=== PATIENT | female | born 1995 | race Caucasian/White ===

== ENCOUNTER 2024-04-20 12:20 | Emergency (ER) | payer OTHER, SELFPAY ==
[2024-04-20 12:21] VITALS: BP 153/109; PULSE 72; RESP 18; TEMP 35.6; O2SAT 100; BMI 45.7
[2024-04-20 12:55] LABS: Bacteria 0 SEEN /hpf (None Seen); Mucous, Urine 0 SEEN /hpf (<or=2+); Red Blood Cells-Urine 0 SEEN /hpf (0-5); White Blood Cells 0 SEEN /hpf (0-5)
[2024-04-20 13:00] LABS: Absolute Lymphocyte Count 2.23 X10^3/uL (0.83-4.51); Absolute Neutrophil Count 7.2 X10^3/uL (2.0-7.7); Basophil# 0.06 X10^3/uL; Basophil% 0.6 % (0-1); Eosinophil# 0.08 X10^3/uL; Eosinophils% 0.8 % (0-5); Hematocrit 42.3 % (37-47); Hemoglobin 14.2 g/dL (12.0-15.0); Lymphocyte # 2.23 X10^3/ul (0.83-4.51); Lymphocyte % 21.5 % (19-41); Mean Corp Hgb Conc 33.6 g/dL (32-36); Mean Corpuscular Hgb 29.8 pg (27.0-32.0); Mean Corpuscular Volume 88.7 fL (81-99); Mean Platelet Vol. 9.4 fl (6.2-12.0); Monocyte# 0.74 X10^3/uL; Monocyte% 7.1 % (0-10); NRBC Flagged by Analyzer 0 % (0-5); Neutrophil # 7.17 X10^3/uL (2.7-7.7); Neutrophil % 69.1 % (47-70); Platelet Count 307 K/mm3 (150-450); RBC Distribution Width SD 38.6 fl (35.1-43.9); Red Blood Count 4.77 M/mm3 (4.2-5.4); White Blood Count 10.4 K/mm3 (4.4-11.0)
[2024-04-20 13:02] LABS: Color, Urine Yellow (Yellow); Glucose, Dipstick Normal (Normal); Ketone-Dipstick Negative (Negative); Leukocyte Esterase-Dipstick Negative /ul (Negative); Nitrite-Dipstick Negative (Negative); Occult Blood-Urine 10 /ul (Negative); Protein-Dipstick Negative (Negative); Urine Bilirubin Dipstick Negative (Negative); Urine Clarity Clear (Clear); Urine Urobilinogen Normal (Normal)
[2024-04-20 13:10] LABS: Internal QC Validated? YES +Cl - CLEAR BKGD; Pregnancy, Urine Negative Negative; Record Kit Lot#,Urine Preg 869294; Squamous Epithelial Cells - UA 0-5 SEEN /hpf (5-10)
[2024-04-20 13:17] LABS: ALB/GLOB Ratio 0.7 RATIO (0.9-2.4); AST(SGOT) 12 U/L (15-37); Alanine Aminotransfer ALT/SGPT 23 U/L (13-56); Albumin, Serum 3.6 g/dL (3.2-5.0); Alkaline Phosphatase 105 U/L (45-117); Anion Gap 6 (5-15); BUN 9 mg/dL (7-18); BUN/Creat Ratio 10.1 RATIO (10-20); Calcium,Total 9.6 mg/dL (8.5-10.1); Chloride 103 mmol/L (98-107); Creatinine, Serum 0.89 mg/dL (0.55-1.02); EST Glomerular Filtration Rate 80 mL/min (>60); Est Glom Filt Rate - Afr Amer 96 mL/min (>60); Estimated Creatinine Clearance 116.25 ml/min; Glucose 106 mg/dL (74-106); Lipase 24 U/L (13-75); Potassium 4.1 mmol/L (3.5-5.1); Protein, Total 8.6 g/dL (6.4-8.2); Sodium Level 137 mmol/L (136-145)
--- NOTE | 2024-04-20 13:36 | CT_ITS ---
STUDY: CT ABDOMEN AND PELVIS WITH CONTRAST REASON FOR EXAM: Female, 28 years old. LLQ pain RADIATION DOSAGE (If Supplied By Facility): CTDIvol = ( 19.24 ) mGy, DLP = ( 1127.94 ) mGycm TECHNIQUE: Transaxial images were obtained from the dome of the diaphragm to the symphysis pubis without oral contrast. IV 100mL Isovue-370 was administered. Sagittal and coronal images were reconstructed. Individualized dose optimization techniques were used for this CT. COMPARISON: None. FINDINGS: The visualized lung bases are unremarkable. The visualized portions of the heart are within normal limits. Normal liver. Normal gallbladder and extrahepatic biliary system. Normal spleen. Normal pancreas. Normal bilateral adrenal glands. Normal right kidney. Normal left kidney. Normal visualized stomach. Normal small intestine. There are scattered colonic diverticula consistent with diverticulosis. The appendix is visualized and appears normal. Normal abdominal aorta. Normal inferior vena cava. Normal retroperitoneum. Normal urinary bladder. Normal abdominal wall. Normal osseous structures. CT/Abdomen/Pelvis W IV Cont ONLY IMPRESSION: Scattered sigmoid diverticulosis. Electronically Signed: Tino Crooks MD at 14:59 EDT ,
[2024-04-20] MEDS: Morphine 4 MG/ML Syringe IV (13:40)
[2024-04-20] MEDS: Metoclopramide 10 MG/2 ML Vial 5 MG IV (13:40)
[2024-04-20 14:20] VITALS: BP 112/87
[2024-04-20 15:32] VITALS: BP 112/87; PULSE 72; RESP 16; TEMP 36.6; O2SAT 99
--- NOTE | 2024-04-20 15:32 | EDS_ITS ---
HPI History of Present Illness Chief Complaint: Abd Pain Narrative Narrative: Patient is a 20-year-old female with past medical history anxiety, depression who presented to the emergency department with a chief complaint of abdominal pain nausea vomiting. Patient states that she has been sick for the past couple days with her symptoms. Patient denies any sick contacts. Patient denies any previous abdominal surgeries. She states that her pain is in the left side of her abdomen. [facility] Medical History Depression Anxiety Home Medications ?Medication ?Instructions ?Recorded ?Last Taken ?Type metoclopramide HCl 5 mg tablet 5 mg PO Q6H PRN nausea and 04/20/24 Unknown Rx vomiting 5 days #20 tabs Allergy/AdvReac Type Severity Reaction Status Date / Time No Known Allergies Allergy Verified 04/20/24 12:24 Family History no significant family his Social History Smoking Status: Current some day smoker tobacco type: e-cigarettes ROS ROS ED ROS Narrative Constitutional: Denies any fevers, chills, headaches, lightness, dizziness Abdomen: Complains of abdominal pain nausea vomiting diarrhea as noted above : Denies any pain phonation, hematuria, labia Neurological: Denies numbness, weakness, tingling Musculoskeletal: Denies back pain Skin: Denies rashes or lesions EXAM Physical Exam Narrative Exam Narrative: General: Patient lying in bed rest comfortably did not appear to be in acute distress Head: Atraumatic, normocephalic Eyes: PERRL bilaterally, EOMI bilateral, no conjunctival injection noted Neck: Soft, supple, trachea midline Cardiovascular: Regular rate and rhythm no murmurs gallops rubs noted Respiratory: Clear to auscultation bilaterally Abdomen: Soft, nondistended, tender to palpation diffusely throughout their abdomen no rebound or guarding on exam Extremities: +5/5 strength noted in the bilateral lower extremities Neurological: Patient following commands knew that she was at [facility] years 2023 Skin: Warm, dry, intact Const Vital Signs: 04/20/24 12:21 04/20/24 14:20 Temperature 96.1 F L Temperature Source Temporal Pulse Rate 72 Respiratory Rate 18 Blood Pressure 153/109 H 112/87 H Blood Pressure Mean 123 95 Pulse Ox 100 Oxygen Delivery Method Room Air MDM MDM MDM Narrative Medical decision making narrative: Patient is a 20-year-old female who presented to the emergency department chief complaint of abdominal pain nausea vomiting diarrhea. Patient will have a workup performed here on the differential diagnose includes but not limited to viral gastroenteritis, appendicitis, pancreatitis, diverticulitis. Once workup is obtained reviewed she will be reevaluated. Patient be given morphine and Zofran. Patient CBC reviewed and was largely unremarkable no evidence of leukocytosis wh ite blood count normal at 10.4, hemoglobin stable 14.2, platelet count normal at 307. Patient sodium was normal at 137, potassium normal at 4.1, creatinine normal at 0.89. Patient's AST and ALT were 12 and 23 respectively. Patient's urinalysis did not reveal any evidence of infection and test was negative. Patient CT abdomen pelvis with IV contrast showed scattered sigmoid diverticulosis. On reevaluation the patient she is feeling much better and she would like to go at this point time. She is advised to follow-up with her primary care physician outpatient setting and return with worsening symptoms or concerns. Patient is requesting a new antiemetic be sent to her pharmacy as the Zofran was not helping her at home. She was advised to increase her fiber intake and water in take. She is advised to start with a bland diet and advance as tolerated. All question concerns were answered at bedside. Lab Data Labs: Laboratory Results - last 24 hr 04/20/24 12:35 WBC 10.4 RBC 4.77 Hgb 14.2 Hct 42.3 MCV 88.7 MCH 29.8 MCHC 33.6 RDW Std Deviation 38.6 RDW Coeff of Luis Miguel 12.0 Plt Count 307 MPV 9.4 Immature Gran % (Auto) 0.900 Neut % (Auto) 69.1 Lymph % (Auto) 21.5 [place] % (Auto) 7.1 Eos % (Auto) 0.8 Baso % (Auto) 0.6 Absolute Neuts (auto) 7.2 Absolute Lymphs (auto) 2.23 Nucleated RBC % 0 Sodium 137 Potassium 4.1 Chloride 103 Carbon Dioxide 28.0 Anion Gap 6 BUN 9 Creatinine 0.89 Estim Creat Clear Calc 116.25 Est GFR (MDRD) Af Amer 96 Est GFR (MDRD) Non-Af 80 BUN/Creatinine Ratio 10.1 Glucose 106 Calcium 9.6 Total Bilirubin 0.70 AST 12 L ALT 23 Alkaline Phosphatase 105 Total Protein 8.6 H Albumin 3.6 Globulin 5.0 H Albumin/Globulin Ratio 0.7 L Lipase 24 Urine Color Yellow Urine Clarity Clear Urine pH 7.0 Ur Specific [place] 1.010 Urine Protein Negative Urine Glucose (UA) Normal Urine Ketones Negative Urine Occult Blood 10 H Urine Nitrite Negative Urine Bilirubin Negative Urine Urobilinogen Normal Ur Leukocyte Esterase Negative Urine RBC 0 SEEN Urine WBC 0 SEEN Ur Squamous Epith Cells 0-5 SEEN Urine Bacteria 0 SEEN Urine Mucus 0 SEEN Urine Test Negative Radiography Diagnostic Testing: Clinical Impression(s) from Imaging Studies Abdomen/Pelvis CT 04/20/24 13:36 IMPRESSION: Scattered sigmoid diverticulosis. Electronically Signed: Tino Crooks MD at 14:59 EDT , Discharge Plan Triage Chief Complaint: Abd Pain ED Provider: Javy Tai Dx/Rx/DC Orders Clinical Impression: Viral gastritis, Abdominal pain Prescriptions: New metoclopramide HCl 5 mg tablet 5 mg PO Q6H PRN (Reason: nausea and vomiting) 5 Days Qty: 20 0RF Primary Care Provider: Kate Sarabia NP Referrals: Kate Sarabia NP, [employer] [Primary Care Provider] - Activity Restrictions/Additional Instructions: Follow-up with your primary care physician outpatient setting. Return with worsening symptoms or concerns. Start with a bland diet and advance as tolerated. Use the antinausea medication though sent to your pharmacy as needed. Increase fiber intake as discussed here. Print Language: Tanzanian Disposition Disposition: Home, Self Care
== END 2024-04-20 15:41 | disposition home or self-care (01) ==
PROVIDERS: Emergency Provider Emergency Medicine; PCP Nurse Practitioner Family; Visit Provider Emergency Medicine
DX: A08.4 Viral intestinal infection, unspecified (principal); F41.9 Anxiety disorder, unspecified; K57.30 Diverticulosis of large intestine without perforation or abscess without bleeding; F17.290 Nicotine dependence, other tobacco product, uncomplicated; F32.A Depression, unspecified
CPT/HCPCS: 74177; 80053; 81001; 81025; 83690; 85025; 87631; 87651; 96374; 96375; 99282; Q9967; A4216

== ENCOUNTER 2024-06-29 17:59 | Emergency (ER) | payer OTHER, SELFPAY ==
[2024-06-29 18:00] VITALS: BP 121/83; PULSE 70; RESP 16; TEMP 36.3; O2SAT 100; BMI 44.1
--- NOTE | 2024-06-29 18:22 | EDS_ITS ---
HPI <ANA Leal - Last Filed: 06/29/24 20:13> History of Present Illness Chief Complaint: Hypertension Narrative Narrative: Patient is a 28-year-old female with history of anxiety who presents to the emergency department for palpitations, feeling of dizziness, anxiety. Patient states of the last 2 days, she has been feeling hot and cold, she been having intermittent palpitations. She states she has been worked up for this. Patient states today at work, she fell like she was going to pass out, she felt very anxious and had the nurses at the facility take her blood pressure, the blood pressure was 155/111, they continue to go up. Patient denies any recent cough or congestion. Here for evaluation. PFSH <ANA Leal - Last Filed: 06/29/24 20:13> [facility] Medical History Depression Anxiety Home Medications ?Medication ?Instructions ?Recorded ?Last Taken ?Type norethindrone (contraceptive) 0.35 0.35 mg PO DAILY 06/29/24 Unknown History mg tablet (Incassia) Allergy/AdvReac Type Severity Reaction Status Date / Time amoxicillin Allergy Mild Vomiting Verified 06/29/24 18:06 azithromycin (From Zithromax Allergy Mild Hives Verified 06/29/24 18:06 Z-Jovanny) Penicillins (PCN) Allergy Mild Hives Verified 06/29/24 18:06 Family History no significant family his Social History Smoking Status: Current some day smoker tobacco type: e-cigarettes ROS <ANA Leal - Last Filed: 06/29/24 20:13> ROS ED ROS Narrative Constitutional: Negative for fever, chills, weight loss. Positive weakness Eyes: Negative for vision loss, vision change, double vision ENT: Negative for any sore throat, ear pain, congestion Cardiovascular: Negative for any chest pain.positive for chest tightness, palpitations Respiratory: Negative for any cough, sputum production, hemoptysis, dyspnea, dyspnea on exertion, orthopnea Gastrointestinal: Negative for any abdominal pain, nausea, vomiting, diarrhea, constipation, blood in stool, blood in vomit : Negative for any urinary frequency, dysuria, retention, blood in urine Muscle skeletal: Negative for any neck pain, back pain Neurological: Negative for any headache, syncope. Positive for dizziness Skin: Negative for any rashes, itching, abrasions, lacerations Psychiatric: Negative for any depression, anxiety, stress, suicidal ideation, homicidal ideation Hematologic: Negative for any excessive bruising, easy bleeding EXAM <ANA Leal - Last Filed: 06/29/24 20:13> Physical Exam Narrative Exam Narrative: Vital signs reviewed. Patient's vital signs are stable, patient is slightly tearful. HEET: Head normocephalic atraumatic, TMs clear bilaterally. Posterior pharynx is clear, moist mucous membranes. Nares clear bilaterally. Neck: Supple with no lymphadenopathy or tenderness. No signs of meningismus. Cardiac: Regular rate and rhythm no murmurs gallops or rubs, equal peripheral pulses bilaterally. Respiratory: Lungs clear to auscultation bilaterally. No chest tenderness. Abdomen: Soft, nontender, nondistended. No abdominal bruit or pulsatile masses. No hepatosplenomegaly Extremities: No peripheral edema, no signs of gross trauma or deformity. Active full range of motion of all extremities. Neuro: Cranial nerves II through XII intact, no focal neurological deficits. Skin: Clean dry and intact with no rash, purpura, petechiae, vesicles or pustules. Backs/flank: No CVA tenderness, no midline spinal tenderness, no deformity. Psych: Normal mood and affect. No SI, HI or acute psychosis. Const Vital Signs: 06/29/24 18:00 06/29/24 18:46 06/29/24 20:00 Temperature 97.4 F L Temperature Source Temporal Pulse Rate 70 77 Respiratory Rate 16 18 Respiratory Effort Normal Non-Labored Respiratory Pattern Normal Blood Pressure 121/83 H 124/86 H Blood Pressure Mean 95 98 Pulse Ox 100 99 Oxygen Delivery Method Room Air <Dr. Bernardo Wong MD - Last Filed: 06/29/24 21:35> Physical Exam Const Vital Signs: 06/29/24 18:00 06/29/24 18:46 06/29/24 20:00 Temperature 97.4 F L Temperature Source Temporal Pulse Rate 70 77 Respiratory Rate 16 18 Respiratory Effort Normal Non-Labored Respiratory Pattern Normal Blood Pressure 121/83 H 124/86 H Blood Pressure Mean 95 98 Pulse Ox 100 99 Oxygen Delivery Method Room Air MDM <Saji Grider ANA - Last Filed: 06/29/24 20:13> [facility] Lab Data Labs: Laboratory Results - last 24 hr 06/29/24 06/29/24 19:35 20:53 WBC 11.2 H RBC 4.60 Hgb 13.9 Hct 40.8 MCV 88.7 MCH 30.2 MCHC 34.1 RDW Std Deviation 39.3 RDW Coeff of Luis Miguel 12.1 Plt Count 283 MPV 9.2 Immature Gran % (Auto) 0.500 Neut % (Auto) 76.6 H Lymph % (Auto) 17.9 L [place] % (Auto) 4.4 Eos % (Auto) 0.3 Baso % (Auto) 0.3 Absolute Neuts (auto) 8.6 H Absolute Lymphs (auto) 2.01 Nucleated RBC % 0 Sodium 138 Potassium 3.8 Chloride 107 Carbon Dioxide 27.0 Anion Gap 4 L BUN 7 Creatinine 0.66 Estim Creat Clear Calc 153.49 Est GFR (MDRD) Af Amer 136 Est GFR (MDRD) Non-Af 112 BUN/Creatinine Ratio 10.6 Glucose 98 Calcium 9.4 Urine Color Yellow Urine Clarity Clear Urine pH 6.5 Ur Specific [place] 1.005 Urine Protein Negative Urine Glucose (UA) Normal Urine Ketones Negative Urine Occult Blood 50 H Urine Nitrite Negative Urine Bilirubin Negative Urine Urobilinogen Normal Ur Leukocyte Esterase Negative Urine RBC 0-5 SEEN Urine WBC 0 SEEN Ur Squamous Epith Cells 0-5 SEEN Urine Bacteria 0 SEEN Urine Mucus 0 SEEN Urine Test Negative EKG Sinus rhythm: Attestation: I personally reviewed and interpreted this EKG as follows: Comments: Normal sinus rhythm with sinus arrhythmia, rate of 65 bpm WI 148 ms, QRS duration [address] elevation, no acute infarct noted. Treatment and Re-Evaluation :: Differential diagnosis includes however is not limited to: Anxiety, ACS, POTS, episodic hypertension Patient appears generally well, vital signs are stable, patient is nontoxic- appearing. Presenting to the emergency department for complaints of feeling faint, chest pressure, palpitations. Patient is here for evaluation. Patient will receive 1 mg of oral Ativan. On reevaluation,The patient had minimal improvement. Patient's CBC shows slight leukocytosis white blood count 1.2, chemistries were unremarkable. At this time, patient is stable for discharge. Patient instructed to follow-up outpatient. All questions answered, stable for discharge. <Dr. Bernardo Wong MD - Last Filed: 06/29/24 21:35> [facility] MDM Narrative Medical decision making narrative: I have personally performed a face to face assessment of the patient and have reviewed the LEOBARDO Note. I performed a substantive portion of the visit including all aspects of the following. My olivares findings include: History is 28-year-old female history of anxiety. States has been having palpitations. Says her blood pressures have been labile at times are 128 oh times or higher. She denies any vomiting or diarrhea. No fever. No dysuria. She was seen 2 months ago had a significant workup and her blood work was unremarkable. She has no cardiac history. No history of DVT or PE. No significant risk factors for that. No leg pain or swelling. Exam is [well-appearing 28-year-old female anxious. Significant other at [facility]. H EENT exam unremarkable. Neck nontender. No JVD. No lymphadenopathy. Lungs clear to auscultation bilaterally. Heart regular rate and rhythm rate about 70 no murmur. Chest wall ribs nontender. Abdomen soft nontender. Normal bowel sounds without peritoneal signs. Moving all 4 extremities. 5/5 music engineer strength. Dorsi plantarflexion intact. Calves are nontender without edema or cords. Back nontender. Neurologically she is awake alert no focal motor deficits.] Medical Decision Making [Young female with a multitude of symptoms all could be secondary to anxiety. She is a completely normal exam. She had recent blood work that was unremarkable. Very give her a dose of Ativan and reassess her. We Argun obtain an EKG.] Other additions or changes: [Prior to discharge patient noticed her white count was just barely above normal. She was concerned she might have a UTI and asked if we would check a UA. UA was negative. As was urine test. Repeat exam at 9:30 PM patient is awake alert. Exam is unchanged. Her vital signs are stable. Lungs are clear. Heart regular rhythm rate about 75. Abdomen is nontender. I think this is all secondary to anxiety. She will follow-up with her primary care physician.] History & Record Review Discussion w/independent historian: Patient and Family Additional record(s) reviewed:: Prior inpatient record, Prior outpatient record, Prior ED visit and Prior labs Lab Data Attestation: I reviewed the patient's lab results. Lab results narrative: CBC shows white count 11.2. H&H 13.9 and 40. Platelets 283. Electrolytes unremarkable. Gap 4. Normal BUN of 7 creatinine 0.6. Glucose 98. UA negative. Urine test negative. Labs: Laboratory Results - last 24 hr 06/29/24 06/29/24 19:35 20:53 WBC 11.2 H RBC 4.60 Hgb 13.9 Hct 40.8 MCV 88.7 MCH 30.2 MCHC 34.1 RDW Std Deviation 39.3 RDW Coeff of Luis Miguel 12.1 Plt Count 283 MPV 9.2 Immature Gran % (Auto) 0.500 Neut % (Auto) 76.6 H Lymph % (Auto) 17.9 L [place] % (Auto) 4.4 Eos % (Auto) 0.3 Baso % (Auto) 0.3 Absolute Neuts (auto) 8.6 H Absolute Lymphs (auto) 2.01 Nucleated RBC % 0 Sodium 138 Potassium 3.8 Chloride 107 Carbon Dioxide 27.0 Anion Gap 4 L BUN 7 Creatinine 0.66 Estim Creat Clear Calc 153.49 Est GFR (MDRD) Af Amer 136 Est GFR (MDRD) Non-Af 112 BUN/Creatinine Ratio 10.6 Glucose 98 Calcium 9.4 Urine Color Yellow Urine Clarity Clear Urine pH 6.5 Ur Specific [place] 1.005 Urine Protein Negative Urine Glucose (UA) Normal Urine Ketones Negative Urine Occult Blood 50 H Urine Nitrite Negative Urine Bilirubin Negative Urine Urobilinogen Normal Ur Leukocyte Esterase Negative Urine RBC 0-5 SEEN Urine WBC 0 SEEN Ur Squamous Epith Cells 0-5 SEEN Urine Bacteria 0 SEEN Urine Mucus 0 SEEN Urine Test Negative Discharge Plan Triage Chief Complaint: Hypertension ED Midlevel Provider: Saji Grider ED Provider: Bernardo Wong Dx/Rx/DC Orders Clinical Impression: Anxiety Instructions: ED Anxiety Reaction Prescriptions: No Action norethindrone (contraceptive) [Incassia] 0.35 mg tablet 0.35 mg PO DAILY Primary Care Provider: Kate Sarabia NP Referrals: Kate Sarabia NP, [employer] [Primary Care Provider] - 3-5 Days if not improving Activity Restrictions/Additional Instructions: Follow-up with your primary care provider as needed. Print Language: Guamanian Disposition Disposition: Home, Self Care
[2024-06-29] MEDS: LORazepam 1 MG Tablet PO (18:44)
--- NOTE | 2024-06-29 18:44 | EKG12_ITS ---
Test Reason : DYSRHYTHMIA Blood Pressure : */* mmHG Vent. Rate : 65 BPM Atrial Rate : 65 BPM P-R Int : 148 ms QRS Dur : 82 ms QT Int : 394 ms P-R-T Axes : 38 41 15 degrees QTcB Int : 409 ms Normal sinus rhythm with sinus arrhythmia Normal ECG No previous ECGs available Confirmed by JA ORELLANA, HEENA ([id number]), field map editor CHANTAL NOVA ([id number]) on 07/03/2024 8:38:07 AM Referred By: Confirmed By: HEENA RCOHA MD
[2024-06-29 19:43] LABS: Absolute Lymphocyte Count 2.01 X10^3/uL (0.83-4.51); Absolute Neutrophil Count 8.6 X10^3/uL (2.0-7.7); Basophil# 0.03 X10^3/uL; Basophil% 0.3 % (0-1); Eosinophil# 0.03 X10^3/uL; Eosinophils% 0.3 % (0-5); Hematocrit 40.8 % (37-47); Hemoglobin 13.9 g/dL (12.0-15.0); Lymphocyte # 2.01 X10^3/ul (0.83-4.51); Lymphocyte % 17.9 % (19-41); Mean Corp Hgb Conc 34.1 g/dL (32-36); Mean Corpuscular Hgb 30.2 pg (27.0-32.0); Mean Corpuscular Volume 88.7 fL (81-99); Mean Platelet Vol. 9.2 fl (6.2-12.0); Monocyte# 0.49 X10^3/uL; Monocyte% 4.4 % (0-10); NRBC Flagged by Analyzer 0 % (0-5); Neutrophil # 8.62 X10^3/uL (2.7-7.7); Neutrophil % 76.6 % (47-70); Platelet Count 283 K/mm3 (150-450); RBC Distribution Width CV 12.1 % (11.6-14.6); RBC Distribution Width SD 39.3 fl (35.1-43.9); White Blood Count 11.2 K/mm3 (4.4-11.0)
[2024-06-29] MEDS: Ketorolac 15 MG/ML Vial IV (19:53)
[2024-06-29] MEDS: 0.9% Normal Saline (1000mL) 1,000 ML 999 ML IV (19:53)
[2024-06-29 19:56] LABS: Anion Gap 4 (5-15); BUN 7 mg/dL (7-18); BUN/Creat Ratio 10.6 RATIO (10-20); Calcium,Total 9.4 mg/dL (8.5-10.1); Chloride 107 mmol/L (98-107); Creatinine, Serum 0.66 mg/dL (0.55-1.02); EST Glomerular Filtration Rate 112 mL/min (>60); Est Glom Filt Rate - Afr Amer 136 mL/min (>60); Estimated Creatinine Clearance 153.49 ml/min; Glucose 98 mg/dL (74-106); Potassium 3.8 mmol/L (3.5-5.1); Sodium Level 138 mmol/L (136-145)
[2024-06-29 20:00] VITALS: BP 124/86; PULSE 77; RESP 18; O2SAT 99
[2024-06-29 21:16] LABS: Bacteria 0 SEEN /hpf (None Seen); Mucous, Urine 0 SEEN /hpf (<or=2+); White Blood Cells 0 SEEN /hpf (0-5)
[2024-06-29 21:18] LABS: Color, Urine Yellow (Yellow); Glucose, Dipstick Normal (Normal); Ketone-Dipstick Negative (Negative); Leukocyte Esterase-Dipstick Negative /ul (Negative); Nitrite-Dipstick Negative (Negative); Occult Blood-Urine 50 /ul (Negative); Protein-Dipstick Negative (Negative); Specific Gravity, Urine 1.005 (1.002-1.030); Urine Bilirubin Dipstick Negative (Negative); Urine Clarity Clear (Clear); Urine Urobilinogen Normal (Normal); Urine pH 6.5 (5.0 - 8.0)
[2024-06-29 21:27] LABS: Internal QC Validated? YES +Cl - CLEAR BKGD; Pregnancy, Urine Negative Negative; Red Blood Cells-Urine 0-5 SEEN /hpf (0-5); Squamous Epithelial Cells - UA 0-5 SEEN /hpf (5-10)
[2024-06-29 21:42] VITALS: BP 126/78; PULSE 79; RESP 16; TEMP 37; O2SAT 100
== END 2024-06-29 21:43 | disposition home or self-care (01) ==
PROVIDERS: Nurse Practitioner; Emergency Provider Emergency Medicine; PCP Nurse Practitioner Family; Visit Provider Emergency Medicine
DX: F41.9 Anxiety disorder, unspecified (principal); I10 Essential (primary) hypertension; R00.2 Palpitations; F17.290 Nicotine dependence, other tobacco product, uncomplicated
CPT/HCPCS: 80048; 81001; 81025; 85025; 93005; 96361; 96374; 99283; A4216

== ENCOUNTER 2025-01-24 05:36 | Emergency (ER) | payer OTHER, SELFPAY ==
[2025-01-24 05:37] VITALS: BP 126/76; PULSE 86; RESP 16; TEMP 36.6; O2SAT 100; BMI 47.3
--- NOTE | 2025-01-24 06:14 | US_ITS ---
PROCEDURE: TRANSVAGINAL NON- 01/24/2025 REASON FOR EXAM: PELVIC PAIN Recent ectopic treated with methotrexate. TECHNIQUE: TRANSVAGINAL NON- COMPARISON: None FINDINGS: Measurements: Uterus: 9.4 cm x 5.1 cm x 3.8 cm with a volume of 93.75 mL Endometrial Thickness: 5.4 mm. It is trilaminar in appearance. Right Ovary: 3.2 cm x 2.7 cm x 2.1 cm with a volume of 9.14 mL. Left Ovary: 2.7 cm x 2.1 cm x 1.9 cm with a volume of 5.59 mL. Uterus: There is a 1.7 cm x 1.9 cm x 1.4 cm fibroid in the region of the left cornua. Endometrium: Unremarkable. Right ovary: Normal size and echotexture. Left ovary: Normal size and echotexture. Other: There is a 1.3 cm by 1.2 cm complex density superior to the left ovary. This may represent the area of prior ectopic. HCG correlation recommended. US/Transvaginal Non- IMPRESSION: 1.3 cm x 1.2 cm complex density superior to the left ovary. Correlation with H CG recommended for further evaluation. Reading Location: [facility]-
--- NOTE | 2025-01-24 06:14 | US_ITS ---
PROCEDURE: TRANSVAGINAL NON- 01/24/2025 REASON FOR EXAM: PELVIC PAIN Recent ectopic treated with methotrexate. TECHNIQUE: TRANSVAGINAL NON- COMPARISON: None FINDINGS: Measurements: Uterus: 9.4 cm x 5.1 cm x 3.8 cm with a volume of 93.75 mL Endometrial Thickness: 5.4 mm. It is trilaminar in appearance. Right Ovary: 3.2 cm x 2.7 cm x 2.1 cm with a volume of 9.14 mL. Left Ovary: 2.7 cm x 2.1 cm x 1.9 cm with a volume of 5.59 mL. Uterus: There is a 1.7 cm x 1.9 cm x 1.4 cm fibroid in the region of the left cornua. Endometrium: Unremarkable. Right ovary: Normal size and echotexture. Left ovary: Normal size and echotexture. Other: There is a 1.3 cm by 1.2 cm complex density superior to the left ovary. This may represent the area of prior ectopic. HCG correlation recommended. US/Transvaginal Non- IMPRESSION: 1.3 cm x 1.2 cm complex density superior to the left ovary. Correlation with H CG recommended for further evaluation. Reading Location: [facility]
[2025-01-24 06:19] LABS: Mucous, Urine 0 SEEN /hpf (<or=2+); Red Blood Cells-Urine 0 SEEN /hpf (0-5)
[2025-01-24 06:21] LABS: Hematocrit 38.0 % (37-47); Hemoglobin 13.1 g/dL (12.0-15.0); Immature Granulocytes Count 0.120 X10^3/uL (0.0-0.0); Mean Corp Hgb Conc 34.5 g/dL (32-36); Mean Corpuscular Volume 89.4 fL (81-99); Mean Platelet Vol. 9.3 fl (6.2-12.0); NRBC Flagged by Analyzer 0 % (0-5); Platelet Count 313 K/mm3 (150-450); RBC Distribution Width CV 12.3 % (11.6-14.6); RBC Distribution Width SD 39.8 fl (35.1-43.9); Red Blood Count 4.25 M/mm3 (4.2-5.4); White Blood Count 10.3 K/mm3 (4.4-11.0)
[2025-01-24 06:25] LABS: Color, Urine Yellow (Yellow); Glucose, Dipstick Normal (Normal); Ketone-Dipstick Negative (Negative); Leukocyte Esterase-Dipstick Negative /ul (Negative); Nitrite-Dipstick Negative (Negative); Occult Blood-Urine 50 /ul (Negative); Protein-Dipstick Negative (Negative); Specific Gravity, Urine 1.015 (1.002-1.030); Urine Bilirubin Dipstick Negative (Negative)
--- OUTSIDE RECORDS SUMMARY | 2025-01-24 06:25 | XMS RPT_ITS | CCD ---
Author Organization [facility] Care Team Providers Care Swage Toolsetter Name Role Phone RICARDO BELTRAN Attending Unavailable SREEKUMAR, KIRBY Primary Care Unavailable RICARDO BELTRAN Attending Unavailable SREEKUMAR, KIRBY Primary Care Unavailable Trill TRIMMING OPERATOR.Eddie ARRIAGA Primary Care Provider Trill TRIMMING OPERATOR.Eddie ARRIAGA Primary Care Provider Trill TRIMMING OPERATOR.Eddie ARRIAGA Primary Care Provider Trill TRIMMING OPERATOR.Eddie ARRIAGA Primary Care Provider Bernardo Wong Attending Unavailable Trill BEEF BONER, Eddie Primary Care Unavailable Javy Tai Attending Unavailable Trill BEEF BONER, Eddie Primary Care Unavailable JESS THAYER Referring Unavailable TRILL, EDDIE C Primary Care Unavailable MARKUS OROE Referring Unavailable TRILL, EDDIE C Primary Care Unavailable KATHERINE ORO Admitting Unavailable KATHERINE ORO Attending Unavailable TRILL, EDDIE C Primary Care Unavailable LEATHA RODRIGUEZ Admitting Unavailable LEATHA RODRIGUEZ Attending Unavailable TRILL, EDDIE C Primary Care Unavailable TRILL, EDDIE C Primary Care Unavailable TRILL, EDDIE C Primary Care Unavailable TRILL, EDDIE C Primary Care Unavailable TRILL, EDDIE C Primary Care Unavailable MARKUS OROE Attending Unavailable PREETHI KATHERINE Referring Unavailable TRILL, EDDIE C Primary Care Unavailable TRILL, EDDIE C Primary Care Unavailable TRILL, EDDIE C Primary Care Unavailable LEATHA RODRIGUEZ Attending Unavailable TRILL, EDDIE C Primary Care Unavailable TRILL, EDDIE C Primary Care Unavailable KEKE PABLO Attending Unavailable TRILL, EDDIE C Referring Unavailable RUBY WILSON Attending Unavail able TRILL, EDDIE C Primary Care Unavailable TRILL, EDDIE C Primary Care Unavailable JESS THAYER Attending Unavailable TRILL, EDDIE C Referring Unavailable TRILL, EDDIE C Primary Care Unavailable TRILL, EDDIE C Primary Care Unavailable TRILL, EDDIE C Primary Care Unavailable Unavailable Primary Care Provider Unavailabl e TRILL, EDDIE C Primary Care Unavailable TRILL, EDDIE C Referring Unavailable HORATTAMARCUS Nickerson Attending Unavailable TRILL, EDDIE C Primary Care Unavailable TRILL, EDDIE C Primary Care Unavailable NICHOLEATTAPASCUAL NickersonNI Attending Unavailable TRILL, EDDIE C Attending Unavailable TRILL, EDDIE C Primary Care Unavailable TRILL, EDDIE C Primary Care Unavailable TRILL, EDDIE C Attending Unavailable TRILL, EDDIE C Referring Unavailable TRILL, EDDIE C Primary Care Unavailable TRILL, EDDIE C Primary Care Unavailable KATHERINE ORO Referring Unavailable TRILL, EDDIE C Referring Unavailable TRILL, EDDIE C Primary Care Unavailable TRILL, EDDIE C Primary Care Unavailable TRILL, EDDIE C Referring Unavailable TRILL, EDDIE C Attending Unavailable TRILL, EDDIE C Primary Care Unavailable TRILL, EDDIE C Referring Unavailable TRILL, EDIDE C Primary Care Unavailable TRILL, EDDIE C Referring Unavailable QUEDEN, KATIANA A Attending Unavailable TRILL, EDDIE C Primary Care Unavailable TRILL, EDDIE C Primary Care Unavailable TRILL, EDDIE C Primary Care Unavailable SELF Referring Unavailable QUEDEN, KATIANA A Attending Unavailable TRILL, EDDIE C Primary Care Unavailable QUEDEN, KATIANA A Referring Unavailable RAJI, ROSEMARIE M Admitting Unavailable RAJI, ROSEMARIE M Attending Unavailable TRILL, EDDIE C Primary Care Unavailable TRILL, EDDIE C Referring Unavailable TRILL, EDDIE C Primary Care Unavailable TRILL, EDDIE C Primary Care Unavailable TRILL, EDDIE C Referring Unavailable TRILL, EDDIE C Primary Care Unavailable MARKUS OROE Referring Unavailable TRILL, EDDIE C Primary Care Unavailable TRILL, EDDIE C Attending Unavailable KOSTAS HOPKINS Referring Unavailable KOSTAS HOPKINS Attending Unavailable KOSTAS HOPKINS Referring Unavailable KOSTAS HOPKINS Attending Unavailable WESTON ARMSTRONG Admitting Unavailable WESTON ARMSTRONG Attending Unavailable KOSTAS HOPKINS Attending Unavailable KOSTAS HOPKINS Attending Unavailable Allergies Allergy Classification Reported Allergen(s) Allergy Type Date of Onset Reaction(s) Facility Macrolides (antibiotic) (2 sources) Clarithromycin Drug Allergy 01-24-20 15 [facility] ([facility] source) Onion extract Drug Allergy 07-28-19 19 [facility] Penicillins (antibiotic) (2 sources) Amoxicillin Drug Allergy 01-24-20 15 Hives, GI Ups[facility] (20 sources) Amoxicillin; Translations: [AMOXICILLIN] Drug Allergy 01-24-20 15 [facility] (20 sources) Azithromycin; Translations: [AZITHROMYCIN] Drug Allergy 02-07-20 16 [facility] (20 sources) Clarithromycin; Translations: [CLARITHROMYCIN] Drug Allergy 01-24-20 15 Vomiting (20 sources) Onion extract; Translations: [ONION] Drug Allergy 07-28-19 19 [facility] (9 sources) Penicillins; Translations: [PENICILLINS] Drug Allergy 02-17-20 18 Hives, GI Upset Work Phone: (20 sources) Penicillins Drug Allergy 02-17-20 18 Hives, GI [facility] Work Phone: (20 sources) egg extract; Translations: [EGG] Drug Allergy 04-10-20 24 [facility] (1 source) Amoxicillin Drug Allergy 06-29-20 [facility] Repository (1 source) Azithromycin Drug Allergy 06-29-20 [facility] Repository (1 source) Penicillins Drug allergy (disorder) 06-29-20 24 [facility] Repository (7 sources) Penicillins Drug Allergy 02-17-20 18 [facility] Clarithromycin Propensity to adverse reactions 01-24-20 15 Nausea And Vomiting [facility] (14 sources) Egg Propensity to adverse reactions 04-10-20 24 Nausea And Vomiting [facility] (14 sources) Onion extract Drug Allergy 07-28-19 19 [facility] (14 sources) Penicillins Drug Allergy 01-24-20 15 Nausea And Vomiting, [facility]ausea [facility] Medications Current Medications Medication Drug Class(es) Dates Sig (Normalized) Sig (Original) cefdinir 300 mg oral capsule (2 sources) Cephalosporin Antibacterial Start: 10-10-2024 End: 10-20-2024 take 1 capsule by mouth twice daily cefdinir (OMNICEF) 300 mg capsule Indications: Acute non-recurrent streptococcal tonsillitis Take 1 capsule by mouth two times a day for 10 days. 20 capsule 10/10/2024 10/20/2024 Active Start: 12-03-2023 End: 12-10-2023 take 1 capsule by mouth twice daily cefdinir (OMNICEF) 300 mg capsule Take 1 capsule by mouth two times a day for 7 days. 14 capsule 0 12/03/2023 12/10/2023 Active cholecalciferol 0.125 mg oral tablet (5 sources) Vitamin D Start: 11-06-2024 End: 11-06-2025 take 1 tablet by mouth once daily cholecalciferol (VITAMIN D-3) 5,000 unit tab Indications: Vitamin D deficiency Take 1 tablet by mouth once daily. 90 tablet 3 11/06/2024 11/06/2025 Active cyclobenzaprine hydrochloride 10 mg oral tablet (14 sources) Muscle Relaxant Start: 06-22-2023 End: 06-27-2023 take 1 tablet by mouth every eight hours as needed cyclobenzaprine (FLEXERIL) 10 mg tablet Take 1 tablet by mouth every 8 hours as needed for up to 5 days. 10 tablet 0 06/22/2023 06/27/2023 Active Start: 07-29-2022 End: 11-09-2022 take 1 tablet by mouth every twelve hours as needed for muscle spasms and muscle spasms cyclobenzaprine (FLEXERIL) 5 mg tablet release of medical or other information is NOT sufficient for this purpose. The Federal rules restrict any use of the information to criminally investigate or prosecute any alcohol or drug abuse patient.In the event this information is protected by the Federal Confidentiality of Alcohol and Drug Abuse Patient Records regulations: The Federal rules restrict any use of the information to criminally investigate or prosecute any alcohol or drug abuse patient.In the event this information is protected by the Federal Confidentiality of Alcohol and Drug Abuse Patient Records regulations: The Federal rules restrict any use of the information to criminally investigate or prosecute any alcohol or drug abuse patient.In the event this information is protected by the Federal Confidentiality of Alcohol and Drug Abuse Patient Records regulations: The Federal rules restrict any use of the information to criminally investigate or prosecute any alcohol or drug abuse patient.In the event this information is protected by the Federal Confidentiality of Alcohol and Drug Abuse Patient Records regulations: The Federal rules restrict any use of the information to criminally investigate or prosecute any alcohol or drug abuse patient.In the event this information is protected by the Federal Confidentiality of Alcohol and Drug Abuse Patient Records regulations: The Federal rules restrict any use of the information to criminally investigate or prosecute any alcohol or drug abuse patient.In the event this information is protected by the Federal Confidentiality of Alcohol and Drug Abuse Patient Records regulations: The Federal rules restrict any use of the information to criminally investigate or prosecute any alcohol or drug abuse patient.In the event this information is protected by the Federal Confidentiality of Alcohol and Drug Abuse Patient Records regulations: The Federal rules restrict any use of the information to criminally investigate or prosecute any alcohol or drug abuse patient.In the event this information is protected by the Federal Confidentiality of Alcohol and Drug Abuse Patient Records regulations: The Federal rules restrict any use of the information to criminally investigate or prosecute any alcohol or drug abuse patient.In the event this information is protected by the Federal Confidentiality of Alcohol and Drug Abuse Patient Records regulations: The Federal rules restrict any use of the information to criminally investigate or prosecute any alcohol or drug abuse patient.In the event this information is protected by the Federal Confidentiality of Alcohol and Drug Abuse Patient Records regulations: The Federal rules restrict any use of the information to criminally investigate or prosecute any alcohol or drug abuse patient.In the event this information is protected by the Federal Confidentiality of Alcohol and Drug Abuse Patient Records regulations: The Federal rules restrict any use of the information to criminally investigate or prosecute any alcohol or drug abuse patient.In the event this information is protected by the Federal Confidentiality of Alcohol and Drug Abuse Patient Records regulations: The Federal rules restrict any use of the information to criminally investigate or prosecute any alcohol or drug abuse patient.In the event this information is protected by the Federal Confidentiality of Alcohol and Drug Abuse Patient Records regulations: The Federal rules restrict any use of the information to criminally investigate or prosecute any alcohol or drug abuse patient.In the event this information is protected by the Federal Confidentiality of Alcohol and Drug Abuse Patient Records regulations: The Federal rules restrict any use of the information to criminally investigate or prosecute any alcohol or drug abuse patient.In the event this information is protected by the Federal Confidentiality of Alcohol and Drug Abuse Patient Records regulations: The Federal rules restrict any use of the information to criminally investigate or prosecute any alcohol or drug abuse patient.In the event this information is protected by the Federal Confidentiality of Alcohol and Drug Abuse Patient Records regulations: The Federal rules restrict any use of the information to criminally investigate or prosecute any alcohol or drug abuse patient.In the event this information is protected by the Federal Confidentiality of Alcohol and Drug Abuse Patient Records regulations: The Federal rules restrict any use of the information to criminally investigate or prosecute any alcohol or drug abuse patient.In the event this information is protected by the Federal Confidentiality of Alcohol and Drug Abuse Patient Records regulations: The Federal rules restrict any use of the information to criminally investigate or prosecute any alcohol or drug abuse patient.In the event this information is protected by the Federal Confidentiality of Alcohol and Drug Abuse Patient Records regulations: The Federal rules restrict any use of the information to criminally investigate or prosecute any alcohol or drug abuse patient.In the event this information is protected by the Federal Confidentiality of Alcohol and Drug Abuse Patient Records regulations: The Federal rules restrict any use of the information to criminally investigate or prosecute any alcohol or drug abuse patient.In the event this information is protected by the Federal Confidentiality of Alcohol and Drug Abuse Patient Records regulations: The Federal rules restrict any use of the information to criminally investigate or prosecute any alcohol or drug abuse patient.In the event this information is protected by the Federal Confidentiality of Alcohol and Drug Abuse Patient Records regulations: The Federal rules restrict any use of the information to criminally investigate or prosecute any alcohol or drug abuse patient.In the event this information is protected by the Federal Confidentiality of Alcohol and Drug Abuse Patient Records regulations: The Federal rules restrict any use of the information to criminally investigate or prosecute any alcohol or drug abuse patient.In the event this information is protected by the Federal Confidentiality of Alcohol and Drug Abuse Patient Records regulations: The Federal rules restrict any use of the information to criminally investigate or prosecute any alcohol or drug abuse patient.In the event this information is protected by the Federal Confidentiality of Alcohol and Drug Abuse Patient Records regulations: The Federal rules restrict any use of the information to criminally investigate or prosecute any alcohol or drug abuse patient.In the event this information is protected by the Federal Confidentiality of Alcohol and Drug Abuse Patient Records regulations: The Federal rules restrict any use of the information to criminally investigate or prosecute any alcohol or drug abuse patient.In the event this information is protected by the Federal Confidentiality of Alcohol and Drug Abuse Patient Records regulations: The Federal rules restrict any use of the information to criminally investigate or prosecute any alcohol or drug abuse patient.In the event this information is protected by the Federal Confidentiality of Alcohol and Drug Abuse Patient Records regulations: The Federal rules restrict any use of the information to criminally investigate or prosecute any alcohol or drug abuse patient.In the event this information is protected by the Federal Confidentiality of Alcohol and Drug Abuse Patient Records regulations: The Federal rules restrict any use of the information to criminally investigate or prosecute any alcohol or drug abuse patient.In the event this information is protected by the Federal Confidentiality of Alcohol and Drug Abuse Patient Records regulations: The Federal rules restrict any use of the information to criminally investigate or prosecute any alcohol or drug abuse patient.In the event this information is protected by the Federal Confidentiality of Alcohol and Drug Abuse Patient Records regulations: The Federal rules restrict any use of the information to criminally investigate or prosecute any alcohol or drug abuse patient.In the event this information is protected by the Federal Confidentiality of Alcohol and Drug Abuse Patient Records regulations: The Federal rules restrict any use of the information to criminally investigate or prosecute any alcohol or drug abuse patient.In the event this information is protected by the Federal Confidentiality of Alcohol and Drug Abuse Patient Records regulations: The Federal rules restrict any use of the information to criminally investigate or prosecute any alcohol or drug abuse patient.In the event this information is protected by the Federal Confidentiality of Alcohol and Drug Abuse Patient Records regulations: The Federal rules restrict any use of the information to criminally investigate or prosecute any alcohol or drug abuse patient.In the event this information is protected by the Federal Confidentiality of Alcohol and Drug Abuse Patient Records regulations: The Federal rules restrict any use of the information to criminally investigate or prosecute any alcohol or drug abuse patient.In the event this information is protected by the Federal Confidentiality of Alcohol and Drug Abuse Patient Records regulations: The Federal rules restrict any use of the information to criminally investigate or prosecute any alcohol or drug abuse patient.In the event this information is protected by the Federal Confidentiality of Alcohol and Drug Abuse Patient Records regulations: The Federal rules restrict any use of the information to criminally investigate or prosecute any alcohol or drug abuse patient.In the event this information is protected by the Federal Confidentiality of Alcohol and Drug Abuse Patient Records regulations: The Federal rules restrict any use of the information to criminally investigate or prosecute any alcohol or drug abuse patient.In the event this information is protected by the Federal Confidentiality of Alcohol and Drug Abuse Patient Records regulations: The Federal rules restrict any use of the information to criminally investigate or prosecute any alcohol or drug abuse patient.In the event this information is protected by the Federal Confidentiality of Alcohol and Drug Abuse Patient Records regulations: The Federal rules restrict any use of the information to criminally investigate or prosecute any alcohol or drug abuse patient.In the event this information is protected by the Federal Confidentiality of Alcohol and Drug Abuse Patient Records regulations: The Federal rules restrict any use of the information to criminally investigate or prosecute any alcohol or drug abuse patient.In the event this information is protected by the Federal Confidentiality of Alcohol and Drug Abuse Patient Records regulations: The Federal rules restrict any use of the information to criminally investigate or prosecute any alcohol or drug abuse patient.In the event this information is protected by the Federal Confidentiality of Alcohol and Drug Abuse Patient Records regulations: The Federal rules restrict any use of the information to criminally investigate or prosecute any alcohol or drug abuse patient.In the event this information is protected by the Federal Confidentiality of Alcohol and Drug Abuse Patient Records regulations: The Federal rules restrict any use of the information to criminally investigate or prosecute any alcohol or drug abuse patient.In the event this information is protected by the Federal Confidentiality of Alcohol and Drug Abuse Patient Records regulations: The Federal rules restrict any use of the information to criminally investigate or prosecute any alcohol or drug abuse patient.In the event this information is protected by the Federal Confidentiality of Alcohol and Drug Abuse Patient Records regulations: The Federal rules restrict any use of the information to criminally investigate or prosecute any alcohol or drug abuse patient.In the event this information is protected by the Federal Confidentiality of Alcohol and Drug Abuse Patient Records regulations: The Federal rules restrict any use of the information to criminally investigate or prosecute any alcohol or drug abuse patient.In the event this information is protected by the Federal Confidentiality of Alcohol and Drug Abuse Patient Records regulations: The Federal rules restrict any use of the information to criminally investigate or prosecute any alcohol or drug abuse patient.In the event this information is protected by the Federal Confidentiality of Alcohol and Drug Abuse Patient Records regulations: The Federal rules restrict any use of the information to criminally investigate or prosecute any alcohol or drug abuse patient.In the event this information is protected by the Federal Confidentiality of Alcohol and Drug Abuse Patient Records regulations: The Federal rules restrict any use of the information to criminally investigate or prosecute any alcohol or drug abuse patient.In the event this information is protected by the Federal Confidentiality of Alcohol and Drug Abuse Patient Records regulations: The Federal rules restrict any use of the information to criminally investigate or prosecute any alcohol or drug abuse patient.In the event this information is protected by the Federal Confidentiality of Alcohol and Drug Abuse Patient Records regulations: The Federal rules restrict any use of the information to criminally investigate or prosecute any alcohol or drug abuse patient.In the event this information is protected by the Federal Confidentiality of Alcohol and Drug Abuse Patient Records regulations: The Federal rules restrict any use of the information to criminally investigate or prosecute any alcohol or drug abuse patient.In the event this information is protected by the Federal Confidentiality of Alcohol and Drug Abuse Patient Records regulations: The Federal rules restrict any use of the information to criminally investigate or prosecute any alcohol or drug abuse patient.In the event this information is protected by the Federal Confidentiality of Alcohol and Drug Abuse Patient Records regulations: The Federal rules restrict any use of the information to criminally investigate or prosecute any alcohol or drug abuse patient.In the event this information is protected by the Federal Confidentiality of Alcohol and Drug Abuse Patient Records regulations: The Federal rules restrict any use of the information to criminally investigate or prosecute any alcohol or drug abuse patient.In the event this information is protected by the Federal Confidentiality of Alcohol and Drug Abuse Patient Records regulations: The Federal rules restrict any use of the information to criminally investigate or prosecute any alcohol or drug abuse patient.In the event this information is protected by the Federal Confidentiality of Alcohol and Drug Abuse Patient Records regulations: The Federal rules restrict any use of the information to criminally investigate or prosecute any alcohol or drug abuse patient.In the event this information is protected by the Federal Confidentiality of Alcohol and Drug Abuse Patient Records regulations: The Federal rules restrict any use of the information to criminally investigate or prosecute any alcohol or drug abuse patient.In the event this information is protected by the Federal Confidentiality of Alcohol and Drug Abuse Patient Records regulations: The Federal rules restrict any use of the information to criminally investigate or prosecute any alcohol or drug abuse patient.In the event this information is protected by the Federal Confidentiality of Alcohol and Drug Abuse Patient Records regulations: The Federal rules restrict any use of the information to criminally investigate or prosecute any alcohol or drug abuse patient.In the event this information is protected by the Federal Confidentiality of Alcohol and Drug Abuse Patient Records regulations: The Federal rules restrict any use of the information to criminally investigate or prosecute any alcohol or drug abuse patient.In the event this information is protected by the Federal Confidentiality of Alcohol and Drug Abuse Patient Records regulations: The Federal rules restrict any use of the information to criminally investigate or prosecute any alcohol or drug abuse patient.In the event this information is protected by the Federal Confidentiality of Alcohol and Drug Abuse Patient Records regulations: The Federal rules restrict any use of the information to criminally investigate or prosecute any alcohol or drug abuse patient.In the event this information is protected by the Federal Confidentiality of Alcohol and Drug Abuse Patient Records regulations: The Federal rules restrict any use of the information to criminally investigate or prosecute any alcohol or drug abuse patient.In the event this information is protected by the Federal Confidentiality of Alcohol and Drug Abuse Patient Records regulations: The Federal rules restrict any use of the information to criminally investigate or prosecute any alcohol or drug abuse patient.In the event this information is protected by the Federal Confidentiality of Alcohol and Drug Abuse Patient Records regulations: The Federal rules restrict any use of the information to criminally investigate or prosecute any alcohol or drug abuse patient.In the event this information is protected by the Federal Confidentiality of Alcohol and Drug Abuse Patient Records regulations: The Federal rules restrict any use of the information to criminally investigate or prosecute any alcohol or drug abuse patient.In the event this information is protected by the Federal Confidentiality of Alcohol and Drug Abuse Patient Records regulations: The Federal rules restrict any use of the information to criminally investigate or prosecute any alcohol or drug abuse patient.In the event this information is protected by the Federal Confidentiality of Alcohol and Drug Abuse Patient Records regulations: The Federal rules restrict any use of the information to criminally investigate or prosecute any alcohol or drug abuse patient.In the event this information is protected by the Federal Confidentiality of Alcohol and Drug Abuse Patient Records regulations: The Federal rules restrict any use of the information to criminally investigate or prosecute any alcohol or drug abuse patient.In the event this information is protected by the Federal Confidentiality of Alcohol and Drug Abuse Patient Records regulations: The Federal rules restrict any use of the information to criminally investigate or prosecute any alcohol or drug abuse patient.In the event this information is protected by the Federal Confidentiality of Alcohol and Drug Abuse Patient Records regulations: The Federal rules restrict any use of the information to criminally investigate or prosecute any alcohol or drug abuse patient.In the event this information is protected by the Federal Confidentiality of Alcohol and Drug Abuse Patient Records regulations: The Federal rules restrict any use of the information to criminally investigate or prosecute any alcohol or drug abuse patient.In the event this information is protected by the Federal Confidentiality of Alcohol and Drug Abuse Patient Records regulations: The Federal rules restrict any use of the information to criminally investigate or prosecute any alcohol or drug abuse patient.In the event this information is protected by the Federal Confidentiality of Alcohol and Drug Abuse Patient Records regulations: The Federal rules restrict any use of the information to criminally investigate or prosecute any alcohol or drug abuse patient.In the event this information is protected by the Federal Confidentiality of Alcohol and Drug Abuse Patient Records regulations: The Federal rules restrict any use of the information to criminally investigate or prosecute any alcohol or drug abuse patient.In the event this information is protected by the Federal Confidentiality of Alcohol and Drug Abuse Patient Records regulations: The Federal rules restrict any use of the information to criminally investigate or prosecute any alcohol or drug abuse patient.In the event this information is protected by the Federal Confidentiality of Alcohol and Drug Abuse Patient Records regulations: The Federal rules restrict any use of the information to criminally investigate or prosecute any alcohol or drug abuse patient. Reason for Visit (unrecogniz ed section and content) Reason Comments No Show Specialty Diagnoses / Procedures Referred By Mouna goldberg Referred To Contact Diagnoses PCOS (polycystic ovarian syndrome) Secondary amenorrhea Procedures CONSULT TO INFERTILITY CLINIC OFFICE/OUTPATIENT [facility] 60-74 MINUTES Ruby Wilson MD [address] [place] [address] Referral ID Status Reason Start Date Expiration Date Visits Requested Visits Authorized [id number] Pending Review PCP Requested Referral Auto-Generate d Referral 10/03/2021 10/03/2022 1 1 Reason Comments Results Reason Comments Cough Dry cough ,sore thro at, headache, vomiting. Temp 102.3. started yesterday. Sore Throat Reason Comments Refill Request Reason Comments Yearly Exam Reason Comments Ear Pain Tate ear pain x1 week Reason Comments Mass Left abdomen. Over a year. 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 Resched ule appt for CPP consult Reason Comments Patient Question Reason Comments ER F/U Kidney stones Reason Comments Pelvic Pain Specialty Diagnoses / Procedures Referred By Mouna goldberg Referred To Contact Diagnoses Pelvic pain in female Abnormal uterine bleeding (AUB) Procedures CONSULT TO WINDOW/DISTRIBUTION CLERK PELVIC PAIN OFFICE/OUTPATIENT [facility] 60-74 MINUTES Ruby Wilson MD [address] [place] [address] Referral ID Status Reason Start Date Expiration Date Visits Requested Visits Authorized [id number] Pending Review PCP Requested Referral Auto-Generate d Referral 10/28/2022 10/28/2023 1 1 Reason Comments Orders Reason Comments Physical Needs form filled ou t. Thinks she might have passed stone declined getting pap today Reason Comments Patient Question Patient Update Reason Onset Date Comments Pre-Op Teaching 01/07/2023 Reason Comments Surgery Cancelled Reason Comments Preparations For Surgery Reason Comments chest tightness On right side . By h er collar bone . Started yesterday . Specialty Diagnoses / Procedures Referred By Contac t Referred To Contact Diagnoses na Procedures na Self Dept Referral ID Status Reason Start Date Expiration Date Visits Requested Visits Authorized [id number] Authorized Patient Cleared - Qualified 100% FAS 02/08/2023 05/09/2023 99 99 Reason Comments No Show First no show in 365 days. Reason Comments Sore Throat With drainage, runny nos x 3 days with cough x today Reason Comments Amenorrhea Reason Comments Urinary Frequency Reason Comments Appointment Reason Comments Referral Request Reason Onset Date Comments ED Outreach 05/31/2023 [facility] 05/27/23 Reason Comments ER F/U Kidney Stones Reason Onset Date Comments ED Outreach 06/23/2023 [facility] 06/22/23 Reason Comments Established Patient Kidney stone Reason Comments Urinary Problem Stomach ache and chi lls x2 days Reason Comments Urinary Problem Possible uti, freque ncy, bladder pain and pressure, burning x 2 days Reason Comments tumors 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 She is also fatigue, and no appetiteShe has been taking tylenol and heating pad Reason Comments F/U 1 month Abdominal pain state s she is not digesting eggs, is vomiting when she eats them, first time it happened it was 2 months ago and thought it was just a bad egg. Last time she ate eggs she had palpitations for hours until she took a benadryl. Abdominal pain has been better since stopping eggs. Reason Comments Lab & Test Results Reason Comments Fatigue Reason Comments Derm Problem Skin cyst - saw PCP in Feb 2024 for soft tissue mass, had US ordered but never completed; Dr. Rodriguez removed lipoma in 2020 but cysts keep popping up. Has 3 currently that are tender and bothering her, lower back, Rt posterior arm, and Lt forearm Specialty Diagnoses / Procedures Referred By Mouna goldberg Referred To Contact General Surgery / GENERAL SURGERY Diagnoses Skin cysts, generalized Procedures CONSULT TO GENERAL SURGERY OFFICE/OUTPATIENT NEW [facility]IGH MDM 60 MINUTES Katiana Diaz APRN.TRUCK SWITCHER [address] [place] [address] Arlene Waldron MD [address] [address] Referral ID Status Reason Start Date Expiration Date V isits Requested Visits Authorized [id number] Closed PCP Requested Referral 11/09/2023 02/07/2024 1 1 Reason Comments New Patient allergies Specialty Diagnoses / Procedures Referred By Mouna goldberg Referred To Contact Allergy / [facility] DEPARTMENT Diagnoses Egg allergy Procedures CONSULT TO ALLERGY/IMMUNOLOGY OFFICE/OUTPATIENT NEW HIGH MDM 60 MINUTES Eddie Sarabia TRIMMING OPERATOR.TRUCK SWITCHER [address] [place] [address] [facility] [address] Referral ID Status Reason Start Date Expiration Date V isits Requested Visits Authorized [id number] Closed PCP Requested Referral 04/12/2024 04/12/2025 1 1 Reason Onset Date Comments Yearly Exam Gardasil Injection 05/31/2024 Reason Comments Palpitations BP has been high, di zziness, headaches, sugar was in the 80-90s, and HR is dropping the 50s Reason Comments Contraception Reason Comments Nausea & Vomiting diarrhea, chills, fe bc and abdominal pressure x 3 days Reason Comments Knee Pain Pain scale: When ins linette 5 outside 7 from the coldDuration: or WednesdayDescription: Slipped and fell on ice and twisted her left leg. It is stinging and burning pain that is shooting up her legTreatment: Tylenol, elevated, Ice, CBD cream Reason Comments CARD New Patient Consult Referred by PCP - Palps, SOB, HTN, dizzinessGiven heart monitor 07/18/24 - no results yet Specialty Diagnoses / Procedures Referred By Contac t Referred To Contact Cardiology / [facility] DEPARTMENT Diagnoses Palpitations Shortness of breath Procedures CONSULT TO CARDIOLOGY OFFICE/OUTPATIENT NEW HIGH MDM 60 MINUTES Eddie Sarabia, CAMMY.TRUCK SWITCHER [address] [place] [address] Liu Hauser MD [address] [place] [address] Referral ID Status Reason Start Date Expiration Date V isits Requested Visits Authorized [id number] Closed PCP Requested Referral 04/10/2024 04/10/2025 1 1 Reason Comments Reminder Call Reason Comments Urinary Frequency burning with urinati on x 2 days, left ear pain and sore throat x 2 days Reason Comments Sore Throat ST, congestion and f ever x 1 day Reason Comments Consult Reason Comments Gas Wondering if she is having a diverticulitis flare up. X 3 days stopped bc thinks BP go up and sugar down/. Reason Comments Results Reason Comments Ectopic Reason Onset Date Comments Vaginal Bleeding - 12/15/2024 Care Teams (unrecognized sec tion and content) Swage Toolsetter Relationship Specialty Start Date End Date Eddie Sarabia APRN.TRUCK SWITCHER [address] [place] [address] PCP - General Family Practice 09/14/19 Swage Toolsetter Relationship Specialty Start Date End Date Eddie Sarabia APRN.TRUCK SWITCHER [address] [place], [place] [id number] PCP - General Family Practice 09/14/19 Swage Toolsetter Relationship Specialty Start Date End Date Eddie Sarabia APRN.TRUCK SWITCHER [address], [place] [id number] PCP - General Family Practice 09/14/19 Swage Toolsetter Relationship Specialty Start Date End Date Eddie Sarabia TRIMMING OPERATOR.TRUCK SWITCHER [address] [place] [address] PCP - General Family Practice 09/14/19 Swage Toolsetter Relationship Specialty Start Date End Date Eddie Sarabia, TRIMMING OPERATOR.TRUCK SWITCHER [address] [place] [address] PCP - General Family Practice 09/14/19 Swage Toolsetter Relationship Specialty Start Date End Date Eddie Sarabia TRIMMING OPERATOR.TRUCK SWITCHER [address] [place] [address] PCP - General Family Medicine 09/14/19 Swage Toolsetter Relationship Specialty Start Date End Date Eddie Sarabia TRIMMING OPERATOR.TRUCK SWITCHER [address] [place] [address] PCP - General Family Medicine 09/14/19 Swage Toolsetter Relationship Specialty Start Date End Date Eddie Sarabia TRIMMING OPERATOR.TRUCK SWITCHER [address] [place] [address] PCP - General Family Medicine 09/14/19 Swage Toolsetter Relationship Specialty Start Date End Date Eddie Sarabia, TRIMMING OPERATOR.TRUCK SWITCHER [address] [place] [address] PCP - General Family Medicine 09/14/19 Swage Toolsetter Relationship Specialty Start Date End Date Eddie Sarabia, TRIMMING OPERATOR.TRUCK SWITCHER [address] [place] [address] PCP - General Family Medicine 09/14/19 Swage Toolsetter Relationship Specialty Start Date End Date Eddie Sarabia, TRIMMING OPERATOR.TRUCK SWITCHER [address] [place] [address] PCP - General Family Medicine 09/14/19 Swage Toolsetter Relationship Specialty Start Date End Date Eddie Sarabia, TRIMMING OPERATOR.TRUCK SWITCHER [address] [place] [address] PCP - General Family Medicine 09/14/19 Swage Toolsetter Relationship Specialty Start Date End Date Eddie Sarabia, TRIMMING OPERATOR.TRUCK SWITCHER [address] [place] [address] PCP - General Family Medicine 09/14/19 Swage Toolsetter Relationship Specialty Start Date End Date Eddie Sarabia, TRIMMING OPERATOR.TRUCK SWITCHER [address] [place] [address] PCP - General Family Medicine 09/14/19 Swage Toolsetter Relationship Specialty Start Date End Date Eddie Sarabia, TRIMMING OPERATOR.TRUCK SWITCHER [address] [place] [address] PCP - General Family Medicine 09/14/19 Swage Toolsetter Relationship Specialty Start Date End Date Eddie Sarabia, TRIMMING OPERATOR.TRUCK SWITCHER [address] [place] [address] PCP - General Family Medicine 09/14/19 Swage Toolsetter Relationship Specialty Start Date End Date Eddie Sarabia, TRIMMING OPERATOR.TRUCK SWITCHER [address] [place] [address] PCP - General Family Medicine 09/14/19 Swage Toolsetter Relationship Specialty Start Date End Date Eddie Sarabia, TRIMMING OPERATOR.TRUCK SWITCHER [address] [place] [address] PCP - General Family Medicine 09/14/19 Swage Toolsetter Relationship Specialty Start Date End Date Eddie Sarabia, TRIMMING OPERATOR.TRUCK SWITCHER [address] [place] [address] PCP - General Family Medicine 09/14/19 Swage Toolsetter Relationship Specialty Start Date End Date Eddie Sarabia TRIMMING OPERATOR.TRUCK SWITCHER [address] [place] [address] PCP - General Family Medicine 09/14/19 Swage Toolsetter Relationship Specialty Start Date End Date Eddie Sarabia TRIMMING OPERATOR.TRUCK SWITCHER [address] [place] [address] PCP - General Family Medicine 09/14/19 Swage Toolsetter Relationship Specialty Start Date End Date Eddie Sarabia TRIMMING OPERATOR.TRUCK SWITCHER [address] [place] [address] PCP - General Family Medicine 09/14/19 Swage Toolsetter Relationship Specialty Start Date End Date Eddie Sarabia TRIMMING OPERATOR.TRUCK SWITCHER [address] [place] [address] PCP - General Family Medicine 09/14/19 Swage Toolsetter Relationship Specialty Start Date End Date Eddie Sarabia TRIMMING OPERATOR.TRUCK SWITCHER [address] [place] [address] PCP - General Family Medicine 09/14/19 Swage Toolsetter Relationship Specialty Start Date End Date Eddie Sarabia TRIMMING OPERATOR.TRUCK SWITCHER [address] [place] [address] PCP - General Family Medicine 09/14/19 Swage Toolsetter Relationship Specialty Start Date End Date Eddie Sarabia TRIMMING OPERATOR.TRUCK SWITCHER [address] [place] [address] PCP - General Family Medicine 09/14/19 Swage Toolsetter Relationship Specialty Start Date End Date Eddie Sarabia TRIMMING OPERATOR.TRUCK SWITCHER [address] [place] [address] PCP - General Family Medicine 09/14/19 Swage Toolsetter Relationship Specialty Start Date End Date Eddie Sarabia TRIMMING OPERATOR.TRUCK SWITCHER [address] [place] [address] PCP - General Family Medicine 09/14/19 Swage Toolsetter Relationship Specialty Start Date End Date Eddie Sarabia TRIMMING OPERATOR.TRUCK SWITCHER [address] [place] [address] PCP - General Family Medicine 09/14/19 Swage Toolsetter Relationship Specialty Start Date End Date Eddie Sarabia TRIMMING OPERATOR.TRUCK SWITCHER [address] [place] [address] PCP - General Family Medicine 09/14/19 Swage Toolsetter Relationship Specialty Start Date End Date Eddie Sarabia, TRIMMING OPERATOR.TRUCK SWITCHER [address] [place] [address] PCP - General Family Medicine 09/14/19 Swage Toolsetter Relationship Specialty Start Date End Date Eddie Sarabia, TRIMMING OPERATOR.TRUCK SWITCHER [address] [place] [address] PCP - General Family Medicine 09/14/19 Swage Toolsetter Relationship Specialty Start Date End Date Eddie Sarabia, TRIMMING OPERATOR.TRUCK SWITCHER [address] [place] [address] PCP - General Family Medicine 09/14/19 Swage Toolsetter Relationship Specialty Start Date End Date Eddie Sarabia, TRIMMING OPERATOR.TRUCK SWITCHER [address] [place] [address] PCP - General Family Medicine 09/14/19 Swage Toolsetter Relationship Specialty Start Date End Date Eddie Sarabia APRN.TRUCK SWITCHER [address] [place] [address] PCP - General Family Medicine 09/14/19 Swage Toolsetter Relationship Specialty Start Date End Date Eddie Sarabia TRIMMING OPERATOR.TRUCK SWITCHER [address] [place] [address] PCP - General Family Medicine 09/14/19 Swage Toolsetter Relationship Specialty Start Date End Date Eddie Sarabia TRIMMING OPERATOR.TRUCK SWITCHER [address] [place] [address] PCP - General Family Medicine 09/14/19 Swage Toolsetter Relationship Specialty Start Date End Date Eddie Sarabia TRIMMING OPERATOR.TRUCK SWITCHER [address] [place] [address] PCP - General Family Medicine 09/14/19 Swage Toolsetter Relationship Specialty Start Date End Date Eddie Sarabia TRIMMING OPERATOR.TRUCK SWITCHER [address] [place] [address] PCP - General Family Medicine 09/14/19 Swage Toolsetter Relationship Specialty Start Date End Date Eddie Sarabia TRIMMING OPERATOR.TRUCK SWITCHER [address] [place] [address] PCP - General Family Medicine 09/14/19 Swage Toolsetter Relationship Specialty Start Date End Date Eddie Sarabia TRIMMING OPERATOR.TRUCK SWITCHER [address] [place] [address] PCP - General Family Medicine 09/14/19 Swage Toolsetter Relationship Specialty Start Date End Date Eddie Sarabia APRN.TRUCK SWITCHER [address] [place] [address] PCP - General Family Medicine 09/14/19 Swage Toolsetter Relationship Specialty Start Date End Date Eddie Sarabia TRIMMING OPERATOR.TRUCK SWITCHER [address] [place] [address] PCP - General Family Medicine 09/14/19 Swage Toolsetter Relationship Specialty Start Date End Date Eddie Sarabia TRIMMING OPERATOR.TRUCK SWITCHER [address] [place] [address] PCP - General Family Medicine 09/14/19 Swage Toolsetter Relationship Specialty Start Date End Date Eddie Sarabia TRIMMING OPERATOR.TRUCK SWITCHER [address] [place] [address] PCP - General Family Medicine 09/14/19 Swage Toolsetter Relationship Specialty Start Date End Date Eddie Sarabia APRN.TRUCK SWITCHER [address] [place] [address] PCP - General Family Medicine 09/14/19 Swage Toolsetter Relationship Specialty Start Date End Date Eddie Sarabia TRIMMING OPERATOR.TRUCK SWITCHER [address] [place] [address] PCP - General Family Medicine 09/14/19 Swage Toolsetter Relationship Specialty Start Date End Date Eddie Sarabia TRIMMING OPERATOR.TRUCK SWITCHER [address] [place] [address] PCP - General Family Medicine 09/14/19 Swage Toolsetter Relationship Specialty Start Date End Date TriEddie hood APRN.TRUCK SWITCHER [address] [place] [address] PCP - General Family Medicine 09/14/19 Swage Toolsetter Relationship Specialty Start Date End Date Eddie Sarabia APRN.TRUCK SWITCHER [address] [place] [address] PCP - General Family Medicine 09/14/19 Swage Toolsetter Relationship Specialty Start Date End Date Eddie Sarabia TRIMMING OPERATOR.TRUCK SWITCHER [address] [place] [address] PCP - General Family Medicine 09/14/19 Swage Toolsetter Relationship Specialty Start Date End Date Eddie Sarabia APRN.TRUCK SWITCHER [address] [place] [address] PCP - General Family Medicine 09/14/19 Swage Toolsetter Relationship Specialty Start Date End Date Eddie Sarabia APRN.TRUCK SWITCHER [address] [place] [address] PCP - General Family Medicine 09/14/19 Swage Toolsetter Relationship Specialty Start Date End Date Eddie Sarabia APRN.TRUCK SWITCHER [address] [place] [address] PCP - General Family Medicine 09/14/19 Swage Toolsetter Relationship Specialty Start Date End Date Eddie Sarabia TRIMMING OPERATOR.TRUCK SWITCHER [address] [place] [address] PCP - General Family Medicine 09/14/19 Swage Toolsetter Relationship Specialty Start Date End Date Eddie Sarabia TRIMMING OPERATOR.TRUCK SWITCHER [address] [place] [address] PCP - General Family Medicine 09/14/19 Swage Toolsetter Relationship Specialty Start Date End Date Eddie Sarabia TRIMMING OPERATOR.TRUCK SWITCHER [address] [place] [address] PCP - General Family Medicine 09/14/19 Swage Toolsetter Relationship Specialty Start Date End Date Eddie Sarabia TRIMMING OPERATOR.TRUCK SWITCHER [address] [place] [address] PCP - General Family Medicine 09/14/19 Swage Toolsetter Relationship Specialty Start Date End Date Eddie Sarabia TRIMMING OPERATOR.TRUCK SWITCHER [address] [place] [address] PCP - General Family Medicine 09/14/19 Swage Toolsetter Relationship Specialty Start Date End Date Eddie Sarabia, TRIMMING OPERATOR.TRUCK SWITCHER [address] [place] [address] PCP - General Family Medicine 09/14/19 Swage Toolsetter Relationship Specialty Start Date End Date Eddie Sarabia, TRIMMING OPERATOR.TRUCK SWITCHER [address] [place] [address] PCP - General Family Medicine 09/14/19 Swage Toolsetter Relationship Specialty Start Date End Date Eddie Sarabia, TRIMMING OPERATOR.TRUCK SWITCHER [address] [place] [address] PCP - General Family Medicine 09/14/19 Swage Toolsetter Relationship Specialty Start Date End Date Eddie Sarabia, TRIMMING OPERATOR.TRUCK SWITCHER [address] [place] [address] PCP - General Family Medicine 09/14/19 Swage Toolsetter Relationship Specialty Start Date End Date Eddie Sarabia APRN.TRUCK SWITCHER [address] [place] [address] PCP - General Family Medicine 09/14/19 Swage Toolsetter Relationship Specialty Start Date End Date Eddie Sarabia APRN.TRUCK SWITCHER [address] [place] [address] PCP - General Family Medicine 09/14/19 Inactive Administered Medications - up to 3 most recent administrations Administered Medications (un recognized section and content) Medication Order MAR Action Action Date Dose Rate Site ondansetron orally disintegrating 8 mg tab(s) (ZOFRAN ODT) 8 mg, ORAL, ONCE, 1 dose, On 10/30/23 at 1400, Place tablet on tongue and allow to dissolve; do not chew. Open packaging using dry hands; do not push tablet through packaging. Given 10/30/2023 1:34 PM EDT 8 mg Scheduled Active and Recently Administ ered Medications (unrecognized section and content) Medication Order 12/30/2024 12/31/2024 01/01/2025 hydrOXYzine pamoate (Vistaril) capsule 25 mg (COMPLETED) 25 mg, Oral, Once, On 01/01/25 at 1530, For 1 dose 1551 (Given - Provid er: Tigist Arango RN) methotrexate PF (Rheumatrex) chemo injection 57.5 mg (COMPLETED)(Linked Group 1) 57.5 mg (rounded from 57 mg = 25 mg/m2 2.28 m2), IntraMUSCular, Once, On Wed01/01/25 at 1645, For 1 dose, Syringe 1 of 2, total dose 50mg/m2 = 115 mg Hazardous Medication -- Refer to facility policy for handling and disposal. 1856 (Given - Provid er: Danielle Katz RN) methotrexate PF (Rheumatrex) chemo injection 57.5 mg (COMPLETED)(Linked Group 1) 57.5 mg (rounded from 57 mg = 25 mg/m2 2.28 m2), IntraMUSCular, Once, On Wed01/01/25 at 1645, For 1 dose, Syringe 2 of 2, total dose 50 mg/m2 = 115 mg Hazardous Medication -- Refer to facility policy for handling and disposal. 1856 (Given - Provid er: Danielle Katz RN) Linked Groups Order Group 1: methotrexate PF (Rheumatrex) chemo injection 57.5 mg (COMPLETED)Jump to med 57.5 mg (rounded from 57 mg = 25 mg/m2 2.28 m2), IntraMUSCular, Once, On Wed01/01/25 at 1645, For 1 dose, Syringe 1 of 2, total dose 50mg/m2 = 115 mg Hazardous Medication -- Refer to facility policy for handling and disposal. And methotrexate PF (Rheumatrex) chemo injection 57.5 mg (COMPLETED)Jump to med 57.5 mg (rounded from 57 mg = 25 mg/m2 2.28 m2), IntraMUSCular, Once, On Wed01/01/25 at 1645, For 1 dose, Syringe 2 of 2, total dose 50 mg/m2 = 115 mg Hazardous Medication -- Refer to facility policy for handling and disposal. FOR RECORDS PERTAINING TO PATIENTS WHO ARE OR HAVE BEEN ENROLLED IN A CHEMICAL DEPENDENCY/SUBSTANCEABUSE PROGRAM, SOME INFORMATION MAY BE OMITTED. This clinical summary was aggregated from multiple sources. Caution should be exercised in using it in the provision of clinical care. This summary normalizes information from multiple sources, and as a consequence, information in this document may materially change the coding, format and clinical context of patient data. In addition, data may be omitted in some cases. CLINICAL DECISIONS SHOULD BE BASED ON THE PRIMARY CLINICAL RECORDS. [employer] [facility]. provides no warranty or guarantee of the accuracy or completeness of information in this document.
--- OUTSIDE RECORDS SUMMARY | 2025-01-24 06:25 | XMS RPT_ITS | CCD ---
Author Organization [facility] Care Team Providers Care [place] Driver Name Role Phone RICARDO BELTRAN Attending Unavailable SREEKUMAR, KIRBY Primary Care Unavailable RICARDO BELTRAN Attending Unavailable SREEKUMAR, KIRBY Primary Care Unavailable [facility] COMM[facility] HEALTH NURSING DIRECTOR.Eddie ARRIAGA Primary Care Provider [facility] COMMUNITY HEALTH NURSING DIRECTOR.Eddie ARRIAGA Primary Care Provider [facility] COMMUNITY HEALTH NURSING DIRECTOR.Eddie ARRIAGA Primary Care Provider [facility] COMMUNITY HEALTH NURSING DIRECTOR.Eddie ARRIAGA Primary Care Provider Bernardo Wong Attending Unavailable [facility] MEDICAL IMAGING TECHNICIAN, Eddie Primary Care Unavailable Javy Tai Attending Unavailable [facility] MEDICAL IMAGING TECHNICIAN, Eddie Primary Care Unavailable JESS THAYER Referring [...] TRILL, EDDIE C Primary Care Unavailable TRILL, DEDIE C Primary Care Unavailable TRILL, EDDIE C [...] Unavailable TRILL, EDDIE C Referring Unavailable QUEDEN, KATAINA A Attending Unavailable TRILL, EDDIE C Primary [...] sources) Clarithromycin Drug Allergy 01-24-20 15 [facility] Onion extract (1 source) Onion extract Drug Allergy 07-28-19 19 [facility] Penicillins (antibiotic) (2 sources) Amoxicillin Drug Allergy 01-24-20 15 Hives, GI Upset [facility] (20 sources) Amoxicillin; Translations: [AMOXICILLIN] Drug Allergy 01-24-20 15 [facility] (20 sources) Azithromycin; Translations: [AZITHROMYCIN] Drug Allergy 02-07-20 16 [facility] (20 sources) Clarithromycin; Translations: [CLARITHROMYCIN] Drug Allergy 01-24-20 15 Vomiting [facility] (20 sources) Onion extract; Translations: [ONION] Drug Allergy 07-28-19 19 [facility] (9 sources) Penicillins; Translations: [PENICILLINS] Drug Allergy 02-17-20 18 Hives, GI Upset [facility] Work Phone: (20 sources) Penicillins Drug Allergy 02-17-20 18 Hives, GI [facility] Work Phone: (20 sources) egg extract; Translations: [EGG] Drug Allergy 04-10-20 24 [facility] (1 source) Amoxicillin Drug Allergy 06-29-20 [facility] (1 source) Azithromycin Drug Allergy 06-29-20 [facility] (1 source) Penicillins Drug allergy (disorder) 06-29-20 24 [facility] (7 sources) Penicillins Drug Allergy 02-17-20 18 [facility] ([facility] sources) Clarithromycin Propensity to adverse reactions 01-24-20 15 Nausea And Vomiting [facility] (14 sources) Egg Propensity to adverse reactions 04-10-20 24 Nausea And Vomiting [facility] (14 sources) Onion extract Drug Allergy 07-28-19 19 [facility] (14 sources) Penicillins Drug Allergy 01-24-20 15 Nausea And Vomiting, Nausea Only, [facility] Medications Current Medications Medication Drug Class(es) [...] or prosecute any alcohol or drug abuse patient.[facility]In the event this information is protected by the Federal Confidentiality of Alcohol and Drug Abuse Patient Records regulations: The Federal rules restrict any use of the information to criminally investigate or prosecute any alcohol or drug abuse patient.[facility] HospitalIn the event this information is protected by the Federal Confidentiality of Alcohol and Drug Abuse Patient Records regulations: The Federal rules restrict any use of the information to criminally investigate or prosecute any alcohol or drug abuse patient.[facility] HospitalIn the event this information is protected by the Federal Confidentiality of Alcohol and Drug Abuse Patient Records regulations: The Federal rules restrict any use of the information to criminally investigate or prosecute any alcohol or drug abuse patient.[facility] HospitalIn the event this information is protected by the Federal Confidentiality of Alcohol and Drug Abuse Patient Records regulations: The Federal rules restrict any use of the information to criminally investigate or prosecute any alcohol or drug abuse patient.[facility] HospitalIn the event this information is protected by the Federal Confidentiality of Alcohol and Drug Abuse Patient Records regulations: The Federal rules restrict any use of the information to criminally investigate or prosecute any alcohol or drug abuse patient.[facility] HospitalIn the event this information is protected by the Federal Confidentiality of Alcohol and Drug Abuse Patient Records regulations: The Federal rules restrict any use of the information to criminally investigate or prosecute any alcohol or drug abuse patient.[facility] HospitalIn the event this information is protected by the Federal Confidentiality of Alcohol and Drug Abuse Patient Records regulations: The Federal rules restrict any use of the information to criminally investigate or prosecute any alcohol or drug abuse patient.[facility] HospitalIn the event this information is protected by the Federal Confidentiality of Alcohol and Drug Abuse Patient Records regulations: The Federal rules restrict any use of the information to criminally investigate or prosecute any alcohol or drug abuse patient.[facility] HospitalIn the event this information is protected by the Federal Confidentiality of Alcohol and Drug Abuse Patient Records regulations: The Federal rules restrict any use of the information to criminally investigate or prosecute any alcohol or drug abuse patient.[facility] HospitalIn the event this information is protected by the Federal Confidentiality of Alcohol and Drug Abuse Patient Records regulations: The Federal rules restrict any use of the information to criminally investigate or prosecute any alcohol or drug abuse patient.[facility] HospitalIn the event this information is protected by the Federal Confidentiality of Alcohol and Drug Abuse Patient Records regulations: The Federal rules restrict any use of the information to criminally investigate or prosecute any alcohol or drug abuse patient.[facility] HospitalIn the event this information is protected by the Federal Confidentiality of Alcohol and Drug Abuse Patient Records regulations: The Federal rules restrict any use of the information to criminally investigate or prosecute any alcohol or drug abuse patient.[facility] HospitalIn the event this information is protected by the Federal Confidentiality of Alcohol and Drug Abuse Patient Records regulations: The Federal rules restrict any use of the information to criminally investigate or prosecute any alcohol or drug abuse patient.[facility] HospitalIn the event this information is protected by the Federal Confidentiality of Alcohol and Drug Abuse Patient Records regulations: The Federal rules restrict any use of the information to criminally investigate or prosecute any alcohol or drug abuse patient.[facility] HospitalIn the event this information is protected by the Federal Confidentiality of Alcohol and Drug Abuse Patient Records regulations: The Federal rules restrict any use of the information to criminally investigate or prosecute any alcohol or drug abuse patient.[facility] HospitalIn the event this information is protected by the Federal Confidentiality of Alcohol and Drug Abuse Patient Records regulations: The Federal rules restrict any use of the information to criminally investigate or prosecute any alcohol or drug abuse patient.[facility] HospitalIn the event this information is protected by the Federal Confidentiality of Alcohol and Drug Abuse Patient Records regulations: The Federal rules restrict any use of the information to criminally investigate or prosecute any alcohol or drug abuse patient.[facility] HospitalIn the event this information is protected by the Federal Confidentiality of Alcohol and Drug Abuse Patient Records regulations: The Federal rules restrict any use of the information to criminally investigate or prosecute any alcohol or drug abuse patient.[facility] HospitalIn the event this information is protected by the Federal Confidentiality of Alcohol and Drug Abuse Patient Records regulations: The Federal rules restrict any use of the information to criminally investigate or prosecute any alcohol or drug abuse patient.[facility] HospitalIn the event this information is protected by the Federal Confidentiality of Alcohol and Drug Abuse Patient Records regulations: The Federal rules restrict any use of the information to criminally investigate or prosecute any alcohol or drug abuse patient.[facility] HospitalIn the event this information is protected by the Federal Confidentiality of Alcohol and Drug Abuse Patient Records regulations: The Federal rules restrict any use of the information to criminally investigate or prosecute any alcohol or drug abuse patient.[facility] HospitalIn the event this information is protected by the Federal Confidentiality of Alcohol and Drug Abuse Patient Records regulations: The Federal rules restrict any use of the information to criminally investigate or prosecute any alcohol or drug abuse patient.[facility] HospitalIn the event this information is protected by the Federal Confidentiality of Alcohol and Drug Abuse Patient Records regulations: The Federal rules restrict any use of the information to criminally investigate or prosecute any alcohol or drug abuse patient.[facility] HospitalIn the event this information is protected by the Federal Confidentiality of Alcohol and Drug Abuse Patient Records regulations: The Federal rules restrict any use of the information to criminally investigate or prosecute any alcohol or drug abuse patient.[facility] HospitalIn the event this information is protected by the Federal Confidentiality of Alcohol and Drug Abuse Patient Records regulations: The Federal rules restrict any use of the information to criminally investigate or prosecute any alcohol or drug abuse patient.[facility] HospitalIn the event this information is protected by the Federal Confidentiality of Alcohol and Drug Abuse Patient Records regulations: The Federal rules restrict any use of the information to criminally investigate or prosecute any alcohol or drug abuse patient.[facility] HospitalIn the event this information is protected by the Federal Confidentiality of Alcohol and Drug Abuse Patient Records regulations: The Federal rules restrict any use of the information to criminally investigate or prosecute any alcohol or drug abuse patient.[facility] HospitalIn the event this information is protected by the Federal Confidentiality of Alcohol and Drug Abuse Patient Records regulations: The Federal rules restrict any use of the information to criminally investigate or prosecute any alcohol or drug abuse patient.[facility] HospitalIn the event this information is protected by the Federal Confidentiality of Alcohol and Drug Abuse Patient Records regulations: The Federal rules restrict any use of the information to criminally investigate or prosecute any alcohol or drug abuse patient.[facility] HospitalIn the event this information is protected by the Federal Confidentiality of Alcohol and Drug Abuse Patient Records regulations: The Federal rules restrict any use of the information to criminally investigate or prosecute any alcohol or drug abuse patient.[facility] HospitalIn the event this information is protected by the Federal Confidentiality of Alcohol and Drug Abuse Patient Records regulations: The Federal rules restrict any use of the information to criminally investigate or prosecute any alcohol or drug abuse patient.[facility] HospitalIn the event this information is protected by the Federal Confidentiality of Alcohol and Drug Abuse Patient Records regulations: The Federal rules restrict any use of the information to criminally investigate or prosecute any alcohol or drug abuse patient.[facility] HospitalIn the event this information is protected by the Federal Confidentiality of Alcohol and Drug Abuse Patient Records regulations: The Federal rules restrict any use of the information to criminally investigate or prosecute any alcohol or drug abuse patient.[facility] HospitalIn the event this information is protected by the Federal Confidentiality of Alcohol and Drug Abuse Patient Records regulations: The Federal rules restrict any use of the information to criminally investigate or prosecute any alcohol or drug abuse patient.[facility] HospitalIn the event this information is protected by the Federal Confidentiality of Alcohol and Drug Abuse Patient Records regulations: The Federal rules restrict any use of the information to criminally investigate or prosecute any alcohol or drug abuse patient.[facility] HospitalIn the event this information is protected by the Federal Confidentiality of Alcohol and Drug Abuse Patient Records regulations: The Federal rules restrict any use of the information to criminally investigate or prosecute any alcohol or drug abuse patient.[facility] HospitalIn the event this information is protected by the Federal Confidentiality of Alcohol and Drug Abuse Patient Records regulations: The Federal rules restrict any use of the information to criminally investigate or prosecute any alcohol or drug abuse patient.[facility] HospitalIn the event this information is protected by the Federal Confidentiality of Alcohol and Drug Abuse Patient Records regulations: The Federal rules restrict any use of the information to criminally investigate or prosecute any alcohol or drug abuse patient.[facility] HospitalIn the event this information is protected by the Federal Confidentiality of Alcohol and Drug Abuse Patient Records regulations: The Federal rules restrict any use of the information to criminally investigate or prosecute any alcohol or drug abuse patient.[facility] HospitalIn the event this information is protected by the Federal Confidentiality of Alcohol and Drug Abuse Patient Records regulations: The Federal rules restrict any use of the information to criminally investigate or prosecute any alcohol or drug abuse patient.[facility] HospitalIn the event this information is protected by the Federal Confidentiality of Alcohol and Drug Abuse Patient Records regulations: The Federal rules restrict any use of the information to criminally investigate or prosecute any alcohol or drug abuse patient.[facility] HospitalIn the event this information is protected by the Federal Confidentiality of Alcohol and Drug Abuse Patient Records regulations: The Federal rules restrict any use of the information to criminally investigate or prosecute any alcohol or drug abuse patient.[facility] HospitalIn the event this information is protected by the Federal Confidentiality of Alcohol and Drug Abuse Patient Records regulations: The Federal rules restrict any use of the information to criminally investigate or prosecute any alcohol or drug abuse patient.[facility] HospitalIn the event this information is protected by the Federal Confidentiality of Alcohol and Drug Abuse Patient Records regulations: The Federal rules restrict any use of the information to criminally investigate or prosecute any alcohol or drug abuse patient.[facility] HospitalIn the event this information is protected by the Federal Confidentiality of Alcohol and Drug Abuse Patient Records regulations: The Federal rules restrict any use of the information to criminally investigate or prosecute any alcohol or drug abuse patient.[facility] HospitalIn the event this information is protected by the Federal Confidentiality of Alcohol and Drug Abuse Patient Records regulations: The Federal rules restrict any use of the information to criminally investigate or prosecute any alcohol or drug abuse patient.[facility] HospitalIn the event this information is protected by the Federal Confidentiality of Alcohol and Drug Abuse Patient Records regulations: The Federal rules restrict any use of the information to criminally investigate or prosecute any alcohol or drug abuse patient.[facility] HospitalIn the event this information is protected by the Federal Confidentiality of Alcohol and Drug Abuse Patient Records regulations: The Federal rules restrict any use of the information to criminally investigate or prosecute any alcohol or drug abuse patient.[facility] HospitalIn the event this information is protected by the Federal Confidentiality of Alcohol and Drug Abuse Patient Records regulations: The Federal rules restrict any use of the information to criminally investigate or prosecute any alcohol or drug abuse patient.[facility] HospitalIn the event this information is protected by the Federal Confidentiality of Alcohol and Drug Abuse Patient Records regulations: The Federal rules restrict any use of the information to criminally investigate or prosecute any alcohol or drug abuse patient.[facility] HospitalIn the event this information is protected by the Federal Confidentiality of Alcohol and Drug Abuse Patient Records regulations: The Federal rules restrict any use of the information to criminally investigate or prosecute any alcohol or drug abuse patient.[facility] HospitalIn the event this information is protected by the Federal Confidentiality of Alcohol and Drug Abuse Patient Records regulations: The Federal rules restrict any use of the information to criminally investigate or prosecute any alcohol or drug abuse patient.[facility] HospitalIn the event this information is protected by the Federal Confidentiality of Alcohol and Drug Abuse Patient Records regulations: The Federal rules restrict any use of the information to criminally investigate or prosecute any alcohol or drug abuse patient.[facility] HospitalIn the event this information is protected by the Federal Confidentiality of Alcohol and Drug Abuse Patient Records regulations: The Federal rules restrict any use of the information to criminally investigate or prosecute any alcohol or drug abuse patient.[facility] HospitalIn the event this information is protected by the Federal Confidentiality of Alcohol and Drug Abuse Patient Records regulations: The Federal rules restrict any use of the information to criminally investigate or prosecute any alcohol or drug abuse patient.[facility] HospitalIn the event this information is protected by the Federal Confidentiality of Alcohol and Drug Abuse Patient Records regulations: The Federal rules restrict any use of the information to criminally investigate or prosecute any alcohol or drug abuse patient.[facility] HospitalIn the event this information is protected by the Federal Confidentiality of Alcohol and Drug Abuse Patient Records regulations: The Federal rules restrict any use of the information to criminally investigate or prosecute any alcohol or drug abuse patient.[facility] HospitalIn the event this information is protected by the Federal Confidentiality of Alcohol and Drug Abuse Patient Records regulations: The Federal rules restrict any use of the information to criminally investigate or prosecute any alcohol or drug abuse patient.[facility] HospitalIn the event this information is protected by the Federal Confidentiality of Alcohol and Drug Abuse Patient Records regulations: The Federal rules restrict any use of the information to criminally investigate or prosecute any alcohol or drug abuse patient.[facility] HospitalIn the event this information is protected by the Federal Confidentiality of Alcohol and Drug Abuse Patient Records regulations: The Federal rules restrict any use of the information to criminally investigate or prosecute any alcohol or drug abuse patient.[facility] HospitalIn the event this information is protected by the Federal Confidentiality of Alcohol and Drug Abuse Patient Records regulations: The Federal rules restrict any use of the information to criminally investigate or prosecute any alcohol or drug abuse patient.[facility] HospitalIn the event this information is protected by the Federal Confidentiality of Alcohol and Drug Abuse Patient Records regulations: The Federal rules restrict any use of the information to criminally investigate or prosecute any alcohol or drug abuse patient.[facility] HospitalIn the event this information is protected by the Federal Confidentiality of Alcohol and Drug Abuse Patient Records regulations: The Federal rules restrict any use of the information to criminally investigate or prosecute any alcohol or drug abuse patient.[facility] HospitalIn the event this information is protected by the Federal Confidentiality of Alcohol and Drug Abuse Patient Records regulations: The Federal rules restrict any use of the information to criminally investigate or prosecute any alcohol or drug abuse patient.[facility] HospitalIn the event this information is protected by the Federal Confidentiality of Alcohol and Drug Abuse Patient Records regulations: The Federal rules restrict any use of the information to criminally investigate or prosecute any alcohol or drug abuse patient.[facility] HospitalIn the event this information is protected by the Federal Confidentiality of Alcohol and Drug Abuse Patient Records regulations: The Federal rules restrict any use of the information to criminally investigate or prosecute any alcohol or drug abuse patient.[facility] HospitalIn the event this information is protected by the Federal Confidentiality of Alcohol and Drug Abuse Patient Records regulations: The Federal rules restrict any use of the information to criminally investigate or prosecute any alcohol or drug abuse patient.[facility] HospitalIn the event this information is protected by the Federal Confidentiality of Alcohol and Drug Abuse Patient Records regulations: The Federal rules restrict any use of the information to criminally investigate or prosecute any alcohol or drug abuse patient.[facility] HospitalIn the event this information is protected by the Federal Confidentiality of Alcohol and Drug Abuse Patient Records regulations: The Federal rules restrict any use of the information to criminally investigate or prosecute any alcohol or drug abuse patient.[facility] HospitalIn the event this information is protected by the Federal Confidentiality of Alcohol and Drug Abuse Patient Records regulations: The Federal rules restrict any use of the information to criminally investigate or prosecute any alcohol or drug abuse patient.[facility] HospitalIn the event this information is protected by the Federal Confidentiality of Alcohol and Drug Abuse Patient Records regulations: The Federal rules restrict any use of the information to criminally investigate or prosecute any alcohol or drug abuse patient.[facility] HospitalIn the event this information is protected by the Federal Confidentiality of Alcohol and Drug Abuse Patient Records regulations: The Federal rules restrict any use of the information to criminally investigate or prosecute any alcohol or drug abuse patient.[facility] HospitalIn the event this information is protected by the Federal Confidentiality of Alcohol and Drug Abuse Patient Records regulations: The Federal rules restrict any use of the information to criminally investigate or prosecute any alcohol or drug abuse patient.[facility] HospitalIn the event this information is protected by the Federal Confidentiality of Alcohol and Drug Abuse Patient Records regulations: The Federal rules restrict any use of the information to criminally investigate or prosecute any alcohol or drug abuse patient.[facility] HospitalIn the event this information is protected by the Federal Confidentiality of Alcohol and Drug Abuse Patient Records regulations: The Federal rules restrict any use of the information to criminally investigate or prosecute any alcohol or drug abuse patient.[facility] HospitalIn the event this information is protected by the Federal Confidentiality of Alcohol and Drug Abuse Patient Records regulations: The Federal rules restrict any use of the information to criminally investigate or prosecute any alcohol or drug abuse patient.[facility] HospitalIn the event this information is protected by the Federal Confidentiality of Alcohol and Drug Abuse Patient Records regulations: The Federal rules restrict any use of the information to criminally investigate or prosecute any alcohol or drug abuse patient.[facility] HospitalIn the event this information is protected by the Federal Confidentiality of Alcohol and Drug Abuse Patient Records regulations: The Federal rules restrict any use of the information to criminally investigate or prosecute any alcohol or drug abuse patient.[facility] HospitalIn the event this information is protected by the Federal Confidentiality of Alcohol and Drug Abuse Patient Records regulations: The Federal rules restrict any use of the information to criminally investigate or prosecute any alcohol or drug abuse patient.[facility] Reason for Visit (unrecogniz ed section and content) Reason Comments No Show Specialty Diagnoses / Procedures Referred By Mouna goldberg Referred To Contact Diagnoses PCOS (polycystic ovarian syndrome) Secondary amenorrhea Procedures CONSULT TO INFERTILITY CLINIC OFFICE/OUTPATIENT [facility] 60-74 MINUTES Ruby Wilson MD [address] [place] [address] Referral ID Status Reason Start Date Expiration Date Visits Requested Visits Authorized [id number] Pending Review PCP Requested Referral Auto-Generate d [...] si nce April Reason Onset Date Comments 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 Resched ule appt for CPP consult Reason Comments Patient Question Reason Comments ER F/U Kidney stones Reason Comments Pelvic Pain Specialty Diagnoses / Procedures Referred By Mouna goldberg Referred To Contact Diagnoses Pelvic pain in female Abnormal uterine bleeding (AUB) Procedures CONSULT TO PERCOLATOR OPERATOR PELVIC PAIN OFFICE/OUTPATIENT [facility] 60-74 MINUTES Ruby Wilson MD [address] [place] [address] Referral ID Status Reason Start Date Expiration Date Visits Requested Visits Authorized [id number] Pending Review PCP Requested Referral Auto-Generate d [...] To Contact Diagnoses na Procedures na Self [facility] Dept Referral ID Status Reason Start Date Expiration Date Visits Requested Visits Authorized [id number] Authorized Patient Cleared - Qualified 100% FAS 02/08/2023 05/09/2023 99 99 Reason Comments No Show First no show in 365 days. Reason Comments Sore Throat With drainage, runny nos x 3 days with cough x today Reason Comments Amenorrhea Reason Comments Urinary Frequency Reason Comments Appointment Reason Comments Referral Request Reason Onset Date Comments ED Outreach 05/31/2023 [facility] 05/27/23 Reason Comments ER F/U Kidney [...] NEW HIGH MDM 60 MINUTES Katiana Diaz APRN.HEAT TREAT SUPERVISOR [address] [place] [address] Arlene Waldron MD [address] [address] Referral ID Status Reason Start Date Expiration Date V isits Requested Visits Authorized [id number] Closed PCP Requested Referral 11/09/2023 02/07/2024 1 1 Reason Comments New Patient allergies Specialty Diagnoses / Procedures Referred By Mouna goldberg Referred To Contact Allergy / [facility] DEPARTMENT Diagnoses Egg allergy Procedures CONSULT TO ALLERGY/IMMUNOLOGY OFFICE/OUTPATIENT NEW HIGH MDM 60 MINUTES Eddie Sarabia COMMUNITY HEALTH NURSING DIRECTOR.HEAT TREAT SUPERVISOR [address] [place] [address] [facility] [address] Referral ID Status Reason Start Date Expiration Date V isits Requested Visits Authorized [id number] Closed PCP Requested Referral 04/12/2024 04/12/2025 1 [...] NEW HIGH MDM 60 MINUTES Eddie Sarabia, CAMMY.HEAT TREAT SUPERVISOR [address] [place] [address] Liu Hauser MD [address] [place] [address] Referral ID Status Reason Start Date Expiration Date V isits Requested Visits Authorized [id number] Closed PCP Requested Referral 04/10/2024 04/10/2025 1 [...] Care Teams (unrecognized sec tion and content) Haulpak Driver Relationship Specialty Start Date End Date Eddie Sarabia APRN.HEAT TREAT SUPERVISOR [address] [place] [address] PCP - General Family Practice 09/14/19 Haulpak Driver Relationship Specialty Start Date End Date Eddie Sarabia APRN.HEAT TREAT SUPERVISOR [address] [place], [place] [id number] PCP - General Family Practice 09/14/19 Haulpak Driver Relationship Specialty Start Date End Date Eddie Sarabia APRN.HEAT TREAT SUPERVISOR [address] [place], [place] [id number] PCP - General Family Practice 09/14/19 Haulpak Driver Relationship Specialty Start Date End Date Eddie Sarabia COMMUNITY HEALTH NURSING DIRECTOR.HEAT TREAT SUPERVISOR [address] [place] [address] PCP - General Family Practice 09/14/19 Haulpak Driver Relationship Specialty Start Date End Date Eddie Sarabia, COMMUNITY HEALTH NURSING DIRECTOR.HEAT TREAT SUPERVISOR [address] [place] [address] PCP - General Family Practice 09/14/19 Haulpak Driver Relationship Specialty Start Date End Date Eddie Sarabia COMMUNITY HEALTH NURSING DIRECTOR.HEAT TREAT SUPERVISOR [address] [place] [address] PCP - General Family Medicine 09/14/19 Haulpak Driver Relationship Specialty Start Date End Date Eddie Sarabia COMMUNITY HEALTH NURSING DIRECTOR.HEAT TREAT SUPERVISOR [address] [place] [address] PCP - General Family Medicine 09/14/19 Haulpak Driver Relationship Specialty Start Date End Date Eddie Sarabia COMMUNITY HEALTH NURSING DIRECTOR.HEAT TREAT SUPERVISOR [address] [place] [address] PCP - General Family Medicine 09/14/19 Haulpak Driver Relationship Specialty Start Date End Date Eddie Sarabia, COMMUNITY HEALTH NURSING DIRECTOR.HEAT TREAT SUPERVISOR [address] [place] [address] PCP - General Family Medicine 09/14/19 Haulpak Driver Relationship Specialty Start Date End Date Eddie Sarabia, COMMUNITY HEALTH NURSING DIRECTOR.HEAT TREAT SUPERVISOR [address] [place] [address] PCP - General Family Medicine 09/14/19 Haulpak Driver Relationship Specialty Start Date End Date Eddie Sarabia, COMMUNITY HEALTH NURSING DIRECTOR.HEAT TREAT SUPERVISOR [address] [place] [address] PCP - General Family Medicine 09/14/19 Haulpak Driver Relationship Specialty Start Date End Date Eddie Sarabia, COMMUNITY HEALTH NURSING DIRECTOR.HEAT TREAT SUPERVISOR [address] [place] [address] PCP - General Family Medicine 09/14/19 Haulpak Driver Relationship Specialty Start Date End Date Eddie Sarabia, COMMUNITY HEALTH NURSING DIRECTOR.HEAT TREAT SUPERVISOR [address] [place] [address] PCP - General Family Medicine 09/14/19 Haulpak Driver Relationship Specialty Start Date End Date Eddie Sarabia, COMMUNITY HEALTH NURSING DIRECTOR.HEAT TREAT SUPERVISOR [address] [place] [address] PCP - General Family Medicine 09/14/19 Haulpak Driver Relationship Specialty Start Date End Date Eddie Sarabia, COMMUNITY HEALTH NURSING DIRECTOR.HEAT TREAT SUPERVISOR [address] [place] [address] PCP - General Family Medicine 09/14/19 Haulpak Driver Relationship Specialty Start Date End Date Eddie Sarabia, COMMUNITY HEALTH NURSING DIRECTOR.HEAT TREAT SUPERVISOR [address] [place] [address] PCP - General Family Medicine 09/14/19 Haulpak Driver Relationship Specialty Start Date End Date Eddie Sarabia, COMMUNITY HEALTH NURSING DIRECTOR.HEAT TREAT SUPERVISOR [address] [place] [address] PCP - General Family Medicine 09/14/19 Haulpak Driver Relationship Specialty Start Date End Date Eddie Sarabia, COMMUNITY HEALTH NURSING DIRECTOR.HEAT TREAT SUPERVISOR [address] [place] [address] PCP - General Family Medicine 09/14/19 Haulpak Driver Relationship Specialty Start Date End Date Eddie Sarabia, COMMUNITY HEALTH NURSING DIRECTOR.HEAT TREAT SUPERVISOR [address] [place] [address] PCP - General Family Medicine 09/14/19 Haulpak Driver Relationship Specialty Start Date End Date Eddie Sarabia COMMUNITY HEALTH NURSING DIRECTOR.HEAT TREAT SUPERVISOR [address] [place] [address] PCP - General Family Medicine 09/14/19 Haulpak Driver Relationship Specialty Start Date End Date Eddie Sarabia COMMUNITY HEALTH NURSING DIRECTOR.HEAT TREAT SUPERVISOR [address] [place] [address] PCP - General Family Medicine 09/14/19 Haulpak Driver Relationship Specialty Start Date End Date Eddie Sarabia COMMUNITY HEALTH NURSING DIRECTOR.HEAT TREAT SUPERVISOR [address] [place] [address] PCP - General Family Medicine 09/14/19 Haulpak Driver Relationship Specialty Start Date End Date Eddie Sarabia COMMUNITY HEALTH NURSING DIRECTOR.HEAT TREAT SUPERVISOR [address] [place] [address] PCP - General Family Medicine 09/14/19 Haulpak Driver Relationship Specialty Start Date End Date Eddie Sarabia COMMUNITY HEALTH NURSING DIRECTOR.HEAT TREAT SUPERVISOR [address] [place] [address] PCP - General Family Medicine 09/14/19 Haulpak Driver Relationship Specialty Start Date End Date Eddie Sarabia COMMUNITY HEALTH NURSING DIRECTOR.HEAT TREAT SUPERVISOR [address] [place] [address] PCP - General Family Medicine 09/14/19 Haulpak Driver Relationship Specialty Start Date End Date Eddie Sarabia COMMUNITY HEALTH NURSING DIRECTOR.HEAT TREAT SUPERVISOR [address] [place] [address] PCP - General Family Medicine 09/14/19 Haulpak Driver Relationship Specialty Start Date End Date Eddie Sarabia COMMUNITY HEALTH NURSING DIRECTOR.HEAT TREAT SUPERVISOR [address] [place] [address] PCP - General Family Medicine 09/14/19 Haulpak Driver Relationship Specialty Start Date End Date Eddie Sarabia COMMUNITY HEALTH NURSING DIRECTOR.HEAT TREAT SUPERVISOR [address] [place] [address] PCP - General Family Medicine 09/14/19 Haulpak Driver Relationship Specialty Start Date End Date Eddie Sarabia COMMUNITY HEALTH NURSING DIRECTOR.HEAT TREAT SUPERVISOR [address] [place] [address] PCP - General Family Medicine 09/14/19 Haulpak Driver Relationship Specialty Start Date End Date Eddie Sarabia COMMUNITY HEALTH NURSING DIRECTOR.HEAT TREAT SUPERVISOR [address] [place] [address] PCP - General Family Medicine 09/14/19 Haulpak Driver Relationship Specialty Start Date End Date Eddie Sarabia, COMMUNITY HEALTH NURSING DIRECTOR.HEAT TREAT SUPERVISOR [address] [place] [address] PCP - General Family Medicine 09/14/19 Haulpak Driver Relationship Specialty Start Date End Date Eddie Sarabia, COMMUNITY HEALTH NURSING DIRECTOR.HEAT TREAT SUPERVISOR [address] [place] [address] PCP - General Family Medicine 09/14/19 Haulpak Driver Relationship Specialty Start Date End Date Eddie Sarabia, COMMUNITY HEALTH NURSING DIRECTOR.HEAT TREAT SUPERVISOR [address] [place] [address] PCP - General Family Medicine 09/14/19 Haulpak Driver Relationship Specialty Start Date End Date Eddie Sarabia, COMMUNITY HEALTH NURSING DIRECTOR.HEAT TREAT SUPERVISOR [address] [place] [address] PCP - General Family Medicine 09/14/19 Haulpak Driver Relationship Specialty Start Date End Date Eddie Sarabia APRN.HEAT TREAT SUPERVISOR [address] [place] [address] PCP - General Family Medicine 09/14/19 Haulpak Driver Relationship Specialty Start Date End Date Eddie Sarabia COMMUNITY HEALTH NURSING DIRECTOR.HEAT TREAT SUPERVISOR [address] [place] [address] PCP - General Family Medicine 09/14/19 Haulpak Driver Relationship Specialty Start Date End Date Eddie Sarabia COMMUNITY HEALTH NURSING DIRECTOR.HEAT TREAT SUPERVISOR [address] [place] [address] PCP - General Family Medicine 09/14/19 Haulpak Driver Relationship Specialty Start Date End Date Eddie Sarabia COMMUNITY HEALTH NURSING DIRECTOR.HEAT TREAT SUPERVISOR [address] [place] [address] PCP - General Family Medicine 09/14/19 Haulpak Driver Relationship Specialty Start Date End Date Eddie Sarabia COMMUNITY HEALTH NURSING DIRECTOR.HEAT TREAT SUPERVISOR [address] [place] [address] PCP - General Family Medicine 09/14/19 Haulpak Driver Relationship Specialty Start Date End Date Eddie Sarabia COMMUNITY HEALTH NURSING DIRECTOR.HEAT TREAT SUPERVISOR [address] [place] [address] PCP - General Family Medicine 09/14/19 Haulpak Driver Relationship Specialty Start Date End Date Eddie Sarabia COMMUNITY HEALTH NURSING DIRECTOR.HEAT TREAT SUPERVISOR [address] [place] [address] PCP - General Family Medicine 09/14/19 Haulpak Driver Relationship Specialty Start Date End Date Eddie Sarabia APRN.HEAT TREAT SUPERVISOR [address] [place] [address] PCP - General Family Medicine 09/14/19 Haulpak Driver Relationship Specialty Start Date End Date Eddie Sarabia COMMUNITY HEALTH NURSING DIRECTOR.HEAT TREAT SUPERVISOR [address] [place] [address] PCP - General Family Medicine 09/14/19 Haulpak Driver Relationship Specialty Start Date End Date Eddie Sarabia COMMUNITY HEALTH NURSING DIRECTOR.HEAT TREAT SUPERVISOR [address] [place] [address] PCP - General Family Medicine 09/14/19 Haulpak Driver Relationship Specialty Start Date End Date Eddie Sarabia COMMUNITY HEALTH NURSING DIRECTOR.HEAT TREAT SUPERVISOR [address] [place] [address] PCP - General Family Medicine 09/14/19 Haulpak Driver Relationship Specialty Start Date End Date Eddie Sarabia APRN.HEAT TREAT SUPERVISOR [address] [place] [address] PCP - General Family Medicine 09/14/19 Haulpak Driver Relationship Specialty Start Date End Date Eddie Sarabia COMMUNITY HEALTH NURSING DIRECTOR.HEAT TREAT SUPERVISOR [address] [place] [address] PCP - General Family Medicine 09/14/19 Haulpak Driver Relationship Specialty Start Date End Date Eddie Sarabia COMMUNITY HEALTH NURSING DIRECTOR.HEAT TREAT SUPERVISOR [address] [place] [address] PCP - General Family Medicine 09/14/19 Haulpak Driver Relationship Specialty Start Date End Date TriEddie hood APRN.HEAT TREAT SUPERVISOR [address] [place] [address] PCP - General Family Medicine 09/14/19 Haulpak Driver Relationship Specialty Start Date End Date Eddie Sarabia APRN.HEAT TREAT SUPERVISOR [address] [place] [address] PCP - General Family Medicine 09/14/19 Haulpak Driver Relationship Specialty Start Date End Date Eddie Saarbia COMMUNITY HEALTH NURSING DIRECTOR.HEAT TREAT SUPERVISOR [address] [place] [address] PCP - General Family Medicine 09/14/19 Haulpak Driver Relationship Specialty Start Date End Date Eddie Sarabia APRN.HEAT TREAT SUPERVISOR [address] [place] [address] PCP - General Family Medicine 09/14/19 Haulpak Driver Relationship Specialty Start Date End Date Eddie Sarabia APRN.HEAT TREAT SUPERVISOR [address] [place] [address] PCP - General Family Medicine 09/14/19 Haulpak Driver Relationship Specialty Start Date End Date Eddie Sarabia APRN.HEAT TREAT SUPERVISOR [address] [place] [address] PCP - General Family Medicine 09/14/19 Haulpak Driver Relationship Specialty Start Date End Date Eddie Sarabia COMMUNITY HEALTH NURSING DIRECTOR.HEAT TREAT SUPERVISOR [address] [place] [address] PCP - General Family Medicine 09/14/19 Haulpak Driver Relationship Specialty Start Date End Date Eddie Sarabia COMMUNITY HEALTH NURSING DIRECTOR.HEAT TREAT SUPERVISOR [address] [place] [address] PCP - General Family Medicine 09/14/19 Haulpak Driver Relationship Specialty Start Date End Date Eddie Sarabia COMMUNITY HEALTH NURSING DIRECTOR.HEAT TREAT SUPERVISOR [address] [place] [address] PCP - General Family Medicine 09/14/19 Haulpak Driver Relationship Specialty Start Date End Date Eddie Sarabia COMMUNITY HEALTH NURSING DIRECTOR.HEAT TREAT SUPERVISOR [address] [place] [address] PCP - General Family Medicine 09/14/19 Haulpak Driver Relationship Specialty Start Date End Date Eddie Sarabia COMMUNITY HEALTH NURSING DIRECTOR.HEAT TREAT SUPERVISOR [address] [place] [address] PCP - General Family Medicine 09/14/19 Haulpak Driver Relationship Specialty Start Date End Date Eddie Sarabia, COMMUNITY HEALTH NURSING DIRECTOR.HEAT TREAT SUPERVISOR [address] [place] [address] PCP - General Family Medicine 09/14/19 Haulpak Driver Relationship Specialty Start Date End Date Eddie Sarabia, COMMUNITY HEALTH NURSING DIRECTOR.HEAT TREAT SUPERVISOR [address] [place] [address] PCP - General Family Medicine 09/14/19 Haulpak Driver Relationship Specialty Start Date End Date Eddie Sarabia, COMMUNITY HEALTH NURSING DIRECTOR.HEAT TREAT SUPERVISOR [address] [place] [address] PCP - General Family Medicine 09/14/19 Haulpak Driver Relationship Specialty Start Date End Date Eddie Sarabia, COMMUNITY HEALTH NURSING DIRECTOR.HEAT TREAT SUPERVISOR [address] [place] [address] PCP - General Family Medicine 09/14/19 Haulpak Driver Relationship Specialty Start Date End Date Eddie Sarabia APRN.HEAT TREAT SUPERVISOR [address] [place] [address] PCP - General Family Medicine 09/14/19 Haulpak Driver Relationship Specialty Start Date End Date Eddie Sarabia APRN.HEAT TREAT SUPERVISOR [address] [place] [address] PCP - General Family Medicine 09/14/19 Inactive [...] BE BASED ON THE PRIMARY CLINICAL RECORDS. [employer] [facility]. provides no warranty or guarantee of the accuracy or completeness of information in this document.
--- NOTE | 2025-01-24 06:30 | RAD_ITS ---
PROCEDURE: L/S SPINE MIN 4 VIEWS 01/24/2025 REASON FOR EXAM: PAIN TECHNIQUE: L/S SPINE MIN 5 VIEWS COMPARISON: None FINDINGS: Vertebral body height and alignment are well-maintained. There is no fracture or spondylolisthesis. Disc height is maintained. The facets are aligned. Mineralization is normal. There is no visible atherosclerosis. RAD/L/S Spine Min 4 Views IMPRESSION: Negative lumbar spine. Reading Location: [facility]
--- NOTE | 2025-01-24 06:30 | RAD_ITS ---
PROCEDURE: L/S SPINE MIN 4 VIEWS 01/24/2025 REASON FOR EXAM: PAIN TECHNIQUE: L/S SPINE MIN 5 VIEWS COMPARISON: None FINDINGS: Vertebral body height and alignment are well-maintained. There is no fracture or spondylolisthesis. Disc height is maintained. The facets are aligned. Mineralization is normal. There is no visible atherosclerosis. RAD/L/S Spine Min 4 Views IMPRESSION: Negative lumbar spine. Reading Location: [facility]
[2025-01-24 06:31] LABS: Internal QC Validated? YES +Cl - CLEAR BKGD; Pregnancy, Urine Negative Negative; Record Kit Lot#,Urine Preg 962302; Squamous Epithelial Cells - UA 0-5 SEEN /hpf (5-10)
[2025-01-24 06:52] LABS: Anion Gap 12 (5-15); BUN 12 mg/dL (4-19); BUN/Creat Ratio 16.8 RATIO (10-20); Calcium,Total 9.3 mg/dL (7.6-11.0); Carbon Dioxide 22.6 mmol/L (21.0-32.0); Chloride 102 mmol/L (98-108); Estimated Creatinine Clearance 145.46 ml/min (50-250); Glucose 135 mg/dL (70-99); Magnesium 1.8 mg/dL (1.5-2.2); Potassium 4.1 mmol/L (3.3-5.1)
[2025-01-24 07:48] VITALS: BP 115/73; PULSE 72; RESP 18; O2SAT 100
--- NOTE | 2025-01-24 08:33 | EX.ED.DYSGE1 ---
HPI History of Present Illness Chief Complaint: Back Informant: patient and spouse/S.O. Narrative Narrative: Patient is a 29-year-old female who is a G1, P0. She states that roughly 5 to 6 weeks ago she became and then developed abdominal pain and thought she had an ovarian cyst. She went to [facility] and was informed she was and having an ectopic . At that time they gave her methotrexate and she reports her medication was given roughly 4 weeks ago. She states they have been trending her hCG values in the last 1 which was obtained roughly 7 to 10 days ago was 19. She reports that over the last few days she has noticed pain in the left low back. She describes the pain as a pressure sensation almost like a balloon was blown up. She denies any recent trauma. 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 She reports she has been having mild vaginal bleeding for the last week or so and this is not abnormal for her. She denies any radiation of the pain towards the abdomen. However secondary to the recent ectopic and now abnormal back discomfort for her she presents for evaluation [facility] Medical History Depression Anxiety Home Medications ?Medication ?Instructions ?Recorded ?Last Taken ?Type norethindrone (contraceptive) 0.35 0.35 mg PO DAILY 06/29/24 Unknown History mg tablet (Incassia) Held on 01/24/25. Instructions: recent ectopic Allergy/AdvReac Type Severity Reaction Status Date / Time amoxicillin Allergy Mild Vomiting Verified 01/24/25 05:42 azithromycin (From Zithromax Allergy Mild Hives Verified 01/24/25 05:42 Z-Jovanny) Penicillins (PCN) Allergy Mild Hives Verified 01/24/25 05:42 Family History no significant family his Social History Smoking Status: Current some day smoker tobacco type: e-cigarettes ROS ROS ED Constitutional Constitutional ED: Reports fever(s) and other Details: Patient reports a fever of 100 degrees last night ; Denies chills ENT ENT ED: Denies sore throat Cardiovascular Cardiovascular: Denies chest pain Respiratory/Chest Respiratory/Chest: Denies cough or dyspnea Gastrointestinal Gastrointestinal: Denies abdominal pain, diarrhea, nausea or vomiting Genitourinary Genitourinary ED: Reports other Details: Positive vaginal bleeding ; Denies dysuria or urinary frequency Musculoskeletal Musculoskeletal: Reports back pain Integumentary Denies rash Neurologic Neurologic: Denies headache(s) Psychiatric Psychiatric: Reports anxiety and depression Hematologic/Lymphatic Hematologic/Lymphatic: Denies easy bleeding or easy bruising EXAM Physical Exam Const Vital Signs: 01/24/25 05:37 01/24/25 07:48 Temperature 98 F Temperature Source Oral Pulse Rate 86 72 Respiratory Rate 16 18 Blood Pressure 126/76 H 115/73 Blood Pressure Mean 92 87 Pulse Ox 100 100 Oxygen Delivery Method Room Air Room Air Positive well nourished and well developed General Appearance ED: well developed; Negative for pallor HEENT HEENT Narrative: Normocephalic atraumatic Eyes PERRL and EOMs intact bilaterally General Eye ED: Negative for scleral icterus Neck supple Resp normal respiratory effort and clear to auscultation bilaterally Cardio regular rate and regular rhythm Rate: other Other Details: Heart is regular rate and rhythm without murmurs rubs or gallop Radial and carotid pulses are equal and symmetric GI normal to inspection, nondistended, normoactive bowel sounds, non-tender, non-distended and no masses GI Narrative: No voluntary guarding or rigidity or pulsatile mass Auscultation: normoactive bowel sounds Palpation: soft Back/Spine no CVA tenderness Back/Spine Narrative: No bony deformity or step-off of the thoracic or lumbar spine but there is midline pain with palpation of the lower lumbar/upper sacrum. Pain does not worsen with extension or rotation. No significant paralumbar tenderness or spasm noted. No saddle anesthesia. Negative straight leg raise. No clonus or Babinski. Patellar reflexes are plus 2 out of 4 bilaterally No overlying soft tissue changes to suggest trauma or infection Extremity normal to inspection Neuro oriented x3, CN's II-XII intact bilaterally and no sensory deficits noted Sensorium / Orientation: alert Motor Exam: strength 5/5 throughout Psych Mood & Affect: anxious Skin no rashes or lesions noted and no wounds General Skin Exam: Negative for jaundice or pallor MDM MDM MDM Narrative Medical decision making narrative: Patient presented to the ER with stable vitals. She reported a pain along the left low back but denied any recent trauma or excessive activity. Differential diagnosis is for lumbosacral strain versus compression fracture or spondylolisthesis. There is also concern the patient could have UTI or pyelonephritis or kidney stone. With the recent ectopic there is concern for potential rupture. Therefore elected to perform basic laboratory studies with urine sample and pelvic ultrasound as well as lumbar spine x-ray. X-ray revealed no sign of bony pathology. Labs show no leukocytosis or left shift and her urine test is negative. Urine sample does not show any blood going against kidney stone and there is no signs of infection going against pyelonephritis/UTI. The pelvic ultrasound did show a mass superior to the left ovary and with the recent ectopic I did consult SOAP TENDER. They reviewed the ultrasound and believe this is most likely just absorption of the recent ectopic and not infection as she is afebrile with normal white count or perforation/rupture based on the small size and the fact that a urine test is negative. She recommends a quantitative value be obtained so they have a measurable value to follow. She reports she will see the patient in her office most likely by Wednesday. As patient's vitals are stable and overall workup is not showing any signs indicate potential infection or rupture there is no need for further intervention and she is otherwise safe for follow-up with SOAP TENDER on an outpatient basis. History & Record Review Discussion w/independent historian: Patient and Significant other Lab Data Attestation: I reviewed the patient's lab results. Labs: Laboratory Results - last 24 hr 01/24/25 05:55 WBC 10.3 RBC 4.25 Hgb 13.1 Hct 38.0 MCV 89.4 MCH 30.8 MCHC 34.5 RDW Std Deviation 39.8 RDW Coeff of Luis [place] 12.3 Plt Count 313 MPV 9.3 Immature Gran % (Auto) 1.200 H Neut % (Auto) 63.1 Lymph % (Auto) 26.4 [place] % (Auto) 6.7 Eos % (Auto) 2.0 Baso % (Auto) 0.6 Absolute Neuts (auto) 6.5 Absolute Lymphs (auto) 2.71 Nucleated RBC % 0 Sodium 136 Potassium 4.1 Chloride 102 Carbon Dioxide 22.6 Anion Gap 12 BUN 12 Creatinine 0.72 Estim Creat Clear Calc 145.46 Est GFR (MDRD) Non-Af 116 BUN/Creatinine Ratio 16.8 Glucose 135 H Calcium 9.3 Magnesium 1.8 Urine Color Yellow Urine Clarity Sl. Cloudy Urine pH 6.0 Ur Specific [place] 1.015 Urine Protein Negative Urine Glucose (UA) Normal Urine Ketones Negative Urine Occult Blood 50 H Urine Nitrite Negative Urine Bilirubin Negative Urine Urobilinogen Normal Ur Leukocyte Esterase Negative Urine RBC 0 SEEN Urine WBC 0-5 SEEN Ur Squamous Epith Cells 0-5 SEEN Urine Bacteria 0 SEEN Urine Mucus 0 SEEN Urine Test Negative Radiography Diagnostic Testing: Clinical Impression(s) from Imaging Studies Transvaginal US 01/24/25 06:14 IMPRESSION: 1.3 cm x 1.2 cm complex density superior to the left ovary. Correlation with HCG recommended for further evaluation. Reading Location: [facility] Lumbar Spine X-Ray 01/24/25 06:30 IMPRESSION: Negative lumbar spine. Reading [facility] X-[facility] of the lumbar spine as interpreted by the emergency medicine physician reveals no acute compression fracture or spondylolisthesis Management Discussion w/another healthcare provider: Telecom Field Technician Discharge Plan Triage Chief Complaint: Back ED Provider: Shawn Elizalde Dx/Rx/DC Orders Clinical Impression: Ovarian mass, left, Low back pain, Anxiety and depression Instructions: ED Back Pain (Acute or Chronic) Prescriptions: No Action norethindrone (contraceptive) [Incassia] 0.35 mg tablet 0.35 mg PO DAILY Primary Care Provider: Kate Sarabia NP Referrals: Chiara Gold MD [Med Staff - Active Staff] - (Left ovarian mass with recent ectopic ) Kate Sarabia NP, REEL OPERATOR-C [Primary Care Provider] - Activity Restrictions/Additional Instructions: Your pelvic ultrasound showed a small mass near the left ovary which is most likely your recent ectopic being absorbed. Follow-up with SOAP TENDER for reevaluation and call their office later today as they should be able to get you in by Wednesday. If you have severe increase in vaginal bleeding develop increasing pain or have bouts of passing out please return to the ER for repeat evaluation. Print Language: Telugu Disposition Disposition: Home, Self Care
--- NOTE | 2025-01-24 08:33 | EX.ED.DYSGE1 ---
HPI History of Present Illness Chief Complaint: Back Informant: patient and spouse/S.O. Narrative Narrative: Patient is a 29-year-old female who is a G1, P0. She states that roughly 5 to 6 weeks ago she became and then developed abdominal pain and thought she had an ovarian cyst. She went to [facility] and was informed she was and having an ectopic . At that time they gave her methotrexate and she reports her medication was given roughly 4 weeks ago. She states they have been trending her hCG values in the last 1 which was obtained roughly 7 to 10 days ago was 19. She reports that over the last few days she has noticed pain in the left low back. She describes the pain as a pressure sensation almost like a balloon was blown up. She denies any recent trauma. 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 She reports she has been having mild vaginal bleeding for the last week or so and this is not abnormal for her. She denies any radiation of the pain towards the abdomen. However secondary to the recent ectopic and now abnormal back discomfort for her she presents for evaluation [facility] Medical History Depression Anxiety Home Medications ?Medication ?Instructions ?Recorded ?Last Taken ?Type norethindrone (contraceptive) 0.35 0.35 mg PO DAILY 06/29/24 Unknown History mg tablet (Incassia) Held on 01/24/25. Instructions: recent ectopic Allergy/AdvReac Type Severity Reaction Status Date / Time amoxicillin Allergy Mild Vomiting Verified 01/24/25 05:42 azithromycin (From Zithromax Allergy Mild Hives Verified 01/24/25 05:42 Z-Jovanny) Penicillins (PCN) Allergy Mild Hives Verified 01/24/25 05:42 Family History no significant family his Social History Smoking Status: Current some day smoker tobacco type: e-cigarettes ROS ROS ED Constitutional Constitutional ED: Reports fever(s) and other Details: Patient reports a fever of 100 degrees last night ; Denies chills ENT ENT ED: Denies sore throat Cardiovascular Cardiovascular: Denies chest pain Respiratory/Chest Respiratory/Chest: Denies cough or dyspnea Gastrointestinal Gastrointestinal: Denies abdominal pain, diarrhea, nausea or vomiting Genitourinary Genitourinary ED: Reports other Details: Positive vaginal bleeding ; Denies dysuria or urinary frequency Musculoskeletal Musculoskeletal: Reports back pain Integumentary Denies rash Neurologic Neurologic: Denies headache(s) Psychiatric Psychiatric: Reports anxiety and depression Hematologic/Lymphatic Hematologic/Lymphatic: Denies easy bleeding or easy bruising EXAM Physical Exam Const Vital Signs: 01/24/25 05:37 01/24/25 07:48 Temperature 98 F Temperature Source Oral Pulse Rate 86 72 Respiratory Rate 16 18 Blood Pressure 126/76 H 115/73 Blood Pressure Mean 92 87 Pulse Ox 100 100 Oxygen Delivery Method Room Air Room Air Positive well nourished and well developed General Appearance ED: well developed; Negative for pallor HEENT HEENT Narrative: Normocephalic atraumatic Eyes PERRL and EOMs intact bilaterally General Eye ED: Negative for scleral icterus Neck supple Resp normal respiratory effort and clear to auscultation bilaterally Cardio regular rate and regular rhythm Rate: other Other Details: Heart is regular rate and rhythm without murmurs rubs or gallop Radial and carotid pulses are equal and symmetric GI normal to inspection, nondistended, normoactive bowel sounds, non-tender, non-distended and no masses GI Narrative: No voluntary guarding or rigidity or pulsatile mass Auscultation: normoactive bowel sounds Palpation: soft Back/Spine no CVA tenderness Back/Spine Narrative: No bony deformity or step-off of the thoracic or lumbar spine but there is midline pain with palpation of the lower lumbar/upper sacrum. Pain does not worsen with extension or rotation. No significant paralumbar tenderness or spasm noted. No saddle anesthesia. Negative straight leg raise. No clonus or Babinski. Patellar reflexes are plus 2 out of 4 bilaterally No overlying soft tissue changes to suggest trauma or infection Extremity normal to inspection Neuro oriented x3, CN's II-XII intact bilaterally and no sensory deficits noted Sensorium / Orientation: alert Motor Exam: strength 5/5 throughout Psych Mood & Affect: anxious Skin no rashes or lesions noted and no wounds General Skin Exam: Negative for jaundice or pallor MDM MDM MDM Narrative Medical decision making narrative: Patient presented to the ER with stable vitals. She reported a pain along the left low back but denied any recent trauma or excessive activity. Differential diagnosis is for lumbosacral strain versus compression fracture or spondylolisthesis. There is also concern the patient could have UTI or pyelonephritis or kidney stone. With the recent ectopic there is concern for potential rupture. Therefore elected to perform basic laboratory studies with urine sample and pelvic ultrasound as well as lumbar spine x-ray. X-ray revealed no sign of bony pathology. Labs show no leukocytosis or left shift and her urine test is negative. Urine sample does not show any blood going against kidney stone and there is no signs of infection going against pyelonephritis/UTI. The pelvic ultrasound did show a mass superior to the left ovary and with the recent ectopic I did consult SENIOR NETWORK SECURITY ARCHITECT. They reviewed the ultrasound and believe this is most likely just absorption of the recent ectopic and not infection as she is afebrile with normal white count or perforation/rupture based on the small size and the fact that a urine test is negative. She recommends a quantitative value be obtained so they have a measurable value to follow. She reports she will see the patient in her office most likely by Wednesday. As patient's vitals are stable and overall workup is not showing any signs indicate potential infection or rupture there is no need for further intervention and she is otherwise safe for follow-up with SENIOR NETWORK SECURITY ARCHITECT on an outpatient basis. History & Record Review Discussion w/independent historian: Patient and Significant other Lab Data Attestation: I reviewed the patient's lab results. Labs: Laboratory Results - last 24 hr 01/24/25 05:55 WBC 10.3 RBC 4.25 Hgb 13.1 Hct 38.0 MCV 89.4 MCH 30.8 MCHC 34.5 RDW Std Deviation 39.8 RDW Coeff of [place] 12.3 Plt Count 313 MPV 9.3 Immature Gran % (Auto) 1.200 H Neut % (Auto) 63.1 Lymph % (Auto) 26.4 [place] % (Auto) 6.7 Eos % (Auto) 2.0 Baso % (Auto) 0.6 Absolute Neuts (auto) 6.5 Absolute Lymphs (auto) 2.71 Nucleated RBC % 0 Sodium 136 Potassium 4.1 Chloride 102 Carbon Dioxide 22.6 Anion Gap 12 BUN 12 Creatinine 0.72 Estim Creat Clear Calc 145.46 Est GFR (MDRD) Non-Af 116 BUN/Creatinine Ratio 16.8 Glucose 135 H Calcium 9.3 Magnesium 1.8 Urine Color Yellow Urine Clarity Sl. Cloudy Urine pH 6.0 Ur Specific [place] 1.015 Urine Protein Negative Urine Glucose (UA) Normal Urine Ketones Negative Urine Occult Blood 50 H Urine Nitrite Negative Urine Bilirubin Negative Urine Urobilinogen Normal Ur Leukocyte Esterase Negative Urine RBC 0 SEEN Urine WBC 0-5 SEEN Ur Squamous Epith Cells 0-5 SEEN Urine Bacteria 0 SEEN Urine Mucus 0 SEEN Urine Test Negative Radiography Diagnostic Testing: Clinical Impression(s) from Imaging Studies Transvaginal US 01/24/25 06:14 IMPRESSION: 1.3 cm x 1.2 cm complex density superior to the left ovary. Correlation with HCG recommended for further evaluation. Reading Location: [facility] Lumbar Spine X-Ray 01/24/25 06:30 IMPRESSION: Negative lumbar spine. Reading [facility]-ray of the lumbar spine as interpreted by the emergency medicine physician reveals no acute compression fracture or spondylolisthesis Management Discussion w/another healthcare provider: Computer Applications Engineer Discharge Plan Triage Chief Complaint: Back ED Provider: Shawn Elizalde Dx/Rx/DC Orders Clinical Impression: Ovarian mass, left, Low back pain, Anxiety and depression Instructions: ED Back Pain (Acute or Chronic) Prescriptions: No Action norethindrone (contraceptive) [Incassia] 0.35 mg tablet 0.35 mg PO DAILY Primary Care Provider: Kate Sarabia NP Referrals: Chiara Gold MD [Med Staff - Active Staff] - (Left ovarian mass with recent ectopic ) Kate Sarabia NP, FAMILY INDEPENDENCE CASE MANAGER-C [Primary Care Provider] - Activity Restrictions/Additional Instructions: Your pelvic ultrasound showed a small mass near the left ovary which is most likely your recent ectopic being absorbed. Follow-up with SENIOR NETWORK SECURITY ARCHITECT for reevaluation and call their office later today as they should be able to get you in by Wednesday. If you have severe increase in vaginal bleeding develop increasing pain or have bouts of passing out please return to the ER for repeat evaluation. Print Language: Georgian Disposition Disposition: Home, Self Care
[2025-01-24 09:17] VITALS: BP 115/68; PULSE 61; RESP 18; TEMP 36.6; O2SAT 100
[2025-01-24 10:04] LABS: hCG Titer Quant., Serum 4 mIU/mL (<9 non-preg)
== END 2025-01-24 09:36 | disposition home or self-care (01) ==
PROVIDERS: Emergency Provider Emergency Medicine; PCP Nurse Practitioner Family; Visit Provider Emergency Medicine
DX: N83.8 Other noninflammatory disorders of ovary, fallopian tube and broad ligament (principal); F41.9 Anxiety disorder, unspecified; M54.50 Low back pain, unspecified; F32.A Depression, unspecified; F17.290 Nicotine dependence, other tobacco product, uncomplicated
CPT/HCPCS: 72110; 76830; 80048; 81001; 81025; 83735; 84702; 85025; 99284; A4216

== ENCOUNTER 2025-04-06 05:04 | Emergency (ER) | payer OTHER, SELFPAY ==
[2025-04-06 05:04] VITALS: BP 144/82; PULSE 87; RESP 18; TEMP 36.5; O2SAT 100; BMI 46.6
--- NOTE | 2025-04-06 05:21 | CT_ITS ---
PROCEDURE: ABDOMEN/PELVIS WITHOUT CONT 04/06/2025 REASON FOR EXAM: LEFT FLANK PAIN TECHNIQUE: Procedure Code: CTABDPEL Modality: CT Procedure: ABDOMEN/PELVIS WITHOUT CONT Noncontrast technique limits evaluation of the abdominal and pelvic viscera. Coronal and Sagittal reconstruction series were provided. One or more dose reduction techniques were used (e.g., Automated exposure control, adjustment of the mA and/or kV according to patient size, use of iterative reconstruction technique). RADIATION DOSE SUMMARY: CTDI Vol 13.71 mGy DLP :713.64 mGycm COMPARISON: 20-Apr-2024 FINDINGS: Both kidneys are of average size and showing smooth outline with preserved parenchymal thickness. No renal calculi. No hydronephrosis. Under distension of the urinary bladder showing minimal uniform mural thickening with no obvious masses. Enlarged liver showing homogenous parenchymal attenuation. No dilated intra or extra-hepatic biliary tracts. Gall bladder showing no radiodense calculi. No abnormal mural thickening. Clear surrounding fat planes with no sizeable collections. Normal unenhanced appearance of the pancreas with clear surrounding fat planes. The unenhanced spleen, adrenal glands, aorta and IVC are unremarkable. No obvious masses related to the pelvic viscera. Multiple pelvic phleboli are noted. The appendix is not identified. Colonic fecal loading. The small bowel loops are unremarkable. The stomach is unremarkable. No ascites or free air. No obvious pathologically enlarged lymph nodes. Scanned osseous structures show no osseous destruction. Scanned lung bases show basal atelectatic changes. CT/Abdomen/Pelvis without Cont IMPRESSION: No renal calculi. No hydronephrosis. No acute pelvi-abdominal abnormalities, collections or free air. Reading Location: [facility]
--- OUTSIDE RECORDS SUMMARY | 2025-04-06 05:30 | XMS RPT_ITS | CCD ---
Author Organization [facility] Care Team Providers Care Manager Program Management Name Role Phone RICARDO BELTRAN Attending Unavailable SREEKUMAR, KIRBY Primary Care Unavailable RICARDO BELTRAN Attending Unavailable SREEKUMAR, KIRBY Primary Care Unavailable Trill GREENHOUSE TRANSPLANTER.Eddie ARRIAGA Primary Care Provider Trill GREENHOUSE TRANSPLANTER.Eddie ARRIAGA Primary Care Provider Trill GREENHOUSE TRANSPLANTER.Eddie ARRIAGA Primary Care Provider Trill GREENHOUSE TRANSPLANTER.Eddie ARRIAGA Primary Care Provider JESS THAYER Referring Unavailable TRILL, EDDIE C Primary Care Unavailable KATHERINE ROME Referring Unavailable TRILL, EDDIE C Primary Care Unavailable KATHERINE ROME Admitting Unavailable KATHERINE ROME Attending Unavailable TRILL, EDDIE C Primary Care Unavailable LEATHA OCAMPO Admitting Unavailable LAETHA OCAMPO Attending Unavailable TRILL, EDDIE C Primary Care Unavailable Unavailable Primary Care Provider UnavailEddie Dutta Primary Care Provider Dr. Shawn Elizalde DO Emergency Provider Javy Tai Attending Unavailable Trill, Eddie Primary Care Unavailable Bernardo Wong Attending Unavailable Trill, Eddie Primary Care Unavailable Trill, Eddie Primary Care Unavailable Shawn Elizalde Attending Unavailable TRILL, EDDIE C Primary Care Unavailable MELANIE MERCER Attending Unavailable TRILL, EDDIE C Primary Care Unavailable TRILL, EDDIE C Primary Care Unavailable LEATHA OCAMPO Attending Unavailable TRILL, EDDIE C Primary Care Unavailable TRILL, EDDIE C Primary Care Unavailable KEKE PABLO Attending Unavailable TRILL, EDDIE C Referring Unavailable TRILL, EDDIE C Primary Care Unavailable RUBY VILLALBA Attending Unavail able TRILL, EDDIE C Primary Care Unavailable TRILL, EDDIE C Primary Care Unavailable JESS THAYER Attending Unavailable TRILL, EDDIE C Referring Unavailable TRILL, EDDIE C Primary Care Unavailable TRILL, EDDIE C Primary Care Unavailable TRILL, EDDIE C Primary Care Unavailable KOSTAS HOPKINS Attending Unavailable KOSTAS HOPKINS Referring Unavailable KOSTAS HOPKINS Referring Unavailable KOSTAS HOPKINS Attending Unavailable KOSTAS HOPKINS Attending Unavailable KOSTAS HOPKINS Attending Unavailable WESTON ARMSTRONG Admitting Unavailable WESTON ARMSTRONG Attending Unavailable KOSTAS HOPKINS Attending Unavailable TRILL, EDDIE C Primary Care Unavailable SELF Referring Unavailable KATIANA DIAZ Attending Unavailable ALAINA RAO MD Attending Unava ilable TRILL, EDDIE C Primary Care Unavailable TRILL, EDDIE C Primary Care Unavailable TRILL, EDDIE C Primary Care Unavailable SELF Referring Unavailable KATIANA DIAZ Attending Unavailable TRILL, EDDIE C Primary Care Unavailable TRILL, EDDIE C Attending Unavailable TRILL, EDDIE C Primary Care Unavailable TRILL, EDDIE C Referring Unavailable TRILL, EDDIE C Attending Unavailable TRILL, EDDIE C Primary Care Unavailable KATIANA DIAZ Attending Unavailable ALAINA RAO MD Attending Unava ilable TRILL, EDDIE C Primary Care Unavailable TRILL, EDDIE C Primary Care Unavailable TRILL, EDDIE C Referring Unavailable TRILL, EDDIE C Primary Care Unavailable KATIANA DIAZ Referring Unavailable TRILL, EDDIE C Primary Care [...] Unavailable TRILL, EDDIE C Primary Care Unavailable ROSEMARIE ALEGRIA Attending Unavailable ROSEMARIE ALEGRIA Admitting Unavailable TRILL, EDDIE C Primary Care Unavailable TRILL, EDDIE C Referring Unavailable TRILL, EDDIE C Primary Care Unavailable KATIANA DIAZ Referring Unavailable TRILL, EDDIE C Primary Care Unavailable JESS THAYER Referring Unavailable EDDIE BISHOP Primary Care Unavailable EDDIE BISHOP Referring Unavailable Allergies Allergy Classification Reported Allergen(s) Allergy Type Date of Onset Reaction(s) Facility Macrolides (antibiotic) (2 sources) Clarithromycin Drug Allergy 01-24-20 15 Vomiting, [facility] Onion extract (1 source) Onion extract Drug Allergy 07-28-19 19 [facility] Penicillins (antibiotic) (2 sources) Amoxicillin Drug Allergy 01-24-20 15 [facility] (20 sources) Amoxicillin; Translations: [AMOXICILLIN] Drug Allergy 01-24-20 15 [facility] (20 sources) Azithromycin; Translations: [AZITHROMYCIN] Drug Allergy 02-07-20 16 [facility] (20 sources) Clarithromycin; Translations: [CLARITHROMYCIN] Drug Allergy 01-24-20 15 [facility] (20 sources) Onion extract; Translations: [ONION] Drug Allergy 07-28-19 19 [facility] (9 sources) Penicillins; Translations: [PENICILLINS] Drug Allergy 02-17-20 18 [facility], [facility] Work Phone: (20 sources) Penicillins Drug Allergy 02-17-20 18 [facility], [facility] Work Phone: (20 sources) egg extract; Translations: [EGG] Drug Allergy 04-10-20 24 Vomiting [facility] (20 sources) Penicillins Drug Allergy 02-17-20 18 [facility], [facility] (20 sources) Clarithromycin Propensity to adverse reactions 01-24-20 15 Nausea And Vomiting [facility] (20 sources) Egg Propensity to adverse reactions 04-10-20 24 Nausea And Vomiting [facility] (20 sources) Onion extract Drug Allergy 07-28-19 19 [facility] (20 sources) Penicillins Drug Allergy 01-24-20 15 Nausea And Vomiting, Nausea Only, [facility] (1 source) Penicillins Allergy to substance 01-25-20 [facility] (1 source) Amoxicillin Drug Allergy 01-25-20 25 [facility] (1 source) Azithromycin Drug Allergy 01-25-20 [facility] (1 source) Penicillins Drug allergy (disorder) 01-25-20 [facility] Medications Current Medications Medication Drug Class(es) Dates [...] 12/10/2023 Active cholecalciferol 0.125 mg oral tablet (18 sources) Vitamin D Start: 11-06-2024 End: 11-06-2025 [...] muscle spasms cyclobenzaprine (FLEXERIL) 5 mg tablet Indications: Muscle spasm Take 1 tablet by mouth twice daily as needed. 30 tablet 0 07/29/2022 11/09/2022 Discontinued Comment on above: Take 1 tablet by mahesh th twice daily as needed. Take 1 tablet by mahesh th every 8 hours as needed for up to 5 days. doxycycline hyclate 100 mg oral capsule (2 sources) Tetracycline-clas s Drug Start: 11-03-2024 End: 11-13-2024 take 1 capsule by mouth twice daily doxycycline hyclate (VIBRAMYCIN) 100 mg capsule Indications: sinusitis Take 1 capsule by mouth two times a day for 10 days. 20 capsule 11/03/2024 11/13/2024 Active Start: 12-10-2022 End: 12-20-2022 take 1 capsule by mouth twice daily doxycycline hyclate (VIBRAMYCIN) 100 mg capsule Indications: sinusitis Take 1 capsule by mouth twice daily for 10 days. 20 capsule 0 12/10/2022 12/20/2022 Active Comment on above: Take [address] [facility] twice daily for 10 days. enteric contrast (will be provided with radiology test) (2 sources) Start: 12-12-2024 End: 12-13-2024 enteric contrast (will be provided with radiology test) For CT ABD/PEL W IVCON Routine order Administer, As Directed One Time Only, via Oral, Rectal, both Oral and Rectal, Enteric Tube, Stoma or Indwelling Catheter, Enteric Contrast as designated per enteric contrast guidelines 1 each 12/12/2024 12/13/2024 Active Start: 07-20-2022 End: 07-21-2022 enteric contrast (will be pr ovided with radiology test) For CT ABD/PEL W IVCON Routine order Administer, As Directed One Time Only, via Oral, Rectal, both Oral and Rectal, Enteric Tube, Stoma or Indwelling Catheter, Enteric Contrast as designated per enteric contrast guidelines 1 Each 0 07/20/2022 07/21/2022 Comment on above: For CT ABD/PEL W IVC ON Routine order Administer, As Directed One Time Only, via Oral, Rectal, both Oral and Rectal, Enteric Tube, Stoma or Indwelling Catheter, Enteric Contrast as designated per enteric contrast guidelines ferrous sulfate 325 mg oral tablet (19 sources) Start: 03-12-2025 take 1 tablet by mouth once daily ferrous sulfate 325 mg (65 mg iron) tablet Indications: Iron deficiency Take 1 tablet by mouth once daily. 03/12/2025 Active Start: 11-06-2024 End: 11-06-2025 take 1 tablet by mouth every other day ferrous sulfate 325 mg (65 mg iron) tablet Indications: Iron deficiency Take 1 tablet by mouth every other day. 45 tablet 3 11/06/2024 03/12/2025 Discontinued (Adjust Sig - Block E-Cancel) fluconazole 150 mg oral tablet (7 sources) Azole Antifungal Start: 08-20-2024 End: 08-21-2024 take 1 tablet by mouth once daily fluconazole (DIFLUCAN) 150 mg tablet Take 1 tablet by mouth once daily for 1 day. 1 tablet 08/20/2024 08/21/2024 Active Start: 11-11-2023 End: 12-02-2023 fluconazole (DIFLUCAN) 150 m g tablet Take 1 tablet by mouth every 3 days in the morning. Take one tab by mouth now and one tab by mouth in 72 hours if symptoms persist 2 tablet 0 11/11/2023 12/02/2023 Discontinued fluticasone propionate 0.05 mg/actuat metered dose nasal spray (18 sources) Corticosteroid Start: 11-03-2024 take 1 spray(s) nasal route once daily fluticasone (FLONASE ALLERGY RELIEF) 50 mcg/actuation nasal spray Indications: Acute non-recurrent maxillary sinusitis Use 1 spray in each nostril once daily. 1 each 5 11/03/2024 Active iv contrast (will be provided with radiology test) (2 sources) Start: 12-12-2024 End: 12-13-2024 iv contrast (will be provided with radiology test) CT ABD/PEL -Inject, intravenously, once for 1 dose.No IV access, insert saline lock prior to the beginning of sedation, infusion, injection of imaging exam. Discontinue saline lock post exam. If Pt. has a central line or IVAD, may access for administration according to line specific nursing protocol. Once exam is complete flush line and de-access according to line specific nursing protocol in theCT contrast administration guidelines link. 1 each 12/12/2024 12/13/2024 Active Start: 07-20-2022 End: 07-21-2022 iv contrast (will be provide d with radiology test) CT ABD/PEL -Inject, intravenously, once for 1 dose.No IV access, insert saline lock prior to the beginning of sedation, infusion, injection of imaging exam. Discontinue saline lock post exam. If Pt. has a central line or IVAD, may access for administration according to line specific nursing protocol. Once exam is complete flush line and de-access according to line specific nursing protocol in the CT contrast administration guidelines link. 1 Each 0 07/20/2022 07/21/2022 Comment on above: CT ABD/PEL -Inject, intravenously, once for 1 dose.No IV access, insert saline lock prior to the beginning of sedation, infusion, injection of imaging exam. Discontinue saline lock post exam. If Pt. has a central line or IVAD, may access for administration according to line specific nursing protocol. Once exam is complete flush line and de-access according to line specific nursing protocol in the CT contrast administration guidelines link. metroNIDAZOLE 500 mg oral tablet (1 source) Nitroimidazole Antimicrobial Start: End: take 1 tablet by mouth twice daily metroNIDAZOLE (FLAGYL) 500 mg tablet Take 1 tablet by mouth two times a day for 7 days. 14 tablet 0 04/30/2023 05/07/2023 Active Comment on above: Take 1 tablet by mahesh two times a day for 7 days. nitrofurantoin, macrocrystals 25 mg / nitrofurantoin, monohydrate 75 mg oral capsule (9 sources) Nitrofuran Antibacterial Start: 025 End: take 1 capsule by mouth twice daily at mealtime nitrofurantoin monohydrate and macrocrystal (MACROBID) 100 mg capsule Take 1 capsule by mouth two times a day with meals for 7 days. 14 capsule 08/20/2024 08/27/2024 Active Start: 10-30-2023 End: 11-04-2023 take 1 capsule by mouth twice daily at mealtime nitrofurantoin monohydrate and macrocrystal (MACROBID) 100 mg capsule Take 1 capsule by mouth two times a day with meals for 5 days. 10 capsule 0 10/30/2023 11/04/2023 Active Start: 05-27-2023 End: 06-01-2023 take 1 capsule by mouth twice daily nitrofurantoin monohydrate and macrocrystal (MACROBID) 100 mg capsule Take 1 capsule by mouth two times a day for 5 days. 10 capsule 0 05/27/2023 06/01/2023 Active Comment on above: Take 1 capsule by mo ut two times a day for 5 days. Take 1 capsule by mo [facility] two times a day with meals for 5 days. ondansetron 4 mg disintegrating oral tablet (20 sources) Serotonin-3 Receptor Antagonist Start: 07-11-20 End: 07-14-19 take 1 tablet by mouth every six hours as needed for nausea ondansetron orally disintegrating (ZOFRAN ODT) 4 mg disintegrating tablet Indications: Gastroenteritis Take 1 tablet by mouth every 6 hours as needed for nausea/vomiting for up to 3 days. 9 tablet 07/11/2024 07/14/2024 Active Start: 12-02-2023 End: 07-03-2024 take 1 tablet by mouth every eight hours as needed for nausea and nausea ondansetron (ZOFRAN) 4 mg tablet Indications: Nausea Take 1 tablet by mouth every 8 hours as needed for nausea/vomiting. 12 tablet 12/02/2023 07/03/2024 Discontinued (Course of therapy completed) Start: 10-30-2023 End: 12-02-2023 take 2 tablets by mouth every eight hours as needed ondansetron orally disintegrating (ZOFRAN ODT) 4 mg disintegrating tablet Take 2 tablets by mouth every 8 hours as needed for nausea/vomiting. 12 tablet 0 10/30/2023 12/02/2023 Discontinued Start: 10-30-2023 End: 10-30-2023 ondansetron orally disintegr ating 8 mg tab(s) (ZOFRAN ODT) Start: 05-27-2023 End: 06-03-2023 take 1 tablet by mouth every six hours as needed ondansetron (ZOFRAN) 4 mg tablet Take 1 tablet by mouth every 6 hours as needed for nausea/vomiting for up to 7 days. 20 tablet 0 05/27/2023 06/03/2023 Active Start: 11-30-2022 take 1 tablet by mahesh th every eight hours as needed ondansetron (ZOFRAN) 4 mg tablet Take 1 tablet by mouth every 8 hours as needed for nausea/vomiting. 30 tablet 0 11/30/2022 Active Start: 10-30-2022 End: 11-09-2022 take 1 tablet by mouth every eight hours as needed for nausea ondansetron (ZOFRAN) 4 mg tablet Indications: Kidney stone Take 1 tablet by mouth every 8 hours as needed for nausea/vomiting. 20 tablet 0 10/30/2022 11/09/2022 Discontinued Comment on above: Take 1 tablet by mahesh th every 8 hours as needed for nausea/vomiting. Take 1 tablet by mahesh th every 6 hours as needed for nausea/vomiting for up to 7 days. Take 2 tablets by mo uth every 8 hours as needed for nausea/vomiting. perflutren lipid microspheres 1.3 mL in NaCl (PF) 0.9% 10 mL injection (DEFINITY) (20 sources) Start: 02-09-20 End: 05-09-20 perflutren lipid microspheres 1.3 mL in NaCl (PF) 0.9% 10 mL injection (DEFINITY) predniSONE 20 mg oral tablet (1 source) Start: 04-01-20 End: 04-06-20 take 2 tablets by mouth once daily predniSONE (DELTASONE) 20 mg tablet Take 2 tablets by mouth once daily for 5 days. 10 tablet 0 04/01/2022 04/06/2022 Active Comment on above: Take 2 tablets by mo uth once daily for 5 days. vit 62/FA/om3/dha/epa ( GUMMY ORAL) (5 sources) vit 62/FA/om3/dha/epa ( GUMMY ORAL) Take by mouth. Active Vit-Fe Fumarate-FA ( Vitamins) 28-0.8 MG tablet (17 sources) Start: 12-19-19 End: 12-19-19 take 1 tablet by mouth once daily Vit-Fe Fumarate-FA ( Vitamins) 28-0.8 MG tablet Indications: with inconclusive viability, single or unspecified fetus Take 1 tablet by mouth daily. 90 tablet 1 12/18/2024 12/18/2025 Active progesterone 200 mg oral capsule (15 sources) Progesterone Start: 12-27-19 progesterone (Prometrium) 200 MG capsule Indications: HRT Place vaginally nightly 30 capsule 11 12/26/2024 Active 125 ml sodium chloride 9 mg/ml prefilled syringe (20 sources) Start: 02-09-20 End: 05-09-20 24 sodium chloride 0.9 % (flush) 10 mL (BD POSIFLUSH) Completed/Discontinued Medications Medication Drug Class(es) Dates Sig (Normalized) Sig (Original) acetaminophen 500 mg oral tablet (20 sources) Start: 04-01-2022 End: 11-09-2022 take 2 tablets by mouth every six hours as needed acetaminophen (TYLENOL EXTRA STRENGTH) 500 mg tablet Take 2 tablets by mouth every 6 hours as needed for fever (specify). 90 tablet 0 04/01/2022 11/09/2022 Discontinued Comment on above: Take 2 tablets by mo [facility] every 6 hours as needed for fever (specify). acetaminophen 325 mg / HYDROcodone bitartrate 5 mg oral tablet (3 sources) Opioid Agonist Start: 10-28-2022 End: 10-31-2022 take 1 tablet by mouth every eight hours as needed for pain HYDROcodone-acetami nophen (NORCO) 5-325 mg per tablet Indications: Pelvic pain in female Take 1 tablet by mouth every 8 hours as needed for pain for up to 3 days. 9 tablet 0 10/28/2022 10/31/2022 Comment on above: Take 1 tablet by [facility] every 8 hours as needed for pain for up to 3 days. [id number] 200 actuat albuterol 0.09 mg/actuat metered dose inhaler (20 sources) beta2-Adrenergic Agonist Start: 11-29-2022 End: 07-03-2024 take 2 puff(s) by inhalation every four hours as needed for wheezing albuterol HFA (VENTOLIN HFA) 90 mcg/actuation inhaler Indications: Productive cough Inhale 2 Puffs as instructed every 4 hours as needed for wheezing/shortness of breath. 1 Each 12/02/2023 07/03/2024 Discontinued (Course of therapy completed) Comment on above: Inhale 2 Puffs as in structed every 4 hours as needed for wheezing/shortness of breath. benzonatate 100 mg oral capsule (20 sources) Non-narcotic Antitussive Start: 12-02-2023 End: 04-10-2024 take 1 capsule by mouth three times daily as needed benzonatate (TESSALON PERLES) 100 mg capsule Indications: Productive cough Take 1 capsule by mouth three times a day as needed. 30 capsule 12/02/2023 04/10/2024 Discontinued (Other) Start: 11-29-2022 take 1 capsule by mo [facility] every eight hours as needed Benzonatate 200 mg capsule Take 1 capsule by mouth three times daily as needed. 21 capsule 0 11/29/2022 Active Start: 04-01-2022 End: 01-09-2023 take 1 capsule by mouth every eight hours as needed benzonatate (TESSALON PERLES) 100 mg capsule Take 1 capsule by mouth three times daily as needed. 21 capsule 0 04/01/2022 07/20/2022 Discontinued Comment on above: Take [address] [facility] three times daily as needed. cephalexin 500 mg oral capsule (3 sources) Cephalosporin Antibacterial Start: End: take 1 capsule by mouth three times daily cephALEXin (KEFLEX) 500 mg capsule Take 1 capsule by mouth three times a day for 7 days. 21 capsule 02/16/2025 02/23/2025 Start: 10-19-2022 End: 10-29-2022 take 1 tablet by mouth twice daily Cephalexin 500 mg tab Indications: Strep pharyngitis Take 1 tablet by mouth twice daily for 10 days. 20 tablet 0 10/19/2022 10/29/2022 Comment on above: Take 1 tablet by [facility] twice daily for 10 days. chlorhexidine gluconate 1.2 mg/ml mouthwash (20 sources) Start: 10-07-2022 Chlorhexidine Gluconate (PERIDEX) 0.12 % solution SWISH AND SPIT TWICE A DAY FOR 7 DAYS 0 10/07/2022 Active Comment on above: SWISH AND SPIT TWICE A DAY FOR 7 DAYS ciprofloxacin 500 mg oral tablet (2 sources) Quinolone Antimicrobial Start: 12-03-2023 End: 12-03-2023 ciprofloxacin HCl 500 mg tab(s) (CIPRO) Start: 12-03-2023 End: 12-03-2023 ciprofloxacin HCl 500 mg tab (s) (CIPRO) ergocalciferol 1.25 mg oral capsule (17 sources) Provitamin D2 Compound Start: 06-23-2022 End: 10-30-2022 take 1 capsule by mouth every week ergocalciferol 50,000 unit capsule (VITAMIN D2, DRISDOL) TAKE 1 CAPSULE BY MOUTH ONE TIME A WEEK. 4 capsule 1 08/23/2022 10/30/2022 Discontinued Comment on above: Take [address] [facility] one time a week. escitalopram 10 mg oral tablet (13 sources) Serotonin Reuptake Inhibitor Start: 02-25-2021 End: 07-20-2022 take 1 tablet by mouth once daily escitalopram oxalate (LEXAPRO) 10 mg tablet Indications: Anxiety and depression , Palpitations TAKE 1 TABLET BY MOUTH EVERY DAY 90 tablet 1 02/25/2021 07/20/2022 Discontinued Comment on above: TAKE 1 TABLET BY MAHESH TH EVERY DAY hydrOXYzine pamoate 25 mg oral capsule (2 sources) Antihistamine Start: 01-01-2025 End: 01-01-2025 take 25 mg by mouth once 25 mg, Oral, Once, On 01/01/25 at 1530, For 1 dose ibuprofen 600 mg oral tablet (8 sources) Nonsteroidal Anti-inflammatory Drug Start: 04-01-2022 End: 07-20-2022 take 1 tablet by mouth every six hours as needed ibuprofen (MOTRIN) 600 mg tablet TAKE 1 TABLET BY MOUTH EVERY 6 HOURS NEEDED FOR PAIN OR FEVER (SPECIFY). 90 tablet 0 04/21/2022 07/20/2022 Discontinued Comment on above: Take 1 tablet by mahesh th every 6 hours as needed for pain or fever (specify). ketorolac tromethamine 10 mg oral tablet (6 sources) Nonsteroidal Anti-inflammatory Drug, Cyclooxygenase Inhibitor Start: 11-26-2023 End: 12-03-2023 take 1 tablet by mouth every eight hours as needed keTORolac (TORADOL) 10 mg tablet Take 1 tablet by mouth every 8 hours as needed for pain. 10 tablet 0 11/26/2023 12/03/2023 Discontinued lidocaine hydrochloride 0.02 mg/mg topical gel (2 sources) Antiarrhythmic, Amide Local Anesthetic Start: 12-03-2023 End: 12-03-2023 lidocaine urojet 2 % 6 mL topical gel (GLYDO) Start: 12-03-2023 End: 12-03-2023 lidocaine urojet 2 % 6 mL to pical gel (GLYDO) 12 hr loratadine 5 mg / pseudoephedrine sulfate 120 mg extended release oral tablet (2 sources) alpha-Adrenergic Agonist Start: 11-03-2024 End: 12-12-2024 take 1 tablet by mouth twice daily loratadine-pseudoephedrine ER (CLARITIN-D 12) 5-120 mg per tablet Indications: Acute non-recurrent maxillary sinusitis Take 1 tablet by mouth two times a day. 60 tablet 11/03/2024 12/12/2024 Discontinued medroxyPROGESTERone acetate 5 mg oral tablet (20 sources) Progestin Start: 04-20-2023 End: 07-03-2024 take 1 tablet by mouth once daily medroxyPROGESTERone (PROVERA) 5 mg tablet Indications: PCOS (polycystic ovarian syndrome) , Secondary amenorrhea Take 1 tablet by mouth once daily. 10 tablet 5 04/20/2023 07/03/2024 Discontinued Start: 10-03-2021 End: 11-09-2022 take 1 tablet by mouth once daily medroxyPROGESTERone (PROVERA) 5 mg tablet Indications: PCOS (polycystic ovarian syndrome) , Secondary amenorrhea Take 1 tablet by mouth once daily for 10 days. 10 tablet 5 10/03/2021 11/09/2022 Discontinued Comment on above: Take 1 tablet by mahesh th once daily for 10 days. Take 1 tablet by mahesh th once daily. 24 hr metFORMIN hydrochloride 750 mg extended release oral tablet (20 sources) Biguanide Start: 07-15-19 End: 02-09-20 take 2 tablets by mouth once daily at breakfast metFORMIN ER (GLUCOPHAGE XR) 750 mg 24 hr tablet Take 2 tablets by mouth daily with breakfast. 60 tablet 5 07/15/2022 02/08/2023 Discontinued Start: 06-23-2022 End: 07-15-2022 take 1 tablet by mouth once daily at dinner, then take 1 tablet by mouth once daily at dinner, then take 2 tablets by mouth once daily at dinner metFORMIN ER (GLUCOPHAGE XR) 500 mg 24 hr tablet Take 1 tablet by mouth daily with dinner. For the first week take one tablet daily with dinner. Then after 7 days take 2 tablets daily with dinner. 49 tablet 0 06/23/2022 07/15/2022 Discontinued Comment on above: Take 1 tablet by mahesh th daily with dinner. For the first week take one tablet daily with dinner. Then after 7 days take 2 tablets daily with dinner. Take 2 tablets by mo [facility] daily with breakfast. Take 750 mg by mouth daily with breakfast. metoclopramide 5 mg oral tablet (9 sources) Dopamine-2 Receptor Antagonist Start: 04-20-20 End: 06-29-20 take 1 tablet by mouth every six hours as needed for nausea and vomiting Metoclopramide Hcl 5 mg tablet Discontinued 5 mg PO EVERY 6 HOURS as needed for nausea and vomiting 20 5 0 April 20, 2024 3:37pm June 29, 2024 7:47pm Start: 04-20-2024 End: 07-03-2024 take 1 tablet by mouth every six hours as needed metoclopramide HCl (REGLAN) 5 mg tablet Take 5 mg by mouth four times a day as needed. 04/20/2024 07/03/2024 Discontinued (Course of therapy completed) mv-mn/iron/folic acid/herb 190 (VITAMIN D3 COMPLETE ORAL) (20 sources) mv-mn/iron/folic acid/herb 190 (VITAMIN D3 COMPLETE ORAL) Take by mouth. 0 Active Comment on above: Take by mouth. naproxen 500 mg oral tablet (20 sources) Nonsteroidal Anti-inflammatory Drug Start: End: take 1 tablet by mouth every twelve hours as needed naproxen (NAPROSYN) 500 mg tablet Take 1 tablet by mouth two times a day as needed for pain (FOR PAIN - TAKE WITH FOOD.). 14 tablet 12/03/2023 07/03/2024 Discontinued (Course of therapy completed) Start: 06-22-2023 End: 07-06-2023 take 1 tablet by mouth every twelve hours as needed naproxen (NAPROSYN) 500 mg tablet Take 1 tablet by mouth two times a day as needed for pain for up to 14 days. 28 tablet 0 06/22/2023 07/06/2023 Active Start: 10-28-2022 End: 11-07-2022 take 1 tablet by mouth twice daily at mealtime as needed naproxen (NAPROSYN) 500 mg tablet Take 1 tablet by mouth twice daily with meals for 20 doses. TAKE WITH FOOD Take as needed for cramping/vaginal bleeding 20 tablet 0 10/28/2022 11/07/2022 Active Comment on above: Take 1 tablet by mahesh th twice daily with meals for 20 doses. TAKE WITH FOOD Take as needed for cramping/vaginal bleeding Take 1 tablet by mahesh th two times a day as needed for pain for up to 14 days. norethindrone acetate 5 mg oral tablet (20 sources) Start: End: take 1 tablet by mouth once daily norethindrone (AYGESTIN) 5 mg tablet Take 1 tablet by mouth once daily. 30 tablet 5 07/10/2024 12/12/2024 Discontinued Start: 05-31-2024 End: 05-02-2025 take 1 tablet by mouth once daily Norethindrone (Contraceptive) (Norethindrone (Contraceptive) 0.35 Mg Tablet) 0.35 mg tablet Active 0.35 mg PO DAILY June 29, 2024 1:00am On Hold: recent ectopic Start: 08-28-2022 End: 11-09-2022 norethindrone (AYGESTIN) 5 m g tablet Take twice daily until bleeding stops x 3 days then BID x 3 days then daily x 5 days. 30 tablet 0 08/28/2022 11/09/2022 Discontinued Comment on above: Take twice daily unt il bleeding stops x 3 days then BID x 3 days then daily x 5 days. 24 hr oxybutynin chloride 10 mg extended release oral tablet (16 sources) Cholinergic Muscarinic Antagonist Start: 11-18-19 End: 04-10-20 take 1 tablet by mouth once daily oxybutynin ER (DITROPAN XL) 10 mg 24 hr tablet Indications: Urinary frequency Take 1 tablet by mouth once daily for 21 days. 21 tablet 11/18/2023 04/10/2024 Discontinued (Other) phenazopyridine hydrochloride 200 mg oral tablet (20 sources) Start: 11-26-19 End: 04-10-20 24 take 1 tablet by mouth every eight hours as needed phenazopyridine (PYRIDIUM) 200 mg tablet Take 1 tablet by mouth three times a day as needed. 20 tablet 11/26/2023 04/10/2024 Discontinued (Other) Start: 11-08-2023 End: 11-13-2023 take 1 tablet by mouth every eight hours as needed phenazopyridine (PYRIDIUM) 100 mg tablet Take 1 tablet by mouth three times a day as needed for up to 5 days. 15 tablet 0 11/08/2023 11/13/2023 Start: 08-10-2023 take 1 tablet by mahesh th every eight hours as needed phenazopyridine (PYRIDIUM) 200 mg tablet Take 1 tablet by mouth three times a day as needed. 20 tablet 0 08/10/2023 Active Start: 04-26-2023 take 1 tablet by mahesh th every eight hours as needed phenazopyridine (PYRIDIUM) 200 mg tablet Take 1 tablet by mouth three times a day as needed. 9 tablet 0 04/26/2023 Active Comment on above: Take 1 tablet by mahesh th three times a day as needed. multivitamin (CLASSIC ) 28 mg iron- 800 mcg tab(s) (20 sources) End: 11-09-2022 take 1 tablet by mouth once daily multivitamin (CLASSIC ) 28 mg iron- 800 mcg tab(s) Take 1 tablet by mouth once daily. 0 11/09/2022 Discontinued take 1 tablet by mouth once michelle y multivitamin (CLASSIC ) 28 mg iron- 800 mcg tab(s) Take 1 tablet by mouth once daily. 0 Active Comment on above: Take 1 tablet by mahesh th once daily. promethazine hydrochloride 25 mg oral tablet (20 sources) Phenothiazine Start: 08-27-19 End: 12-02-19 take 1 tablet by mouth every six hours as needed promethazine (PHENERGAN) 25 mg tablet Take 1 tablet by mouth every 6 hours as needed for nausea/vomiting. 30 tablet 0 08/27/2023 12/02/2023 Discontinued Start: 04-01-2022 End: 07-20-2022 take 12.5-25 mg by mouth every six hours as needed promethazine (PHENERGAN) 25 mg tablet Take 0.5-1 tablets by mouth every 6 hours as needed for nausea/vomiting. 30 tablet 0 04/01/2022 07/20/2022 Discontinued Comment on above: Take 0.5-1 tablets b y mouth every 6 hours as needed for nausea/vomiting. Take 1 tablet by mahesh th every 6 hours as needed for nausea/vomiting. tamsulosin hydrochloride 0.4 mg oral capsule (20 sources) alpha-Adrenergic Terese Start: End: take 1 capsule by mouth once daily at bedtime tamsulosin (FLOMAX) 0.4 mg Indications: Renal calculus, left Take 1 capsule by mouth daily at bedtime for 10 days. 10 capsule 11/26/2023 04/10/2024 Discontinued (Other) Start: 08-10-2023 End: 10-09-2023 take 1 capsule by mouth once daily at bedtime tamsulosin (FLOMAX) 0.4 mg Indications: Renal calculus, left Take 1 capsule by mouth daily at bedtime. 30 capsule 1 08/10/2023 Active Start: 05-27-2023 End: 07-30-2023 take 1 capsule by mouth once daily at bedtime tamsulosin (FLOMAX) 0.4 mg Indications: Renal calculus, left Take 1 capsule by mouth daily at bedtime. 30 capsule 1 05/31/2023 07/30/2023 Active Start: 10-30-2022 End: 11-29-2022 take 1 capsule by mouth once daily at bedtime tamsulosin (FLOMAX) 0.4 mg Indications: Kidney stone Take 1 capsule by mouth daily at bedtime. 30 capsule 0 10/30/2022 11/15/2022 Discontinued Comment on above: Take 1 capsule by mo uth daily at bedtime. Take 1 capsule by mo uth daily at bedtime for 7 days. Problems Active Problems Problem Classification Problem Date Documented Da te Episodic/Chronic Abdominal pain (20 sources) Left upper quadrant pain; Translations: [Left upper quadrant pain] Onset: 04-10-2024 Episodic Administrative/social admission (1 source) Education and/or schooling finding; Translations: [Problems related to education and literacy, unspecified] Episodic Anxiety disorders (20 sources) Mixed anxiety and depressive disorder; Translations: [Anxiety disorder, unspecified] Onset: 09-22-2019 09-22-2019 Chronic Calculus of urinary tract (9 sources) Kidney stone; Translations: [Calculus of kidney] Onset: 11-26-2023 Episodic Complications of surgical procedures or medical care (1 source) Non dose-related adverse reaction to medication; Translations: [Unspecified adverse effect of drug or medicament, initial encounter] 05-23-2024 Episodic Conditions associated with dizziness or vertigo (7 sources) Dizziness; Translations: [Dizziness and giddiness] Onset: 02-22-2025 02-22-2025 Episodic Disorders of lipid metabolism (1 source) Mixed hyperlipidemia; Translations: [Hyperlipidemia, mixed] Onset: 11-14-2024 Chronic Ectopic (6 sources) Tubal ; Translations: [Unspecified tubal without intrauterine ] Onset: 01-01-2025 01-03-2025 Episodic Essential hypertension (1 source) Essential (primary) hypertension; Translations: [Essential (primary) hypertension] Onset: 07-26-2024 Chronic Female infertility (6 sources) Female infertility; Translations: [Female infertility, unspecified] Onset: 12-14-2024 Chronic Fever of unknown origin (1 source) Fever; Translations: [Fever, unspecified] 12-02-2023 Episodic Gastritis and duodenitis (1 source) Viral gastritis; Translations: [Gastritis, unspecified, without bleeding] 04-28-2024 Episodic Genitourinary symptoms and ill-defined conditions (10 sources) Increased frequency of urination; Translations: [Frequency of micturition] Episodic Immunizations and screening for infectious disease (12 sources) Contact with or exposure to other viral diseases; Translations: [Exposure to COVID-19 virus] Onset: 10-02-2024 10-30-2023 Episodic Menstrual disorders (20 sources) Dysmenorrhea; Translations: [Dysmenorrhea, unspecified] Onset: 11-28-2008 02-16-2018 Chronic Mood disorders (20 sources) Premenstrual dysphoric disorder; Translations: [Premenstrual dysphoric disorder] Onset: 09-03-2020 09-03-2020 Chronic Mood disorders (1 source) Mood disorders; Translations: [Anxiety and depression] Onset: 09-22-2019 Noninfectious gastroenteritis (1 source) Gastroenteritis; Translations: [Noninfective gastroenteritis and colitis, unspecified] 07-11-2024 Episodic Nutritional deficiencies (20 sources) Vitamin D deficiency; Translations: [Vitamin D deficiency, unspecified] Onset: 11-06-2024 11-06-2024 Chronic Other and unspecified benign neoplasm (1 source) Lipoma (clinical); Translations: [Benign lipomatous neoplasm, unspecified] 05-05-2024 Episodic Other complications of (20 sources) Maternal obesity complicating , childbirth and the puerperium, antepartum; Translations: [Obesity complicating , unspecified trimester] Onset: 09-16-2021 09-16-2021 Chronic Other complications of (20 sources) Nausea and vomiting; Translations: [Vomiting of , unspecified] Onset: 09-16-2021 09-16-2021 Episodic Other complications of (6 sources) Uncertain viability of ; Translations: [ with inconclusive viability, fetus 1] 12-17-2024 Episodic Other ear and sense organ disorders (1 source) Impacted cerumen in right ear; Translations: [Impacted cerumen, right ear] Episodic Other endocrine disorders (20 sources) Polycystic ovary syndrome; Translations: [Polycystic ovarian syndrome] Onset: 09-03-2020 09-03-2020 Chronic Other endocrine disorders (2 sources) Polycystic ovarian syndrome; Translations: [Polycystic ovarian syndrome] Onset: 12-14-2024 Chronic Other female genital disorders (3 sources) Abnormal uterine bleeding; Translations: [Abnormal uterine and vaginal bleeding, unspecified] Chronic Other female genital disorders (2 sources) Vaginal discharge; Translations: [Other specified noninflammatory disorders of vagina] 04-26-2023 Episodic Other female genital disorders (1 source) Mass of left ovary; Translations: [Other noninflammatory disorders of ovary, fallopian tube and broad ligament] 01-24-2025 Episodic Other gastrointestinal disorders (1 source) Abdominal mass; Translations: [Left upper quadrant abdominal swelling, mass and lump] Episodic Other gastrointestinal disorders (1 source) Anismus; Translations: [Other specified symptoms and signs involving the digestive system and abdomen] Episodic Other gastrointestinal disorders (2 sources) Abdominal bloating; Translations: [Abdominal distension (gaseous)] 12-12-2024 Episodic Other gastrointestinal disorders (1 source) Diarrhea; Translations: [Diarrhea, unspecified] 12-12-2024 Episodic Other injuries and conditions due to external causes (2 sources) Injury of left knee; Translations: [Unspecified injury of left lower leg, initial encounter] 08-01-2024 Episodic Other lower respiratory disease (1 source) Cough; Translations: [Cough, unspecified type] Episodic Other lower respiratory disease (1 source) Rib pain; Translations: [Pleurodynia] Episodic Other lower respiratory disease (1 source) Productive cough ; Translations: [Productive cough] 12-02-2023 Episodic Other lower respiratory disease (5 sources) Dyspnea; Translations: [Shortness of breath] 04-10-2024 Episodic Other nervous system disorders (7 sources) Impaired cognition; Translations: [Other symptoms and signs involving cognitive functions and awareness] Onset: 02-22-2025 02-25-2025 Episodic Other nervous system disorders (7 sources) Numbness; Translations: [Anesthesia of skin] Onset: 02-22-2025 02-25-2025 Episodic Other nervous system disorders (1 source) Other symptoms and signs involving cognitive functions and awareness; Translations: [Brain fog] Onset: 02-22-2025 Episodic Other nervous system disorders (1 source) Anesthesia of skin; Translations: [Numbness] Onset: 02-22-2025 Episodic Other nutritional; endocrine; and metabolic disorders (20 sources) Body mass index 40+ - severely obese; Translations: [Morbid (severe) obesity due to excess calories] Onset: 05-10-2018 05-10-2018 Chronic Other nutritional; endocrine; and metabolic disorders (2 sources) Severe obesity; Translations: [Morbid (severe) obesity due to excess calories] Chronic Other nutritional; endocrine; and metabolic disorders (1 source) Morbid (severe) obesity due to excess calories; Translations: [Obesity, Class III, BMI 40-49.9 (morbid obesity) (HCC)] Onset: 05-10-2018 Chronic Other nutritional; endocrine; and metabolic disorders (8 sources) Loss of appetite; Translations: [Anorexia] Onset: 02-22-2025 12-12-2024 Episodic Other nutritional; endocrine; and metabolic disorders (2 sources) Anorexia; Translations: [Loss of appetite] Onset: 12-12-2024 Episodic Other screening for suspected conditions (not mental disorders or infectious disease) (20 sources) Patient encounter status; Translations: [Encounter for screening for nutritional disorder] Onset: 11-07-2024 Episodic Other skin disorders (2 sources) Cyst of skin; Translations: [Follicular cyst of the skin and subcutaneous tissue, unspecified] 11-09-2023 Episodic Other skin disorders (1 source) Mass of subcutaneous tissue of abdominal wall; Translations: [Localized swelling, mass and lump, trunk] 03-07-2024 Episodic Other upper respiratory disease (1 source) Chronic rhinitis; Translations: [Chronic rhinitis] 05-23-2024 Chronic Residual codes; unclassified (1 source) Did not attend; Translations: [Procedure and treatment not carried out because of patient's decision for other reasons] Episodic Residual codes; unclassified (1 source) Viral syndrome; Translations: [Other general symptoms and signs] 12-02-2023 Episodic Residual codes; unclassified (2 sources) Early satiety; Translations: [Early satiety] 12-12-2024 Episodic Spondylosis; intervertebral disc disorders; other back problems (4 sources) Acute thoracic back pain; Translations: [Pain in thoracic spine] Onset: 01-29-2025 Episodic Spontaneous (1 source) Miscarriage; Translations: [Complete or unspecified spontaneous without complication] 01-30-2025 Episodic Unclassified (1 source) Left ovarian mass with recent ectopic Unclassified (1 source) Midline low back pain, unspecified chronicity, unspecified whether sciatica present; Translations: [Midline low back pain, unspecified chronicity, unspecified whether sciatica present] Onset: 02-14-2025 Viral infection (2 sources) Viral disease; Translations: [Viral infection, unspecified] Episodic Past or Other Problems Problem Classification Problem Date Documented Da te Episodic/Chronic Allergic reactions (4 sources) Allergy to egg protein; Translations: [Allergy to eggs] Onset: 05-23-2024 04-12-2024 Episodic Cardiac dysrhythmias (20 sources) Palpitations; Translations: [Palpitations] Onset: 03-17-2023 02-08-2023 Episodic Diabetes mellitus without complication (20 sources) Hyperglycemia; Translations: [Impaired fasting glucose] Onset: 11-09-2023 08-26-2023 Episodic Hemorrhage during ; abruptio placenta; placenta previa (17 sources) Vaginal bleeding complicating early ; Translations: [Hemorrhage in early , unspecified] Onset: 12-15-2024 12-15-2024 Episodic Malaise and fatigue (2 sources) Fatigue; Translations: [Other fatigue] Onset: 11-03-2024 06-26-2024 Episodic Nausea and vomiting (6 sources) Nausea; Translations: [Nausea] Onset: 04-10-2024 Episodic Nonspecific chest pain (20 sources) Tight chest; Translations: [Other chest pain] Onset: 03-17-2023 02-08-2023 Episodic Nutritional deficiencies (20 sources) Iron deficiency; Translations: [Iron deficiency] Onset: 11-06-2024 11-06-2024 Episodic Other and unspecified benign neoplasm (1 source) Benign lipomatous neoplasm, unspecified; Translations: [Lipoma, unspecified site] Onset: 05-16-2024 Episodic Other circulatory disease (20 sources) Elevated blood-pressure reading without diagnosis of hypertension; Translations: [Elevated blood-pressure reading, without diagnosis of hypertension] Onset: 07-18-2024 07-03-2024 Episodic Other circulatory disease (1 source) Elevated blood-pressure reading, without diagnosis of hypertension; Translations: [Elevated blood pressure reading without diagnosis of hypertension] Onset: 07-18-2024 Episodic Other complications of (20 sources) ; Translations: [Supervision of with history of infertility, unspecified trimester] Onset: 09-16-2021 09-16-2021 Episodic Other complications of (20 sources) Vomiting of , unspecified; Translations: [Unspecified vomiting of , unspecified as to episode of care or not applicable] Onset: 09-16-2021 09-16-2021 Episodic Other complications of (20 sources) with inconclusive viability, not applicable or unspecified; Translations: [ with inconclusive viability] Onset: 12-15-2024 12-15-2024 Episodic Other complications of (1 source) Other specified related conditions, first trimester; Translations: [Abdominal pain in , first trimester (HCC)] Onset: 12-15-2024 Episodic Other gastrointestinal disorders (1 source) Abdominal distension (gaseous); Translations: [Bloating] Onset: 12-12-2024 Episodic Other infections; including parasitic (20 sources) History of chlamydial infection; Translations: [Personal history of other infectious and parasitic diseases] Onset: 07-30-2016 07-30-2016 Episodic Other injuries and conditions due to external causes (1 source) Unspecified injury of left lower leg, initial encounter; Translations: [Injury of left knee, initial encounter] Onset: 08-01-2024 Episodic Other lower respiratory disease (20 sources) Dyspnea on exertion; Translations: [Other forms of dyspnea] Onset: 03-17-2023 02-08-2023 Episodic Other lower respiratory disease (4 sources) Shortness of breath; Translations: [SOB (shortness of breath)] Onset: 04-10-2024 Episodic Other non-traumatic joint disorders (3 sources) Pain in right knee; Translations: [Pain in joint, lower leg] Onset: 08-01-2024 08-01-2024 Episodic Other upper respiratory infections (8 sources) Sore throat symptom; Translations: [Acute pharyngitis, unspecified] Onset: 04-25-2025 Episodic Residual codes; unclassified (20 sources) Nicotine-filled electronic cigarette user; Translations: [Tobacco use] Onset: 09-16-2021 09-16-2021 Episodic Residual codes; unclassified (1 source) Tobacco use; Translations: [Current every day nicotine vaping] Onset: 09-16-2021 Episodic Residual codes; unclassified (1 source) Early satiety; Translations: [Early satiety] Onset: 12-12-2024 Episodic Screening and history of mental health and substance abuse codes (20 sources) H/O: depression; Translations: [Personal history of other mental and behavioral disorders] Onset: 09-16-2021 09-16-2021 Episodic NEGATED: Highlighted row has been ruled out!Unclassified (11 sources) No known active problems 12-29-2024 Results Test Name Value Interpretation Reference Range Facility ECHOon 03-20-2025 CONCLUSIONS: - Exam indication: Palpitations - The left ventricle is normal in size. There is no left ventricular hypertrophy. Left ventricular systolic function is normal. EF = 67 5% (2D biplane) - The right ventricle is normal in size. Right ventricular systolic function is normal. Tricuspid annular displacement is 2.6 cm. - There are no significant valvular abnormalities. - There is no pericardial effusion. - Exam was compared with the prior echocardiographic exam performed on 03/2023. Similar findings * * * Final * * * [facility] Ech[facility] Report: Transthoracic Echo [facility] Date of service: 03/20/2025 12:59:42 PM Ordering physician: JESS THAYER Exam indication: Palpitations Technologist: Melody Amador [facility] Interpreting physician: Liu Hauser MD PATIENT: Name: MS. NETO BERKOWITZ : 1995 Age: 29 years Gender: F Primary rhythm: sinus. Height: 162.60 cm BSA: 2.31 m Weight: 118.03 kg BMI: 44.6 kg/m Heart rate 72 bpm Blood pressure 109/81 mmHg Color Doppler was utilized to interrogate the cardiac valves assessed and spectral Doppler was utilized to determine the flow velocities and pressure gradients reported in this exam. MEASUREMENTS: Value Indexed Normal Max aortic dimension 2.6 cm Ao < 3.8 Left atrium diameter 3.2 cm (2D) Left atrial volume 31 ml (Kidd's) 14 ml/m Julio César <= 34 LV ID (diastole) 4.5 cm (2D) 1.94 cm/m LV ID (systole) 2.4 cm (2D) 1.05 cm/m IVS, leaflet tips 0.7 cm (2D) Posterior wall thickness 0.8 cm (2D) Left ventricular mass 98 g (2D) 42 g/m LV stroke volume 52 ml (2D biplane) LV cardiac output 3.0 l/min (2D biplane) 1.3 l/min/m LVOT stroke volume 61 ml 28 ml/m LVOT cardiac output 3.3 l/min 1.5 l/min/m LV end diastolic volume 78 ml (2D biplane) 33.6 ml/m 29<=EDVi<62 LV end systolic volume 25 ml (2D biplane) 11.0 ml/m Ejection Fraction 67 % (2D biplane) EF > 54 FINDINGS: LEFT VENTRICLE The left ventricle is normal in size. There is no left ventricular hypertrophy. Left ventricular systolic function is normal. Normal left ventricular diastolic function. Mitral annular lateral E/e': 7.4. Mitral annular septal E/e': 9.3. Wall Motion: All scored segments are normal. RIGHT VENTRICLE The right ventricle is normal in size. Right ventricular systolic function is normal. RV systolic tissue Doppler velocity is 13.4 cm/s. Tricuspid annular displacement is 2.6 cm. Estimated right ventricular systolic pressure is not reported due to an insufficient tricuspid regurgitation signal. Estimated right atrial pressure is 3 mmHg based on IVC assessment. LEFT ATRIUM The left atrial cavity is normal in size. RIGHT ATRIUM The right atrial cavity is small. Inferior Vena Cava: The inferior vena cava appears normal measuring 1.0 cm. The vessel decreases greater than 50 percent with inspiration. MITRAL VALVE The mitral valve leaflets are structurally normal. There is no mitral valve regurgitation. The pressure half time is 51 msec. The peak mitral E/A ratio is 1.82. The average mitral E/e' ratio is 8.3. The mitral flow deceleration time is 175 msec. TRICUSPID VALVE The tricuspid valve leaflets are structurally normal. There is trace tricuspid valve regurgitation. AORTIC VALVE The aortic valve cusps are structurally normal. There is no aortic valve regurgitation. Tricuspid aortic valve. The peak gradient is 8 mmHg (peak velocity = 144.2 cm/s). The mean gradient is 4 mmHg. The LVOT mean velocity is 80.2 cm/s. The LVOT diameter is 1.7 cm. The aortic VTI is 29.5 cm. The mean velocity in the aortic valve is 94.1 cm/s. The dimensionless valve index is 0.92. AV area is 2.06 cm (0.89 cm /m ) by continuity, VTI. The LVOT stroke volume index is 28 ml/m . PULMONIC VALVE The pulmonic valve cusps are structurally normal. There is no pulmonic valve regurgitation. AORTA The visualized aorta is normal in size. Measurements - Aortic valve annulus 1.8 cm. Sinus: 2.6 cm. Sinotubular junction 2.2 cm. Mid ascending aorta 2.4 cm. PULMONARY ARTERIES The pulmonary arteries are normal. INTERATRIAL SEPTUM The interatrial septum is unseen or not interrogated. PERICARDIUM There is no pericardial effusion. [facility] Echocardiography Echocardiography Report: Transthoracic Echo [facility] Date of service: 03/20/2025 12:59:42 PM Ordering physician: JESS THAYER Exam indication: Palpitations Technologist: Melody Amador RDCS Interpreting physician: Liu Hauser MD PATIENT: Name: MS. NETO BERKOWITZ : 1995 Age: 29 years Gender: F Primary rhythm: sinus. Height: 162.60 cm BSA: 2.31 m Weight: 118.03 kg BMI: 44.6 kg/m Heart rate 72 bpm Blood pressure 109/81 mmHg Color Doppler was utilized to interrogate the cardiac valves assessed and spectral Doppler was utilized to determine the flow velocities and pressure gradients reported in this exam. MEASUREMENTS: Value Indexed Normal Max aortic dimension 2.6 cm Ao < 3.8 Left atrium diameter 3.2 cm (2D) Left atrial volume 31 ml (Kidd's) 14 ml/m Julio César <= 34 LV ID (diastole) 4.5 cm (2D) 1.94 cm/m LV ID (systole) 2.4 cm (2D) 1.05 cm/m IVS, leaflet tips 0.7 cm (2D) Posterior wall thickness 0.8 cm (2D) Left ventricular mass 98 g (2D) 42 g/m LV stroke volume 52 ml (2D biplane) LV cardiac output 3.0 l/min (2D biplane) 1.3 l/min/m LVOT stroke volume 61 ml 28 ml/m LVOT cardiac output 3.3 l/min 1.5 l/min/m LV end diastolic volume 78 ml (2D biplane) 33.6 ml/m 29<=EDVi<62 LV end systolic volume 25 ml (2D biplane) 11.0 ml/m Ejection Fraction 67 % (2D biplane) EF > 54 FINDINGS: LEFT VENTRICLE The left ventricle is normal in size. There is no left ventricular hypertrophy. Left ventricular systolic function is normal. Normal left ventricular diastolic function. Mitral annular lateral E/e': 7.4. Mitral annular septal E/e': 9.3. Wall Motion: All scored segments are normal. RIGHT VENTRICLE The right ventricle is normal in size. Right ventricular systolic function is normal. RV systolic tissue Doppler velocity is 13.4 cm/s. Tricuspid annular displacement is 2.6 cm. Estimated right ventricular systolic pressure is not reported due to an insufficient tricuspid regurgitation signal. Estimated right atrial pressure is 3 mmHg based on IVC assessment. LEFT ATRIUM The left atrial cavity is normal in size. RIGHT ATRIUM The right atrial cavity is small. Inferior Vena Cava: The inferior vena cava appears normal measuring 1.0 cm. The vessel decreases greater than 50 percent with inspiration. MITRAL VALVE The mitral valve leaflets are structurally normal. There is no mitral valve regurgitation. The pressure half time is 51 msec. The peak mitral E/A ratio is 1.82. The average mitral E/e' ratio is 8.3. The mitral flow deceleration time is 175 msec. TRICUSPID VALVE The tricuspid valve leaflets are structurally normal. There is trace tricuspid valve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 the diaphragm to the symphysis pubis. MQ: CTAP_3 Contrast: IV: 100 ml of Omnipaque 300 CT Radiation dose: Integrated Dose-length product (DLP) for this visit = 1138.03 mGy*cm. CT Dose Reduction Employed: Automated exposure control(AEC) and iterative recon COMPARISON: 11/11/2023. RESULT: Liver: There is no focal discrete hepatic mass. Biliary: No biliary dilation. The gallbladder is grossly unremarkable. Spleen: No mass. No splenomegaly. Pancreas: There is no obvious focal discrete pancreatic mass or pancreatic ductal dilation. Adrenals: No mass. Kidneys: Bilateral extrarenal pelvises. There is no hydronephrosis or perinephric fluid collection. GI tract: There are no dilated loops of bowel to suggest obstruction. The appendix is seen in the right lower quadrant and is within normal limits. Lymph nodes: No abdominal lymphadenopathy. Mesentery/Peritoneum: No abdominal ascites. Retroperitoneum: No mass. Vasculature: No abdominal aortic aneurysm. Pelvis: Multiple phleboliths are seen within the pelvis. There are prominent, less than 1 cm pelvic lymph nodes, likely reactive. There is no pelvic mass or pelvic ascites. Bones/Soft Tissues: Fat stranding within the subcutaneous tissues of the mid lower back. Vacuum phenomenon and sclerosis is seen involving the sacroiliac joint spaces, bilaterally. No destructive bony lesion. Lower thorax: A calcified granuloma is seen within the left lower lobe. [facility] Provider, [facility] - 01/26/2025 * * *Final Report* * * DATE OF EXAM: Jan 26 2025 7:11AM [facility] 0530 - CT ABD/PEL W IVCON / PROCEDURE REASON: Left lower quadrant abdominal pain * * * * Physician Interpretation * * * * EXAMINATION: CT ABDOMEN AND PELVIS WITH IV CONTRAST CLINICAL HISTORY: Left lower quadrant pain. TECHNIQUE: CT of the abdomen and pelvis was performed using standard technique, scanning from just above the dome of the diaphragm to the symphysis pubis. MQ: CTAP_3 Contrast: IV: 100 ml of Omnipaque 300 CT Radiation dose: Integrated Dose-length product (DLP) for this visit = 1138.03 mGy*cm. CT Dose Reduction Employed: Automated exposure control(AEC) and iterative recon COMPARISON: 11/11/2023. RESULT: Liver: There is no focal discrete hepatic mass. Biliary: No biliary dilation. The gallbladder is grossly unremarkable. Spleen: No mass. No splenomegaly. Pancreas: There is no obvious focal discrete pancreatic mass or pancreatic ductal dilation. Adrenals: No mass. Kidneys: Bilateral extrarenal pelvises. There is no hydronephrosis or perinephric fluid collection. GI tract: There are no dilated loops of bowel to suggest obstruction. The appendix is seen in the right lower quadrant and is within normal limits. Lymph nodes: No abdominal lymphadenopathy. Mesentery/Peritoneum: No abdominal ascites. Retroperitoneum: No mass. Vasculature: No abdominal aortic aneurysm. Pelvis: Multiple phleboliths are seen within the pelvis. There are prominent, less than 1 cm pelvic lymph nodes, likely reactive. There is no pelvic mass or pelvic ascites. Bones/Soft Tissues: Fat stranding within the subcutaneous tissues of the mid lower back. Vacuum phenomenon and sclerosis is seen involving the sacroiliac joint spaces, bilaterally. No destructive bony lesion. Lower thorax: A calcified granuloma is seen within the left lower lobe. IMPRESSION IMPRESSION: No acute abdominal or pelvic process is identified. Broacher: LI Transcribe Date/Time: Jan 26 2025 10:04A Dictated by : GAMALEIL SILVERIO MD This examination was interpreted and the report reviewed and electronically signed by: GAMALIEL SILVERIO MD on Jan 26 2025 10:10AM EST [facility] Radiology Study observation (narrative) Maddie horton [facility] CT Abdomen and Pelvis W cont rast IVOrdered By: [facility] Provider on 01-26-2025 [facility] Sukhdeep [facility] NETO BERKOWIT[facility] ([id number]) 1995 F Date Time Provider Department 01/25/25 EDDIE BISHOP During your visit today, we recorded the following information about you: RandalchrissyKarolyn ward LESTER 01/25/2025 10:40 AM Signed Pt. Jensen on stating she was in ER yesterday . She has a mass on her ovary and is in a lot of pain. Patient states they did not do CT scan . Patient is requesting this to be ordered. Please advise if appointment is needed first. 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 LESTER Caldera Kimberly C, DO 01/25/2025 3:42 PM Signed Please notify pt that Eddie ordered a CT of the abdomen and pelvis on 12/12. That order is still good. She needs to call radiology and make an appt to get the CT scan. DO Valentin Kerr Mary, MA 01/25/2025 3:46 PM Signed LM on pt. Vm with all information , number given to schedule and my chart message sent. Karolyn Jimenez MA Allergies As of Date: 01/25/2025 Noted Allergy Reaction AMOXICILLIN 01/23/2015 4 - Hives BIAXIN (CLARITHROMYCIN) 01/23/2015 11 - Vomiting EGGS (EGG) 04/10/2024 11 - Vomiting PENICILLINS 02/16/2018 4 - Hives 8 - GI Upset ZITHROMAX (AZITHROMYCIN) 02/07/2016 4 - Hives Date Reviewed: 12/15/2024 Reviewed by: Ann Marie Carpio, RN - Fully Assessed Reason for Visit: Patient Question [7269] Prescriptions as of 01/25/2025 - cholecalciferol (VITAMIN D-3) 5,000 unit tab Take 1 tablet by mouth once daily. - ferrous sulfate 325 mg (65 mg iron) tablet Take 1 tablet by mouth every other day. - fluticasone (FLONASE ALLERGY RELIEF) 50 mcg/actuation nasal spray Use 1 spray in each nostril once daily. Problem List As Of Date 01/25/2025 Noted Resolved H/O chlamydia infection [Z86.19] 07/30/2016 Dysmenorrhea [N94.6] 11/28/2008 Metrorrhagia [N92.1] 11/28/2008 Obesity, Class III, BMI >= 40 [E66.813] 05/10/2018 Anxiety and depression [F41.9, F32.A] 09/22/2019 PCOS (polycystic ovarian syndrome) [E28.2] 09/03/2020 PMDD (premenstrual dysphoric disorder) [F32.81] 09/03/2020 with history of infertility, antepart*09/16/2021 History of depression [Z86.59] 09/16/2021 Nausea and vomiting in [O21.9] 09/16/2021 Obesity affecting , antepartum [O99.21*09/16/2021 Current every day nicotine vaping [Z72.0] 09/16/2021 Patient request for diagnostic testing [Z01.89] 09/16/2021 Chest tightness [R07.89] 03/17/2023 VICTOR (dyspnea on exertion) [R06.09] 03/17/2023 Palpitations [R00.2] 03/17/2023 Prediabetes [R73.03] 11/09/2023 Bradycardia [R00.1] 07/18/2024 Elevated blood pressure reading without diagnos*07/18/2024 Iron deficiency [E61.1] 11/06/2024 Vitamin D deficiency [E55.9] 11/06/2024 Vaginal bleeding affecting early (HCC*12/15/2024 of unknown anatomic location (HCC) [O*12/15/2024 Encounter Status:Closed by KAROLYN JIMENEZ on 01/25/25 [facility] Absolute lymphocyte countOrd ered By: Shawn Elizalde on 01-24-2025 Lymphocytes Auto (Unsp spec) [#/Vol] 2.71 10*3/uL 0.83-4.51 [facility] Absolute neutrophil countOrd ered By: Shawn Elizalde on 01-24-2025 Neutrophils (Bld) [#/Vol] 6.5 10*3/uL 2.0-7.7 [facility] Anion gap in Serum or Plasma Ordered By: Shawn Elizalde on 01-24-2025 Anion gap [Moles/Vol] 12 mmol/L 5-15 [facility] Automated lymphocyte count a s percentage of total leukocytesOrdered By: Shawn Elizalde on 01-24-2025 Lymphocytes/100 WBC Auto (Unsp spec) 26.4 % 19-41 [facility] BUN/creatinine ratioOrdered By: Shawn Elizalde on 01-24-2025 Urea nitrogen/Creatinine [Mass ratio] 16.8 mg/mg 10-20 [facility] Basic Metabolic Profile (BMP )on 01-24-2025 BUN/CRE 16.8 RATIO Normal 10-20 [facility] Comment on above: Performed By: #### L 501.5200, L500.2500, L100.0100 ####[facility] [address] [place], [address] Calcium [Mass/Vol] 9.3 mg/dL Normal 7.6-11.0 [facility] Comment on above: Performed By: #### L 501.5200, L500.2500, L100.0100 ####[facility] [address] [place], [address] Chloride [Moles/Vol] 102 mmol/L Normal 98-108 [facility] Comment on above: Performed By: #### L 501.5200, L500.2500, L100.0100 ####[facility] [address] [place], [address] CO2 [Moles/Vol] 22.6 mmol/L Normal 21.0-32.0 [facility] Comment on above: Performed By: #### L 501.5200, L500.2500, L100.0100 ####[facility] [address] [place], [address] Creatinine [Mass/Vol] 0.72 mg/dL Normal 0.70-1.20 [facility] Comment on above: Performed By: #### L 501.5200, L500.2500, L100.0100 ####[facility] [address] [place], [address] ECRCL 145.46 ml/min Normal 50-250 [facility] Comment on above: Performed By: #### L 501.5200, L500.2500, L100.0100 ####[facility] [address] [place], [address] GAP 12 Normal 5-15 [facility] Comment on above: Performed By: #### L 501.5200, L500.2500, L100.0100 ####[facility] [address] [place], [address] GFR/1.73 sq M.predicted among non-blacks MDRD (S/P/Bld) [Vol rate/Area] 116 mL/min/{1.73_m2} Normal >60 [facility] Comment on above: Result Comment: mL/m in/1.73m2 CKD-EPI Creatinine Equation (2020) Performed By: #### L 501.5200, L500.2500, L100.0100 ####[facility] [address] [place], [address] Glucose [Mass/Vol] 135 mg/dL High 70-99 [facility] Comment on above: Performed By: #### L 501.5200, L500.2500, L100.0100 ####[facility] [address] [place], [address] Potassium [Moles/Vol] 4.1 mmol/L Normal 3.3-5.1 [facility] Comment on above: Performed By: #### L 501.5200, L500.2500, L100.0100 ####[facility] [address] [place], [address] Sodium [Moles/Vol] 136 mmol/L Normal 133-145 [facility] Comment on above: Performed By: #### L 501.5200, L500.2500, L100.0100 ####[facility] [address] [place], [address] Urea nitrogen [Mass/Vol] 12 mg/dL Normal 4-19 [facility] Comment on above: Performed By: #### L 501.5200, L500.2500, L100.0100 ####[facility] [address] [place], [address] Basophil percentageOrdered B y: Shawn Elizalde on 01-24-2025 Basophils/100 WBC (Bld) 0.6 % 0-1 [facility] Bilirubin Test strip Ql (U)O rdered By: Shawn Elizalde on 01-24-2025 Bilirubin Ql (U) Negative Negative [facility] CBC W/Diff, Automatedon 01-09 Absolute Lymph 2.71 X10 3/uL Normal 0.83-4.51 [facility] Comment on above: Performed By: #### L 501.5200, L500.2500, L100.0100 #### [facility] [address] [place], [address] Absolute Neut 6.5 X10 3/uL Normal 2.0-7.7 [facility] Comment on above: Performed By: #### L 501.5200, L500.2500, L100.0100 #### [facility] [address] [place], [address] Basophils/100 WBC (Bld) 0.6 % Normal 0-1 [facility] Comment on above: Performed By: #### L 501.5200, L500.2500, L100.0100 #### [facility] [address] [place], [address] Eosinophils/100 WBC (Bld) 2.0 % Normal 0-5 [facility] Comment on above: Performed By: #### L 501.5200, L500.2500, L100.0100 #### [facility] [address] [place], [address] Erythrocyte distribution width (RBC) [Ratio] 12.3 % Normal 11.6-14.6 [facility] Comment on above: Performed By: #### L 501.5200, L500.2500, L100.0100 #### [facility] [address] [place], [address] Hematocrit (Bld) [Volume fraction] 38.0 % Normal 37-47 [facility] Comment on above: Performed By: #### L 501.5200, L500.2500, L100.0100 #### [facility] [address] [place] [place], [address] Hemoglobin (Bld) [Mass/Vol] 13.1 g/dL Normal 12.0-15.0 [facility] Comment on above: Performed By: #### L 501.5200, L500.2500, L100.0100 #### [facility] [address] [place], [address] IG% 1.200 High 0.0-0.9 [facility] Comment on above: Result Comment: IG% - Immature Granulocytes (promyelocytes, myelocytes and metamyelocytes) > 1% indicates that a LEFT SHIFT is Present. Performed By: #### L 501.5200, L500.2500, L100.0100 #### [facility] [address] [place], [address] Lymphocytes/100 WBC (Bld) 26.4 % Normal 19-41 [facility] Comment on above: Performed By: #### L 501.5200, L500.2500, L100.0100 #### [facility] [address] [place], [address] MCH (RBC) [Entitic mass] 30.8 pg Normal 27.0-32.0 [facility] Comment on above: Performed By: #### L 501.5200, L500.2500, L100.0100 #### [facility] [address] [place], [address] MCHC (RBC) [Mass/Vol] 34.5 g/dL Normal 32-36 [facility] Comment on above: Performed By: #### L 501.5200, L500.2500, L100.0100 #### [facility] [address] [place], [address] MCV (RBC) [Entitic vol] 89.4 fL Normal 81-99 [facility] Comment on above: Performed By: #### L 501.5200, L500.2500, L100.0100 #### [facility] [address] [place], [address] Monocytes/100 WBC (Bld) 6.7 % Normal 0-10 [facility] Comment on above: Performed By: #### L 501.5200, L500.2500, L100.0100 #### [facility] [address] [place], [address] Neutrophils/100 WBC (Bld) 63.1 % Normal 47-70 [facility] Comment on above: Performed By: #### L 501.5200, L500.2500, L100.0100 #### [facility] [address] [place] [place], [address] Nucleated RBC (Bld) [#/Vol] 0 10*3/uL Normal 0-5 [facility] Comment on above: Performed By: #### L 501.5200, L500.2500, L100.0100 #### [facility] [address] [place], [address] Platelet mean volume (Bld) [Entitic vol] 9.3 fL Normal 6.2-12.0 [facility] Comment on above: Performed By: #### L 501.5200, L500.2500, L100.0100 #### [facility] [address] [place], [address] Platelets (Bld) [#/Vol] 313 10*3/uL Normal 150-450 [facility] Comment on above: Performed By: #### L 501.5200, L500.2500, L100.0100 #### [facility] [address] [place], [address] RBC (Bld) [#/Vol] 4.25 10*6/uL Normal 4.2-5.4 [facility] Comment on above: Performed By: #### L 501.5200, L500.2500, L100.0100 #### [facility] [address] [place], [address] RDW SD 39.8 fl Normal 35.1-43.9 [facility] Comment on above: Performed By: #### L 501.5200, L500.2500, L100.0100 #### [facility] [address] [place], [address] WBC (Bld) [#/Vol] 10.3 10*3/uL Normal 4.4-11.0 [facility] Comment on above: Performed By: #### L 501.5200, L500.2500, L100.0100 #### [facility] [address] [place], [address] [facility] Telephone (OBGYWM) NETO BERKOWITZ ([id number]) 1995 F Date Time Provider Department 01/24/25 RUBY VILLALBA OBGYWSally During your visit today, we recorded the following information about you: Ruby Villalba MD 01/24/2025 9:04 AM Addendum Pt in [facility] ER - [facility]- was treated with MTX for ? Ectopic. Told ER to get another quant today and we will follow her in our office Wednesday for follow up. Please add her to providers schedule before weekend. It looks like you can add to [facility] on Wednesday 11:30. Ashish Hyman, PATRICIA 01/24/2025 9:19 AM Signed Patient called and appointment given. Ashish Hyman RN Allergies As of Date: 01/24/2025 Noted Allergy Reaction AMOXICILLIN 01/23/2015 4 - Hives BIAXIN (CLARITHROMYCIN) 01/23/2015 11 - Vomiting EGGS (EGG) 04/10/2024 11 - Vomiting PENICILLINS 02/16/2018 4 - Hives 8 - GI Upset ZITHROMAX (AZITHROMYCIN) 02/07/2016 4 - Hives Date Reviewed: 12/15/2024 Reviewed by: Ann Marie Carpio RN - Fully Assessed Reason for Visit: Follow Up [171] Prescriptions as of 01/24/2025 - cholecalciferol (VITAMIN D-3) 5,000 unit tab Take 1 tablet by mouth once daily. - ferrous sulfate 325 mg (65 mg iron) tablet Take 1 tablet by mouth every other day. - fluticasone (FLONASE ALLERGY RELIEF) 50 mcg/actuation nasal spray Use 1 spray in each nostril once daily. Problem List As Of Date 01/24/2025 Noted Resolved H/O chlamydia infection [Z86.19] 07/30/2016 Dysmenorrhea [N94.6] 11/28/2008 Metrorrhagia [N92.1] 11/28/2008 Obesity, Class III, BMI >= 40 [E66.813] 05/10/2018 Anxiety and depression [F41.9, F32.A] 09/22/2019 PCOS (polycystic ovarian syndrome) [E28.2] 09/03/2020 PMDD (premenstrual dysphoric disorder) [F32.81] 09/03/2020 with history of infertility, antepart*09/16/2021 History of depression [Z86.59] 09/16/2021 Nausea and vomiting in [O21.9] 09/16/2021 Obesity affecting , antepartum [O99.21*09/16/2021 Current every day nicotine vaping [Z72.0] 09/16/2021 Patient request for diagnostic testing [Z01.89] 09/16/2021 Chest tightness [R07.89] 03/17/2023 VICTOR (dyspnea on exertion) [R06.09] 03/17/2023 Palpitations [R00.2] 03/17/2023 Prediabetes [R73.03] 11/09/2023 Bradycardia [R00.1] 07/18/2024 Elevated blood pressure reading without diagnos*07/18/2024 Iron deficiency [E61.1] 11/06/2024 Vitamin D deficiency [E55.9] 11/06/2024 Vaginal bleeding affecting early (HCC*12/15/2024 of unknown anatomic location (HCC) [O*12/15/2024 Encounter Status:Closed by ASHISH HYMAN on 01/24/25 Normal [facility] Carbon dioxide, total [Moles /volume] in Central venous bloodOrdered By: Shawn Elizalde on 01-24-2025 CO2 [Moles/Vol] 22.6 mmol/L 21.0-32.0 [facility] Chloride assayOrdered By: Gail Elizalde on 01-24-2025 Chloride [Moles/Vol] 102 mmol/L 98-108 [facility] Emergency Department Summary on 01-24-2025 Emergency Department Summary [facility] Medical Records Department [address] [place] [address] Emergency Department Summary 01/24/25 MR#: [id number] Acct: [id number] Name: NETO BERKOWITZ Rep #: [id number] : 1995 29 From: Shawn Elizalde DO PCP: ANA Brand Status:REG ER Location: ED HPI History of Present Illness Chief Complaint: Back Informant: patient and spouse/S.O. Narrative Narrative: Patient is a 29-year-old female who is a G1, P0. She states that roughly 5 to 6 weeks ago she became and then developed abdominal pain and thought she had "an ovarian cyst". She went to [facility] and was informed she was and having an ectopic . At that time they gave her methotrexate and she reports her medication was given roughly 4 weeks ago. She states they have been trending her hCG values in the last 1 which was obtained roughly 7 to 10 days ago was 19. She reports that over the last few days she has noticed pain in the left low back. She describes the pain as a pressure sensation almost like a balloon was blown up. She denies any recent trauma. 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 She reports she has been having mild vaginal bleeding for the last week or so and this is not abnormal for her. She denies any radiation of the pain towards the abdomen. However secondary to the recent ectopic and now abnormal back discomfort for her she presents for evaluation [facility] Medical History Depression Anxiety Home Medications ???Medication ???Instructions ???Recorded ???Last Taken ???Type norethindrone (contraceptive) 0.35 0.35 mg PO DAILY 06/29/24 Unknow n History mg tablet (Incassia) Held on 01/24/25. Instructions: recent ectopic Allergy/AdvReac Type Severity Reaction Status Date / Time amoxicillin Allergy Mild Vomiting Verified 01/24/25 05:42 azithromycin (From Zithromax Allergy Mild Hives Verified 01/24/25 05:42 Z-Jovanny) Penicillins (PCN) Allergy Mild Hives Verified 01/24/25 05:42 Family History no significant family his Social History Smoking Status: Current some day smoker tobacco type: e-cigarettes ROS ROS ED Constitutional Constitutional ED: Reports fever(s) and other Details: Patient reports a fever of 100 degrees last night ; Denies chills ENT ENT ED: Denies sore throat Cardiovascular Cardiovascular: Denies chest pain Respiratory/Chest Respiratory/Chest: Denies cough or dyspnea Gastrointestinal Gastrointestinal: Denies abdominal pain, diarrhea, nausea or vomiting Genitourinary Genitourinary ED: Reports other Details: Positive vaginal bleeding ; Denies dysuria or urinary frequency Musculoskeletal Musculoskeletal: Reports back pain Integumentary Denies rash Neurologic Neurologic: Denies headache(s) Psychiatric Psychiatric: Reports anxiety and depression Hematologic/Lymphatic Hematologic/Lymphatic: Denies easy bleeding or easy bruising EXAM Physical Exam Const Vital Signs: 01/24/25 05:37 01/24/25 07:48 Temperature 98 F Temperature Source Oral Pulse Rate 86 72 Respiratory Rate 16 18 Blood Pressure 126/76 H 115/73 Blood Pressure Mean 92 87 Pulse Ox 100 100 Oxygen Delivery Method Room Air Room Air Positive well nourished and well developed General Appearance ED: well developed; Negative for pallor HEENT HEENT Narrative: Normocephalic atraumatic Eyes PERRL and EOMs intact bilaterally General Eye ED: Negative for scleral icterus Neck supple Resp normal respiratory effort and clear to auscultation bilaterally Cardio regular rate and regular rhythm Rate: other Other Details: Heart is regular rate and rhythm without murmurs rubs or gallop Radial and carotid pulses are equal and symmetric GI normal to inspection, nondistended, normoactive bowel sounds, non-tender, non-distended and no masses GI Narrative: No voluntary guarding or rigidity or pulsatile mass Auscultation: normoactive bowel sounds Palpation: soft Back/Spine no CVA tenderness Back/Spine Narrative: No bony deformity or step-off of the thoracic or lumbar spine but there is midline pain with palpation of the lower lumbar/upper sacrum. Pain does not worsen with extension or rotation. No significant paralumbar tenderness or spasm noted. No saddle anesthesia. Negative straight leg raise. No clonus or Babinski. Patellar reflexes are plus 2 out of 4 bilaterally No overlying soft tissue changes to suggest trauma or infection Extremity normal to inspection Neuro oriented x3, CN's II-XII intact bilaterally and no sensory deficits noted Sensorium / Orie (more content not included)... Normal [facility] Eosinophil percentageOrdered By: Shawn Elizalde on 01-24-2025 Eosinophils/100 WBC (Bld) 2.0 % 0-5 [facility] Erythrocyte distribution wid th ratioOrdered By: Shawn Elizalde on 01-24-2025 Erythrocyte distribution width (RBC) [Ratio] 12.3 % 11.6-14.6 [facility] Erythrocyte distribution wid th standard deviationOrdered By: Shawn Elizalde on 01-24-2025 Erythrocyte distribution width (RBC) [Ratio] 39.8 fl 35.1-43.9 [facility] Glomerular filtration rate ( GFR) estimation/1.73 sq m using serum, plasma, or whole bOrdered By: Shawn Elizalde on 01-24-2025 GFR/1.73 sq M.predicted among non-blacks MDRD (S/P/Bld) [Vol rate/Area] 116 mL/min/{1.73_m2} >60 [facility] Comment on above: mL/min/1.73m2 CKD-EP I Creatinine Equation (2020) Hematocrit Auto (Bld) [Volum e fraction]Ordered By: Shawn Elizalde on 01-24-2025 Hematocrit (Bld) [Volume fraction] 38.0 % 37-47 [facility] Hemoglobin measurementOrdere d By: Shawn Elizalde on 01-24-2025 Hemoglobin (Bld) [Mass/Vol] 13.1 g/dL 12.0-15.0 [facility] Immature granulocytes/100 WB C Auto (Bld)Ordered By: Shawn Elizalde on 01-24-2025 Immature granulocytes/100 WBC (Bld) 1.200 % High 0.0-0.9 [facility] Comment on above: IG% - Immature Granu locytes (promyelocytes, myelocytes and metamyelocytes) > 1% indicates that a LEFT SHIFT is Present. Ketones Test strip Ql (U)Ord ered By: Shawn Elizalde on 01-24-2025 Ketones Ql (U) Negative Negative [facility] L/S Spine Min 4 Viewson 01-09 L/S Spine Min 4 Views [facility] Imaging Services [address] [place] [address] L/S Spine Min 4 Views MR#: [id number] Acct: [id number] Name: NETO BERKOWITZ Rep #: [id number] : 1995 F 29 From: Ahsan Beckford MD PCP: YOVANI BrandC Status: REG ER Study: L/S Spine Min 4 Views Date of Exam: 01/24/25 Exam# [id number] Ordering Dr: Shawn Elizalde DO PROCEDURE: L/S SPINE MIN 4 VIEWS 01/24/2025 REASON FOR EXAM: PAIN TECHNIQUE: L/S SPINE MIN 5 VIEWS COMPARISON: None FINDINGS: Vertebral body height and alignment are well-maintained. There is no fracture or spondylolisthesis. Disc height is maintained. The facets are aligned. Mineralization is normal. There is no visible atherosclerosis. RAD/L/S Spine Min 4 Views IMPRESSION: Negative lumbar spine. Reading Location: [facility] CC: ANA Bishop; Shawn Elizalde DO Broacher: Signed Normal [facility] MCV (mean corpuscular volume ) determinationOrdered By: Shawn Elizalde on 01-24-2025 MCV (RBC) [Entitic vol] 89.4 fL 81-99 [facility] Magnesiumon 01-24-2025 Magnesium [Mass/Vol] 1.8 mg/dL Normal 1.5-2.2 [facility] Comment on above: Performed By: #### L 501.5200, L500.2500, L100.0100 ####[facility] [address] [place], [address] Magnesium measurement (mass/ volume)Ordered By: Shawn Elizalde on 01-24-2025 Magnesium (Unsp spec) [Mass/Vol] 1.8 mg/dL 1.5-2.2 [facility] Mean corpuscular hemoglobin (MCH) determinationOrdered By: Shawn Elizalde on 01-24-2025 MCH (RBC) [Entitic mass] 30.8 pg 27.0-32.0 [facility] Mean corpuscular hemoglobin concentration (MCHC) determinationOrdered By: Shawn Elizalde on 01-24-2025 MCHC (RBC) [Mass/Vol] 34.5 g/dL 32-36 [facility] Mean platelet volume determi nationOrdered By: Shawn Elizalde on 01-24-2025 Platelet mean volume (Bld) [Entitic vol] 9.3 fL 6.2-12.0 [facility] Microscopic analysis of urin e for red blood cells (RBC)Ordered By: Shawn Elizalde on 01-24-2025 Microscopic analysis of urine for red blood cells (RBC) 0 SEEN /hpf 0-5 [facility] Monocyte percentageOrdered B y: Shawn Elizalde on 01-24-2025 Monocytes/100 WBC (Bld) 6.7 % 0-10 [facility] Mucus LM Ql (Urine sed)Order ed By: Shawn Elizalde on 01-24-2025 Mucus Ql (Urine sed) 0 SEEN /hpf [facility] Neutrophil percentageOrdered By: Shawn Elizalde on 01-24-2025 Neutrophils/100 WBC (Bld) 63.1 % 47-70 [facility] Nitrite Test strip Ql (U)Ord ered By: Shawn Elizalde on 01-24-2025 Nitrite Ql (U) Negative Negative [facility] Nucleated red blood cell per centageOrdered By: Shawn Elizalde on 01-24-2025 Nucleated RBC/100 WBC (Bld) [Ratio] 0 % 0-5 [facility] Platelet countOrdered By: Gail Elizalde on 01-24-2025 Platelets (Bld) [#/Vol] 313 10*3/uL 150-450 [facility] Potassium measurement (mass/ volume)Ordered By: Shawn Elizalde on 01-24-2025 Potassium (Unsp spec) [Mass/Vol] 4.1 mmol/L 3.3-5.1 [facility] ,Urineon 01-24-2025 Beta HCG ( test) Ql (U) Negative Normal [facility] Comment on above: Result Comment: Very dilute urine specimens, as indicated by a low specific gravity, may not contain compliance representative dealer levels of hCG. If is still suspected, a first morning urine specimen should be collected 48 hours later and tested. Performed By: #### L 400.0001, L400.7600 ####[facility] [address] [place], [place], [address] Protein Test strip Ql (U)Ord ered By: Shawn Elizalde on 01-24-2025 Protein Ql (U) Negative Negative [facility] RBC Auto (Bld) [#/Vol]Ordere d By: Shawn Elizalde on 01-24-2025 RBC (Bld) [#/Vol] 4.25 10*6/uL 4.2-5.4 [facility] Serum creatinine measurement (mass/volume)Ordered By: Shawn Elizalde on 01-24-2025 Creatinine [Mass/Vol] 0.72 mg/dL 0.70-1.20 [facility] Serum glucose measurement (m ass/volume)Ordered By: Shawn Elizalde on 01-24-2025 Glucose [Mass/Vol] 135 mg/dL High 70-99 [facility] Serum or plasma calcium lyudmila urement (mass/volume)Ordered By: Shawn Elizalde on 01-24-2025 Calcium [Mass/Vol] 9.3 mg/dL 7.6-11.0 [facility] Serum or plasma urea nitroge n measurement (mass/volume)Ordered By: Shawn Elizalde on 01-24-2025 Urea nitrogen [Mass/Vol] 12 mg/dL 4-19 [facility] Sodium levelOrdered By: Kwabena Elizalde on 01-24-2025 Sodium [Moles/Vol] 136 mmol/L 133-145 [facility] Squamous epithelial cells de tection in urine sediment by light microscopyOrdered By: Shawn Elizalde on 01-24-2025 Epithelial cells.squamous LM Ql (Urine sed) 0-5 SEEN /hpf 5-10 [facility] Transvaginal Non-on 01-24-2025 Transvaginal Non- [facility] Imaging Services [address] [place] [address] [id number] Transvaginal Non- MR#: [id number] Acct: [id number] Name: NETO BERKOWITZ Rep #: [id number] : 1995 F 29 From: Tino renteria MD PCP: ANA Brand Status: REG ER Study: Transvaginal Non- Date of Exam: Exam# [id number] Ordering Dr: Shawn Elizalde DO PROCEDURE: TRANSVAGINAL NON- 01/24/2025 REASON FOR EXAM: PELVIC PAIN Recent ectopic treated with methotrexate. TECHNIQUE: TRANSVAGINAL NON- COMPARISON: None FINDINGS: Measurements: Uterus: 9.4 cm x 5.1 cm x 3.8 cm with a volume of 93.75 mL Endometrial Thickness: 5.4 mm. It is trilaminar in appearance. Right Ovary: 3.2 cm x 2.7 cm x 2.1 cm with a volume of 9.14 mL. Left Ovary: 2.7 cm x 2.1 cm x 1.9 cm with a volume of 5.59 mL. Uterus: There is a 1.7 cm x 1.9 cm x 1.4 cm fibroid in the region of the left cornua. Endometrium: Unremarkable. Right ovary: Normal size and echotexture. Left ovary: Normal size and echotexture. Other: There is a 1.3 cm by 1.2 cm complex density superior to the left ovary. This may represent the area of prior ectopic. HCG correlation recommended. US/Transvaginal Non- IMPRESSION: 1.3 cm x 1.2 cm complex density superior to the left ovary. Correlation with HCG recommended for further evaluation. Reading Location: [facility] CC: ANA Bishop; Shawn Elizalde DO Broacher: Signed Normal [facility] Urinalysis, Completeon 01-24 EPI,SQUAMOUS 0-5 SEEN Normal 5-10 [facility] Comment on above: Order Comment: CLEAN CATCH Performed By: #### L 400.0001, L400.7600 ####[facility] [address] [place], [address] WBC 0-5 SEEN Normal 0-5 [facility] Comment on above: Order Comment: CLEAN CATCH Performed By: #### L 400.0001, L400.7600 ####[facility] [address] [place], [address] BACTERIA 0 SEEN Normal None Seen [facility] Comment on above: Order Comment: CLEAN CATCH Performed By: #### L 400.0001, L400.7600 ####[facility] [address] [place], [address] Mucus Ql (Urine sed) 0 SEEN Normal [facility] Comment on above: Order Comment: CLEAN CATCH Performed By: #### L 400.0001, L400.7600 ####[facility] [address] [place], [address] RBC 0 SEEN Normal 0-5 [facility] Comment on above: Order Comment: CLEAN CATCH Performed By: #### L 400.0001, L400.7600 ####[facility] [address] [place], [address] Urine clarityOrdered By: Aftab Elizalde on 01-24-2025 Clarity (U) Sl. Cloudy Clear [facility] Urine color determinationOrd ered By: Shawn Elizalde on 01-24-2025 Color (U) Yellow Yellow [facility] Urine glucose detectionOrder ed By: Shawn Elizalde on 01-24-2025 Glucose Ql (U) Normal mg/dl Normal [facility] Urine leukocyte esterase det ection by dipstickOrdered By: Shawn Elizalde on 01-24-2025 Leukocyte esterase Test strip Ql (U) Negative Negative [facility] Urine pHOrdered By: Shawn klein on 01-24-2025 pH (U) 6.0 [pH] 5.0 - 8.0 [facility] Urine testOrdered By: Shawn Elizalde on 01-24-2025 HCG ( test) Ql (U) Negative [facility] Comment on above: Very dilute urine sp ecimens, as indicated by a low specificgravity, may not contain compliance representative dealer levels of hCG. If is still suspected, a first morning urinespecimen should be collected 48 hours later and tested. Urine sediment bacteria coun t by microscopy (number/high power field)Ordered By: Shawn Elizalde on 01-24-2025 Bacteria LM.HPF (Urine sed) [#/Area] 0 /[HPF] None Seen [facility] Urine specific gravity measu rementOrdered By: Shawn Elizalde on 01-24-2025 Specific gravity (U) [Rel density] 1.015 1.002-1.030 [facility] Urine urobilinogen measureme ntOrdered By: Shawn Elizalde on 01-24-2025 Urobilinogen Ql (U) Normal mg/dl Normal [facility] White blood cell (WBC) count Ordered By: Shawn Elizalde on 01-24-2025 WBC (Bld) [#/Vol] 10.3 10*3/uL 4.4-11.0 [facility] White blood cell countOrdere d By: Shawn Elizalde on 01-24-2025 White blood cell count 0-5 SEEN /hpf 0-5 [facility] hCG Titer Quant., Serumon 07 -16-2025 HCG QUANT. 4 mIU/mL Normal <9 non-preg [facility] Comment on above: Result Comment: Gest ational Age 0.2-1 Week: 5-50 mIU/mL 1-2 Weeks: 50-500 mIU/mL 2-3 Weeks: 100-5000 mIU/mL 3-4 Weeks: 500-10,000 mIU/mL 4-5 Weeks:1000-50,000 mIU/mL 5-6 Weeks: 10,000-100,000 mIU/mL 6-8 Weeks: 15,000-200,000 mIU/mL 2-3 Months:10,000-100,000 mIU/mL Performed By: #### L 700.8000 ####[facility] [address] [place], [address] 36on 01-18-2025 36 Pt calling and state s her HCG is at 19 and wants to start back on the progesterone and asking if ok she was scheduled to day but woke up late rescheduled 02/22/25. Please advise Normal [facility] hCG, quantitativeon 01-18-20 25 HCG.beta subunit Qn 19 m[IU]/mL High mIU/mL [facility] Comment on above: Reference Range Non or premenopausal <5 Postmenopausal <10 Values from different assay methods may vary. The use of this assay to monitor or to diagnose patients with cancer or any condition unrelated to has not been cleared or approved by the FDA or the fence making machine operator of the assay. Women with hCG values between 5 and 25 mIU/mL should have the result confirmed by repeat analysis in 2 to 4 days if clinically indicated. Interpretation and review of laboratory results [facility]normal [facility]on 01-10-20 25 HCG.beta subunit Qn 339 m[IU]/mL High mIU/mL [facility] Comment on above: Reference Range Non or premenopausal <5 Postmenopausal <10 Values from different assay methods may vary. The use of this assay to monitor or to diagnose patients with cancer or any condition unrelated to has not been cleared or approved by the FDA or the fence making machine operator of the assay. Interpretation and review of laboratory results Abnormal [facility] 36on 01-08-2025 36 Name of caller: Jason cantu Contact phone number: [phone] Relationship to Patient: patient Provider: DO Matt Practice: [facility] Chief Complaint/Reason for Call: Patient calling from [facility] and states lab cannot see her Hcg order. Right faxed order to [facility] at [phone]. Patient had no further questions. Thank you Best time of day caller can be reached: PM Patient advised that office/PCP has 24-48 business hours to return their call: N/A Normal [facility] CNCOon 01-08-2025 CNCO Letter Text Normal [facility] ABO and Rh group Confirm Nom (Bld)on 01-01-2025 ABO group Nom (Bld) O [facility] [employer] D Ag Ql (RBC) Positive [facility] BLOOD TYPE AND SCREEN GELon 01-01-2025 ABO GROUPING O Normal [facility] Comment on above: Performed By: #### L [id number] ####Postmaster Relief: MELODY MOREL ([id number])[facility] ([facility])[address] [place] [address] RH TYPE IN BLOOD Positive Normal [facility] Comment on above: Performed By: #### L [id number] ####Postmaster Relief: MELODY MOREL ([id number])[facility] ([facility])[address] [place] [address] Blood type and Crossmatch pa talia (Bld)on 01-01-2025 ABO group Nom (Bld) O [facility] Blood group antibody screen GEL Ql Negative [facility] [employer] D Ag Ql (RBC) Positive [facility] CBC (HEMOGRAM)on 01-01-2025 Erythrocyte distribution width (RBC) [Ratio] 11.9 % Normal 11.5-15.0 [facility] Comment on above: Performed By: #### L AB294 ####Postmaster Relief: MELODY MOREL ([id number])[facility] ([facility])[address] [place] [address] Hematocrit (Bld) [Volume fraction] 43.5 % Normal 35.0-47.0 [facility] Comment on above: Performed By: #### L AB294 ####Postmaster Relief: MELODY MOREL ([id number])[facility] ([facility])[address] [place] [address] Hemoglobin (Bld) [Mass/Vol] 14.9 g/dL Normal 11.7-16.0 [facility] Comment on above: Performed By: #### L [id number] ####Postmaster Relief: MELODY MOREL ([id number])[facility] ([facility])[address] [place] [address] MCH (RBC) [Entitic mass] 30.7 pg Normal 26.0-34.0 [facility] Comment on above: Performed By: #### L AB294 ####Postmaster Relief: MELODY MOREL ([id number])[facility])[address] [place] [address] MCHC 34.3 % Normal 30.5-36.0 [facility] Comment on above: Performed By: #### L AB294 ####Postmaster Relief: MELODY MOREL ([id number])[facility] ([facility])[address] [place] [address] MCV (RBC) [Entitic vol] 89.5 fL Normal 77.0-99.0 [facility] Comment on above: Performed By: #### L AB294 ####Postmaster Relief: MELODY MOREL ([id number])[facility])[address] [place] [address] Platelet mean volume (Bld) [Entitic vol] 9.4 fL Normal 9.0-12.7 [facility] Comment on above: Performed By: #### L AB294 ####Postmaster Relief: MELODY MOREL ([id number])[facility])[address] [place] [address] Platelets (Bld) [#/Vol] 306 10*3/uL Normal 140-440 [facility] Comment on above: Performed By: #### L [id number] ####Postmaster Relief: MELODY MOREL ([id number])[facility])[address] [place] [address] RBC (Bld) [#/Vol] 4.86 10*6/uL Normal 3.80-5.20 [facility] Comment on above: Performed By: #### L [id number] ####Postmaster Relief: MELODY MOREL ([id number])[facility] ([facility])[address] [place] [address] WBC (Bld) [#/Vol] 11.8 10*3/uL High 3.6-10.7 [facility] Comment on above: Performed By: #### L AB294 ####Postmaster Relief: MELODY MOREL ([id number])[facility] ([facility])[address] [place] [address] CBC panel Auto (Bld)on 01-01 Erythrocyte distribution width (RBC) [Ratio] 11.9 % 11.5 - 15.0 % [facility] Hematocrit (Bld) [Volume fraction] 43.5 % 35.0 - 47.0 % [facility] Hemoglobin (Bld) [Mass/Vol] 14.9 g/dL 11.7 - 16.0 g/dL [facility] Interpretation and review of laboratory results Abnormal [facility] MCH (RBC) [Entitic mass] 30.7 pg 26.0 - 34.[address] [facility] MCHC (RBC) [Mass/Vol] 34.3 % 30.5 - 36.0 % [facility] MCV (RBC) [Entitic vol] 89.5 fL 77.0 - 99.[address] [facility] Platelet mean volume (Bld) [Entitic vol] 9.4 fL 9.0 - 12.[address] [facility] Platelets (Bld) [#/Vol] 306 10*3/uL 140 - 440 10*3/uL [facility] RBC (Bld) [#/Vol] 4.86 10*6/uL 3.80 - 5.2 0 10*6/uL [facility] WBC (Bld) [#/Vol] 11.8 10*3/uL High 3.6 - 10.7 10*3/uL [facility] COMPREHENSIVE METABOLIC PANE Isacc 01-01-2025 Albumin [Mass/Vol] 3.7 g/dL Normal 3.5-5.0 [facility] [facility] Comment on above: Performed By: #### L [id number], [id number] #### Postmaster Relief: MELODY MOREL ([id number]) [facility] ([facility]) [address] [place] [address] ALP [Catalytic activity/Vol] 108 U/L Normal 40-150 [facility] Comment on above: Performed By: #### L [id number], LAB17 #### Postmaster Relief: MELODY MOREL ([id number]) [facility] ([facility]) [address] [place] [address] ALT [Catalytic activity/Vol] 23 U/L Normal <30 [facility] Comment on above: Performed By: #### L AB143, LAB17 #### Postmaster Relief: MELODY MOREL ([id number]) [facility] ([facility]) [address] [place] [address] Anion gap [Moles/Vol] 11 mmol/L Normal 3-13 [facility] Comment on above: Performed By: #### L AB143, LAB17 #### Postmaster Relief: MELODY MOREL ([id number]) [facility] ([facility]) [address] [place] [address] AST [Catalytic activity/Vol] 20 U/L Normal <34 [facility] Comment on above: Performed By: #### L AB143, LAB17 #### Postmaster Relief: MELODY MOREL ([id number]) [facility] ([facility]) [address] [place] [address] [place] Bilirubin [Mass/Vol] 0.3 mg/dL Normal <1.2 [facility] Comment on above: Performed By: #### L AB143, LAB17 #### Postmaster Relief: MELODY MOREL ([phone]) [facility]) [address] [place] [address] Calcium [Mass/Vol] 9.5 mg/dL Normal 8.4-10.2 [facility] Comment on above: Performed By: #### L AB143, LAB17 #### Postmaster Relief: MELODY MOREL ([phone]) [facility] [address] [place] [address] Chloride [Moles/Vol] 104 mmol/L Normal 98-107 [facility] Comment on above: Performed By: #### L AB143, LAB17 #### Postmaster Relief: MELODY MOREL ([id number]) [facility] [address] [place] [address] CO2 [Moles/Vol] 22 mmol/L Normal 22-29 [facility] Comment on above: Performed By: #### L AB143, LAB17 #### Postmaster Relief: MELODY MOREL ([phone]) [facility]) [address] [place] [address] Creatinine [Mass/Vol] 0.73 mg/dL Normal 0.57-1.11 [facility] Comment on above: Performed By: #### L AB143, LAB17 #### Postmaster Relief: MELODY MOREL ([id number]) [facility] ([facility]) [address] [place] [address] GLOMERULAR FILTRATION RATE ML/MIN/1.73 SQ M.PREDICTED >90.0 Normal >60.0 [facility] Comment on above: Result Comment: Calc ulation based on the Chronic Kidney Disease Epidemiology Collaboration (CKD-EPI) equation refit without adjustment for race Performed By: #### L AB143, LAB17 #### Postmaster Relief: MELODY MOREL ([phone]) [facility] ([facility]) [address] [place] [address] Glucose [Mass/Vol] 85 mg/dL Normal 74-100 [facility] Comment on above: Performed By: #### L AB143, LAB17 #### Postmaster Relief: MELODY MOREL ([id number]) [facility]) [address] [place] [address] Potassium [Moles/Vol] 3.8 mmol/L Normal 3.5-5.1 [facility] Comment on above: Result Comment: [facility] potassium values may be up to 0.5 mmol/L lower than serum values. Performed By: #### L AB143, LAB17 #### Postmaster Relief: MELODY MOREL ([phone]) [facility] [address] [place] [address] Protein [Mass/Vol] 9.0 g/dL High 6.4-8.3 [facility] Comment on above: Performed By: #### L AB143, LAB17 #### Postmaster Relief: MELODY MOREL ([phone]) [facility] [address] [place] [address] Sodium [Moles/Vol] 137 mmol/L Normal 136-145 [facility] Comment on above: Performed By: #### L AB143, LAB17 #### Postmaster Relief: MELODY MOREL ([phone]) [facility] [address] [place] [address] Urea nitrogen [Mass/Vol] 11 mg/dL Normal 8-21 [facility] Comment on above: Performed By: #### Judith LOPEZ143, LAB17 #### Postmaster Relief: MELODY MOREL ([id number]) [facility] [address] [place] [address] Comprehensive metabolic 1998 panelon 01-01-2025 Albumin [Mass/Vol] 3.7 g/dL 3.5 - 5.0 g/dL [facility] ALP [Catalytic activity/Vol] 108 U/L 40 - 150 U/L [facility] ALT [Catalytic activity/Vol] 23 U/L NINF - 30 U/L [facility] Anion gap [Moles/Vol] 11 mmol/L 3 - 13 mmol/L [facility] AST [Catalytic activity/Vol] 20 U/L NINF - 34 U/L [facility] Bilirubin [Mass/Vol] 0.3 mg/dL NINF - 1.2 mg/dL [facility] Calcium [Mass/Vol] 9.5 mg/dL 8.4 - 10. 2 mg/dL [facility] Chloride [Moles/Vol] 104 mmol/L 98 - 10 7 mmol/L [facility] CO2 [Moles/Vol] 22 mmol/L 22 - 29 mmol/L [facility] Creatinine [Mass/Vol] 0.73 mg/dL 0.57 - 1.11 mg/dL [facility] GFR/1.73 sq M.predicted (S/P/Bld) [Vol rate/Area] - PINF [facility] Comment on above: Calculation based on the Chronic Kidney Disease Epidemiology Collaboration (CKD-EPI) equation refit without adjustment for race Glucose [Mass/Vol] 85 mg/dL 74 - 100 mg/dL [facility] Interpretation and review of laboratory results Abnormal [facility] Potassium [Moles/Vol] 3.8 mmol/L 3.5 - 5.1 mmol/L [facility] Comment on above: Plasma potassium orly ues may be up to 0.5 mmol/L lower than serum values. Protein [Mass/Vol] 9 g/dL High 6.4 - 8.3 g/dL [facility] Sodium [Moles/Vol] 137 mmol/L 136 - 145 mmol/L [facility] Urea nitrogen [Mass/Vol] 11 mg/dL 8 - 21 mg/dL [facility] HCG QUANTITATIVE BLOODon HCG QUANTITATIVE 661.1 mIU/mL Normal Females <5 [facility] Comment on above: Result Comment: CECY Torres COMMENTS: Values in should double every 2 to 3 days for the first 6 weeks. Elevated concentrations of human chorionic gonadotropin (hCG) measured in the first trimester of are observed in normal , but may serve as an indication of chorionic carcinoma, hydatiform mole, or multiple . Decreasing hCG concentrations indicate threatened or missed , recent termination of , ectopic , gestosis or intrauterine . Haleigh- and postmenopausal females may have detectable hCG concentrations (< or = to 14 mIU/mL) due to pituitary production of hCG. Serum follicle-stimulating hormone measurement may aid in ruling-out in this population. Cutoffs of greater than 20 to 45 mIU/mL have been suggested and are method dependent. False-elevations (called phantom human chorionic gonadotropin: hCG) may occur with patients who have human antianimal or heterophilic antibodies. Some specimens may not dilute linearly due to abnormal forms of hCG. Elevated hCG concentrations not associated with are found in patients with other diseases such as tumors of the germ cells, ovaries, bladder, pancreas, stomach, lungs, and liver. This test is not intended to detect or monitor tumors or gestational trophoblastic disease. Performed By: #### L AB143, LAB17 ####Postmaster Relief: MELODY MOREL ([id number])[address] Laboratory - Chemistry and C hemistry - challengeon 01-01-2025 HCG.beta subunit Qn 661.1 m[IU]/mL Female s <5 mIU/mL [facility] No Panel Informationon 01-01 Values in should double every 2 to 3 days for the first 6 weeks. Elevated concentrations of human chorionic gonadotropin (hCG) measured in the first trimester of are observed in normal , but may serve as an indication of chorionic carcinoma, hydatiform mole, or multiple . Decreasing hCG concentrations indicate threatened or missed , recent termination of , ectopic , gestosis or intrauterine . Haleigh- and postmenopausal females may have detectable hCG concentrations (< or = to 14 mIU/mL) due to pituitary production of hCG. Serum follicle-stimulating hormone measurement may aid in ruling-out in this population. Cutoffs of greater than 20 to 45 mIU/mL have been suggested and are method dependent. False-elevations (called phantom human chorionic gonadotropin: hCG) may occur with patients who have human antianimal or heterophilic antibodies. Some specimens may not dilute linearly due to abnormal forms of hCG. Elevated hCG concentrations not associated with are found in patients with other diseases such as tumors of the germ cells, ovaries, bladder, pancreas, stomach, lungs, and liver. This test is not intended to detect or monitor tumors or gestational trophoblastic disease. [facility] Progress Noteon 01-01-2025 Progress Note -- Attestation signed by Gloria Hatfield MD at 01/01/2025 9:11 PM Procedures or Surgery: I was present for all olivares elements of the procedure or surgery as described in the resident note.Gloria Hatfield MD Department of Obstetrics and Gynecology OB Emergency Department Note CHIEF CONCERN: Ectopic, methotrexate admin HISTORY OF PRESENT ILLNESS: The patient is a 29 y.o. who presents with the above chief concern. Patient here for administration of methotrexate. Patient is s/p counseling in the outpatient setting regarding her options and opted for methotrexate. She denies any symptoms. She denies any abdominal pain or vaginal bleeding. Estimated Due Date: Estimated Date of Delivery: None noted. DETAILED OB HISTORY: OB History Para Term AB Living 1 0 0 0 0 0 SAB IAB Ectopic Multiple Live Births 0 0 0 0 0 # Outcome Date GA Lbr Vance/2nd Weight Sex Type Anes PTL Lv 1 Current PAST MEDICAL HISTORY: Medical History[1] PAST SURGICAL HISTORY: Surgical History[2] MEDICATIONS: Prior to Admission medications Medication Sig Start Date End Date Taking? Authorizing Provider Vit-Fe Fumarate-FA ( Vitamins) 28-0.8 MG tablet Take 1 tablet by mouth daily. 12/18/24 12/18/25 Kostas Hopkins DO progesterone (Prometrium) [address] vaginally nightly 12/26/24 Kostas Hopkins DO REVIEW OF SYSTEMS: Pertinent items are noted in HPI. APPEARANCE: Pain: No PHYSICAL EXAM: Vital Signs: VS wnl-reviewed/Respirati ons normal effort There were no vitals filed for this visit. General: NAD alert and oriented Heart: RR Lungs: No resp distress Abdomen: soft, NT, ND, no rebound/guarding LE Edema: trace GENERAL LABS: No results found for this or any previous visit (from the past 24 hours). TRIAGE COURSE: Patient sent in by Dr. Hopkins for methotrexate treatment of suspected ectopic. Patients vitals stable. Hb, WBC, Plt, Cr, AST/ALT wnl. bHCG . 50mg/m2 will be given following lab results. Did discuss rupture precautions including vaginal bleeding and severe abdominal pain. Discussed most common side effects including stomatitis, GI upset, diarrhea, nausea vomiting. Advised not to take vitamin and leafy green vegetables. Advised patient not to drink alcohol. Patient very tearful and requesting vistaril. and CMP overall wnl. Will order methotrexate at this time. Patient concerned regarding her increase in HCG. Dr Hopkins called into patient room to discuss outpatient plan. Will get TVUS to see if possible GS in uterus or adenxa prior to getting methotrexate. At this time patient anxious regarding HCG rise. Did personally discuss how it is still abnormally rising and Dr Hopkins further counseled patient. Will await ultrasound read. demonstrating no IUP and left adnexal structure suspicious for ectopic. Methotrexate administered IM in the bilateral buttocks. Discussed strict return precautions and plan for follow up with patient. She voiced understanding and is agreeable. Sloane Villegas MD 01/01/2025 7:13 PM IMPRESSION: Ectopic, Methotrexate Patient seen and evaluated and plan discussed with in house Triage Attending Dr. Hatfield SEPTIC TANK CLEANER PROVIDER: Leida DISPOSITION: Discharge to Home [1] Past Medical History: Diagnosis Date Anxiety and depression PCOS (polycystic ovarian syndrome) PMDD (premenstrual dysphoric disorder) [2] Past Surgical History: Procedure Laterality Date KIDNEY STONE REMOVAL (HISTORICAL) TONSILLECTOMY AND ADENOIDECTOMY (HISTORICAL) WISDOM TOOTH EXTRACTION [facility] US OB TRANSVAGINALon 025 US OB TRANSVAGINAL Patient Name: NETO BERKOWITZ : 1995 [facility] Man[facility]#: [id number] Exam Date/Time: 01/01/2025 17:49 Procedure: US OB TRANSVAGINAL Ordering Provider: ARMSTRONG GREGORY Reason For Exam: ; of unknown location, abnormally rising hCG ULTRASOUND OB, TRANSVAGINAL CLINICAL INDICATION: ; of unknown location, abnormally rising hCG TECHNIQUE: Real-time, transvaginal sonography of the pelvis. Doppler and spectral waveform analysis of the ovaries, if they were visualized. COMPARISON: December,. FINDINGS: The uterus measures 9.2 x 3.9 x 5.1 cm and appears grossly unremarkable. The endometrial stripe measures 8 mm in AP dimension. No intrauterine fluid collection or IUP identified. The right ovary measures 2.8 x 2.4 x 2.2 cm and is grossly unremarkable. The left ovary measures 2.5 x 1.6 x 1.6 cm and is grossly unremarkable. Duplex Doppler shows appropriate blood flow in the bilateral ovaries. Small and rounded or ring-like structure noted in left adnexa, adjacent to or coincident with the fallopian tube, measuring approximately 6 x 6 x 8 mm. No other adnexal masses or significant free pelvic fluid. IMPRESSION: 1. No IUP identified, and ring-like structure in the left adnexa suspicious for ectopic . Possibilities also include early gestation, and early failure, with left parovarian cyst. Correlation with serial beta-hCG levels and follow-up ultrasound may help in further evaluation. Results were relayed via [employer] to Dr. Sloane Villegas on December, at 1830 hours. Report Dictated on Electronically Signed By: Haseeb Mora MD Electronically Signed Date/Time: 01/01/2025 6:31 PM EDT [facility] US Pelvis transvaginalon 1. No IUP identified, and ring-like structure in the left adnexa suspicious for ectopic . Possibilities also include early gestation, and early failure, with left parovarian cyst. Correlation with serial beta-hCG levels and follow-up ultrasound may help in further evaluation. Results were relayed via [employer] to Dr. Sloane Villegas on December, at 1830 hours. Report Dictated on Electronically Signed By: Haseeb Mora MD Electronically Signed Date/Time: 01/01/2025 6:31 PM EDT [facility] Patient Name: NETO BERKOWITZ : 1995 Exam Date/Time: 01/01/2025 17:49 Procedure: US OB TRANSVAGINAL Ordering Provider: ARMSTRONG GREGORY Reason For Exam: ; of unknown location, abnormally rising hCG ULTRASOUND OB, TRANSVAGINAL CLINICAL INDICATION: ; of unknown location, abnormally rising hCG TECHNIQUE: Real-time, transvaginal sonography of the pelvis. Doppler and spectral waveform analysis of the ovaries, if they were visualized. COMPARISON: December,. FINDINGS: The uterus measures 9.2 x 3.9 x 5.1 cm and appears grossly unremarkable. The endometrial stripe measures 8 mm in AP dimension. No intrauterine fluid collection or IUP identified. The right ovary measures 2.8 x 2.4 x 2.2 cm and is grossly unremarkable. The left ovary measures 2.5 x 1.6 x 1.6 cm and is grossly unremarkable. Duplex Doppler shows appropriate blood flow in the bilateral ovaries. Small and rounded or ring-like structure noted in left adnexa, adjacent to or coincident with the fallopian tube, measuring approximately 6 x 6 x 8 mm. No other adnexal masses or significant free pelvic fluid. [facility] Haseeb Mora MD - 01/01/2025 Patient Name: NETO BERKOWITZ : 1995 [facility] Manort#: [id number] Exam Date/Time: 01/01/2025 17:49 Procedure: US OB TRANSVAGINAL Ordering Provider: ARMSTRONG GREGORY Reason For Exam: ; of unknown location, abnormally rising hCG ULTRASOUND OB, TRANSVAGINAL CLINICAL INDICATION: ; of unknown location, abnormally rising hCG TECHNIQUE: Real-time, transvaginal sonography of the pelvis. Doppler and spectral waveform analysis of the ovaries, if they were visualized. COMPARISON: December,. FINDINGS: The uterus measures 9.2 x 3.9 x 5.1 cm and appears grossly unremarkable. The endometrial stripe measures 8 mm in AP dimension. No intrauterine fluid collection or IUP identified. The right ovary measures 2.8 x 2.4 x 2.2 cm and is grossly unremarkable. The left ovary measures 2.5 x 1.6 x 1.6 cm and is grossly unremarkable. Duplex Doppler shows appropriate blood flow in the bilateral ovaries. Small and rounded or ring-like structure noted in left adnexa, adjacent to or coincident with the fallopian tube, measuring approximately 6 x 6 x 8 mm. No other adnexal masses or significant free pelvic fluid. IMPRESSION: 1. No IUP identified, and ring-like structure in the left adnexa suspicious for ectopic . Possibilities also include early gestation, and early failure, with left parovarian cyst. Correlation with serial beta-hCG levels and follow-up ultrasound may help in further evaluation. Results were relayed via [employer] to Dr. Sloane Villegas on December, at 1830 hours. Report Dictated on Electronically Signed By: Haseeb Mora MD Electronically Signed Date/Time: 01/01/2025 6:31 PM EDT [facility] Study observation (narrative) [facility] US Pelvis transvaginalOrdere d By: Haseeb Mora on 01-01-2025 [employer] Work Phone: US PELVIS TRANSVAGINALon US PELVIS TRANSVAGINAL ----- ---- Gynecological Report (Signed Final 12/30/2024 09:25 pm) ---- PATIENT INFO: ID #: [id number] : [birth year] (29 yrs)(F) Name: NETO SHO Visit Date: 12/29/2024 08:38 am ---- PERFORMED BY: Attending: Weston Armstrong MD Performed By: Karolyn Reilly RDMS Referred By: KOSTAS HOPKINS Location: [facility] ---- SERVICE(S) PROVIDED: Bridge/Structure Inspection Team Leader Transvaginal [id number] ---- INDICATIONS: with inconclusive viability, O36.80X0 not applicable or unspecified ---- TECHNIQUE/SCAN QUALITY: Technique: Transvaginal Approach ---- HISTORY: Age: 29 Menses: Irregular ---- HX COMMENTS: Uncertain . Hx PCOS. Non latex cover used. ---- UTERUS: Uterus: Visualized Position: Anteverted Size (cm) L: 8.45 W: 4.97 H: 4.26 ---- ENDOMETRIUM: Thickness(mm): 9.04 ---- CERVIX: Multiple cervical cysts are noted. ---- CUL-DE-SAC: No free fluid was visualized ---- RIGHT OVARY: Status: Visualized Size (cm) L: 3.3 W: 2.85 H: 2.44 Vol (ml): 12.02 Comment: Multiple follicles <2mm distributed peripherally. ---- LEFT OVARY: Status: Visualized Size (cm) L: 2.75 W: 2.1 H: 3.06 Vol (ml): 9.25 Comment: Multiple follicles <2mm distributed peripherally. ---- ---- Weston Armstrong MD Electronically Signed Final Report 12/30/2024 09:25 pm ---- IMPRESSION: An IUP is not identified. Ectopic cannot be excluded. Clinical correlation is required. The endometrium is uniform, and measures 9.0 mm. Both ovaries are enlarged and have several, small cysts along the periphery of the ovary. This appearance and ovarian volumes over 10 cc can be associated with PCOS. Clinical correlation is required. Multiple cervical cysts are noted. Patient is scheduled to see Dr. Kostas Hopkins on 01/18/2025 for follow up. *Ultrasound cannot detect all pelvic or BUSINESS RELATIONS MANAGER abnormalities and normal findings cannot guarantee the absence of a problem.* Normal [facility] Office Visiton 12-29-2024 Follow-up visit [id number] [place] 1995 F Date Provider Department Center 12/29/2024 [id number] HOPKINS [facility] Family History Problem Relation Age of Onset Diabetes type II Mother Diabetes type II Mother's Brother Family Status - Relation Status Age at Mother Mother's Brother Level of Service:01426 ME OFFICE/OUTPATIENT ESTABLISHED LOW MDM 20 MIN Reason for Visit and Comments: Results [95] Normal [facility] Progress Noteon 12-29-2024 Progress Note HPI: Neto is a [age]-year-old female who is being seen today for of unknown location and viability. She was previously seen for a consult regarding PCOS and infertility for the past 9 years, did not think she had ability to get with her . She then went to the emergency room for severe lower abdominal pain and was told that she was with an hCG in the 30s. She has since had several repeat hCG levels. On 12/18 hCG was 96-->12/25 was 314-->12/26 was 363. At this point there is concerned that her hCG level is not rising appropriately however her blood draw intervals have not been 48 hours apart. She denies any heavy vaginal bleeding or further severe cramping. Denies any severe nausea or vomiting. This is a highly desired . She did have a transvaginal ultrasound today and nothing was seen inside the uterus or adnexa. She is taking a vitamin. REVIEW OF SYSTEMS: Gen: denies weight loss, fatigue, fevers/chills : see HPI PHYSICAL EXAM: Vitals: 12/29/24 1228 BP: 118/70 Physical Exam Vitals and nursing note reviewed. Constitutional: General: She is not in acute distress. Appearance: Normal appearance. She is obese. She is not toxic-appearing. HENT: Head: Normocephalic and atraumatic. Eyes: Extraocular Movements: Extraocular movements intact. Pulmonary: Effort: Pulmonary effort is normal. No respiratory distress. Abdominal: Palpations: Abdomen is soft. Tenderness: There is no abdominal tenderness. There is no guarding or rebound. Neurological: General: No focal deficit present. Mental Status: She is alert and oriented to person, place, and time. Psychiatric: Mood and Affect: Mood normal. Behavior: Behavior normal. Thought Content: Thought content normal. Neto was seen today for results. Diagnoses and all orders for this visit: of unknown anatomic location (Primary) - hCG, quantitative; Future - hCG, quantitative PLAN: -Discussed at this point there is concern that her hCG level is inappropriately rising however discussed that the optimal interval for repeat labs is 40 hours apart and hers have not been that -Hcg so far 96 (12/18) --> 214 (12/25) --> 363 (12/26) - Discussed that this could potentially become normal with a slow start, ectopic versus miscarriage -Plan to repeat hCG level again today and discussed that if it is not more than doubled it is likely ectopic versus impending miscarriage -Discussed that ectopic pregnancies are not compatible with carrying to full-term. Some resolved spontaneously but she may require methotrexate or surgery -Patient was given strict ED precautions for any worsening abdominal pain, dizziness, lightheadedness or heavy vaginal bleeding Normal [facility] 36on 12-26-2024 36 Mychart [facility] sent Normal [facility] 36on 12-25-2024 36 S: The patient is calling the [facility] about the progesterone levels. B: She has been trying for 10 years to get . A: Her HCG is rising but the progesterone seems low. She is concerned with this number. R: Please advise - she is asking about whether she needs supplemented for the progesterone. She is taking her vitamins. Advised she try to relax and keep her mind busy as she is very anxious. She needs to stay off the Internet as she cannot be certain that what she reads is fact and whether it pertains to her situation. She also has a My Chart message regarding this. Reason for Disposition Requesting lab results and adult stable (no new symptoms, not getting worse) Protocols used: Information Only Call - No [id number] Normal [facility] ESTRADIOLon 12-25-2024 ESTRADIOL 73 pg/mL Normal <649 [facility] Comment on above: Result Comment: CECY Torres COMMENTS: Values vary with stage of sexual development and/or menstrual cycle. This test is not recommended when low estradiol concentrations are expected. Females: Normal Follicular Phase ..... 26.6 - 161.0 Normal Pre-ovulatory Peak ...... 187.0 - 382.0 Normal Luteal Phase ......... 32.7 - 201.0 Post-menopausal ...... 5.3 - 38.4 Normal Males: 5.3 - 65.9 Performed By: #### L AB529, NPN724, LAB87, TBL069, LAB86 ####Postmaster Relief: CHANI DUGAN ([phone])[facility] ([facility] [place] [address] FOLLICLE STIMULATING HORMONE on 12-25-2024 FOLLICLE STIM HORMONE 3.3 mIU/mL Normal 1.4-16.7 [facility] Comment on above: Result Comment: CECY Torres COMMENTS: Values vary with stage of sexual development and/or menstrual cycle. Females: Follicular Phase ...... 2.0-11.6 Mid-cycle Peak ........ 5.1-23.4 Luteal Phase .......... 1.4-9.6 Post-menopausal ....... 21.5-131.0 Males: 1.6-9.7 Performed By: #### L AB529, SIL508, LAB87, ICV535, LAB86 ####Postmaster Relief: CHANI DUGAN ([phone])[facility]ITAL[facility] SOL[facility] (SBAB)[address] [place] [address] HCG QUANTITATIVE BLOODon HCG QUANTITATIVE 314.9 mIU/mL Normal Females <5 [facility] Comment on above: Result Comment: CECY Torres COMMENTS: Values in should double every 2 to 3 days for the first 6 weeks. Elevated concentrations of human chorionic gonadotropin (hCG) measured in the first trimester of are observed in normal , but may serve as an indication of chorionic carcinoma, hydatiform mole, or multiple . Decreasing hCG concentrations indicate threatened or missed , recent termination of , ectopic , gestosis or intrauterine . Haleigh- and postmenopausal females may have detectable hCG concentrations (< or = to 14 mIU/mL) due to pituitary production of hCG. Serum follicle-stimulating hormone measurement may aid in ruling-out in this population. Cutoffs of greater than 20 to 45 mIU/mL have been suggested and are method dependent. False-elevations (called phantom human chorionic gonadotropin: hCG) may occur with patients who have human antianimal or heterophilic antibodies. Some specimens may not dilute linearly due to abnormal forms of hCG. Elevated hCG concentrations not associated with are found in patients with other diseases such as tumors of the germ cells, ovaries, bladder, pancreas, stomach, lungs, and liver. This test is not intended to detect or monitor tumors or gestational trophoblastic disease. Performed By: #### L AB143 ####Postmaster Relief: MELOYD MOREL ([phone])[facility]ITAL[facility] HORAN (SWRLAB)[address] [place] [address] LUTEINIZING HORMONEon 2024 LUTEINIZING HORMONE 2.6 mIU/mL Normal 0.6-89.1 [facility] Comment on above: Result Comment: Fema les: Follicular Phase ...... 1.9-26.2 Mid-Cycle Peak ........ 22.8-76.1 Luteal Phase .......... 0.6-16.6 Post-menopausal ....... 8.6-61.8 (Not on MHT) Males: 1.2-10.6 ORDER COMMENTS: Values vary with sexual development and/or menstrual cycle. Performed By: #### L AB529, ZBA370, LAB87, FVD491, LAB86 ####Postmaster Relief: CHANI DUGAN ([phone])[facility] ([facility])[address] [place] [address] MISCELLANEOUS SENDOUT TESTon 12-25-2024 RESULT See Comment Normal [facility] Comment on above: Result Comment: CECY Torres COMMENTS: See attached report. Resulted on behalf of [facility]. Performed By: #### L AB000 ####[facility] (AMDBEAKER)[address] [place], [place] [facility] PROGESTERONEon 12-25-2024 PROGESTERONE 2.2 ng/mL Normal <15.9 [facility] Comment on above: Result Comment: CECY Torres COMMENTS: Values vary with stage of , sexual development and/or menstrual cycle. *Females-Ovulatory* Follicular: 0.1 - 2.0 Periovulatory: 0.4 - 4.5 Mid Luteal: 5.2 - 22.7 Luteal: 1.4 - 16.6 * Females* 1st Trimester (4-12 weeks gestation): 6.6 - 40.3 2nd Trimester (13-24 weeks gestation): 9.7 - 62.3 3rd Trimester (25-36 weeks gestation): 24.5 - 334.0 Post Menopausal Females: 0.2 - 1.0 Normal Males: 0.2 - 1.5 Performed By: #### L AB529, TQY186, LAB87, GEA639, LAB86 ####Postmaster Relief: CHANI DUGAN ([phone])[facility]AY[facility] SOLIZ (SBHLAB)[address] [place], [place] [address] [place] [address] TESTOSTERONEon 12-25-2024 Testosterone [Mass/Vol] 27 ng/dL Normal 14-53 [facility] Comment on above: Result Comment: Valu es vary with stage of sexual development. This test is not recommended when low testosterone concentrations are expected. Performed By: #### L AB529, KMQ416, LAB87, EUE827, LAB86 ####Postmaster Relief: CHANI DUGAN ([phone])[facility] (SBHLAB)[address] hCG, quantitativeon 12-26-19 25 HCG.beta subunit Qn 314.9 m[IU]/mL Female s <5 mIU/mL [employer] Values in should double every 2 to 3 days for the first 6 weeks. Elevated concentrations of human chorionic gonadotropin (hCG) measured in the first trimester of are observed in normal , but may serve as an indication of chorionic carcinoma, hydatiform mole, or multiple . Decreasing hCG concentrations indicate threatened or missed , recent termination of , ectopic , gestosis or intrauterine . Haleigh- and postmenopausal females may have detectable hCG concentrations (< or = to 14 mIU/mL) due to pituitary production of hCG. Serum follicle-stimulating hormone measurement may aid in ruling-out in this population. Cutoffs of greater than 20 to 45 mIU/mL have been suggested and are method dependent. False-elevations (called phantom human chorionic gonadotropin: hCG) may occur with patients who have human antianimal or heterophilic antibodies. Some specimens may not dilute linearly due to abnormal forms of hCG. Elevated hCG concentrations not associated with are found in patients with other diseases such as tumors of the germ cells, ovaries, bladder, pancreas, stomach, lungs, and liver. This test is not intended to detect or monitor tumors or gestational trophoblastic disease. [facility] HCG QUANTITATIVE BLOODon HCG QUANTITATIVE 96.7 mIU/mL Normal Females <5 [facility] Comment on above: Result Comment: CECY Torres COMMENTS: Values in should double every 2 to 3 days for the first 6 weeks. Elevated concentrations of human chorionic gonadotropin (hCG) measured in the first trimester of are observed in normal , but may serve as an indication of chorionic carcinoma, hydatiform mole, or multiple . Decreasing hCG concentrations indicate threatened or missed , recent termination of , ectopic , gestosis or intrauterine . Haleigh- and postmenopausal females may have detectable hCG concentrations (< or = to 14 mIU/mL) due to pituitary production of hCG. Serum follicle-stimulating hormone measurement may aid in ruling-out in this population. Cutoffs of greater than 20 to 45 mIU/mL have been suggested and are method dependent. False-elevations (called phantom human chorionic gonadotropin: hCG) may occur with patients who have human antianimal or heterophilic antibodies. Some specimens may not dilute linearly due to abnormal forms of hCG. Elevated hCG concentrations not associated with are found in patients with other diseases such as tumors of the germ cells, ovaries, bladder, pancreas, stomach, lungs, and liver. This test is not intended to detect or monitor tumors or gestational trophoblastic disease. Performed By: #### L AB143 ####Postmaster Relief: MELODY MOREL ([phone])[facility] (SWRL[facility])[address] [place] [address] hCG, quantitativeon 12-19-19 25 HCG.beta subunit Qn 96.7 m[IU]/mL Females <5 mIU/mL [facility] Values in should double every 2 to 3 days for the first 6 weeks. Elevated concentrations of human chorionic gonadotropin (hCG) measured in the first trimester of are observed in normal , but may serve as an indication of chorionic carcinoma, hydatiform mole, or multiple . Decreasing hCG concentrations indicate threatened or missed , recent termination of , ectopic , gestosis or intrauterine . Haleigh- and postmenopausal females may have detectable hCG concentrations (< or = to 14 mIU/mL) due to pituitary production of hCG. Serum follicle-stimulating hormone measurement may aid in ruling-out in this population. Cutoffs of greater than 20 to 45 mIU/mL have been suggested and are method dependent. False-elevations (called phantom human chorionic gonadotropin: hCG) may occur with patients who have human antianimal or heterophilic antibodies. Some specimens may not dilute linearly due to abnormal forms of hCG. Elevated hCG concentrations not associated with are found in patients with other diseases such as tumors of the germ cells, ovaries, bladder, pancreas, stomach, lungs, and liver. This test is not intended to detect or monitor tumors or gestational trophoblastic disease. [facility] 29on 12-17-2024 29 Addended by: BILLY MORELAND on: 12/18/2024 09:06 AM Modules accepted: Orders Normal [facility] 36on 12-15-2024 [address] Hopkins to place order Normal [facility] 36 S: Pt calling [facility] to request lab orders in early . B: Pt seen at [facility] ED this morning. A: Pt found out she is today. Seen at [place] ED then transferred to [facility] ED. Her quantitative hCG was 37.3 at 0830 this morning. They want her to have it redrawn in 48 hours. Pt requests an order be placed. She had office visit with Dr. Hopkins yesterday, and did not realize she was at that time. She denies new or worsening symptoms. Pain has resolved. R: Message sent to Ob-sales team recruiter's office with her request. Advised pt to call back with new or worsening symptoms. Pt verbalized understanding. Reason for Disposition MILD vaginal bleeding (i.e., less than 1 pad / hour; less than patient's usual menstrual bleeding; not just spotting) Protocols used: - Vaginal Bleeding Less Than 20 Weeks OMJ-[id number]-QD Normal [facility] B-HCG SerPl-aCncon 5 HCG.beta subunit Qn 37.3 m[IU]/mL High <5.0 [facility] Comment on above: Order Comment: Speci men Type: BLOOD SPECIMENOrdering Facility: [facility] Address: [address] [place] [address] Result Comment: MAXIMUS TITATIVE HCG NORMAL RANGES Weeks of Gestation (Weeks Since LMP) 3 Weeks (5.8-71.2 mIU/mL) 4 Weeks (9.5-750 mIU/mL) 5 Weeks (217-7138 mIU/mL) 6 Weeks (158-04560 mIU/mL) 7 Weeks (3697-256210 mIU/mL) 8 Weeks (59556-563363 mIU/mL) 9 Weeks (91438-721047 mIU/mL) 10 Weeks (67022-613449 mIU/mL) 12 Weeks (37686-505243 mIU/mL) Referenced to 4th IS of [facility] Performed By: #### 2 1198-7 ####[facility] [place] LABCLIA [id number] [place] [address] [place] CBC W Auto Differential pane l (Bld)on 12-15-2024 Basophils (Bld) [#/Vol] 10*3/uL Normal <0.11 [facility] Comment on above: Order Comment: Speci men Type: BLOOD SPECIMENOrdering Facility: [facility] Address: [address] [place] [address] Performed By: #### 5 7021-8 ####[facility] [place] LABCLIA [id number] [place] [address] [place] Basophils/100 WBC (Bld) 0.2 % Normal [facility] Comment on above: Order Comment: Speci men Type: BLOOD SPECIMENOrdering Facility: [facility] Address: [address] [place] [address] Performed By: #### 5 7021-8 ####[facility] [place] LABCLIA [id number] [place] [address] [place] Differential cell count method Nom (Bld) Auto Normal [facility] Comment on above: Order Comment: Speci men Type: BLOOD SPECIMENOrdering Facility: [facility] Address: [address] [place] [address] Performed By: #### 5 7021-8 ####[facility] [place] LABCLIA [id number] [place] [address] [place] Eosinophils (Bld) [#/Vol] 0.12 10*3/uL Normal <0.46 [facility] Comment on above: Order Comment: Speci men Type: BLOOD SPECIMENOrdering Facility: [facility] Address: [address] [place] [address] Performed By: #### 5 7021-8 ####[facility] [place] LABCLIA [id number] [place] [address] [place] Eosinophils/100 WBC (Bld) 1.3 % Normal [facility] Comment on above: Order Comment: Speci men Type: BLOOD SPECIMENOrdering Facility: [facility] Address: [address] [place] [address] Performed By: #### 5 7021-8 ####[facility] [place] LABCLIA [id number] [place] [address] [place] Erythrocyte distribution width (RBC) [Ratio] 12.4 % Normal 11.5-15.0 [facility] Comment on above: Order Comment: Speci men Type: BLOOD SPECIMENOrdering Facility: [facility] Address: [address] [place] [address] Performed By: #### 5 7021-8 ####[facility] [place] LABCLIA [id number] [facility] [place] [address] [place] Hematocrit (Bld) [Volume fraction] 39.1 % Normal 36.0-46.0 [facility] Comment on above: Order Comment: Speci men Type: BLOOD SPECIMENOrdering Facility: [facility] Address: [address] [place] [address] Performed By: #### 5 7021-8 ####[facility] LABCLIA [id number] [place] [address] [place] Hemoglobin (Bld) [Mass/Vol] 13.3 g/dL Normal 11.5-15.5 [facility] Comment on above: Order Comment: Speci men Type: BLOOD SPECIMENOrdering Facility: [facility] Address: [address] [place] [address] Performed By: #### 5 7021-8 ####[facility] [place] LABCLIA [id number] [facility] [place] [address] [place] Immature granulocytes (Bld) [#/Vol] 0.06 10*3/uL Normal <0.10 [facility] Comment on above: Order Comment: Speci men Type: BLOOD SPECIMENOrdering Facility: [facility] Address: [address] [place] [address] Performed By: #### 5 7021-8 ####[facility] [place] LABCLIA [id number] [place] [address] [facility] Immature granulocytes/100 WBC (Bld) 0.6 % Normal [facility] Comment on above: Order Comment: Speci men Type: BLOOD SPECIMENOrdering Facility: [facility] Address: [address] [place] [address] Performed By: #### 5 7021-8 ####[facility] [place] LABCLIA [id number] [place] [address] [facility] Lymphocytes (Bld) [#/Vol] 2.96 10*3/uL Normal 1.00-4.00 [facility] Comment on above: Order Comment: Speci men Type: BLOOD SPECIMENOrdering Facility: [facility] Address: [address] [place] [address] Performed By: #### 5 7021-8 ####[facility] [place] LABCLIA [id number] [place] [id number] [facility] Lymphocytes/100 WBC (Bld) 31.2 % Normal [facility] Comment on above: Order Comment: Speci men Type: BLOOD SPECIMENOrdering Facility: [facility] Address: [address] [place] [address] Performed By: #### 5 7021-8 ####[facility] [place] LABCLIA [id number] [place] [address] [place] MCH (RBC) [Entitic mass] 30.8 pg Normal 26.0-34.0 [facility] Comment on above: Order Comment: Speci men Type: BLOOD SPECIMENOrdering Facility: [facility] Address: [address] [place] [address] Performed By: #### 5 7021-8 ####[facility] [place] LABCLIA [id number] [place] [address] [place] MCHC (RBC) [Mass/Vol] 34.0 g/dL Normal 30.5-36.0 [facility] Comment on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 and Zithromax [Azithromycin] MEDICATIONS naproxen (NAPROSYN) 500 mg tabletTake 1 tablet by mouth two times a day as needed for pain (FOR PAIN - TAKE WITH FOOD.).Disp: 14 tabletRfl: 0 ondansetron (ZOFRAN) 4 mg tabletTake 1 tablet by mouth every 8 hours as needed for nausea/vomiting.Disp: 12 tabletRfl: 0 albuterol HFA (VENTOLIN HFA) 90 mcg/actuation inhalerInhale 2 Puffs as instructed every 4 hours as needed for wheezing/shortness of breath.Disp: 1 EachRfl: 0 medroxyPROGESTERone (PROVERA) 5 mg tabletTake 1 tablet by mouth once daily.Disp: 10 tabletRfl: 5 benzonatate (TESSALON PERLES) 100 mg capsuleTake 1 capsule by mouth three times a day as needed.Disp: 30 capsuleRfl: 0 (Patient not taking: Reported on 04/10/2024) tamsulosin (FLOMAX) 0.4 mgTake 1 capsule by mouth daily at bedtime for 10 days.Disp: 10 capsuleRfl: 0 (Patient not taking: Reported on 04/10/2024) phenazopyridine (PYRIDIUM) 200 mg tabletTake 1 tablet by mouth three times a day as needed.Disp: 20 tabletRfl: 0 (Patient not taking: Reported on 04/10/2024) oxybutynin ER (DITROPAN XL) 10 mg 24 hr tabletTake 1 tablet by mouth once daily for 21 days.Disp: 21 tabletRfl: 0 (Patient not taking: Reported on 04/10/2024) FAMILY HISTORY Problem Relation Age of Onset Diabetes Mother while other (PMDD) Mother Hypertension Mother Bipolar disorder Father other (Other) Sister sugar deficiency other (Other) Brother sugar deficiency Heart Maternal Grandmother Heart Maternal Grandfather Diabetes Maternal Grandfather Anesthesia Problems No Family History Social History Tobacco Use Smoking status: Former Current packs/day: 0.00 Average packs/day: 0.3 packs/day for 12.0 years (3.0 ttl pk-yrs) Types: Cigarettes Start date: 09/16/2008 Quit date: 09/16/2020 Years since quittin.5 Smokeless tobacco: Former Types: Chew Quit date: 09/17/2019 Tobacco comments: Vapes Vaping Use Vaping status: current everyday user Substances: THC, Flavoring Devices: Disposable Substance Use Topics Alcohol use: Not Currently Comment: rare Drug use: Yes Types: Marijuana Review of Systems Constitutional: Negative for appetite change, chills, fatigue, fever and unexpected weight change. HENT: Negative for congestion, ear pain, rhinorrhea and sore throat. Eyes: Negative for pain, discharge, itching and visual disturbance. Respiratory: Negative for cough, shortness of breath and wheezing. Cardiovascular: Positive for palpitations. Negative for chest pain and leg swelling. The palpitations lasted 6 hours, and were really bad She didn't feel like it was from anxiety Gastrointestinal: Positive for vomiting. Negative for abdominal pain, constipation, diarrhea and nausea. Genitourinary: Negative for difficulty urinating. Musculoskeletal: Negative for arthralgias. Skin: Negative for rash. (more content not included)... Normal [facility] Comprehensive metabolic 2000 panelon 04-10-2024 Albumin [Mass/Vol] 4.1 g/dL Normal 3.9-4.9 [facility] Comment on above: Order Comment: Speci men Type: BLOOD SPECIMENOrdering Facility: [facility] Address: [address] [place] [address] Performed By: #### 3 016-3, 46407-3 ####[facility] [place] LABCLIA [id number] [facility] [place] [address] [place] [facility] ALP [Catalytic activity/Vol] 108 U/L Normal 34-123 [facility] Comment on above: Order Comment: Speci men Type: BLOOD SPECIMENOrdering Facility: [facility] Address: [address] [place] [address] Performed By: #### 3 016-3, 89345-6 ####[facility] [place] LABCLIA [id number] [facility] [place] [address] [place] [facility] ALT With P-5'-P [Catalytic activity/Vol] 16 U/L Normal 7-38 [facility] Comment on above: Order Comment: Speci men Type: BLOOD SPECIMENOrdering Facility: [facility] Address: [address] [place] [address] Performed By: #### 3 016-3, 78038-1 ####[facility] [place] LABCLIA [id number] [facility] [place] [address] [place] [facility] Anion gap [Moles/Vol] 13 mmol/L Normal 8-15 [facility] Comment on above: Order Comment: Speci men Type: BLOOD SPECIMENOrdering Facility: [facility] Address: [address] [place] [address] Performed By: #### 3 016-3, 26093-0 ####[facility] [place] LABCLIA [id number] [facility] [place] [address] [place] AST With P-5'-P [Catalytic activity/Vol] 14 U/L Normal 13-35 [facility] Comment on above: Order Comment: Speci men Type: BLOOD SPECIMENOrdering Facility: [facility] Address: [address] [place] [address] Performed By: #### 3 016-3, 67044-0 ####[facility] [place] LABCLIA [id number] [place] [address] [place] Bilirubin [Mass/Vol] 0.3 mg/dL Normal 0.2-1.3 [facility] Comment on above: Order Comment: Speci men Type: BLOOD SPECIMENOrdering Facility: [facility] Address: [address] [place] [address] Performed By: #### 3 016-3, 08722-1 ####[facility] [place] LABCLIA [id number] [place] [address] [place] Calcium [Mass/Vol] 9.5 mg/dL Normal 8.5-10.2 [facility] Comment on above: Order Comment: Speci men Type: BLOOD SPECIMENOrdering Facility: [facility] Address: [address] [place] [address] Performed By: #### 3 016-3, 72798-8 ####[facility] [place] LABCLIA [id number] [place] [address] [place] Chloride [Moles/Vol] 101 mmol/L Normal 98-107 [facility] Comment on above: Order Comment: Speci men Type: BLOOD SPECIMENOrdering Facility: [facility] Address: [address] [place] [address] Performed By: #### 3 016-3, 21110-2 ####[facility] [place] LABCLIA [id number] [place] [address] [place] CO2 [Moles/Vol] 24 mmol/L Normal 22-30 [facility] Comment on above: Order Comment: Speci men Type: BLOOD SPECIMENOrdering Facility: [facility] Address: [address] [place] [address] Performed By: #### 3 016-3, 84649-9 ####[facility] [place] LABCLIA [id number] [place] [address] [place] Creatinine [Mass/Vol] 0.62 mg/dL Normal 0.58-0.96 [facility] Comment on above: Order Comment: Pamela lang Type: BLOOD SPECIMENOrdering Facility: [facility] Address: [address] [place] [address] Performed By: #### 3 016-3, 91560-1 ####[facility] LABCLIA [id number] [place] [id number] [facility] Creatinine and Glomerular filtration rate.predicted panel (S/P/Bld) 125 mL/min/1.73m??? Normal >=60 [facility] Comment on above: Order Comment: Pamela lang Type: BLOOD SPECIMENOrdering Facility: [facility] Address: [address] [place] [address] Result Comment: Malorie mated Glomerular Filtration Rate (eGFR) is calculated using the 2020 CKD-EPI creatinine equation. This equation utilizes serum creatinine, sex, and age as parameters. The creatinine assay has traceable calibration to isotope dilution-mass spectrometry. Refer to KDIGO guidelines for clinical interpretation. In patients with unstable renal function, e.g. those with acute kidney injury, the eGFR may not accurately reflect actual GFR. Performed By: #### 3 016-3, 59285-2 ####[facility] LABIA [id number] [place] [address] [place] [facility] Glucose [Mass/Vol] 109 mg/dL High 74-99 [facility] Comment on above: Order Comment: Pamela lang Type: BLOOD SPECIMENOrdering Facility: [facility] Address: [address] [place] [address] Result Comment: The [place] Diabetes Association (ADA) provides guidance for cutoff values for fasting glucose and random glucose. The ADA defines fasting as no caloric intake for at least 8 hours. Fasting plasma glucose results between 100 to 125 mg/dL indicate increased risk for diabetes (prediabetes). Fasting plasma glucose results greater than or equal to 126 mg/dL meet the criteria for diagnosis of diabetes. In the absence of unequivocal hyperglycemia, results should be confirmed by repeat testing. In a patient with classic symptoms of hyperglycemia or hyperglycemic crisis, random plasma glucose results greater than or equal to 200 mg/dL meet the criteria for diagnosis of diabetes. Reference: Standards of Medical Care in Diabetes 2016, [place] Diabetes Association. Diabetes Care. 2016.39(Suppl 1). Performed By: #### 3 016-3, 58969-5 ####[facility] LABCLIA [id number] [place] [address] [place] Potassium [Moles/Vol] 4.5 mmol/L Normal 3.7-5.1 [facility] Comment on above: Order Comment: Speci men Type: BLOOD SPECIMENOrdering Facility: [facility] Address: [address] [place] [address] Performed By: #### 3 016-3, 82701-6 ####[facility] [employer] LABCLIA [id number] [place] [address] [place] Protein [Mass/Vol] 8.0 g/dL Normal 6.3-8.0 [facility] Comment on above: Order Comment: Speci men Type: BLOOD SPECIMENOrdering Facility: [facility] Address: [address] [place] [address] Performed By: #### 3 016-3, 32319-8 ####[facility] [employer] LABCLIA [id number] [place] [address] [place] Sodium [Moles/Vol] 138 mmol/L Normal 136-144 [facility] Comment on above: Order Comment: Speci men Type: BLOOD SPECIMENOrdering Facility: [facility] Address: [address] [place] [address] Performed By: #### 3 016-3, 27465-9 ####[facility] [employer] LABCLIA [id number] [place] [address] [place] Urea nitrogen [Mass/Vol] 13 mg/dL Normal 7-21 [facility] Comment on above: Order Comment: Speci men Type: BLOOD SPECIMENOrdering Facility: [facility] Address: [address] [place] [address] Performed By: #### 3 016-3, 92879-1 ####[facility] LABCLIA [id number] [place] [address] [place] Egg White IgE Qnon Egg white IgE Qn (S) 0.36 kU/l High <0.35 [facility] Comment on above: Order Comment: Speci men Type: BLOOD SPECIMENOrdering Facility: [facility] Address: [address] [place] [address] Performed By: #### 6 107-7, 6106-9 ####[facility] LABCLIA [id number] [place] [address] [place] Egg Yolk IgE Qnon 04-10-2024 Egg yolk IgE Qn (S) <0.35 Normal <0.35 [facility] Comment on above: Order Comment: Speci men Type: BLOOD SPECIMENOrdering Facility: [facility] Address: [address] [place] [address] Performed By: #### 6 107-7, 6106-9 ####[facility] LABCLIA [id number] [place] [address] [place] Egg white IgE Qn (S)on 04-10 Egg white IgE RAST class (S) Class 1 Abnormal Class 0 [facility] Comment on above: Order Comment: Speci men Type: BLOOD SPECIMENOrdering Facility: [facility] Address: [address] [place] [address] Performed By: #### 6 107-7, 6106-9 ####[facility] LABCLIA [id number] [place] [id number] [place] Egg yolk IgE Qn (S)on 2023 Egg yolk IgE RAST class (S) Class 0 Normal Class 0 [facility] Comment on above: Order Comment: Speci men Type: BLOOD SPECIMENOrdering Facility: [facility] Address: [address] [place] [address] Performed By: #### 6 107-7, 6106-9 ####[facility] LABCLIA [id number] [place] [address] [place] HbA1c (Bld)on 04-10-2024 Average glucose Estimated from glycated hemoglobin (Bld) [Mass/Vol] 114 mg/dL Normal [facility] Comment on above: Order Comment: Pamela lang Type: BLOOD SPECIMENOrdering Facility: [facility] Address: [address] [place] [address] Result Comment: eAG: (Estimated average glucose) is a calculated value from HgbA1c and is compliance representative dealer of the average blood glucose level in the last 2-3 month period. Performed By: #### 5 5454-3 ####[facility] LABIA [id number] [address] [place] HbA1c (Bld) [Mass fraction] 5.6 % Normal 4.3-5.6 [facility] Comment on above: Order Comment: Pamela lang Type: BLOOD SPECIMENOrdering Facility: [facility] Address: [address] [place] [address] Result Comment: [place] Diabetes Association guidelines indicate that patients with HgbA1c in the range 5.7-6.4% are at increased risk for development of diabetes, and intervention by lifestyle modification may be beneficial. HgbA1c greater or equal to 6.5% is considered diagnostic of diabetes. Performed By: #### 5 5454-3 ####[facility] [id number] [place] [address] [place] TSH SerPl-aCncon 04-10-2024 TSH Qn 1.700 m[IU]/L Normal 0.270-4.200 [facility] Comment on above: Order Comment: Pamela lang Type: BLOOD SPECIMENOrdering Facility: [facility] Address: [address] [place] [address] Result Comment: If t he patient is , TSH reference range varies by gestational period: First Trimester (weeks 9-12): 0.180-2.990 mIU/L Second Trimester: 0.110-3.980 mIU/L Third Trimester: 0.480-4.710 mIU/L Taras Reyes et al. A Practical Approach for the Verifications and Determination of Site- and Trimester-Specific Reference Intervals for Thyroid Function tests in . Thyroid, 2019:29:3:412-420. Ashish Menezes, et al. 2017 Guidelines of the [place] Thyroid Association for the Diagnosis and Management of Thyroid Disease during and the . Thyroid, 2017:27:3:315-389. Performed By: #### 3 016-3, 26621-9 ####[facility] [id number] [place] [address] [place] UA DIP, URINE (POC)on 2023 BILIRUBIN UA (POCT) Negative Negative [facility] CLARITY UA (POCT) [facility] COLOR UA (POCT) Yellow [facility] GLUCOSE UA (POCT) Negative Negative mg/dL [facility] Hemoglobin Ql (U) Trace-intact Abnormal Negative [facility] Interpretation and review of laboratory results Abnormal [facility] KETONE UA (POCT) Negative Negative mg/dL [facility] LEUKOCYTES UA (POCT) Negative [facility] NITRITE UA (POCT) Negative Negative [facility] PH UA (POCT) 7.0 4.5 - 8.0 [facility] Protein Ql (U) Negative Negative mg/dL [facility] SPECIFIC GRAVITY UA (POCT) 1.015 1.005 - 1.030 [facility] UROBILINOGEN UA (POCT) 0.2 Ijeoma l E.U./dL [facility] Location:[address], [address] [facility] POINT OF CARE [facility] UA DIP,URINE HCG (POC)on Beta HCG ( test) Ql (U) Negative Negative [facility] Comment on above: Location:[facility], [address] [place] [address], [id number] Cement Sprayer Helper (POCT) Internal QC OK [facility] Location:[address], [address] [facility] POINT OF CARE [facility] UA DIP, URINE (POC)on 2023 BILIRUBIN UA (POCT) Negative Negative [facility] CLARITY UA (POCT) Clear [facility] COLOR UA (POCT) Yellow [facility] GLUCOSE UA (POCT) 250 mg/dL Abnormal Negative [facility] Hemoglobin Ql (U) Large Abnormal Negative [facility] Interpretation and review of laboratory results Abnormal [facility] KETONE UA (POCT) Negative Negative mg/dL [facility] LEUKOCYTES UA (POCT) Small Abnormal [facility] (POCT) Negative Negative [facility] PH UA (POCT) 6.0 4.5 - 8.0 [facility] Protein Ql (U) 100 mg/dL Abnormal Negative [facility] SPECIFIC GRAVITY UA (POCT) >=1.030 1.005 - 1.030 [facility] UROBILINOGEN UA (POCT) 0.2 Ijeoma l E.U./dL [facility] Location:[address], [address] [facility] POINT OF CARE [facility] STREP A MOLECULAR (POC)on Procedural Control Valid [facility] Strep A (POCT) Negative Negative [facility] ANES POSTPROC EVALon 024 ANES POSTPROC EVAL HNO ID: [id number] Author: MELANIE PRADO MD Service: Anesthesiology Author Type: Anesthesiologist Type: Anesthesia Postprocedure Evaluation Filed: 11/26/2023 17:39 Note Text: POST ANESTHESIA EVALUATION NOTE : 1995 Procedure Summary Date: 11/26/23 Room / Location: [place] OR / [place] OR Anesthesia Start: 1532 Anesthesia Stop: 1628 Procedures: LASER CYSTOURETHROSCOPY W/ URETEROSCOPY AND/OR PYELOSCOPY W/ LITHOTRIPSY HOLMIUM (Left: Ureter) INSERTION STENT URETERAL (Left: Ureter) Diagnosis: Renal calculus, left (Renal calculus, left [N20.0]) Surgeons: Katherine Rome MD Responsible Provider: Melanie Prado MD Anesthesia Type: general ASA Status: 3 Anesthesia Type: general Airway Type: LMA Last Vitals Vitals Value Taken Time BP 128/68 11/26/23 1646 Temp 36 ?C (96.8 ?F) 11/26/23 1625 Pulse 65 11/26/23 1659 Resp 17 11/26/23 1659 SpO2 99 % 11/26/23 1659 Vitals shown include unfiled device data. Post Anesthesia Patient Status Patient Evaluation: PACU. PACU/ICU Patient Condition: stable. Anticipated Disposition: phase 2 then home. Neurological Status: aware and responsive. Pulmonary Status: breathing comfortably on room air Airway Control: returned to baseline unsupported. Cardiovascular Status: stable. Pain Management: clinically adequate - multimodal analgesia pain management approach Postoperative Hydration: acceptable. Intraoperative Events: no significant anesthesia events Post Operative Nausea/Vomiting Status: no significant post operative nausea or vomiting Recommendation: continue current plan of care. Anesthesia Observations No Documentation SIGNATURE: Melanie Prado MD PATIENT NAME: Neto Berkowitz DATE: November 26, 2023 TIME: 5:39 PM CSN: [id number] [facility] ANES PRE-OPon 11-26-2023 ANES PRE-OP HNO ID: [id number] Author: MELANIE PRADO MD Service: Anesthesiology Author Type: Anesthesiologist Type: Anesthesia Preprocedure Evaluation Filed: 11/26/2023 13:18 Note Text: ANESTHESIOLOGY DAY OF SURGERY NOTE : 1995 Procedure Information Date/Time: 11/26/23 1453 Procedures: LASER CYSTOURETHROSCOPY W/ URETEROSCOPY AND/OR PYELOSCOPY W/ LITHOTRIPSY HOLMIUM (Left: Ureter) INSERTION STENT URETERAL (Left: Ureter) Location: [place] OR05 / [place] OR Surgeons: Katherine Rome MD Estimated body mass index is 45.53 kg/m? as calculated from the following: Height as of this encounter: 160 cm (5' 3"). Weight as of this encounter: 116.6 kg (257 lb). Most recent hematocrit and potassium results: Hematocrit 39.7 11/15/2023 Potassium 4.2 11/15/2023 Relevant Problems CARDIO (+) VICTOR (dyspnea on exertion) NEURO-PSYCH (+) H/O chlamydia infection (+) History of depression PULMONARY (+) VICTOR (dyspnea on exertion) (+) H/O chlamydia infection I - PHYSICAL EVALUATION AIRWAY Patient intubated: No. Tracheostomy tube not present Mallampati: II. TM distance: >3 FB. Neck ROM: full ROM without neurological symptoms. Mouth opening: adequate. Short neck: no. Thick neck: no DENTAL Dental findings: teeth intact. Additional exam findings: yes. CARDIOVASCULAR Rhythm: regular Rate: normal PULMONARY Breath sounds clear to auscultation. ABDOMINAL Obese: obesity present. II - ANESTHESIA PLAN ASA Score: 3 Anesthetic Plan: general Airway type: LMA The patient is a current smoker. NPO Status: adequate Beta Terese Monitoring Plan Monitoring plan: Standard ASA. Post Procedure Analgesic Plan Postoperative analgesic plan: parenteral or oral opioids and multimodal analgesia. Informed Consent Anesthetic risks, benefits, alternatives, personnel and consent discussed: yes. Patient / Responsible Libertarian agrees to proceed: yes Patient / Surrogate agrees to blood products: yes DNR status not reviewed with patient and/or family prior to surgery. Significant changes in the patient condition since the History and Physical, not otherwise documented in primary service progress note: no. Potential Anesthesia issues that may suggest increased risk of complications or contraindication to planned procedure: none. Vitals Value Taken Time BP 106/58 11/26/23 1243 Pulse Resp 16 11/26/23 1243 Temp 36.9 ?C (98.4 ?F) 11/26/23 1243 SpO2 100 % 11/26/23 1243 Facility-Administered Medications as of 11/26/2023 Medication Dose Route Frequency lidocaine (PF) 10 mg/mL (1 %) 1-2 mg injection (XYLOCAINE) 0.1-0.2 mL INTRADERMAL PRN lactated ringers iv infusion 5-30 mL/hr INTRAVENOUS CONTINUOUS NaCl 0.9% iv flush bag 20 mL INTRAVENOUS PRN ceFAZolin iv piggyback 2 g in D5W (iso-osmotic) 100 mL (ANCEF) 2 g INTRAVENOUS Pre-Op Once [COMPLETED] acetaminophen 1,000 mg tab(s) (TYLENOL) 1,000 mg ORAL Pre-Op Once [COMPLETED] promethazine 12.5 mg tab(s) (PHENERGAN) 12.5 mg ORAL Pre-Op Once [COMPLETED] famotidine 20 mg injection (PEPCID) 20 mg INTRAVENOUS ONCE scopolamine 1 mg over 3 days 1 Patch (TRANSDERM-SCOP) 1 Patch TRANSDERMAL q 72 HR And [START ON 11/29/2023] scopolamine - REMOVE PATCH OTHER q 72 HR And scopolamine - VERIFY patch OTHER q 8 H [COMPLETED] metoclopramide HCl 5 mg injection (REGLAN) 5 mg INTRAVENOUS ONCE Outpatient Medications as of 11/26/2023 Medication Sig promethazine (PHENERGAN) 25 mg tablet Take 1 tablet by mouth every 6 hours as needed for nausea/vomiting. (Patient not taking: Reported on 11/09/2023) phenazopyridine (PYRIDIUM) 200 mg tablet Take 1 tablet by mouth three times a day as needed. tamsulosin (FLOMAX) 0.4 mg Take 1 capsule by mouth daily at bedtime. (Patient not taking: Reported on 11/09/2023) medroxyPROGESTERone (PROVERA) 5 mg tablet Take 1 tablet by mouth once daily. albuterol HFA (VENTOLIN HFA) 90 mcg/actuation inhaler Inhale 2 Puffs as instructed every 4 hours as needed for wheezing/shortness of breath. I have interviewed and examined the patient. I have reviewed the medical record and/or the pre-anesthesia evaluation, pertinent labs, and test results. This contains updated information obtained within 48 hours of Surgery/Procedure. SIGNATURE: Melanie Prado MD PATIENT NAME: Neto Berkowitz DATE: November 26, 2023 TIME: 1:07 PM CSN: [id number] [facility] CALCULI ANALYSISon Calculus analysis [Interp] [facility] Comment on above: Order Comment: Speci men Type: CALCULUS SPECIMEN Ordering Facility: [facility] Address: [address] [place] [address] Result Comment: This test was developed and its performance characteristics determined by [facility]'s [facility] [place] (-[facility]). It has not been cleared or approved by the FDA. -[facility] is regulated under CLIA as qualified to perform high-complexity testing. This test is used for clinical purposes. It should not be regarded as investigational or for research. Performed By: #### C SA #### [facility] CLIA [id number] [address] [place], [place] [address] [place] [address] [place] CALCULUS COLOR WHITE [facility] Comment on above: Order Comment: Speci men Type: CALCULUS SPECIMEN Ordering Facility: [facility] Address: [address] [place] [address] Performed By: #### C SA #### [facility] CLIA [id number] [address] [place] [address] [place] CALCULUS COMPOSITION 1 50% Calcium Oxala te Monohydrate Normal [facility] Comment on above: Order Comment: Speci men Type: CALCULUS SPECIMEN Ordering Facility: [facility] Address: [address] [place] [address] Performed By: #### C SA #### [facility] CLIA [id number] [address] [place] [address] [place] CALCULUS COMPOSITION 2 30% Calcium Oxala te Dihydrate Normal [facility] Comment on above: Order Comment: Speci men Type: CALCULUS SPECIMEN Ordering Facility: [facility] Address: [address] [place] [address] Performed By: #### C SA #### [facility] CLIA [id number] [address] [place] [address] [place] CALCULUS COMPOSITION 3 20% Calcium Phosphate Normal [facility] Comment on above: Order Comment: Speci men Type: CALCULUS SPECIMEN Ordering Facility: [facility] Address: [address] [place] [address] Performed By: #### C SA #### [facility] CLIA [id number] [address] [place] [address] [place] CALCULUS SIZE AND WT Multiple pieces. To o small to weigh. Normal [facility] Comment on above: Order Comment: Speci men Type: CALCULUS SPECIMEN Ordering Facility: [facility] Address: [address] [place] [address] Performed By: #### C SA #### [facility] CLIA [id number] [address] [place] [address] [place] CALCULUS TYPE Calculus, Calculi or Calculus Normal [facility] Comment on above: Order Comment: Speci men Type: CALCULUS SPECIMEN Ordering Facility: [facility] Address: [address] [place] [address] Performed By: #### C SA #### [facility] CLIA [id number] [address] [place] [address] [place] OPERATIVE NOon 11-26-2023 OPERATIVE NO HNO ID: [id number] Author: KATHERINE ROME MD Service: Urology Author Type: Physician Type: Operative Report Filed: 11/26/2023 16:25 Note Text: OPERATIVE/PROCEDURE REPORT LOG ID: [id number] Surgery/Procedure Date: 11/26/2023 Incision/Procedure Start Time: 3:49 PM Incision Close/Procedure End Time: 4:17 PM Surgeon(s)/Procedurali st(s) and Curator [employer](s): Surgeon(s) and Role: * Katherine Rome MD - Primary Physician Curator [employer]: Arlene Martinez PA-C Procedure(s): - Cystoscopy - Left ureteroscopy - Laser lithotripsy - Stone basket extraction - Indwelling left JJ stent insertion Anesthesia: GENERAL CLINICAL PREAMBLE Neto Berkowitz is a 28 year old female who was found to have left flank pain and a left renal stone, and presents today for ureteroscopic management thereof. Signed informed consent was obtained prior to the procedure after the risks, complications and alternatives to the procedure were discussed. Pre-operative urine culture was obtained to rule out UTI. The risks and complications of ureteroscopy were discussed, including but not limited to bleeding, infection and potential ureteral injury. FCI risk of potential ureteral stricture was also discussed. Further, the risks of ureteral stents and symptoms thereof were also discussed. The patient was given the opportunity to ask questions, and was satisfied with our discussion. Signed informed consent was obtained. PROCEDURE NOTE The patient was taken to the operating room and a preoperative huddle was performed identifying the patient. The patient was then induced under general anesthesia, positioned in low lithotomy and prepped and draped in the standard sterile fashion. Preoperative antibiotics (Ancef 2g) were administered intravenously prior to the start of the procedure. SCDs were used for DVT prophylaxis and all pressure points were padded carefully. A time-out was then performed to confirm the patient, procedure and laterality. A 22-Yakut cystoscope was advanced through the urethra and into the bladder. Mitchell cystoscopy was performed and there was no evidence of stones, tumors or mucosal abnormalities. Ureteral orifices were noted in orthotopic position. A 0.035 Solo wire was advanced through the left ureteral orifice into the renal pelvis under fluoroscopic guidance and secured to the drape. Scope was replaced, then a 0.035 NiCore wire was advanced alongside the first wire and into the renal pelvis under fluoroscopic guidance and secured to the drape. The Olympus P7 ureteroscope was attempted to advance over the Solo wire, but would not pass the distal ureter. Ureteral dilators were used to sequentially dilate from 6F to 10F. The flexible ureteroscope was then able to be advanced over the wire under fluoroscopic control into the renal pelvis and the wire was removed. Systematic pyeloscopy was then performed. The stone was noted in the lower pole. The lower pole stone was relocated into an upper pole calyx using a Halo basket. Laser lithotripsy was performed. The stone was dusted until only smaller fragments remained. These were then pop dusted with the laser until only dust and sub-millimeter particles remained that were too small to basket and small enough to pass easily. A compliance representative dealer fragment was grasped with the basket to be removed for analysis. . The flexible ureteroscope was then removed, inspecting the ureter on removal. No residual fragments were noted. No ureteral injury was noted. A double J ureteral stent was then placed under fluoroscopic control, and both upper and lower coils were formed in excellent position. The bladder was emptied. The patient was then awoken from anesthesia and transferred to the recovery room in stable condition. No complications were encountered during the course of the procedure. OPERATIVE FINDINGS: Stone [place]: Primary stone 5 mm lower pole; Additional stone(s) none Lithotripsy Technique: dusting and basket extraction Laser: 200- micron FiberDust thulium fiber laser laser Dustin.3 J and 30 Hz Pop dustin.6 J and 30 Hz Irrigation: [place] bag; max pressure gravity Fluoroscopy: Time: 11.9 s; Cumulative dose: 2.89 mGy Anatomic Findings: narrow distal ureter requiring dilation Pre-Op/Pre-Procedure Diagnosis: Left renal stone Post-Op/Post-Procedure Diagnosis: SAME Estimated Blood Loss: <5 mls Specimens: ID Type Source Tests Collected by Time Destination 1 : Left Renal Stone Calculus Calculi or Calculus CALCULI ANALYSIS Katherine Rome MD 11/26/2023 4:16 PM Implantable Devices: Indwelling 6F x 24cm JJ left ureteral stent Drains: None Complications: None Participation: I/primary surgeon/proceduralist performed the procedure with assistance. FOLLOWUP PLAN: Office follow up for stent removal will be arranged in 1 week(s). SIGNATURE: Katherine Rome MD PATIENT NAME: Neto Berkowitz DATE: 11/26/2023 TIME: 4:20 PM (more content not included)... Normal [facility] HISTORY PHYSICALon HISTORY PHYSICAL HNO ID: [id number] Author: AMITA VARGAS PA-C Service: ? Author Type: Physician Curator [employer] Type: H&P Filed: 11/17/2023 08:59 Note Text: HISTORY AND PHYSICAL EXAMINATION SERVICE DATE: 11/09/2023 SERVICE TIME: 3:37 PM PRIMARY CARE PHYSICIAN: Eddie Bishop APRN.HAND COLLATOR Assessment Patient has the following medical conditions which may affect h[place]-operative course: Palpitations Assessment: Related to anxiety. Pt had Holter monitor in 03/2023 which showed no arrhthymias and 4 total PVCs. RRR on exam today. Anxiety and depression Assessment: Previously on RX but states medication made her more anxious. Pt reports she now manages anxiety by trying to manage stress. Obesity, Class III, BMI >= 40 Assessment: Body mass index is 45.7 kg/m?. Prediabetes Assessment: A1C 5.7% 08/2023. Current every day nicotine vaping Assessment: Quit smoking cigarettes in 2020. Pt now vapes flavoring daily. Advised no vaping DOS. Fierro Activity Status Index: METS: Climb a flight of stairs or walk up a hill (5.50 METs) DASI Score: 5.5 Patient denies any chest pain or undue shortness of breath with the above physical activity. Clinical Frailty Scale: 3. Well, with treated comorbid disease STOP-Bang Score: Snores loudly Often feels tired, fatigued, or sleepy during the daytime BMI greater than 35 kg/m2 Has not been observed to stop breathing or choking/gasping during sleep Denies having high blood pressure Patient 50 years old or younger Does not have a large neck Non-male patient STOP-Bang Score: 3 [id number] Score: Age: <65 Sex: female CHF history: No Hypertension history: No Stroke/TIA/thromboembo lism history: No Vascular disease history: No Diabetes history: No [id number] Score: 1 ANESTHESIA FINDINGS: Intubation History: No abnormal airway history. No prior intubation Significant Anesthesia Considerations: none Airway History: No abnormal airway history No prior intubation I - PHYSICAL EVALUATION AIRWAY Patient intubated: No. Tracheostomy tube not present Mallampati: II. TM distance: >3 FB. Neck ROM: full ROM without neurological symptoms. Mouth opening: adequate. Short neck: no. Thick neck: yes Lip Bite Test: II Microretrognathia/Micr onagthia/Recessed Chin: No DENTAL Dental findings: teeth intact. Additional comments: ?cap x 1. II - ANESTHESIA PLAN Anesthetic Plan: other Anesthetic plan additional comments: *PACC/TCI - anesthesia choice. Beta Terese Monitoring Plan Post Procedure Analgesic Plan Prepared for Surgery: optimally prepared for surgery. CONSULTS: Patient does not require consults for optimization at this time Planned Anesthetic: other anesthesia choice The Following Tests/Procedures Have Been Initiated: Orders placed by surgeon/surgical service in [facility]. No orders of the defined types were placed in this encounter. REASON FOR VISIT: Neto Berkowitz is a 28 year old female who is scheduled for Procedure(s): LASER CYSTOURETHROSCOPY W/ URETEROSCOPY AND/OR PYELOSCOPY W/ LITHOTRIPSY HOLMIUM (Left) INSERTION STENT URETERAL (Left) at the request of Dr. Katherine Rome for consultation. My final recommendation will be communicated back to the requesting physician by way of shared medical record or letter. Subjective The patient has the following: ACTIVE PROBLEM LIST H/O Chlamydia Infection Dysmenorrhea Metrorrhagia Obesity, Class III, BMI >= 40 Anxiety and Depression Pcos (Polycystic Ovarian Syndrome) Pmdd (Premenstrual Dysphoric Disorder) With History of Infertility, Antepartum History of Depression Nausea and Vomiting in Obesity Affecting , Antepartum Current Every Day Nicotine Vaping Patient Request for Diagnostic Testing Chest Tightness Victor (Dyspnea On Exertion) Palpitations Prediabetes COVID-19 Immunization Status Postponed - Covid-19 Vaccine (2022- season) Postponed until 08/10/2024 08/10/2023 Postponed until 08/10/2024 by Karolyn Jimenez MA (Declined at this time) 07/29/2022 Postponed until 07/29/2023 by Karolyn Jimenez MA (Declined at this time) 05/28/2021 Postponed until 05/28/2022 by Karolyn Jimenez MA (Declined at this time) Only the first 3 history entries have been loaded, but more history exists. CHIEF COMPLAINT: kidney stone HPI: Neto Berkowitz is a 28 year old female presenting for pre-anesthesia consultation with her fiance Tay. Pt has history of left renal calculus. Has occasional dysuria, reports constant urinary urgency. She is taking pyridium daily. Above procedure recommended to manage symptoms. Procedure scheduled on 11/26/2023 at [place]. REVIEW OF SYSTEMS: General: Negative for: fever. 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 No neurological symptoms or problems. Respiratory: Positive for: tobacco use (quit smoking cigarettes 2020, quit chewing toba (more content not included)... Normal [facility] UA DIP, URINE (POC)on 2023 BILIRUBIN UA (POCT) Negative Negative [facility] CLARITY UA (POCT) [facility]y [facility] COLOR UA (POCT) Yellow [facility] GLUCOSE UA (POCT) Negative Negative mg/dL [facility] Hemoglobin Ql (U) Negative Negative [facility] KETONE UA (POCT) Negative Negative mg/dL [facility] LEUKOCYTES UA (POCT) Negative Negative [facility] NITRITE UA (POCT) Negative Negative [facility] PH UA (POCT) 7.0 4.5 - 8.0 [facility] Protein Ql (U) Negative Negative mg/dL [facility] SPECIFIC GRAVITY UA (POCT) 1.020 1.005 - 1.030 [facility] UROBILINOGEN UA (POCT) 0.2 Ijeoma l E.U./dL [facility] Location:[address], [place], [address] [facility] POINT OF CARE [facility] UA DIP, URINE (POC)on 2023 BILIRUBIN UA (POCT) Negative Negative [facility] CLARITY UA (POCT) Clear [facility] COLOR UA (POCT) Yellow [facility] GLUCOSE UA (POCT) Negative Negative mg/dL [facility] Hemoglobin Ql (U) Trace-intact Abnormal Negative [facility] KETONE UA (POCT) Negative Negative mg/dL [facility] LEUKOCYTES UA (POCT) Negative Negative [facility] NITRITE UA (POCT) Positive Abnormal Negative [facility] PH UA (POCT) 7.0 4.5 - 8.0 [facility] Protein Ql (U) Trace Abnormal Negative mg/dL [facility] SPECIFIC GRAVITY UA (POCT) 1.020 1.005 - 1.030 [facility] UROBILINOGEN UA (POCT) 0.2 E.U./dL Ijeoma l E.U./dL [facility] UA DIP,URINE HCG (POC)on Beta HCG ( test) Ql (U) Negative Negative [facility] Cement Sprayer Helper (POCT) Internal QC OK [facility] UA DIP, URINE (POC)on 2023 BILIRUBIN UA (POCT) Negative Negative [facility] CLARITY UA (POCT) Clear [facility] COLOR UA (POCT) Yellow [facility] GLUCOSE UA (POCT) Negative Negative mg/dL [facility] Hemoglobin Ql (U) Negative Negative [facility] KETONE UA (POCT) Negative Negative mg/dL [facility] LEUKOCYTES UA (POCT) Negative Negative [facility] NITRITE UA (POCT) Negative Negative [facility] PH UA (POCT) 7.0 4.5 - 8.0 [facility] Protein Ql (U) Negative Negative mg/dL [facility] SPECIFIC GRAVITY UA (POCT) 1.020 1.005 - 1.030 [facility] UROBILINOGEN UA (POCT) 0.2 E.U./dL Ijeoma l E.U./dL [facility] AMYLASE BLDon 08-26-2023 Amylase [Catalytic activity/Vol] 67 U/L 30 - 104 U/L [facility] CBC panel Auto (Bld)on 08-26 Erythrocyte distribution width (RBC) [Ratio] 12.8 % 11.5 - 15.0 % [facility] Hematocrit (Bld) [Volume fraction] 41.1 % 36.0 - 46.0 % [facility] Hemoglobin (Bld) [Mass/Vol] 13.3 g/dL 11.5 - 15.5 g/dL [facility] MCH (RBC) [Entitic mass] 28.7 pg 26.0 - 34.0 pg [facility] MCHC (RBC) [Mass/Vol] 32.4 g/dL 30.5 - 36.0 g/dL [facility] MCV (RBC) [Entitic vol] 88.8 fL 80.0 - 100.0 fL [facility] Platelet mean volume (Bld) [Entitic vol] 9.1 fL 9.0 - 12.7 fL [facility] Platelets (Bld) [#/Vol] 303 10*3/uL 150 - 400 k/uL [facility] RBC (Bld) [#/Vol] 4.63 10*6/uL 3.90 - 5.2 0 m/uL [facility] WBC (Bld) [#/Vol] 9.88 10*3/uL 3.70 - 11. 00 k/uL [facility] Comprehensive metabolic 2000 panelon 08-26-2023 Albumin [Mass/Vol] 4.0 g/dL 3.9 - 4.9 g/dL [facility] ALP [Catalytic activity/Vol] 93 U/L 34 - 123 U/L [facility] ALT With P-5'-P [Catalytic activity/Vol] 14 U/L 7 - 38 U/L [facility] Anion gap [Moles/Vol] 13 mmol/L 9 - 18 mmol/L [facility] AST With P-5'-P [Catalytic activity/Vol] 11 U/L Low 13 - 35 U/L [facility] Bilirubin [Mass/Vol] Low 0.2 - 1 .3 mg/dL [facility] Calcium [Mass/Vol] 9.2 mg/dL 8.5 - 10. 2 mg/dL [facility] Chloride [Moles/Vol] 101 mmol/L 97 - 10 5 mmol/L [facility] CO2 [Moles/Vol] 24 mmol/L 22 - 30 mmol/L [facility] Creatinine [Mass/Vol] 0.71 mg/dL 0.58 - 0.96 mg/dL [facility] Estimated Glomerular Filtration Rate 119 mL/min/1.73m >=60 mL/min/1.73m [facility] Glucose [Mass/Vol] 117 mg/dL High 74 - 99 mg/dL [facility] Potassium [Moles/Vol] 4.5 mmol/L 3.7 - 5.1 mmol/L [facility] Protein [Mass/Vol] 7.7 g/dL 6.3 - 8.0 g/dL [facility] Sodium [Moles/Vol] 138 mmol/L 136 - 144 mmol/L [facility] Urea nitrogen [Mass/Vol] 15 mg/dL 7 - 21 mg/dL [facility] LIPASE [facility] 08-26-2023 Lipase [Catalytic activity/Vol] 18 U/L 16 - 61 U/L [facility] Lipid 1996 panelon Cholesterol [Mass/Vol] 189 mg/dL <200 mg/dL [facility] Cholesterol in HDL [Mass/Vol] 39 mg/dL Low >39 mg/dL [facility] Cholesterol in LDL [Mass/Vol] 103 mg/dL High <100 mg/dL [facility] Cholesterol in LDL/Cholesterol in HDL [Mass ratio] 2.64 {ratio} High <2.54 [facility] Cholesterol in VLDL [Mass/Vol] 47 mg/dL High <30 mg/dL [facility] Cholesterol non HDL [Mass/Vol] 150 mg/dL High <130 mg/dL [facility] Cholesterol.total/Ramona sterol in HDL [Mass ratio] 4.85 {ratio} <5.10 [facility] Fasting Time 12 hrs [facility] Triglyceride [Mass/Vol] 235 mg/dL High <150 mg/dL [facility] TSH [facility] 08-26-2023 TSH Qn 2.500 m[IU]/L 0.270 - 4.200 mIU/L [facility] Urinalysis complete panel (U )on 08-26-2023 Bilirubin Ql (U) Negative Negative [facility] Clarity (Unsp spec) Clear Clear [facility] Color (U) Yellow Yellow [facility] Glucose Test strip (U) [Mass/Vol] Negative Negative [facility] Hemoglobin Ql (U) Trace Abnormal Negative [facility] Ketones Ql (U) Negative Negative [facility] Leukocyte esterase Test strip Ql (U) Negative Negative [facility] Nitrite Ql (U) Negative Negative [facility] pH (U) 6.0 [pH] 5.0 - 8.0 [facility] Protein (U) [Mass/Vol] Negative Negative [facility] RBC LM.HPF (Urine sed) [#/Area] 0-3 /HPF 0-3 /HPF [facility] Specific gravity (U) [Rel density] High 1.005 - 1.030 [facility] Urobilinogen Ql (U) 0.2 EU/dL 0.2-1.0 EU/dL [facility] WBC LM.HPF (Urine sed) [#/Area] 0-5 /HPF 0-5 /HPF [facility] US KIDNEY/BLADDERon 08-12-19 [facility] UA DIP, URINE (POC)on 2022 BILIRUBIN UA (POCT) Negative Negative [facility] CLARITY UA (POCT) [facility] COLOR UA (POCT) Light yellow [facility] GLUCOSE UA (POCT) Negative Negative mg/dL [facility] Hemoglobin Ql (U) Negative Negative [facility] KETONE UA (POCT) Negative Negative mg/dL [facility] LEUKOCYTES UA (POCT) Negative Negative [facility] NITRITE UA (POCT) Negative Negative [facility] PH UA (POCT) 7.0 4.5 - 8.0 [facility] Protein Ql (U) Negative Negative mg/dL [facility] SPECIFIC GRAVITY UA (POCT) 1.020 1.005 - 1.030 [facility] UROBILINOGEN UA (POCT) 0.2 E.U./dL Ijeoma l E.U./dL [facility] UA DIP, URINE (POC)on 2022 BILIRUBIN UA (POCT) Negative Negative [facility] CLARITY UA (POCT) Clear [facility] COLOR UA (POCT) Yellow [facility] GLUCOSE UA (POCT) Negative Negative mg/dL [facility] Hemoglobin Ql (U) Negative Negative [facility] KETONE UA (POCT) Negative Negative mg/dL [facility] LEUKOCYTES UA (POCT) Negative Negative [facility] NITRITE UA (POCT) Negative Negative [facility] PH UA (POCT) 6.0 4.5 - 8.0 [facility] Protein Ql (U) Negative Negative mg/dL [facility] SPECIFIC GRAVITY UA (POCT) 1.025 1.005 - 1.030 [facility] UROBILINOGEN UA (POCT) 0.2 E.U./dL Ijeoma l E.U./dL [facility] STREP A MOLECULAR (POC)on Procedural Control Valid [facility] Strep A (POCT) Negative Negative [facility] ECHOon 03-17-2023 [facility] UA DIP, URINE (POC)on 2022 BILIRUBIN UA (POCT) Negative Negative [facility] CLARITY UA (POCT) Clear [facility] COLOR UA (POCT) Yellow [facility] GLUCOSE UA (POCT) Negative Negative mg/dL [facility] HEMOGLOBIN/BLOOD UA (POCT) Negative Negative [facility] KETONE UA (POCT) Negative Negative mg/dL [facility] LEUKOCYTES UA (POCT) Negative Negative [facility] NITRITE UA (POCT) Negative Negative [facility] PH UA (POCT) 6.0 4.5 - 8.0 [facility] Protein Ql (U) 30 mg/dL Abnormal Negative mg/dL [facility] SPECIFIC GRAVITY UA (POCT) >=1.030 1.005 - 1.030 [facility] UROBILINOGEN UA (POCT) 0.2 E.U./dL Ijeoma l E.U./dL [facility] HCG QUAL UR B/Oon 10-15-2022 status Negative neg - pos [facility] Quality Check Yes [facility] UA DIP, URINE (POC)on 2021 BILIRUBIN UA (POCT) Negative Negative [facility] CLARITY UA (POCT) Clear [facility] COLOR UA (POCT) Yellow [facility] GLUCOSE UA (POCT) Negative Negative mg/dL [facility] HEMOGLOBIN/BLOOD UA (POCT) Moderate Abnormal Negative [facility] KETONE UA (POCT) Negative Negative mg/dL [facility] LEUKOCYTES UA (POCT) Negative Negative [facility] NITRITE UA (POCT) Negative Negative [facility] PH UA (POCT) 5.5 4.5 - 8.0 [facility] Protein Ql (U) Negative Negative mg/dL [facility] SPECIFIC GRAVITY UA (POCT) >=1.030 1.005 - 1.030 [facility] UROBILINOGEN UA (POCT) 0.2 E.U./dL Ijeoma l E.U./dL [facility] Rapid Influenza A/Bon 2019 Rapid Influenza A/B See below Normal Negative [facility] Comment on above: Result Comment: Nega tive for influenza A and B. Performed By: #### L RFLU #### [facility] [address] [place] [id number] ABD/PEL W IVCONon 019 CT ABD/PEL W IVCON * * *Final Report* * * DATE OF EXAM: May 03 2019 10:07PM [facility] 0530 - CT ABD/PEL W IVCON / PROCEDURE REASON: Abd pain, diverticulitis suspected * * * * Physician Interpretation * * * * EXAMINATION: CT ABDOMEN AND PELVIS WITH IV CONTRAST CLINICAL HISTORY: Abd pain, diverticulitis suspected LUQ swelling x 1 year, painful to the touch. CP, SOB sudden onset today. Hx. PCOS TECHNIQUE: CT of the abdomen and pelvis was performed using standard technique, scanning from just above the dome of the diaphragm to the symphysis pubis. MQ: CTAP_3 Contrast: IV: 150 ml of Visipaque 270 CT Radiation dose: Integrated Dose-length product (DLP) for this visit = 1299.12 mGy*cm. CT Dose Reduction Employed: Automated exposure control (AEC) COMPARISON: CT abdomen and pelvis 05/11/2018 RESULT: Liver: A portion of the superior dome of the liver is excluded from the visualized [id number]. There is no evidence of mass in the visualized portions of the liver. Biliary: No bile duct dilation. The gallbladder is unremarkable. Spleen: No mass. No splenomegaly. Pancreas: No mass or duct dilation. Adrenals: No mass. Kidneys: No mass. No hydronephrosis. GI tract: No dilation or wall thickening. Lymph nodes: No abdominal or pelvic lymphadenopathy. Mesentery/Peritoneum: No ascites or mass. Retroperitoneum: No mass. Vasculature: The celiac axis and SMA are patent. The portal vein and branches, splenic vein, SMV, and hepatic veins are patent. No abdominal aortic aneurysm. Pelvis: No mass, ascites or fluid collection. Bones/Soft Tissues: No acute osseous abnormality. Lower thorax: Lung bases are clear. IMPRESSION: No acute intra-abdominal abnormality. Broacher: PSCB Transcribe Date/Time: May 03 2019 10:08P Dictated by : ANAHI HARVEY MD This examination was interpreted and the report reviewed and electronically signed by: ANAHI HARVEY MD on May 03 2019 10:11PM EST Normal [facility] Comprehensive Panelon 2018 Albumin [Mass/Vol] 3.7 g/dL Normal 3.4-5.0 [facility] Comment on above: Performed By: #### L P14 #### [facility] [address] [place], [place] [address] ALP [Catalytic activity/Vol] 98 U/L Normal 46-116 [facility] Comment on above: Performed By: #### L P14 #### [facility] [address] [place], [place] [address] ALT-SGPT Blood 21 U/L Normal 14-63 [facility] Comment on above: Performed By: #### L P14 #### [facility] [address] [place] [address] Anion gap [Moles/Vol] 15 mmol/L Normal 8-20 [facility] Comment on above: Performed By: #### L P14 #### [facility] [address] [place] [address] AST-SGOT Blood 13 U/L Low 15-37 [facility] Comment on above: Performed By: #### L P14 #### [facility] [address] [place] [address] Bilirubin Ql (U) 0.3 mg/dL Normal 0.2-1.0 [facility] Comment on above: Performed By: #### L P14 #### [facility] [address] [place] [address] Calcium [Mass/Vol] 9.3 mg/dL Normal 8.5-10.1 [facility] Comment on above: Performed By: #### L P14 #### [facility] [address] [place] [address] CO2 Blood 24 mEq/L Normal 21-32 [facility] Comment on above: Performed By: #### L P14 #### [facility] [address] [place] [address] Creatinine [Mass/Vol] 0.73 mg/dL Normal 0.51-0.95 [facility] Comment on above: Performed By: #### L P14 #### [facility] [address] [place] [address] Glucose [Mass/Vol] 81 mg/dL Normal 70-99 [facility] Comment on above: Performed By: #### L P14 #### [facility] [address] [place], [place] [address] Protein [Mass/Vol] 7.7 g/dL Normal 6.4-8.2 [facility] Comment on above: Performed By: #### L P14 #### [facility] [address] [place], [place] [address] Urea nitrogen [Mass/Vol] 13 mg/dL Normal 7-18 [facility] Comment on above: Performed By: #### L P14 #### [facility] [address] [place], [place] [address] Urea nitrogen/Creatinine [Mass ratio] 18 mg/mg Normal 10-20 [facility] Comment on above: Performed By: #### L P14 #### [facility] [address] [place], [place] [address] Chloride [Moles/Vol] 103 mmol/L Normal 98-109 [facility] Comment on above: Result Comment: Test ing performed on an Don i-STAT. Performed By: #### L P14 #### [facility] [address] [place], [place] [address] Potassium [Moles/Vol] 3.6 mmol/L Normal 3.5-4.9 [facility] Comment on above: Result Comment: Test ing performed on an Don i-STAT. Performed By: #### L P14 #### [address] [address] Sodium [Moles/Vol] 138 mmol/L Normal 138-146 [facility] Comment on above: Result Comment: Test ing performed on an Don i-STAT. Performed By: #### L P14 #### [facility] [address] [place], [place] [address] D-Dimer Quantitativeon 05-03 D-Dimer Quantitative 231 ng/mL(FEU) Normal <450 [facility] Comment on above: Result Comment: 500 ng/mL FEU is the D-dimer cutoff to exclude DVT (deep vein thrombosis)and PE (pulmonary embolism)in patients with a low pre-test probability. Supplemental Comment: In patients over 50 years with a low Pre-test probability for DVT and/or PE, an age-adjusted D-dimer cutoff can be calculated as [age X 10] ng/mL FEU. For example, a patient of 88 years would have an age-adjusted D-dimer of 880 ng/mL FEU. For patients with a suspected DVT, a D-dimer level below 500 ng/mL FEU has a negative predictive value of >=99.0%, a sensitivity of >=97.0% and a specificity of >=35.8%. Performed By: #### L DMR #### [place] [address] Hemogram/Manual Diffon 05-03 Abs. Baso 0.00 thou/cmm Normal 0.00-0.08 [facility] Comment on above: Performed By: #### L MCBD #### [place] [address] Abs. Eosin 0.12 thou/cmm Normal 0.00-0.41 [facility] Comment on above: Performed By: #### L MCBD #### [place] [address] Abs. Lymph 4.32 thou/cmm High 1.50-3.65 [facility] Comment on above: Performed By: #### L MCBD #### [place] [address] Abs. [place] 0.36 thou/cmm Normal 0.20-1.00 [facility] Comment on above: Performed By: #### L MCBD #### [place] [address] Abs. Neut (ANC) 7.20 thou/cmm High 3.00-5.67 [facility] Comment on above: Performed By: #### L MCBD #### [place] [address] Basophil 0.0 % Normal [facility] Comment on above: Performed By: #### L MCBD #### [place] [address] Eosinophil 1.0 % Normal [facility] Comment on above: Performed By: #### L MCBD #### [facility] [address] [place] [address] Lymphocyte 36.0 % Normal [facility] Comment on above: Performed By: #### L MCBD #### [facility] [address] [place] [address] Monocyte 3.0 % Normal [facility] Comment on above: Performed By: #### L MCBD #### [facility] [address] [place] [address] Platelets (Bld) [#/Vol] Normal Normal [facility] Comment on above: Performed By: #### L MCBD #### [facility] [address] [place] [address] RBC morphology finding Nom (Bld) Normal Normal [facility] Comment on above: Performed By: #### L MCBD #### [facility] [address] [place] [address] Seg Neutrophil 60.0 % Normal [facility] Comment on above: Performed By: #### L MCBD #### [facility] [address] [place] [address] Diff Type Manual Diff Normal [facility] Comment on above: Performed By: #### L MCBD #### [facility] [address] [place] [address] Erythrocyte distribution width (RBC) [Ratio] 13.2 % Normal 11.5-15.9 [facility] Comment on above: Performed By: #### L MCBD #### [facility] [address] [place] [address] Hematocrit (Bld) [Volume fraction] 39.0 % Normal 37.0-47.0 [facility] Comment on above: Performed By: #### L MCBD #### [facility] [address] [place] [address] Hemoglobin (Bld) [Mass/Vol] 13.1 g/dL Normal 12.0-16.0 [facility] Comment on above: Performed By: #### L MCBD #### [facility] [address] [place], [place] [address] MCH (RBC) [Entitic mass] 28.0 pg Normal 27.0-31.0 [facility] Comment on above: Performed By: #### L MCBD #### [facility] [address] [place], [place] [address] MCHC (RBC) [Mass/Vol] 33.6 % Normal 32.0-36.0 [facility] Comment on above: Performed By: #### L MCBD #### [facility] [address] [place], [place] [address] MCV (RBC) [Entitic vol] 83.3 fl Normal 81.0-99.0 [facility] Comment on above: Performed By: #### L MCBD #### [facility] [address] [place], [place] [address] Platelet mean volume (Bld) [Entitic vol] 9.7 fl Normal 7.1-10.5 [facility] Comment on above: Performed By: #### L MCBD #### [address] [address] Platelets (Bld) [#/Vol] 314 thou/cmm Normal 150-400 [facility] Comment on above: Performed By: #### L MCBD #### [address] [address] RBC (Bld) [#/Vol] 4.68 mil/cmm Normal 4.20-5.40 [facility] Comment on above: Performed By: #### L MCBD #### [address] [address] WBC (Bld) [#/Vol] 12.0 thou/cmm High 4.8-10.5 [facility] Comment on above: Performed By: #### L MCBD #### [facility] [address] [place], [place] [address] Lipase Bloodon 05-03-2019 Lipase Blood 77 U/L Normal 73-393 [facility] Comment on above: Performed By: #### L LIP #### [address] [address] MDRD eGFRon 05-03-2019 GFR/1.73 sq M predicted among non-blacks MDRD (S/P/Bld) [Vol rate/Area] mL/min/{1.73_m2} Normal >60mL/min/1. 73m2 [facility] Comment on above: Result Comment: If t he patient is , multiply the result by 1.210. Performed By: #### L GFR #### [facility] [address] [place] [address] Urinalysis Routineon 019 Ep Cells Urine 0-2 Normal 0-5 [facility] Comment on above: Performed By: #### L URIN #### [place] [address] RBC LM.HPF (Urine sed) [#/Area] 0-3 Normal 0-3 [facility] Comment on above: Performed By: #### L URIN #### [place] [address] WBC LM.HPF (Urine sed) [#/Area] 0-2 Normal 0-5 [facility] Comment on above: Performed By: #### L URIN #### [place] [address] Appearance (U) CLEAR Normal [facility] Comment on above: Performed By: #### L URIN #### [place] [address] Bilirubin Urine Negative Normal Negative [facility] Comment on above: Performed By: #### L URIN #### [place] [address] Color (U) STRAW Normal [facility] Comment on above: Performed By: #### L URIN #### [place] [address] Glucose Ql (U) Negative Normal Negative [facility] Comment on above: Performed By: #### L URIN #### [place] [address] Hemoglobin,Urine 2+ Abnormal Negative [facility] Comment on above: Performed By: #### L URIN #### [facility] [address] [place] [address] Ketone Urine Negative Normal Negative [facility] Comment on above: Performed By: #### L URIN #### [facility] [address] [place] [address] Leukocytes Esterase Negative Normal Negative [facility] Comment on above: Performed By: #### L URIN #### [place] [address] Nitrites Urine Negative Normal Negative [facility] Comment on above: Performed By: #### L URIN #### [place] [address] pH (U) 6.0 [pH] Normal 5.0-8.0 [facility] Comment on above: Performed By: #### L URIN #### [place] [address] Protein (U) [Mass/Vol] Negative Normal Negative [facility] Comment on above: Performed By: #### L URIN #### [place] [address] Specific [place], Ur <=1.005 Normal 1.005-1.030 [facility] Comment on above: Performed By: #### L URIN #### [place] [address] Urobilinogen,Ur 0.2 EU/dL Normal 0.2-1.0 [facility] Comment on above: Performed By: #### L URIN #### [place] [address] Urine HCG, Qual.on 9 Beta HCG ( test) Ql (U) Negative Normal Negative [facility] Comment on above: Performed By: #### L HCG2 #### [place] [address] Comment See Below Normal [facility] Comment on above: Result Comment: If s pecific gravity is <1.005 then results may be falsely negative. Serum HCG is recommended. Performed By: #### L HCG2 #### [address] [place], [place] [address] Specific [place], Ur <=1.005 Normal 1.005-1.030 [facility] Comment on above: Performed By: #### L HCG2 #### [facility] [address] [place], [place] [address] XR CHEST 2V FRONTAL/LATon XR CHEST 2V FRONTAL/LAT * * *Final Repor t* * * DATE OF EXAM: May 03 2019 9:43PM LDX 5291 - XR CHEST 2V FRONTAL/LAT / PROCEDURE REASON: Fatigue and malaise * * * * Physician Interpretation * * * * EXAMINATION: CHEST RADIOGRAPH (2 VIEW FRONTAL & LATERAL) CLINICAL HISTORY: Fatigue and malaise MQ: XC2_5 Comparison: None RESULT: Lines, tubes, and devices: None. Lungs and pleura: No consolidation. No lung mass. No pleural effusion. No pneumothorax. Pulmonary vasculature within normal limits. Cardiomediastinal silhouette: Normal cardiomediastinal silhouette. Other: . IMPRESSION: Normal chest Broacher: PSCB Transcribe Date/Time: May 03 2019 9:46P Dictated by : IRAIDA RAMIREZ MD This examination was interpreted and the report reviewed and electronically signed by: IRAIDA RAMIREZ MD on May 03 2019 9:50PM EST Normal [facility] ECG B/O WO INTERP (MED OFFIC E) [facility] Vital Signs Date Time Vital Sign Value Performing Clinician Facility 02-22-2025 09:20-0400 Body height 162.6 cm Katiana Diaz APRN.CNP Work Phone: [facility] 02-22-2025 09:20-0400 Body mass index (BMI) [Ratio] 44.11 kg/m2 Katiana Diaz APRN.CNP Work Phone: [facility] 02-22-2025 09:20-0400 Body temperature 97.9 [degF] Katiana Diaz APRN.CNP Work Phone: [facility] 02-22-2025 09:20-0400 Body weight 116.57 kg Katiana Diaz APRN.CNP Work Phone: [facility] 02-22-2025 09:20-0400 Diastolic blood pressure 64 mm[Hg] Katiana Queden GREENHOUSE TRANSPLANTER.HAND COLLATOR Work Phone: [facility] 02-22-2025 09:20-0400 Heart rate 66 /min Katiana Queden GREENHOUSE TRANSPLANTER.HAND COLLATOR Work Phone: [facility] 02-22-2025 09:20-0400 Respiratory rate 18 /min Katiana Queden GREENHOUSE TRANSPLANTER.HAND COLLATOR Work Phone: [facility] 02-22-2025 09:20-0400 SaO2% (BldA) [Mass fraction] 100 % Katiana Queden GREENHOUSE TRANSPLANTER.HAND COLLATOR Work Phone: [facility] 02-22-2025 09:20-0400 Systolic blood pressure 108 mm[Hg] Katiana Queden GREENHOUSE TRANSPLANTER.HAND COLLATOR Work Phone: [facility] 01-26-2025 11:43-0400 Body mass index (BMI) [Ratio] 44.66 kg/m2 Melanie Mercer MD Work Phone: [facility] 01-26-2025 11:43-0400 Body weight 118.03 kg Melanie Mercer MD Work Phone: [facility] 01-26-2025 11:43-0400 Diastolic blood pressure 64 mm[Hg] Melanie Mercer MD Work Phone: [facility] 01-26-2025 11:43-0400 Systolic blood pressure 100 mm[Hg] Melanie Mercer MD Work Phone: [facility] 01-24-2025 09:17-0400 Body temperature 98 [degF] Eddie Trill PHARMACY SERVICE ASSOCIATE-C Work Phone: [facility] [place] [facility] 01-24-2025 09:17-0400 Diastolic blood pressure 68 mm[Hg] Eddie Trill PHARMACY SERVICE ASSOCIATE-C Work Phone: [facility] [place] [facility] 01-24-2025 09:17-0400 Heart rate 61 /min Eddie Trill PHARMACY SERVICE ASSOCIATE-C Work Phone: [facility] [place] [facility] 01-24-2025 09:17-0400 Respiratory rate 18 /min Eddie Trill PHARMACY SERVICE ASSOCIATE-C Work Phone: [facility] [place] [facility] 01-24-2025 09:17-0400 SaO2% (BldA) [Mass fraction] 100 % Eddie Trill PHARMACY SERVICE ASSOCIATE-C Work Phone: [facility] [place] [facility] 01-24-2025 09:17-0400 Systolic blood pressure 115 mm[Hg] Eddie Trill PHARMACY SERVICE ASSOCIATE-C Work Phone: [facility] [place] [facility] 01-24-2025 05:37-0400 Body height 160.02 cm Eddie Trill PHARMACY SERVICE ASSOCIATE-C Work Phone: [facility] [place] [facility] 01-24-2025 05:37-0400 Body mass index (BMI) [Ratio] 47.3 kg/m2 Eddie Trill PHARMACY SERVICE ASSOCIATE-C Work Phone: [facility] [place] [facility] 01-24-2025 05:37-0400 Body weight 121.2 kg Eddie Trill PHARMACY SERVICE ASSOCIATE-C Work Phone: [facility] 01-01-2025 14:54-0400 Body height 160 cm Weston Armstrong MD Work Phone: [facility] 01-01-2025 14:54-0400 Body mass index (BMI) [Ratio] 45.7 kg/m2 Weston Armstrong MD Work Phone: [facility] 01-01-2025 14:54-0400 Body temperature 98.2 [degF] Weston Armstrong MD Work Phone: [facility] 01-01-2025 14:54-0400 Body weight 117.03 kg Weston Armstrong MD Work Phone: [facility] 01-01-2025 14:54-0400 Diastolic blood pressure 72 mm[Hg] eWston Armstrong MD Work Phone: [facility] 01-01-2025 14:54-0400 Heart rate 85 /min Weston Armstrong MD Work Phone: [facility] [employer] 01-01-2025 14:54-0400 Respiratory rate 20 /min Weston Armstrong MD Work Phone: [facility] 01-01-2025 14:54-0400 SaO2% (BldA) [Mass fraction] 100 % Weston Armstrong MD Work Phone: [facility] 01-01-2025 14:54-0400 Systolic blood pressure 135 mm[Hg] Weston Armstrong MD Work Phone: [facility] 12-29-2024 12:28-0400 Body weight 116.57 kg Kostas Hopkins DO Work Phone: [facility] 12-29-2024 12:28-0400 Diastolic blood pressure 70 mm[Hg] Kostas Hopkins DO Work Phone: [facility] 12-29-2024 12:28-0400 Systolic blood pressure 118 mm[Hg] Kostas Hopkins DO Work Phone: [facility] 12-14-2024 13:29-0400 Body weight 117.03 kg Kostas Hopkins DO Work Phone: [facility] 12-14-2024 13:29-0400 Diastolic blood pressure 70 mm[Hg] Kostas Hopkins DO Work Phone: [facility] 12-14-2024 13:29-0400 Systolic blood pressure 118 mm[Hg] Kostas Hopkins DO Work Phone: [facility] 12-12-2024 16:39-0400 Diastolic blood pressure 80 mm[Hg] Eddie Trill GREENHOUSE TRANSPLANTER.HAND COLLATOR Work Phone: [facility] 12-12-2024 16:39-0400 Systolic blood pressure 124 mm[Hg] Eddie Trisana GREENHOUSE TRANSPLANTER.HAND COLLATOR Work Phone: [facility] 12-12-2024 16:08-0400 Body height 162.6 cm Eddie Bishop GREENHOUSE TRANSPLANTER.HAND COLLATOR Work Phone: [facility] 12-12-2024 16:08-0400 Body mass index (BMI) [Ratio] 43.94 kg/m2 Eddie Bishop APRN.HAND COLLATOR Work Phone: [facility] 12-12-2024 16:08-0400 Body temperature 98.71 [degF] Eddie Bishop APRN.HAND COLLATOR Work Phone: [facility] 12-12-2024 16:08-0400 Body weight 116.12 kg Eddie Bishop GREENHOUSE TRANSPLANTER.HAND COLLATOR Work Phone: [facility] 12-12-2024 16:08-0400 Heart rate 85 /min Eddie Bishop GREENHOUSE TRANSPLANTER.HAND COLLATOR Work Phone: [facility] 12-12-2024 16:08-0400 SaO2% (BldA) [Mass fraction] 96 % Eddie Bishop APRN.HAND COLLATOR Work Phone: [facility] 10-10-2024 09:45-0400 Body mass index (BMI) [Ratio] 43.9 kg/m2 Mary Clutter PA-C Work Phone: [facility] 10-10-2024 09:45-0400 Body temperature 97.59 [degF] Mary Clutter PA-C Work Phone: [facility] 10-10-2024 09:45-0400 Body weight 116 kg Mary Clutter PA-C Work Phone: [facility] 10-10-2024 09:45-0400 Diastolic blood pressure 78 mm[Hg] Mary Clutter PA-C Work Phone: [facility] 10-10-2024 09:45-0400 Heart rate 66 /min Mary Clutter PA-C Work Phone: [facility] 10-10-2024 09:45-0400 Respiratory rate 16 /min Mary Clutter PA-C Work Phone: [facility] 10-10-2024 09:45-0400 SaO2% (BldA) [Mass fraction] 98 % Mary Clutter PA-C Work Phone: [facility] 10-10-2024 09:45-0400 Systolic blood pressure 110 mm[Hg] Mary Martin PA-C Work Phone: [facility] 08-20-2024 09:38-0500 Body mass index (BMI) [Ratio] 43.71 kg/m2 Danay Callow GREENHOUSE TRANSPLANTER.HAND COLLATOR Work Phone: [facility] 08-20-2024 09:38-0500 Body temperature 97.59 [degF] GREENHOUSE TRANSPLANTER.HAND COLLATOR Work Phone: [facility] 08-20-2024 09:38-0500 Body weight 115.5 kg ow GREENHOUSE TRANSPLANTER.HAND COLLATOR Work Phone: [facility] 08-20-2024 09:38-0500 Diastolic blood pressure 82 mm[Hg] Danay Callow GREENHOUSE TRANSPLANTER.HAND COLLATOR Work Phone: [facility] 08-20-2024 09:38-0500 Heart rate 96 /min ow GREENHOUSE TRANSPLANTER.HAND COLLATOR Work Phone: [facility] 08-20-2024 09:38-0500 Respiratory rate 16 /min ow GREENHOUSE TRANSPLANTER.HAND COLLATOR Work Phone: [facility] 08-20-2024 09:38-0500 SaO2% (BldA) [Mass fraction] 98 % GREENHOUSE TRANSPLANTER.HAND COLLATOR Work Phone: [facility] 08-20-2024 09:38-0500 Systolic blood pressure 128 mm[Hg] Danay Callow GREENHOUSE TRANSPLANTER.HAND COLLATOR Work Phone: [facility] 08-07-2024 13:17-0500 Body height 162.6 cm Jess Thayer MD Work Phone: [facility] 08-07-2024 13:17-0500 Body mass index (BMI) [Ratio] 42.72 kg/m2 Jess Thayer MD Work Phone: [facility] 08-07-2024 13:17-0500 Body weight 112.9 kg Jess Thayer MD Work Phone: [facility] 08-07-2024 13:17-0500 Diastolic blood pressure 66 mm[Hg] Jess Thayer MD Work Phone: [facility] 08-07-2024 13:17-0500 Heart rate 64 /min Jess Thayer MD Work Phone: [facility] 08-07-2024 13:17-0500 SaO2% (BldA) [Mass fraction] 100 % Jess Thayer MD Work Phone: [facility] 08-07-2024 13:17-0500 Systolic blood pressure 118 mm[Hg] Jess Thayer MD Work Phone: [facility] 08-01-2024 08:23-0500 Body height 162 cm Katiana Queden GREENHOUSE TRANSPLANTER.HAND COLLATOR Work Phone: [facility] 08-01-2024 08:23-0500 Body mass index (BMI) [Ratio] 43.73 kg/m2 Katiana Queden GREENHOUSE TRANSPLANTER.HAND COLLATOR Work Phone: [facility] 08-01-2024 08:23-0500 Body temperature 98.1 [degF] Katiana Queden GREENHOUSE TRANSPLANTER.HAND COLLATOR Work Phone: [facility] 08-01-2024 08:23-0500 Body weight 114.76 kg Katiana Queden GREENHOUSE TRANSPLANTER.HAND COLLATOR Work Phone: [facility] 08-01-2024 08:23-0500 Diastolic blood pressure 68 mm[Hg] Katiana Queden GREENHOUSE TRANSPLANTER.HAND COLLATOR Work Phone: [facility] 08-01-2024 08:23-0500 Heart rate 64 /min Katiana Queden GREENHOUSE TRANSPLANTER.HAND COLLATOR Work Phone: [facility] 08-01-2024 08:23-0500 Respiratory rate 16 /min Katiana Queden GREENHOUSE TRANSPLANTER.HAND COLLATOR Work Phone: [facility] 08-01-2024 08:23-0500 SaO2% (BldA) [Mass fraction] 99 % Katiana Queden GREENHOUSE TRANSPLANTER.HAND COLLATOR Work Phone: [facility] 08-01-2024 08:23-0500 Systolic blood pressure 118 mm[Hg] Katiana Queden GREENHOUSE TRANSPLANTER.HAND COLLATOR Work Phone: [facility] 07-11-2024 11:09-0500 Body mass index (BMI) [Ratio] 43.02 kg/m2 Todd Ross MD Work Phone: [facility] 07-11-2024 11:09-0500 Body temperature 97.3 [degF] Todd Ross MD Work Phone: [facility] 07-11-2024 11:09-0500 Body weight 112.9 kg Todd Ross MD Work Phone: [facility] 07-11-2024 11:09-0500 Diastolic blood pressure 80 mm[Hg] Todd Ross MD Work Phone: [facility] 07-11-2024 11:09-0500 Heart rate 76 /min Todd Ross MD Work Phone: [facility] 07-11-2024 11:09-0500 Respiratory rate 16 /min Todd Ross MD Work Phone: [facility] 07-11-2024 11:09-0500 SaO2% (BldA) [Mass fraction] 98 % Todd Ross MD Work Phone: [facility] 07-11-2024 11:09-0500 Systolic blood pressure 124 mm[Hg] Todd Ross MD Work Phone: [facility] 07-03-2024 08:15-0500 Body height 162 cm Katiana Queden GREENHOUSE TRANSPLANTER.HAND COLLATOR Work Phone: [facility] 07-03-2024 08:15-0500 Body mass index (BMI) [Ratio] 43.04 kg/m2 Katiana Queden GREENHOUSE TRANSPLANTER.HAND COLLATOR Work Phone: [facility] 07-03-2024 08:15-0500 Body temperature 98.01 [degF] Katiana Queden GREENHOUSE TRANSPLANTER.HAND COLLATOR Work Phone: [facility] 07-03-2024 08:15-0500 Body weight 112.95 kg Katiana Queden GREENHOUSE TRANSPLANTER.HAND COLLATOR Work Phone: [facility] 07-03-2024 08:15-0500 Diastolic blood pressure 72 mm[Hg] Katiana Queden GREENHOUSE TRANSPLANTER.HAND COLLATOR Work Phone: [facility] 07-03-2024 08:15-0500 Heart rate 71 /min Katiana Queden GREENHOUSE TRANSPLANTER.HAND COLLATOR Work Phone: [facility] 07-03-2024 08:15-0500 Respiratory rate 16 /min Katiana Queden GREENHOUSE TRANSPLANTER.HAND COLLATOR Work Phone: [facility] 07-03-2024 08:15-0500 SaO2% (BldA) [Mass fraction] 99 % Katiana Queden GREENHOUSE TRANSPLANTER.HAND COLLATOR Work Phone: [facility] 07-03-2024 08:15-0500 Systolic blood pressure 124 mm[Hg] Katiana Queden GREENHOUSE TRANSPLANTER.HAND COLLATOR Work Phone: [facility] 05-31-2024 11:04-0500 Body height 162 cm Ruby Alvarez MD Work Phone: [facility] 05-31-2024 11:04-0500 Body mass index (BMI) [Ratio] 43.73 kg/m2 Ruby Alvarez MD Work Phone: [facility] 05-31-2024 11:04-0500 Body weight 114.76 kg Ruby Alvarez MD Work Phone: [facility] 05-31-2024 11:04-0500 Diastolic blood pressure 68 mm[Hg] Ruby Alvarez MD Work Phone: [facility] 05-31-2024 11:04-0500 Systolic blood pressure 116 mm[Hg] Ruby Alvarez MD Work Phone: [facility] 05-23-2024 14:17-0500 Body mass index (BMI) [Ratio] 44.6 kg/m2 Keke Pablo MD Work Phone: [facility] 05-23-2024 14:17-0500 Body weight 114.2 kg Keke Pablo MD Work Phone: [facility] 05-23-2024 14:17-0500 Diastolic blood pressure 87 mm[Hg] Keke Pablo MD Work Phone: [facility] 05-23-2024 14:17-0500 Heart rate 88 /min Keke Pablo MD Work Phone: [facility] 05-23-2024 14:17-0500 SaO2% (BldA) [Mass fraction] 98 % Keke Pablo MD Work Phone: [facility] 05-23-2024 14:17-0500 Systolic blood pressure 117 mm[Hg] Keke Pablo MD Work Phone: [facility] 05-05-2024 09:46-0400 Body height 160 cm Leatha Ocampo MD Work Phone: [facility] 05-05-2024 09:46-0400 Body mass index (BMI) [Ratio] 45.53 kg/m2 Leatha Ocampo MD Work Phone: [facility] 05-05-2024 09:46-0400 Body temperature 97.3 [degF] Leatha Ocampo MD Work Phone: [facility] 05-05-2024 09:46-0400 Body weight 116.57 kg Leatha Ocampo MD Work Phone: [facility] 05-05-2024 09:46-0400 Diastolic blood pressure 74 mm[Hg] Leatha Ocampo MD Work Phone: [facility] 05-05-2024 09:46-0400 Heart rate 76 /min Leatha Ocampo MD Work Phone: [facility] 05-05-2024 09:46-0400 Respiratory rate 20 /min Leatha Ocampo MD Work Phone: [facility] 05-05-2024 09:46-0400 SaO2% (BldA) [Mass fraction] 100 % Leatha Ocampo MD Work Phone: [facility] 05-05-2024 09:46-0400 Systolic blood pressure 120 mm[Hg] Leatha Ocampo MD Work Phone: [facility] 04-10-2024 10:54-0400 Body height 162.6 cm Eddie Bishop GREENHOUSE TRANSPLANTER.HAND COLLATOR Work Phone: [facility] 04-10-2024 10:54-0400 Body mass index (BMI) [Ratio] 44.46 kg/m2 Eddie Bishop GREENHOUSE TRANSPLANTER.HAND COLLATOR Work Phone: [facility] 04-10-2024 10:54-0400 Body temperature 97.81 [degF] Eddie Bishop GREENHOUSE TRANSPLANTER.HAND COLLATOR Work Phone: [facility] 04-10-2024 10:54-0400 Body weight 117.48 kg Eddie Bishop GREENHOUSE TRANSPLANTER.HAND COLLATOR Work Phone: [facility] 04-10-2024 10:54-0400 Diastolic blood pressure 74 mm[Hg] Eddie Bishop GREENHOUSE TRANSPLANTER.HAND COLLATOR Work Phone: [facility] 04-10-2024 10:54-0400 Heart rate 74 /min Eddie Bishop GREENHOUSE TRANSPLANTER.HAND COLLATOR Work Phone: [facility] 04-10-2024 10:54-0400 Respiratory rate 16 /min Eddie Bishop GREENHOUSE TRANSPLANTER.HAND COLLATOR Work Phone: [facility] 04-10-2024 10:54-0400 SaO2% (BldA) [Mass fraction] 98 % Eddie Bishop GREENHOUSE TRANSPLANTER.HAND COLLATOR Work Phone: [facility] 04-10-2024 10:54-0400 Systolic blood pressure 118 mm[Hg] Eddie Trill GREENHOUSE TRANSPLANTER.HAND COLLATOR Work Phone: [facility] 03-07-2024 15:56-0400 Body height 162.6 cm Eddie Trill GREENHOUSE TRANSPLANTER.HAND COLLATOR Work Phone: [facility] 03-07-2024 15:56-0400 Body mass index (BMI) [Ratio] 44.29 kg/m2 Eddie Trill GREENHOUSE TRANSPLANTER.HAND COLLATOR Work Phone: [facility] 03-07-2024 15:56-0400 Body temperature 98.01 [degF] Eddie Trill GREENHOUSE TRANSPLANTER.HAND COLLATOR Work Phone: [facility] 03-07-2024 15:56-0400 Body weight 117.03 kg Eddie Trisana GREENHOUSE TRANSPLANTER.HAND COLLATOR Work Phone: [facility] 03-07-2024 15:56-0400 Diastolic blood pressure 62 mm[Hg] Eddie Trill GREENHOUSE TRANSPLANTER.HAND COLLATOR Work Phone: [facility] 03-07-2024 15:56-0400 Heart rate 68 /min Eddie Trill GREENHOUSE TRANSPLANTER.HAND COLLATOR Work Phone: [facility] 03-07-2024 15:56-0400 Respiratory rate 18 /min Eddie Trill GREENHOUSE TRANSPLANTER.HAND COLLATOR Work Phone: [facility] 03-07-2024 15:56-0400 SaO2% (BldA) [Mass fraction] 99 % Eddie Trill GREENHOUSE TRANSPLANTER.HAND COLLATOR Work Phone: [facility] 03-07-2024 15:56-0400 Systolic blood pressure 112 mm[Hg] Eddie Trill GREENHOUSE TRANSPLANTER.HAND COLLATOR Work Phone: [facility] 12-03-2023 10:39-0400 Body height 162.6 cm Katherine Rome MD Work Phone: [facility] 12-03-2023 10:39-0400 Body mass index (BMI) [Ratio] 43.94 kg/m2 Katherine Rome MD Work Phone: [facility] 12-03-2023 10:39-0400 Body weight 116.12 kg Katherine Rome MD Work Phone: [facility] 12-03-2023 10:39-0400 Diastolic blood pressure 81 mm[Hg] Katherine Rome MD Work Phone: [facility] 12-03-2023 10:39-0400 Heart rate 91 /min Katherine Rome MD Work Phone: [facility] 12-03-2023 10:39-0400 Respiratory rate 18 /min Katherine Rome MD Work Phone: [facility] 12-03-2023 10:39-0400 Systolic blood pressure 115 mm[Hg] Katherine Rome MD Work Phone: [facility] 12-02-2023 11:22-0400 Body height 162.6 cm Katiana Queden GREENHOUSE TRANSPLANTER.HAND COLLATOR Work Phone: [facility] 12-02-2023 11:22-0400 Body mass index (BMI) [Ratio] 43.94 kg/m2 Katiana Queden GREENHOUSE TRANSPLANTER.HAND COLLATOR Work Phone: [facility] 12-02-2023 11:22-0400 Body temperature 99.39 [degF] Katiana Queden GREENHOUSE TRANSPLANTER.HAND COLLATOR Work Phone: [facility] 12-02-2023 11:22-0400 Body weight 116.12 kg Katiana Queden GREENHOUSE TRANSPLANTER.HAND COLLATOR Work Phone: [facility] 12-02-2023 11:22-0400 Diastolic blood pressure 76 mm[Hg] Katiana Queden GREENHOUSE TRANSPLANTER.HAND COLLATOR Work Phone: [facility] 12-02-2023 11:22-0400 Heart rate 98 /min Katiana Queden GREENHOUSE TRANSPLANTER.HAND COLLATOR Work Phone: [facility] 12-02-2023 11:22-0400 Respiratory rate 16 /min Katiana Queden GREENHOUSE TRANSPLANTER.HAND COLLATOR Work Phone: [facility] 12-02-2023 11:22-0400 SaO2% (BldA) [Mass fraction] 97 % Katiana Queden GREENHOUSE TRANSPLANTER.HAND COLLATOR Work Phone: [facility] 12-02-2023 11:22-0400 Systolic blood pressure 122 mm[Hg] Katiana Queden GREENHOUSE TRANSPLANTER.HAND COLLATOR Work Phone: [facility] 12-01-2023 13:15-0400 Body mass index (BMI) [Ratio] 45.85 kg/m2 Donny Epifanio GREENHOUSE TRANSPLANTER.HAND COLLATOR Work Phone: [facility] 12-01-2023 13:15-0400 Body temperature 100.2 [degF] [facility] GREENHOUSE TRANSPLANTER.HAND COLLATOR Work Phone: [facility] 12-01-2023 13:15-0400 Body weight 117.4 kg Donny Godfrey GREENHOUSE TRANSPLANTER.HAND COLLATOR Work Phone: [facility] 12-01-2023 13:15-0400 Diastolic blood pressure 76 mm[Hg] Donny Sonianixonspike GREENHOUSE TRANSPLANTER.HAND COLLATOR Work Phone: [facility] 12-01-2023 13:15-0400 Heart rate 110 /min Donny Pendjuana GREENHOUSE TRANSPLANTER.HAND COLLATOR Work Phone: [facility] 12-01-2023 13:15-0400 Respiratory rate 18 /min Donny Sonianixonspike GREENHOUSE TRANSPLANTER.HAND COLLATOR Work Phone: [facility] 12-01-2023 13:15-0400 SaO2% (BldA) [Mass fraction] 96 % Donny Godfrey GREENHOUSE TRANSPLANTER.HAND COLLATOR Work Phone: [facility] 12-01-2023 13:15-0400 Systolic blood pressure 144 mm[Hg] Donny Pendlespike GREENHOUSE TRANSPLANTER.HAND COLLATOR Work Phone: [facility] 11-09-2023 15:30-0400 Body height 160 cm [facility] 1 Work Phone: [facility] 11-09-2023 15:30-0400 Body mass index (BMI) [Ratio] 45.7 kg/m2 [facility] Work Phone: [facility] 11-09-2023 15:30-0400 Body temperature 97.59 [degF] Pacc 1 Work Phone: [facility] 11-09-2023 15:30-0400 Body weight 117.03 kg Pacc 1 Work Phone: [facility] 11-09-2023 15:30-0400 Diastolic blood pressure 77 mm[Hg] Pacc 1 Work Phone: [facility] 11-09-2023 15:30-0400 Heart rate 63 /min Pacc 1 Work Phone: [facility] 11-09-2023 15:30-0400 Respiratory rate 16 /min Pacc 1 Work Phone: [facility] 11-09-2023 15:30-0400 SaO2% (BldA) [Mass fraction] 100 % Pacc 1 Work Phone: [facility] 11-09-2023 15:30-0400 Systolic blood pressure 109 mm[Hg] Pacc 1 Work Phone: [facility] 11-09-2023 08:09-0400 Body height 162.6 cm Katiana Queden GREENHOUSE TRANSPLANTER.HAND COLLATOR Work Phone: [facility] 11-09-2023 08:09-0400 Body mass index (BMI) [Ratio] 43.77 kg/m2 Katiana Queden GREENHOUSE TRANSPLANTER.HAND COLLATOR Work Phone: [facility] 11-09-2023 08:09-0400 Body temperature 97.7 [degF] Katiana Queden GREENHOUSE TRANSPLANTER.HAND COLLATOR Work Phone: [facility] 11-09-2023 08:09-0400 Body weight 115.67 kg Katiana Queden GREENHOUSE TRANSPLANTER.HAND COLLATOR Work Phone: [facility] 11-09-2023 08:09-0400 Diastolic blood pressure 72 mm[Hg] Katiana Queden GREENHOUSE TRANSPLANTER.HAND COLLATOR Work Phone: [facility] 11-09-2023 08:09-0400 Heart rate 60 /min Katiana Diaz GREENHOUSE TRANSPLANTER.HAND COLLATOR Work Phone: [facility] 11-09-2023 08:09-0400 Respiratory rate 17 /min Katiana Diaz GREENHOUSE TRANSPLANTER.HAND COLLATOR Work Phone: [facility] 11-09-2023 08:09-0400 SaO2% (BldA) [Mass fraction] 98 % Katiana Diaz GREENHOUSE TRANSPLANTER.HAND COLLATOR Work Phone: [facility] 11-09-2023 08:09-0400 Systolic blood pressure 126 mm[Hg] Katiana Diaz GREENHOUSE TRANSPLANTER.HAND COLLATOR Work Phone: [facility] 11-08-2023 17:30-0400 Body mass index (BMI) [Ratio] 43.82 kg/m2 Tonia Cevallos APRN.HAND COLLATOR Work Phone: [facility] 11-08-2023 17:30-0400 Body temperature 98.29 [degF] Tonia Cevallos APRN.HAND COLLATOR Work Phone: [facility] 11-08-2023 17:30-0400 Body weight 115.8 kg Tonia Cevallos APRN.HAND COLLATOR Work Phone: [facility] 11-08-2023 17:30-0400 Diastolic blood pressure 80 mm[Hg] Tonia Cevallos APRN.HAND COLLATOR Work Phone: [facility] 11-08-2023 17:30-0400 Heart rate 70 /min Tonia Cevallos APRN.HAND COLLATOR Work Phone: [facility] 11-08-2023 17:30-0400 Respiratory rate 19 /min Tonia Cevallos APRN.HAND COLLATOR Work Phone: [facility] 11-08-2023 17:30-0400 SaO2% (BldA) [Mass fraction] 100 % Tonia Cevallos APRN.HAND COLLATOR Work Phone: [facility] 11-08-2023 17:30-0400 Systolic blood pressure 140 mm[Hg] Tonia Mart GREENHOUSE TRANSPLANTER.HAND COLLATOR Work Phone: [facility] 10-30-2023 13:04-0400 Body temperature 97.5 [degF] Ivis Amato GREENHOUSE TRANSPLANTER.HAND COLLATOR Work Phone: [facility] 10-30-2023 13:04-0400 Body weight 115.7 kg Ivis Amato GREENHOUSE TRANSPLANTER.HAND COLLATOR Work Phone: [facility] 10-30-2023 13:04-0400 Diastolic blood pressure 74 mm[Hg] Ivis Amato GREENHOUSE TRANSPLANTER.HAND COLLATOR Work Phone: [facility] 10-30-2023 13:04-0400 Heart rate 96 /min Ivis Amato GREENHOUSE TRANSPLANTER.HAND COLLATOR Work Phone: [facility] 10-30-2023 13:04-0400 Respiratory rate 16 /min Ivis Amato GREENHOUSE TRANSPLANTER.HAND COLLATOR Work Phone: [facility] 10-30-2023 13:04-0400 SaO2% (BldA) [Mass fraction] 98 % Ivis Amato GREENHOUSE TRANSPLANTER.HAND COLLATOR Work Phone: [facility] 10-30-2023 13:04-0400 Systolic blood pressure 132 mm[Hg] Ivis Amato GREENHOUSE TRANSPLANTER.HAND COLLATOR Work Phone: [facility] 08-30-2023 15:38-0500 Body height 162.6 cm Katherine Rome MD Work Phone: [facility] 08-30-2023 15:38-0500 Body weight 117.94 kg Katherine Rome MD Work Phone: [facility] 08-26-2023 08:12-0500 Body height 162.6 cm Tin Darius GREENHOUSE TRANSPLANTER.HAND COLLATOR Work Phone: [facility] 08-26-2023 08:12-0500 Body temperature 97.59 [degF] Tin Darius GREENHOUSE TRANSPLANTER.HAND COLLATOR Work Phone: [facility] 08-26-2023 08:12-0500 Body weight 118.39 kg Tin Darius GREENHOUSE TRANSPLANTER.HAND COLLATOR Work Phone: [facility] 08-26-2023 08:12-0500 Diastolic blood pressure 60 mm[Hg] Tin Rich GREENHOUSE TRANSPLANTER.HAND COLLATOR Work Phone: [facility] 08-26-2023 08:12-0500 Heart rate 69 /min Tin Rich GREENHOUSE TRANSPLANTER.HAND COLLATOR Work Phone: [facility] 08-26-2023 08:12-0500 Respiratory rate 18 /min Tin Rich GREENHOUSE TRANSPLANTER.HAND COLLATOR Work Phone: [facility] 08-26-2023 08:12-0500 SaO2% (BldA) [Mass fraction] 99 % Tin Rich GREENHOUSE TRANSPLANTER.HAND COLLATOR Work Phone: [facility] 08-26-2023 08:12-0500 Systolic blood pressure 92 mm[Hg] Tin Rich GREENHOUSE TRANSPLANTER.HAND COLLATOR Work Phone: [facility] 05-31-2023 13:18-0500 Body height 162.6 cm Doris Frank GREENHOUSE TRANSPLANTER.HAND COLLATOR, DNP Work Phone: [facility] 05-31-2023 13:18-0500 Body weight 119.3 kg Doris Blagali GREENHOUSE TRANSPLANTER.HAND COLLATOR, DNP Work Phone: [facility] 04-26-2023 14:00-0400 Body weight 119.93 kg Ivis Paiz APRN.CNM Work Phone: [facility] 04-26-2023 14:00-0400 Diastolic blood pressure 64 mm[Hg] Ivis Paiz GREENHOUSE TRANSPLANTER.CNM Work Phone: [facility] 04-26-2023 14:00-0400 Systolic blood pressure 110 mm[Hg] Ivis Paiz GREENHOUSE TRANSPLANTER.CNM Work Phone: [facility] 04-10-2023 12:29-0400 Body temperature 97.7 [degF] Tonia Cevallos GREENHOUSE TRANSPLANTER.HAND COLLATOR Work Phone: [facility] 04-10-2023 12:29-0400 Body weight 119.57 kg Tonia Cevallos APRN.HAND COLLATOR Work Phone: [facility] 04-10-2023 12:29-0400 Diastolic blood pressure 76 mm[Hg] Tonia Cevallos APRN.HAND COLLATOR Work Phone: [facility] 04-10-2023 12:29-0400 Heart rate 86 /min Tonia Cevallos APRN.HAND COLLATOR Work Phone: [facility] 04-10-2023 12:29-0400 Respiratory rate 16 /min Tonia Cevallos APRN.HAND COLLATOR Work Phone: [facility] 04-10-2023 12:29-0400 SaO2% (BldA) [Mass fraction] 98 % Tonia Cevallos APRN.HAND COLLATOR Work Phone: [facility] 04-10-2023 12:29-0400 Systolic blood pressure 124 mm[Hg] Tonia Cevallos APRN.HAND COLLATOR Work Phone: [facility] 02-08-2023 10:19-0400 Body height 160 cm Eddie Bishop APRN.HAND COLLATOR Work Phone: [facility] 02-08-2023 10:19-0400 Body temperature 98.6 [degF] Eddie Bishop APRN.HAND COLLATOR Work Phone: [facility] 02-08-2023 10:19-0400 Body weight 117.48 kg Eddie Bishop APRN.HAND COLLATOR Work Phone: [facility] 02-08-2023 10:19-0400 Diastolic blood pressure 78 mm[Hg] Eddie Bishop APRN.HAND COLLATOR Work Phone: [facility] 02-08-2023 10:19-0400 Heart rate 68 /min Eddie Bishop APRN.HAND COLLATOR Work Phone: [facility] 02-08-2023 10:19-0400 SaO2% (BldA) [Mass fraction] 98 % Eddie Bishop APRN.HAND COLLATOR Work Phone: [facility] 02-08-2023 10:19-0400 Systolic blood pressure 122 mm[Hg] Eddie Trill GREENHOUSE TRANSPLANTER.HAND COLLATOR Work Phone: [facility] 11-10-2022 09:22-0400 Body height 160 cm Eddie Bishop GREENHOUSE TRANSPLANTER.HAND COLLATOR Work Phone: [facility] 11-10-2022 09:22-0400 Body temperature 98.29 [degF] Eddie Trisana GREENHOUSE TRANSPLANTER.HAND COLLATOR Work Phone: [facility] 11-10-2022 09:22-0400 Body weight 121.11 kg Eddie Trisana GREENHOUSE TRANSPLANTER.HAND COLLATOR Work Phone: [facility] 11-10-2022 09:22-0400 Diastolic blood pressure 70 mm[Hg] Eddie Trill GREENHOUSE TRANSPLANTER.HAND COLLATOR Work Phone: [facility] 11-10-2022 09:22-0400 Heart rate 82 /min Eddie Bishop GREENHOUSE TRANSPLANTER.HAND COLLATOR Work Phone: [facility] 11-10-2022 09:22-0400 SaO2% (BldA) [Mass fraction] 98 % Eddie Trisana GREENHOUSE TRANSPLANTER.HAND COLLATOR Work Phone: [facility] 11-10-2022 09:22-0400 Systolic blood pressure 118 mm[Hg] Eddie Trill GREENHOUSE TRANSPLANTER.HAND COLLATOR Work Phone: [facility] 11-09-2022 09:04-0400 Body height [address] Pappas MD Work Phone: [facility] 11-09-2022 09:04-0400 Body weight 120.[address] Pappas MD Work Phone: [facility] 11-09-2022 09:04-0400 Diastolic blood pressure 64 mm[Hg] Ct Pappas MD Work Phone: [facility] 11-09-2022 09:04-0400 Systolic blood pressure 116 mm[Hg] Ct Pappas MD Work Phone: [facility] 10-30-2022 09:08-0400 Body height 162.6 cm Eddie Trill GREENHOUSE TRANSPLANTER.HAND COLLATOR Work Phone: [facility] 10-30-2022 09:08-0400 Body temperature 98.49 [degF] Eddie Trill GREENHOUSE TRANSPLANTER.HAND COLLATOR Work Phone: [facility] 10-30-2022 09:08-0400 Body weight 122.47 kg Eddie Trill GREENHOUSE TRANSPLANTER.HAND COLLATOR Work Phone: [facility] 10-30-2022 09:08-0400 Diastolic blood pressure 70 mm[Hg] Eddie Trill GREENHOUSE TRANSPLANTER.HAND COLLATOR Work Phone: [facility] 10-30-2022 09:08-0400 Heart rate 82 /min Eddie Trill GREENHOUSE TRANSPLANTER.HAND COLLATOR Work Phone: [facility] 10-30-2022 09:08-0400 SaO2% (BldA) [Mass fraction] 99 % Eddie Trill GREENHOUSE TRANSPLANTER.HAND COLLATOR Work Phone: [facility] 10-30-2022 09:08-0400 Systolic blood pressure 128 mm[Hg] Eddie Trill GREENHOUSE TRANSPLANTER.HAND COLLATOR Work Phone: [facility] 10-15-2022 10:39-0400 Body weight 122.47 kg Ruby Alvarez MD Work Phone: [facility] 10-15-2022 10:39-0400 Diastolic blood pressure 80 mm[Hg] Ruby Alvarez MD Work Phone: [facility] 10-15-2022 10:39-0400 Systolic blood pressure 126 mm[Hg] Ruby Alvarez MD Work Phone: [facility] 07-20-2022 16:09-0500 Body height 162.6 cm Eddie Trill GREENHOUSE TRANSPLANTER.HAND COLLATOR Work Phone: [facility] 07-20-2022 16:09-0500 Body temperature 98.8 [degF] Eddie Trill GREENHOUSE TRANSPLANTER.HAND COLLATOR Work Phone: [facility] 07-20-2022 16:09-0500 Body weight 124.74 kg Eddie Bishop GREENHOUSE TRANSPLANTER.HAND COLLATOR Work Phone: [facility] 07-20-2022 16:09-0500 Diastolic blood pressure 70 mm[Hg] Eddie Bishop GREENHOUSE TRANSPLANTER.HAND COLLATOR Work Phone: [facility] 07-20-2022 16:09-0500 Heart rate 97 /min Eddie Bishop GREENHOUSE TRANSPLANTER.HAND COLLATOR Work Phone: [facility] 07-20-2022 16:09-0500 SaO2% (BldA) [Mass fraction] 97 % Eddie Bishop GREENHOUSE TRANSPLANTER.HAND COLLATOR Work Phone: [facility] 07-20-2022 16:09-0500 Systolic blood pressure 110 mm[Hg] Eddie Bishop GREENHOUSE TRANSPLANTER.HAND COLLATOR Work Phone: [facility] 07-09-2022 09:20-0500 Body temperature 97.7 [degF] Geronimo Maico GREENHOUSE TRANSPLANTER.HAND COLLATOR Work Phone: [facility] 07-09-2022 09:20-0500 Body weight 126.64 kg Geronimo Nina GREENHOUSE TRANSPLANTER.HAND COLLATOR Work Phone: [facility] 07-09-2022 09:20-0500 Diastolic blood pressure 82 mm[Hg] Geronimo Maico GREENHOUSE TRANSPLANTER.HAND COLLATOR Work Phone: [facility] 07-09-2022 09:20-0500 Heart rate 86 /min Geronimo Maico GREENHOUSE TRANSPLANTER.HAND COLLATOR Work Phone: [facility] 07-09-2022 09:20-0500 Respiratory rate 20 /min Geronimo Maico GREENHOUSE TRANSPLANTER.HAND COLLATOR Work Phone: [facility] 07-09-2022 09:20-0500 SaO2% (BldA) [Mass fraction] 98 % Geronimo Maico GREENHOUSE TRANSPLANTER.HAND COLLATOR Work Phone: [facility] 07-09-2022 09:20-0500 Systolic blood pressure 128 mm[Hg] Geronimo Maico GREENHOUSE TRANSPLANTER.HAND COLLATOR Work Phone: [facility] 06-22-2022 08:58-0500 Body height 162.6 cm Ruby Alvarez MD Work Phone: [facility] 06-22-2022 08:58-0500 Body weight 126.55 kg Rbuy Alvarez MD Work Phone: [facility] 06-22-2022 08:58-0500 Diastolic blood pressure 68 mm[Hg] Ruby Alvarez MD Work Phone: [facility] 06-22-2022 08:58-0500 Systolic blood pressure 126 mm[Hg] Ruby Alvarez MD Work Phone: [facility] 04-01-2022 14:34-0400 Body height 162.6 cm Eddie Bishop APRN.HAND COLLATOR Work Phone: [facility] 04-01-2022 14:34-0400 Body temperature 103.1 [degF] Eddie Bishop APRN.HAND COLLATOR Work Phone: [facility] 04-01-2022 14:34-0400 Body weight 127.46 kg Eddie Bishop APRN.HAND COLLATOR Work Phone: [facility] 04-01-2022 14:34-0400 Diastolic blood pressure 60 mm[Hg] Eddie Bishop APRN.HAND COLLATOR Work Phone: [facility] 04-01-2022 14:34-0400 Heart rate 110 /min Eddie Bishop APRN.HAND COLLATOR Work Phone: [facility] 04-01-2022 14:34-0400 SaO2% (BldA) [Mass fraction] 97 % Eddie Bishop APRN.HAND COLLATOR Work Phone: [facility] 04-01-2022 14:34-0400 Systolic blood pressure 110 mm[Hg] Eddie Bishop APRN.HAND COLLATOR Work Phone: [facility] 12-03-2021 08:14-0400 Body height 162.6 cm Tin Darius GREENHOUSE TRANSPLANTER.HAND COLLATOR Work Phone: [facility] 12-03-2021 08:14-0400 Body temperature 98.29 [degF] Tin Darius GREENHOUSE TRANSPLANTER.HAND COLLATOR Work Phone: [facility] 12-03-2021 08:14-0400 Body weight 127.91 kg Tin Darius GREENHOUSE TRANSPLANTER.HAND COLLATOR Work Phone: [facility] 12-03-2021 08:14-0400 Diastolic blood pressure 70 mm[Hg] Tin Darius GREENHOUSE TRANSPLANTER.HAND COLLATOR Work Phone: [facility] 12-03-2021 08:14-0400 Heart rate 87 /min Tin Darius GREENHOUSE TRANSPLANTER.HAND COLLATOR Work Phone: [facility] 12-03-2021 08:14-0400 Respiratory rate 18 /min Tin Darius GREENHOUSE TRANSPLANTER.HAND COLLATOR Work Phone: [facility] 12-03-2021 08:14-0400 SaO2% (BldA) [Mass fraction] 99 % Tin Darius GREENHOUSE TRANSPLANTER.HAND COLLATOR Work Phone: [facility] 12-03-2021 08:14-0400 Systolic blood pressure 122 mm[Hg] Tin Darius GREENHOUSE TRANSPLANTER.HAND COLLATOR Work Phone: [facility] Encounters Encounter Date Encounter Type Care Provider Facility Start: 03-21-2025 End: 03-21-2025 Follow-up encounter Jess Thayer MD Work Phone: Cardiology Start: 03-20-2025 ambulatory EDDIE BISHOP Facilit y:[facility] Start: 03-20-2025 End: 03-20-2025 Subsequent hospital visit by physician Card/Pulm Lab [facility] PUL[facility] Comment on above: Palpitations [R00.2] Start: 03-05-2025 End: 03-05-2025 Telephone encounter Eddie Bishop APRN.HAND COLLATOR Work Phone: [facility] Comment on above: Lab Orders Start: 02-23-2025 End: 03-12-2025 ambulatory Katiana Diaz APRN.HAND COLLATOR Work Phone: [facility] Comment on above: Iron levels Start: 02-22-2025 End: 02-22-2025 Office outpatient visit 15 minutes Kostas Sally Hopkins DO Work Phone: [facility] Obstetrics and Gynecology - [place] Comment on above: Tubal with out intrauterine , unspecified laterality (Primary Dx); Infertility, female Start: 02-22-2025 End: 02-22-2025 ambulatory KOSTAS HOPKINS [facility] Start: 02-22-2025 End: 02-22-2025 ambulatory EDDIE BISHOP Facility:[facility] Start: 02-22-2025 End: 02-22-2025 Patient encounter procedure Katiana Diaz APRN.HAND COLLATOR Work Phone: [facility] Comment on above: Bradycardia (Primary Dx); Loss of appetite; Dizziness; Brain fog; Numbness; Positive ISIS (antinuclear antibody); Elevated C-reactive protein (CRP); Chest tightness; Palpitations; Iron deficiency; Vitamin D deficiency; Urinary frequency Start: 02-22-2025 End: 02-22-2025 ambulatory EDDIE BISHOP Facility:[facility] Start: 02-14-2025 End: 02-14-2025 ambulatory EDDIE BISHOP Facility:[facility] Start: 02-01-2025 End: 02-01-2025 ambulatory Katiana Diaz APRN.HAND COLLATOR Work Phone: [facility] Comment on above: Cat scan results Start: 01-31-2025 End: 01-31-2025 ambulatory Eddie Bishop APRN.HAND COLLATOR Work Phone: [facility] Start: 01-26-2025 End: 01-26-2025 Office outpatient visit 15 minutes Melanie Mercer MD Work Phone: OB/Gynecology Comment on above: Spontaneous miscarri age (HCC) (Primary Dx) Start: 01-26-2025 End: 01-29-2025 ambulatory Eddie Bishop APRN.HAND COLLATOR Work Phone: [facility] Comment on above: Sushila er visit Start: 01-26-2025 End: 01-26-2025 Subsequent hospital visit by physician [facility] Work Phone: [facility] Comment on above: Left lower quadrant abdominal pain [R10.32] Left lower quadrant pain [R10.32] Start: 01-25-2025 End: 01-25-2025 Telephone encounter Eddie Bishop APRN.HAND COLLATOR Work Phone: [facility] Comment on above: Patient Question Start: 01-24-2025 End: 01-24-2025 Telephone encounter Ruby Alvarez MD Work Phone: OB/Gynecology Comment on above: Follow Up Start: 01-24-2025 End: 01-24-2025 Emergency department patient visit Eddie PEREZ Work Phone: -Emergency Department Work Phone: Start: 01-18-2025 End: 01-30-2025 Telephone encounter Kostas Hopkins DO Work Phone: [facility] Clinical Communication Comment on above: Results (Pt calling and states her HCG is at 19 and wants to start back on the progesterone and asking if ok she was scheduled to day but woke up late rescheduled 02/22/25.//Please advise) Start: 01-09-2025 End: 03-11-2025 Follow-up encounter Kostas Hopkins DO Work Phone: [facility] Comment on above: hCG, quantitative, h CG, quantitative Start: 01-08-2025 End: 01-09-2025 Orders Only Kostas Hopkins DO Work Phone: [facility] Obstetrics and Gynecology [facility] Start: 01-05-2025 End: 03-07-2025 Follow-up encounter Kostas Hopkins DO Work Phone: [facility] [employer] Comment on above: hCG, quantitative Start: 01-04-2025 End: 01-04-2025 Orders Only Kostas Hopkins DO Work Phone: [facility] [employer] Comment on above: Tubal with out intrauterine , unspecified laterality (Primary Dx) Urinary urgency (Lexi karolyn Dx) Start: 01-03-2025 End: 01-03-2025 Orders Only Kostas Hopkins DO Work Phone: [facility] [employer] Comment on above: Tubal with out intrauterine , unspecified laterality (Primary Dx) Start: 01-01-2025 End: 01-01-2025 ambulatory WESTONFRANDY ARMSTRONG [facility] Start: 01-01-2025 End: 01-01-2025 Subsequent hospital visit by physician Weston Armstrong MD Work Phone: [facility] OB Emergency H2 Start: 01-01-2025 End: 03-03-2025 Follow-up encounter Kostas Hopkins DO Work Phone: [facility] [employer] Comment on above: hCG, quantitative Start: 12-29-2024 End: 12-29-2024 Office outpatient visit 15 minutes Kostas Hopkins DO Work Phone: [facility] Obstetrics and Gynecology [facility] Comment on above: of unknown anatomic location (Primary Dx) Start: 12-29-2024 End: 12-29-2024 ambulatory KOSTAS [facility] Start: 12-29-2024 End: 12-29-2024 ambulatory KOSTAS [facility] Start: 12-27-2024 End: 02-26-2025 Orders Only Kostas Pérezon DO Work Phone: [facility] [employer] Comment on above: with incon clusive viability, single or unspecified fetus (Primary Dx) hCG, quantitative Start: 12-26-2024 End: 12-26-2024 Orders Only Kostas Hopkins DO Work Phone: [facility] [employer] Comment on above: with incon clusive viability, single or unspecified fetus (Primary Dx) Start: 12-25-2024 End: 12-25-2024 ambulatory KOSTAS HOPKINS [facility] Start: 12-18-2024 End: 02-17-2025 Orders Only Kostas Hopkins DO Work Phone: [facility] [employer] Comment on above: with incon clusive viability, single or unspecified fetus (Primary Dx) hCG, quantitative Start: 12-17-2024 End: 12-17-2024 Orders Only Kostaskumar Hopkins DO Work Phone: [facility] [employer] Comment on above: with incon clusive viability, fetus 1 of multiple gestation (Primary Dx) Start: 12-15-2024 End: 01-06-2025 Patient encounter procedure Shelbi Nicole RN [facility] Clinical Communication Start: 12-15-2024 End: 01-06-2025 ambulatory dEdie Bishop APRN.HAND COLLATOR Work Phone: [facility] Comment on above: Start: 12-15-2024 End: 12-15-2024 Emergency department patient visit LAAINA RAO MD Facility:[facility] Start: 12-14-2024 End: 12-14-2024 ambulatory KOSTASKumar HOPKINS [facility] Start: 12-14-2024 End: 12-14-2024 Office outpatient new 45 minutes Kostas Hopkins DO Work Phone: [facility] Obstetrics and Gynecology - [place] Comment on above: PCOS (polycystic ova akash syndrome) (Primary Dx); Infertility, female Start: 12-12-2024 End: 12-12-2024 Patient encounter procedure Eddie Bishop APRN.HAND COLLATOR Work Phone: [facility] Comment on above: Left lower quadrant abdominal tenderness with rebound tenderness (Primary Dx); Bloating; Early satiety; No appetite; Left lower quadrant abdominal pain; LUQ pain; Diarrhea, unspecified type; Vitamin D deficiency; Personal history of kidney stones; Iron deficiency Start: 12-12-2024 End: 12-12-2024 ambulatory EDDIE BISHOP Facility:[facility] Start: 11-15-2024 End: 01-15-2025 Follow-up encounter Eddiesherwin Bishop APRN.HAND COLLATOR Work Phone: [facility] Start: 11-14-2024 End: 11-14-2024 ambulatory EDDIE BISHOP Facility:[facility] Start: 11-08-2024 End: 01-08-2025 Follow-up encounter Eddie Saleh Cornell GREENHOUSE TRANSPLANTER.HAND COLLATOR Work Phone: [facility] Start: 11-07-2024 End: 11-07-2024 ambulatory EDDIE BISHOP Facility:[facility] Start: 11-03-2024 End: 11-03-2024 ambulatory EDDIE BISHOP Facility:[facility] Start: 10-10-2024 End: 10-10-2024 ambulatory EDDIE BISHOP Facility:[facility] Start: 10-10-2024 End: 10-10-2024 Office outpatient visit 25 minutes Mary Martin PA-C Work Phone: [facility] Comment on above: Sore throat (Primary Dx); Acute non-recurrent streptococcal tonsillitis Start: 10-02-2024 End: 10-02-2024 ambulatory EDDIE BISHOP Facility:[facility] Start: 10-02-2024 End: 10-02-2024 Nursing evaluation of patient and report Nurse [employer] Work Phone: OB/Gynecology Comment on above: Need for prophylacti c vaccination and inoculation against influenza (Primary Dx) Start: 09-03-2024 End: 09-04-2024 Follow-up encounter Jess Thayer MD Work Phone: Cardiology Start: 08-28-2024 ambulatory JESS THAYER Facil ity:[facility] Start: 08-28-2024 End: 08-28-2024 Subsequent hospital visit by physician Stress Lab [facility] Work Phone: Cardiology Lab Comment on above: Palpitations [R00.2] Start: 08-25-2024 End: 08-25-2024 Telephone encounter Marcella Anthony RN Cardiology Lab Comment on above: Reminder Call Start: 08-21-2024 End: 10-21-2024 Follow-up encounter Marlin OLGUIN Work Phone: [facility] Start: 08-20-2024 End: 08-20-2024 ambulatory EDDIE BISHOP Facility:[facility] Start: 08-20-2024 End: 08-20-2024 Patient encounter procedure Danay Garcia APRN.HAND COLLATOR Work Phone: [facility] Comment on above: Urinary frequency (P rimary Dx); Sore throat Start: 08-18-2024 End: 08-18-2024 Telephone encounter Marcella Anthony RN Cardiology Lab Comment on above: Reminder Call Start: 08-16-2024 End: 08-17-2024 Telephone encounter Katiana Diaz APRN.HAND COLLATOR Work Phone: [facility] Comment on above: Results Start: 08-07-2024 End: 08-07-2024 ambulatory JESS THAYER Facility:[facility] Start: 08-07-2024 End: 08-07-2024 Patient encounter procedure Jess Thayer MD Work Phone: Cardiology Comment on above: Palpitations (Primar y Dx); SOB (shortness of breath); Shortness of breath Start: 08-03-2024 End: 08-03-2024 Telephone encounter Eddie Bishop APRN.HAND COLLATOR Work Phone: [facility] Comment on above: Results Start: 08-01-2024 End: 08-01-2024 Subsequent hospital visit by physician [facility] Comment on above: Acute pain of right knee [M25.561] Start: 08-01-2024 End: 08-01-2024 ambulatory EDDIE BISHOP Facility:[facility] Start: 08-01-2024 End: 08-01-2024 Patient encounter procedure Katiana Diaz APRN.HAND COLLATOR Work Phone: [facility] Comment on above: Acute pain of right knee (Primary Dx); Injury of left knee, initial encounter Start: 07-18-2024 ambulatory EDDIE BISHOP Facilit y:[facility] Start: 07-18-2024 End: 07-18-2024 Subsequent hospital visit by physician Card/Pulm Lab [facility] CARDIO PULMONARY TESTING Comment on above: Palpitations [R00.2] Start: 07-11-2024 End: 07-11-2024 ambulatory EDDIE BISHOP Facility:[facility] Start: 07-11-2024 End: 07-11-2024 Office outpatient visit 25 minutes Todd Ross MD Work Phone: [facility] Comment on above: Gastroenteritis (Lexi karolyn Dx) Start: 07-06-2024 End: 07-10-2024 Telephone encounter Ruby Alvarez MD Work Phone: OB/Gynecology Comment on above: Contraception Start: 07-03-2024 End: 07-03-2024 Patient encounter procedure Katiana Diaz GREENHOUSE TRANSPLANTER.HAND COLLATOR Work Phone: [facility] Comment on above: Palpitations (Primar y Dx); Elevated blood pressure reading without diagnosis of hypertension; Bradycardia Start: 07-03-2024 End: 07-03-2024 ambulatory EDDIE BISHOP Facility:[facility] Start: 06-30-2024 End: 06-30-2024 Telephone encounter Eddie Bishop GREENHOUSE TRANSPLANTER.HAND COLLATOR Work Phone: [facility] Start: 06-29-2024 End: 06-29-2024 Emergency department patient visit Bernardo Wong Facility:[facility] Start: 06-29-2024 End: 06-29-2024 ambulatory EDDIE BISHOP Facility:[facility] Start: 06-24-2024 End: 06-26-2024 ambulatory Eddie Bishop GREENHOUSE TRANSPLANTER.HAND COLLATOR Work Phone: [facility] Comment on above: Heart rate Start: 05-31-2024 End: 05-31-2024 ambulatory RBUY ALVAREZ Facility:[facility] Start: 05-31-2024 End: 05-31-2024 Patient encounter procedure Ruby Alvarez MD Work Phone: OB/Gynecology Comment on above: Encounter for gyneco logical examination (general) (routine) without abnormal findings (Primary Dx); Need for prophylactic vaccination/inoculation against viral disease Start: 05-31-2024 End: 05-31-2024 Patient encounter status Ruby Alvarez MD Work Phone: [facility] Start: 05-23-2024 End: 05-23-2024 ambulatory KEKE PABLO Facility:[facility] Start: 05-23-2024 End: 05-23-2024 Patient encounter procedure Keke Pablo MD Work Phone: Allergy Comment on above: Adverse reaction to food, initial encounter (Primary Dx); Egg allergy; Chronic rhinitis; [id number] adverse effect of medication, initial encounter Start: 05-23-2024 End: 05-26-2024 Telephone encounter Leatha Ocampo MD Work Phone: General Surgery Comment on above: Patient Question Start: 05-16-2024 End: 05-16-2024 ambulatory LEATHA OCAMPO Facility:[facility] Start: 05-13-2024 End: 05-17-2024 Admission to same day surgery center Ct Pappas MD Work Phone: Gynecology Comment on above: Surgery/endometriosi s pain Start: 05-13-2024 End: 05-17-[address] Pappas MD Work Phone: Gynecology Start: 05-08-2024 End: 05-08-2024 ambulatory EDDIE BISHOP Facility:[facility] Start: 05-05-2024 End: 05-05-2024 ambulatory LEATHA OCAMPO Facility:[facility] Start: 05-05-2024 End: 05-05-2024 Patient encounter procedure Leatha Ocampo MD Work Phone: General Surgery Comment on above: Lipoma, unspecified site (Primary Dx); Skin cysts, generalized Start: 04-24-2024 End: 04-25-2024 Emergency department patient visit ALAINA RAO MD Facility:[facility] Start: 04-24-2024 End: 04-24-2024 ambulatory Eddie Bishop APRN.HAND COLLATOR Work Phone: [facility] Comment on above: Fatigue Start: 04-24-2024 End: 04-24-2024 Follow-up encounter Eddie Bishop APRN.HAND COLLATOR Work Phone: [facility] Comment on above: Er visit follow up q uestions Start: 04-20-2024 End: 04-20-2024 Emergency department patient visit Javy Tai Facility:[facility] Start: 04-20-2024 End: 04-20-2024 ambulatory EDDIE BISHOP Facility:[facility] Start: 04-20-2024 End: 04-20-2024 Patient encounter procedure Oma Galvin GREENHOUSE TRANSPLANTER.HAND COLLATOR Work Phone: [facility] Comment on above: Left upper quadrant abdominal pain (Primary Dx) Start: 04-11-2024 End: 04-12-2024 Telephone encounter Eddie Bishop APRN.HAND COLLATOR Work Phone: [facility] Comment on above: Lab & Test Results Start: 04-10-2024 End: 04-10-2024 ambulatory EDDIE BISHOP Facility:[facility] Start: 04-10-2024 End: 04-10-2024 Patient encounter procedure Eddie Bishop GREENHOUSE TRANSPLANTER.HAND COLLATOR Work Phone: [facility] Comment on above: Left upper quadrant abdominal pain (Primary Dx); Nausea and vomiting, unspecified vomiting type; Palpitations; Shortness of breath Start: 03-20-2024 End: 03-20-2024 Telephone encounter Eddie Bishop APRN.HAND COLLATOR Work Phone: [facility] Comment on above: Results Start: 03-16-2024 End: 03-16-2024 Telephone encounter Eddie Bishop APRN.HAND COLLATOR Work Phone: [facility] Comment on above: Results Start: 03-10-2024 End: 03-10-2024 Telephone encounter Eddie Bishop APRN.HAND COLLATOR Work Phone: [facility] Comment on above: Results Start: 03-08-2024 End: 03-08-2024 Telephone encounter Eddie Bishop GREENHOUSE TRANSPLANTER.HAND COLLATOR Work Phone: [facility] Comment on above: Results Start: 03-07-2024 End: 03-07-2024 Patient encounter procedure Eddie Bishop GREENHOUSE TRANSPLANTER.HAND COLLATOR Work Phone: [facility] Comment on above: Epigastric pain (Lexi karolyn Dx); LUQ pain; Subcutaneous mass of abdominal wall; Abnormal uterine bleeding; Nausea; Prediabetes Start: 01-17-2024 End: 01-17-2024 Subsequent hospital visit by physician [facility] Comment on above: Renal calculus, left [N20.0] Start: 12-13-2023 ambulatory Katiana A Federicod en GREENHOUSE TRANSPLANTER.HAND COLLATOR Work Phone: [facility] Comment on above: Respitory virus Start: 12-03-2023 ambulatory Katiana A Federicod en GREENHOUSE TRANSPLANTER.HAND COLLATOR Work Phone: [facility] Comment on above: Antibotic for ear Start: 12-03-2023 End: 12-03-2023 Patient encounter procedure Katherine Rome MD Work Phone: Urology Comment on above: Renal calculus, left (Primary Dx) Start: 12-02-2023 End: 12-02-2023 Patient encounter procedure Katiana Diaz GREENHOUSE TRANSPLANTER.HAND COLLATOR Work Phone: [facility] Comment on above: Flu-like symptoms (P rimary Dx); Fever, unspecified fever cause; Productive cough; Nausea; Sore throat Start: 12-01-2023 ambulatory Eddie reyes GREENHOUSE TRANSPLANTER.HAND COLLATOR Work Phone: NURSE SEPTIC [employer] Comment on above: Fever Start: 12-01-2023 Telephone encounter Katherine busby MD Work Phone: Urology Comment on above: Patient Question Start: 12-01-2023 End: 12-01-2023 Office outpatient visit 15 minutes Donny Godfrey APRN.HAND COLLATOR Work Phone: [facility] Comment on above: Pharyngitis, unspeci fied etiology (Primary Dx); Viral illness Start: 11-26-2023 End: 11-26-2023 ambulatory [facility] Facility:[facility] Start: 11-15-2023 ambulatory Gemma Foote [facility] Start: 11-15-2023 Telephone encounter Eddie Bishop APRN.HAND COLLATOR Work Phone: [facility] Start: 11-10-2023 ambulatory Katherine Rome MD Work Phone: Urology Comment on above: Frequent urination Start: 11-09-2023 End: 11-10-2023 [facility] Facility:[facility] Start: 11-09-2023 Encounter for other preprocedural examination [facility] Start: 11-09-2023 End: 11-09-2023 Admission to establishment [place] [id number] Work Phone: Pre Anesthesia Start: 11-09-2023 End: 11-09-2023 Anesthesia consultation [place] [address] Work Phone: Pre Anesthesia Comment on above: Preoperative examina tion (Primary Dx); Palpitations; Anxiety and depression; Obesity, Class III, BMI >= 40; Prediabetes; Current every day nicotine vaping Start: 11-09-2023 End: 11-09-2023 Preprocedural examination done [place] [id number] Work Phone: [facility] Work Phone: Start: 11-09-2023 End: 11-09-2023 Patient encounter procedure Katiana Diaz APRN.HAND COLLATOR Work Phone: [facility] Comment on above: Skin cysts, generali zed (Primary Dx) Start: 11-08-2023 E-mail encounter fro m caregiver Eddie Bishop APRN.CNP Work Phone: [facility] Start: 11-08-2023 End: 11-08-2023 Patient encounter procedure Tonia Cevallos APRN.CNP Work Phone: [email or web address] Comment on above: Urinary frequency (P rimary Dx) Appointment Request Start: 11-01-2023 Telephone encounter Mouna Singh APRN.HAND COLLATOR Work Phone: [email or web address] Comment on above: Results Start: 10-30-2023 End: 10-30-2023 Patient encounter procedure Ivis Lm CHAWLA.HAND COLLATOR Work Phone: [facility] Comment on above: Dysuria (Primary Dx) ; Nausea; Vaginal discharge; Exposure to COVID-19 virus Start: 08-30-2023 End: 08-30-2023 Patient encounter procedure Katherine Rome MD Work Phone: Urology Comment on above: Renal calculus, left (Primary Dx) Start: 08-30-2023 Telephone encounter Eddie Bishop APRN.HAND COLLATOR Work Phone: [facility] Comment on above: Results Start: 08-27-2023 ambulatory Eddie reyes APRN.HAND COLLATOR Work Phone: [facility] Start: 08-27-2023 Patient encounter procedure Eddie Bisohp APRN.HAND COLLATOR Work Phone: [facility] Comment on above: Appointment yesturda y Start: 08-27-2023 End: 08-27-2023 Subsequent hospital visit by physician [facility] Comment on above: Right upper quadrant abdominal tenderness without rebound tenderness [R10.811] Start: 08-26-2023 Telephone encounter Eddie Bishop APRN.HAND COLLATOR Work Phone: [facility] Start: 08-26-2023 End: 08-26-2023 Patient encounter procedure Tin Rich APRN.HAND COLLATOR Work Phone: [facility] Comment on above: Nausea vomiting and diarrhea (Primary Dx); Right upper quadrant abdominal tenderness without rebound tenderness; Screening for deficiency anemia; Encounter for screening for diabetes mellitus; Elevated fasting blood sugar; Screening for lipid disorders; Screening for blood or protein in urine; Screening for thyroid disorder Start: 08-12-2023 End: 08-12-2023 Subsequent hospital visit by physician [facility] Comment on above: Renal calculus, left [N20.0] Start: 06-23-2023 ambulatory Eddie reyes APRN.CNP Work Phone: [facility] Comment on above: ED Outreach ([facility] 06/22/23) Start: 05-31-2023 ambulatory Karolyn Abad RN [facility] Comment on above: ED Outreach ([facility] 05/27/23) Work note Start: 05-31-2023 Patient encounter procedure Karolyn Abad RN NURSE SEPTIC TANK CLEANER Comment on above: Referral Request Start: 05-31-2023 Telephone encounter Eddie Bishop APRN.CNP Work Phone: [facility] Comment on above: Patient Question Start: 05-31-2023 End: 05-31-2023 Office outpatient new 45 minutes Doris Frank APRN.CNP, DNP Work Phone: Urology Comment on above: Renal calculus, left (Primary Dx); Screening for genitourinary condition Start: 05-26-2023 Telephone encounter Ivis fairbanks APRN.RON Work Phone: OB/Gynecology Comment on above: Urinary Frequency Appointment Start: 04-30-2023 Telephone encounter Ivis fairbanks GREENHOUSE TRANSPLANTER.CNSally Work Phone: OB/Gynecology Comment on above: Results Start: 04-26-2023 End: 04-26-2023 Patient encounter procedure Ivis Paiz APRN.CNSally Work Phone: OB/Gynecology Comment on above: Vaginal discharge (P rimary Dx); Dysuria; Feeling of incomplete bladder emptying Start: 04-20-2023 Refill Ruby Alvarez MD Work Phone: OB/Gynecology Comment on above: Amenorrhea Start: 04-10-2023 End: 04-10-2023 Patient encounter procedure Tonia Cevallos APRN.HAND COLLATOR Work Phone: [facility] Comment on above: URI, acute (Primary Dx) Start: 03-30-2023 Telephone encounter Eddie Bishop APRN.CNP Work Phone: [facility] Comment on above: Results Start: 03-23-2023 Telephone encounter Eddie Bishop APRN.HAND COLLATOR Work Phone: [facility] Comment on above: No Show (First no sh ow in 365 days.) Start: 03-18-2023 ambulatory Eddie reyes APRN.HAND COLLATOR Work Phone: [facility] Comment on above: Heart echo results Start: 03-18-2023 Telephone encounter Eddie Bishop APRN.HAND COLLATOR Work Phone: [facility] Comment on above: Results Start: 03-17-2023 End: 03-17-2023 Subsequent hospital visit by physician Card/Pulm Lab [facility] Comment on above: Chest tightness [R07 .89] Start: 03-09-2023 ambulatory Eddie reyes APRN.HAND COLLATOR Work Phone: [facility] Comment on above: Heart monitor Start: 02-09-2023 Telephone encounter Eddie Bishop APRN.HAND COLLATOR Work Phone: [facility] Comment on above: Patient Question; Xr ay Results Start: 02-08-2023 End: 02-08-2023 Subsequent hospital visit by physician [facility] Comment on above: Chest tightness [R07 .89] Start: 02-08-2023 End: 02-08-2023 Patient encounter procedure Eddie Bishop APRN.HAND COLLATOR Work Phone: [facility] Comment on above: Chest tightness (Lexi karolyn Dx); Palpitations; VICTOR (dyspnea on exertion) Start: 01-18-[address] valero MD Work Phone: [facility] Comment on above: Surgery Cancelled Start: 01-14-2023 End: 01-14-2023 ambulatory Nurse Bridge/Structure Inspection Team Leader Work Phone: Gynecology Comment on above: Educational circumst ances (Primary Dx) Start: 01-14-2023 End: 01-14-2023 Telemedicine consultation with patient Nurse Bridge/Structure Inspection Team Leader Work Phone: [facility] Start: 12-30-[address] valero MD Work Phone: Obstetrics/Gynecology Comment on above: Preparations For Ivana diego Start: 12-09-2022 Telephone encounter Eddie Bishop APRN.HAND COLLATOR Work Phone: [facility] Comment on above: Patient Question; Pa tient Update Start: 11-11-2022 Patient encounter status Lexie Abbasi APRN.HAND COLLATOR Work Phone: Gynecology Start: 11-11-2022 Telephone encounter Candice Abbasi APRN.HAND COLLATOR Work Phone: Gynecology Comment on above: Orders Start: 11-10-2022 End: 11-10-2022 Patient encounter procedure Eddie Bishop APRN.HAND COLLATOR Work Phone: [facility] Comment on above: Encounter for [facility] ss examination in adult (Primary Dx) Start: 11-10-2022 End: 11-10-2022 Patient encounter status Eddie Bishop APRN.HAND COLLATOR Work Phone: [facility] Start: 11-09-2022 End: 11-09-2022 Office consultation new/estab patient [address] Pappas MD Work Phone: Gynecology Comment on above: Dysmenorrhea (Primar y Dx); Spastic pelvic floor syndrome; Abnormal uterine bleeding (AUB); Pelvic pain in female; Preop examination Start: 11-09-2022 End: 11-09-[address] Pappas MD Work Phone: Gynecology Start: 11-02-2022 ambulatory Eddie reyes APRN.HAND COLLATOR Work Phone: [facility] Start: 10-30-2022 End: 10-30-2022 Patient encounter procedure Eddie Bishop APRN.HAND COLLATOR Work Phone: [facility] Comment on above: Kidney stone (Primar y Dx) Start: 10-29-2022 Telephone encounter Zakiya Nina DO Work Phone: Gynecology Comment on above: Clinical Quality Rn - O ther (Reschedule appt for CPP consult) Patient Question Start: 10-15-2022 End: 10-15-2022 Patient encounter procedure Ruby Alvarez MD Work Phone: OB/Gynecology Comment on above: Abnormal uterine ble eding (AUB) (Primary Dx); Female infertility; Anovulation; Class 3 severe obesity with body mass index (BMI) of 45.0 to 49.9 in adult, unspecified obesity type, unspecified whether serious comorbidity present (HCC); PCOS (polycystic ovarian syndrome) Start: 09-07-2022 Telephone encounter Eddie Bishop APRN.CNP Work Phone: [facility] Comment on above: Follow Up Start: 08-27-2022 Telephone encounter Ruby Alvarez MD Work Phone: OB/Gynecology Comment on above: Irregular Menstrual Cycle (/) Start: 08-20-2022 Refill Ruby Alvarez MD Work Phone: OB/Gynecology Comment on above: Refill Request Start: 07-30-2022 Telephone encounter Eddie Bishop APRN.CNP Work Phone: [facility] Comment on above: Patient Question; Xr ay Results Start: 07-29-2022 End: 07-29-2022 Subsequent hospital visit by physician [facility] Comment on above: Acute left-sided tho racic back pain [M54.6] Rib pain on left randy e [R07.81] Start: 07-24-2022 ambulatory Eddie reyes APRN.CNP Work Phone: [facility] Comment on above: Side pain Start: 07-20-2022 End: 07-20-2022 Patient encounter procedure Eddie Bishop APRN.CNP Work Phone: [facility] Comment on above: Anxiety and depressi on (Primary Dx); LUQ pain; Abdominal mass, LUQ (left upper quadrant); Nausea Start: 07-13-2022 Telephone encounter Ruby Alvarez MD Work Phone: OB/Gynecology Comment on above: Refill Request Start: 07-09-2022 End: 07-09-2022 Patient encounter procedure Geronimo Nina APRN.HAND COLLATOR Work Phone: [facility] Comment on above: Impacted cerumen of right ear (Primary Dx) Start: 06-23-2022 Telephone encounter Ruby Alvarez MD Work Phone: OB/Gynecology Comment on above: Results Start: 06-22-2022 End: 06-22-2022 Patient encounter procedure Ruby Alvarez MD Work Phone: OB/Gynecology Comment on above: Encounter for gyneco logical examination (general) (routine) without abnormal findings (Primary Dx); Class 3 severe obesity with body mass index (BMI) of 45.0 to 49.9 in adult, unspecified obesity type, unspecified whether serious comorbidity present (HCC); Encounter for vitamin deficiency screening; Screening cholesterol level; Encounter for screening for diabetes mellitus; Screening for thyroid disorder; Screening for cervical cancer Start: 06-22-2022 End: 06-22-2022 Patient encounter status Ruby Alvarez MD Work Phone: OB/Gynecology Start: 04-21-2022 Refill Eddie reyes APRN.HAND COLLATOR Work Phone: [facility] Comment on above: Refill Request Start: 04-01-2022 End: 04-01-2022 Patient encounter procedure Eddie Bishop APRN.HAND COLLATOR Work Phone: [facility] Comment on above: Viral illness (Prima ry Dx); Sore throat; Cough, unspecified type Start: 02-05-2022 ambulatory Gemma Foote MA [facility] Start: 12-10-2021 ambulatory Eddie reyes APRN.HAND COLLATOR Work Phone: [facility] Comment on above: results Start: 12-10-2021 E-mail encounter fro m caregiver Eddie Bishop APRN.HAND COLLATOR Work Phone[facility] Start: 12-09-2021 Telephone encounter Eddie Bishop APRN.HAND COLLATOR Work Phone: [facility] Comment on above: Results Start: 12-05-2021 ambulatory iTn vargas GREENHOUSE TRANSPLANTER.HAND COLLATOR Work Phone: [facility] Comment on above: Mixed mason Start: 12-03-2021 End: 12-03-2021 Patient encounter procedure Tin Rich GREENHOUSE TRANSPLANTER.HAND COLLATOR Work Phone: [facility] Comment on above: Urinary frequency (P rimary Dx); Other microscopic hematuria Start: 10-22-2021 End: 10-22-2021 Patient encounter procedure Jorge A Chisholm MD Work Phone: Reproductive Endocrinology Inf[facility] Comment on above: No-show for appointm ent (Primary Dx) Start: 09-16-2021 Patient requested procedure Jorge A Chisholm MD Work Phone: [facility] Work Phone: Start: 09-27-2018 Patient encounter procedure [facility] Facility:[facility] Procedures Date Procedure Procedure Detail Performing Clinician Start: 03-20-2025 Echo tthrc r-t 2d w/ wom-mode compl spec&colr d Jess Thayer MD Work Phone: Start: 02-22-2025 Follow-up visit Follow-up KOSTAS KIRKLAND Start: 01-26-2025 Follow-up visit Follow Up ANDREAS MERCER Start: 01-26-2025 Ct abdomen & pelvis w/contrast material Eddie Bishop APRN.HAND COLLATOR Work Phone: Start: 01-24-2025 X-ray of lumbosacral spine Eddie Bishop NP-C Work Phone: Start: 01-24-2025 Transvaginal echography Eddie Bishop PHARMACY SERVICE ASSOCIATE-[place]se Work Phone: Start: 01-24-2025 Estimated creatinine clearance Eddie Bishop PHARMACY SERVICE ASSOCIATE-Therese Work Phone: Start: 01-24-2025 Urnls dip stick/tabl et reagent auto microscopy Eddie Bishop PHARMACY SERVICE ASSOCIATE-C Work Phone: Start: 01-16-2025 Gonadotropin chorion ic quantitative Kostas Hopkins DO Work Phone: Start: 01-08-2025 Gonadotropin chorion ic quantitative Kostas Hopkins DO Work Phone: Start: 01-01-2025 Us preg uterus real time w/image dcmtn transvag Sloane Villegas MD Work Phone: Start: 01-01-2025 Antibody screen KOSTAS [place] ISAEL Comment on above: Performed By: #### L [id number] ####Postmaster Relief: MELODY MOREL ([id number])[facility] BLOOD [facility])[address] [place] [address] Start: 01-01-2025 ABO and Rh group [Ty pe] in Blood by Confirmatory method Britta Parker MD Work Phone: Start: 01-01-2025 Blood typing serologic abo Britta Parker MD Work Phone: Start: 01-01-2025 Comprehensive metabo lic panel Britta Parker MD Work Phone: Start: 12-25-2024 Gonadotropin chorion ic quantitative Kostas Hopkins DO Work Phone: Start: 12-18-2024 Gonadotropin chorion ic quantitative Kostas Hopkins DO Work Phone: Start: 10-10-2024 STREP A MOLECULAR (POC) Ivis Amato APRN.HAND COLLATOR Work Phone: Start: 08-28-2024 Cv strs tst xers&/or rx cont ecg trcg only Jess Thayer MD Work Phone: Start: 08-20-2024 UA DIP,URINE HCG (POC) [facility] Provider Start: 08-20-2024 Urnls dip stick/tabl et rgnt auto w/o microscopy Geronimo Nina APRN.HAND COLLATOR Work Phone: Start: 08-20-2024 STREP A MOLECULAR (POC) Geronimo Nina APRN.HAND COLLATOR Work Phone: Start: 03-07-2024 UA DIP,URINE HCG (POC) Eddie Bishop APRN.HAND COLLATOR Work Phone: Start: 03-07-2024 Urnls dip stick/tabl et rgnt auto w/o microscopy Eddie Bishop APRN.HAND COLLATOR Work Phone: Start: 12-03-2023 Urnls dip stick/tabl et rgnt auto w/o microscopy Katherine Rome MD Work Phone: Start: 12-01-2023 STREP A MOLECULAR (POC) Donny Godfrey APRN.[facility] Work Phone: Start: 11-08-2023 Urnls dip stick/tabl et rgnt auto w/o microscopy Ivis Amato APRN.[facility] Work Phone: Start: 10-30-2023 UA DIP,URINE HCG (POC) [facility] Provider Start: 10-30-2023 Urnls dip stick/tabl et rgnt auto w/o microscopy Ivis Amato APRN.HAND COLLATOR Work Phone: Start: 08-30-2023 Urnls dip stick/tabl et rgnt auto w/o microscopy Katherine Rome MD Work Phone: Start: 08-12-2023 Us retroperitoneal r eal time w/image complete Doris Frank APRN.HAND COLLATOR, DNP Work Phone: Start: 05-31-2023 Urnls dip stick/tabl et rgnt auto w/o microscopy Doris Frank APRN.HAND COLLATOR, DNP Work Phone: Start: 04-26-2023 Urnls dip stick/tabl et rgnt auto w/o microscopy Ivis Paiz APRN.CNM Work Phone: Start: 04-10-2023 STREP A MOLECULAR (POC) [facility] Provider Start: 03-17-2023 Echo tthrc r-t 2d w/ wom-mode compl spec&colr d Eddie Bishop GREENHOUSE TRANSPLANTER.HAND COLLATOR Work Phone: Start: 02-08-2023 Ecg routine ecg w/le ast 12 lds trcg only w/o i&r Eddie Bishop APRN.HAND COLLATOR Work Phone: Start: 11-09-2022 Urnls dip stick/tabl et rgnt auto w/o microscopy Ct Pappas MD Work Phone: Start: 10-15-2022 Urine test visual color cmprsn saadia Alvarez MD Work Phone: Start: 06-22-2022 Lipid 1996 panel - S annika or Plasma Weston Armstrong MD Work Phone: Start: 06-22-2022 Microscopic observat ion [Identifier] in Cervix by Cyto stain Kostas Hopkins DO Work Phone: Start: 12-03-2021 Urnls dip stick/tabl et rgnt auto w/o microscopy Tin Rich GREENHOUSE TRANSPLANTER.[facility] Work Phone: Plan of Treatment Date Care Activity Detail Author Start: 2070 RSV Immunization for Adults (1 - 1-dose 75+ series) RSV Immunization for Adults (1 - 1-dose 75+ series) [facility] Start: 2070 RSV Vaccine (1 - 1-dose 75+ series) RSV Vaccine (1 - 1-dose 75+ series) [facility] Start: 2045 Zoster Vaccines (1 of 2) Zoster Vaccines (1 of 2) [facility] Start: 05-10-2028 Urine microalbumin profile [facility] Start: 06-22-2027 Lipid panel Lipid Panel [facility] Start: 06-22-2025 PAP TESTING PAP TESTING [facility] Start: 06-22-2025 Screening for malignant neoplasm of cervix [facility] Start: 06-15-2025 Depression Monitoring Depression Monitoring [facility] Start: 06-04-2025 End: 06-04-2025 Patient encounter procedure 06/04/2025 1:20 PM EST Office Visit OB/Gynecology [address] [place], [place] [address] Ruby Villalba MD [address] [place], [place] [address] Annual OB/Gynecology Comment on above: Annual Start: 05-09-2025 End: 05-09-2025 Patient encounter procedure 05/09/2025 12:00 PM EDT Office Visit Rheumatology [address] [place] [address] Uli Diallo MD [address] [place], [place] [id number] Brain fog [R41.89] Rheumatology Comment on above: Brain fog [R41.89] Start: 04-10-2025 Covid-19 Vaccine ( season) Covid-19 Vaccine ( season) [facility] Comment on above: Postponed from 03/12/2024 (Declined at t his time) Start: 04-10-2025 Diabetes mellitus screening Diabetes Screening [facility] Start: 04-02-2025 End: 04-02-2025 Patient encounter procedure 04/02/2025 5:00 PM EDT Office Visit [facility] [address] [place] [address] Eddie Bishop APRN.HAND COLLATOR [address] [place] [address] follow up [facility] Comment on above: follow up Start: 03-20-2025 End: 03-20-2025 Patient encounter procedure 03/20/2025 1:00 PM EDT Appointment [facility] [address] [place], [place] [id number] echo [facility] Comment on above: echo Start: 03-20-2025 Subsequent hospital visit by physician 03/20/2025 1:00 PM EDT Hospital Encounter [facility] [address] [facility] [place] [address] Palpitations [R00.2] [facility] Comment on above: Palpitations [R00.2] Start: 03-12-2025 Influenza vaccination [facility] Start: 02-22-2025 End: 02-22-2025 Patient encounter procedure 02/22/2025 1:15 PM EDT Office Visit [facility] Obstetrics and Gynecology [address] [place] [id number] Kostas Hopkins, DO [address] [place], [place] [id number] [facility] Obstetrics [facility] Gynecology [facility] Start: 01-26-2025 End: 01-26-2025 Patient encounter procedure OB/Gynecology Comment on above: F/U Ectopic-seen in [facility] ER on Wed. Left lower quadrant abdominal pain [R10.32] Start: 01-24-2025 [facility] Start: 01-18-2025 End: 01-18-2026 hCG, quantitative hCG, quantitative Lab Routine Tubal without intrauterine , unspecified laterality Expected: 01/18/2025 (Approximate), Expires: 01/18/2026 [facility] Work Phone: Comment on above: Expected: 01/18/2025 (Approximate), Expi res: 01/18/2026 Start: 01-18-2025 End: 01-18-2025 Patient encounter procedure 01/18/2025 11:30 AM EDT Office Visit [facility] Obstetrics [facility] [address] [place] [address] Kostas Hopkins, DO [address] [place] [address] [facility] Obstetrics [facility] Start: 01-08-2025 Influenza vaccination Influenza Vaccine (#1) [facility] Comment on above: Postponed from 03/12/2024 (Declined at t his time) Start: 01-04-2025 End: 01-04-2026 Bacteria identified in Urine by Culture Urine culture Microbiology Routine Urinary urgency Expected: 01/04/2025 (Approximate), Expires: 01/04/[address] [facility] Work Phone: Comment on above: Expected: 01/04/2025 (Approximate), Expi res: 01/04/2026 Start: 01-04-2025 End: 01-04-2026 hCG, quantitative hCG, quantitative Lab Routine Tubal without intrauterine , unspecified laterality Expected: 01/04/2025 (Approximate), Expires: 01/04/2026 [facility] Work Phone: Comment on above: Expected: 01/04/2025 (Approximate), Expi res: 01/04/2026 Start: 01-03-2025 End: 01-03-2026 hCG, quantitative hCG, quantitative Lab Routine Tubal without intrauterine , unspecified laterality Expected: 01/03/2025 (Approximate), Expires: 01/03/[address] [facility] Work Phone: Comment on above: Expected: 01/03/2025 (Approximate), Expi res: 01/03/2026 Start: 01-02-2025 End: 01-02-2025 Professional / ancillary services management 01/02/2025 3:30 PM EDT Ancillary Procedure [facility] Obstetrics and Gynecology [facility] [address] [place] [address] [facility] Obstetrics and Gynecology [facility] Start: 01-01-2025 End: 01-01-2026 hCG, quantitative hCG, quantitative Lab Routine of unknown anatomic location Expected: 01/01/2025 (Approximate), Expires: 01/01/2026 [facility] Work Phone: Comment on above: Expected: 01/01/2025 (Approximate), Expi res: 01/01/2026 Start: 12-29-2024 End: 12-29-2025 hCG, quantitative hCG, quantitative Lab Routine of unknown anatomic location Expected: 12/29/2024 (Approximate), Expires: 12/29/2025 [employer] Work Phone: Comment on above: Expected: 12/29/2024 (Approximate), Expi res: 12/29/2025 Start: 12-27-2024 End: 12-27-2025 US Pelvis transvaginal US OB transvaginal Imaging Routine with inconclusive viability, single or unspecified fetus Expected: 12/27/2024, Expires: 12/27/2025 [employer] Work Phone: Comment on above: Expected: 12/27/2024, Expires: Start: 12-26-2024 End: 12-26-2025 hCG, quantitative hCG, quantitative Lab Routine with inconclusive viability, single or unspecified fetus Expected: 12/26/2024 (Approximate), Expires: 12/26/2025 [employer] Work Phone: Comment on above: Expected: 12/26/2024 (Approximate), Expi res: 12/26/2025 Start: 12-25-2024 HPV Vaccines (3 - 3-dose SCDM series) HPV Vaccines (3 - 3-dose SCDM series) [facility] Start: 12-19-2024 End: 12-19-2024 Patient encounter procedure 12/19/2024 10:00 AM EDT Office Visit Allergy [address] [id number] Keke Pablo MD [address] [place] [address] skin testing with PcN testing Allergy Comment on above: skin testing with PcN testing Start: 12-17-2024 End: 12-17-2025 hCG, quantitative hCG, quantitative Lab Routine with inconclusive viability, fetus 1 of multiple gestation Expected: 12/17/2024 (Approximate), [facility]: [facility] Comment on above: Expected: 12/17/2024 (Approximate), Expi res: 12/17/2025 Start: 12-14-2024 End: 12-14-2025 ANTI-MULLERIAN HORMONE ([facility]), FEMALE [facility] ANTI-MULLERIAN HORMONE ([facility]), FEMALE QUEST Lab Routine PCOS (polycystic ovarian syndrome) Infertility, female Expected: 12/14/2024 (Approximate), Expires: 12/14/2025 [facility] Comment on above: Expected: 12/14/2024 (Approximate), Expi res: 12/14/2025 Start: 12-14-2024 End: 12-14-2025 Estradiol Estradiol Lab Routine PCOS (polycystic ovarian syndrome) Infertility, female Expected: 12/14/2024 (Approximate), Expires: 12/14/2025 [facility] Comment on above: Expected: 12/14/2024 (Approximate), Expi res: 12/14/2025 Start: 12-14-2024 End: 12-14-2025 Follicle stimulating hormone Follicle stimulating hormone Lab Routine PCOS (polycystic ovarian syndrome) Infertility, female Expected: 12/14/2024 (Approximate), Expires: 12/14/2025 [facility] Comment on above: Expected: 12/14/2024 (Approximate), Expi res: 12/14/2025 Start: 12-14-2024 End: 12-14-2025 Luteinizing hormone Luteinizing hormone Lab Routine PCOS (polycystic ovarian syndrome) Infertility, female Expected: 12/14/2024 (Approximate), Expires: 12/14/2025 [facility] Comment on above: Expected: 12/14/2024 (Approximate), Expi res: 12/14/2025 Start: 12-14-2024 End: 12-14-2025 Progesterone Progesterone Lab Routine PCOS (polycystic ovarian syndrome) Infertility, female Expected: 12/14/2024 (Approximate), Expires: 12/14/2025 [facility] Comment on above: Expected: 12/14/2024 (Approximate), Expi res: 12/14/2025 Start: 12-14-2024 End: 12-14-2025 RF Uterus and Fallopian tubes Views W contrast IU FL HYSTEROSALPINGOGRAM Imaging Routine PCOS (polycystic ovarian syndrome) Infertility, female Expected: 12/14/2024, Expires: 12/14/2025 [facility] Work Phone: Comment on above: Expected: 12/14/2024, Expires: Start: 12-14-2024 End: 12-14-2025 Testosterone [Mass/volume] in Serum or Plasma Testosterone Lab Routine PCOS (polycystic ovarian syndrome) Infertility, female Expected: 12/14/2024 (Approximate), Expires: 12/14/2025 [facility] Comment on above: Expected: 12/14/2024 (Approximate), Expi res: 12/14/2025 Start: 12-12-2024 End: 03-13-2025 Creatinine and Glomerular filtration rate.predicted panel - Serum, Plasma or Blood CREATININE BLD Lab Routine Left lower quadrant abdominal pain Expected: 12/12/2024, Expires: 03/13/2025 [facility] Comment on above: Expected: 12/12/2024, Expires: Start: 11-27-2024 9vhpv vacc 2/3 dose sched im use HPV VACCINE, 9-VALENT (GARDASIL 9) Immunization/Injection Routine Need for prophylactic vaccination/inoculation against viral disease Expected: 11/27/2024 (Approximate) [facility] Comment on above: Expected: 11/27/2024 (Approximate) Start: 11-20-2024 End: 11-20-2024 Patient encounter procedure 11/20/2024 11:00 AM EDT Office Visit Gynecology [address] [place] [address] Ct Pappas MD [address] [place], [place] [id number] last seen 11/2022 would like to have surgery rescheuled- endometrosis- pain Gynecology Comment on above: last seen 11/2022 would like to have surg robert rescheuled- endometrosis- pain Start: 10-02-2024 End: 10-02-2024 Nursing evaluation of patient and report 10/02/2024 4:00 PM EDT Nurse Visit [facility]ne[facility] [address] [facility] [place] [place] [id number] Wstr, Nurse [employer] [facility] [address] [place], [place] [id number] gardasil # 3 OB/Gynecology Comment on above: gardasil # 3 Start: 09-28-2024 HPV Vaccine (3 - 3-dose series) HPV Vaccine (3 - 3-dose series) [facility] Start: 09-12-2024 End: 09-12-2024 Patient encounter procedure 09/12/2024 9:00 AM EST Office Visit Allergy [address] [address] Keke Pablo MD [address] [place] [address] skin testing with PcN testing Allergy Comment on above: skin testing with PcN testing Start: 09-11-2024 End: 09-11-2024 Patient encounter procedure 09/11/2024 3:30 PM EST Office Visit Gynecology [address] [place] [address] Ct Pappas MD [address] [place] [address] last seen 11/2022 would like to have surgery rescheuled- endometrosis- pain Gynecology Comment on above: last seen 11/2022 would like to have surg robert rescheuled- endometrosis- pain Start: 08-28-2024 Subsequent hospital visit by physician 08/28/2024 12:00 PM EST Hospital Encounter Cardiology Lab [address] [place] [address] Palpitations [R00.2] Cardiology Lab Comment on above: Palpitations [R00.2] Start: 08-21-2024 End: 08-21-2024 Patient encounter procedure 08/21/2024 12:00 PM EST Appointment Cardiology Lab [address] [place] [address] Palpitations [R00.2] Cardiology Lab Comment on above: Palpitations [R00.2] Start: 08-21-2024 Subsequent hospital visit by physician 08/21/2024 12:00 PM EST Hospital Encounter Cardiology Lab [address] [place] [address] Palpitations [R00.2] Cardiology Lab Comment on above: Palpitations [R00.2] Start: 08-10-2024 Covid-19 Vaccine (#1) Covid-19 Vaccine (#1) [facility] Comment on above: Postponed from 02/13/1996 (Declined at t his time) Start: 08-10-2024 Covid-19 Vaccine ( season) Covid-19 Vaccine ( season) [facility] Comment on above: Postponed from 03/12/2023 (Declined at t his time) Start: 08-10-2024 HPV Vaccine (2 - 3-dose series) HPV Vaccine (2 - 3-dose series) [facility] Comment on above: Postponed from 06/07/2018 (Declined at t his time) Start: 08-07-2024 End: 08-07-2025 Echocardiography ECHO Cardiology Routine Palpitations Expected: 08/07/2024, Expires: 08/07/2025 [facility] Work Phone: Comment on above: Expected: 08/07/2024, Expires: Start: 08-07-2024 End: 08-07-2025 EXERCISE STRESS ECG (WITHOUT IMAGING) EXERCISE STRESS ECG (WITHOUT IMAGING) Cardiology Routine Palpitations SOB (shortness of breath) Expected: 08/07/2024, Expires: 08/07/2025 [facility] Comment on above: Expected: 08/07/2024, Expires: Start: 08-07-2024 End: 08-07-2024 Patient encounter procedure 08/07/2024 1:20 PM EST Office Visit Cardiology [address] [place] [id number] Jess Thayer MD [address] [place] [phone] Palpitations [R00.2] Cardiology Comment on above: Palpitations [R00.2] Start: 07-30-2024 9vhpv vacc 2/3 dose sched im use HPV VACCINE, 9-VALENT (GARDASIL 9) Immunization/Injection Routine Need for prophylactic vaccination/inoculation against viral disease Expected: 07/30/2024 (Approximate) [facility] Comment on above: Expected: 07/30/2024 (Approximate) Start: 07-18-2024 End: 07-18-2024 Patient encounter procedure 07/18/2024 3:00 PM EST Appointment [facility] [address] [place] [address] 7 day EW [facility] Comment on above: 7 day EW Start: 07-03-2024 End: 07-03-2024 Patient encounter procedure 07/03/2024 8:20 AM EST Office Visit [facility] [address] [place] [address] Katiana Diaz, GREENHOUSE TRANSPLANTER.HAND COLLATOR [address] [place] [address] palpitations [facility] Comment on above: palpitations Start: 06-26-2024 End: 01-22-2025 Thyrotropin [Units/volume] in Serum or Plasma THYROID STIMULATING HORMONE Lab Routine Fatigue, unspecified type Expected: 06/26/2024, Expires: 01/22/2025 [facility] Comment on above: Expected: 06/26/2024, Expires: Start: 06-26-2024 End: 01-22-2025 Thyroxine (T4) free [Mass/volume] in Serum or Plasma T4 FREE/FREE THYROXINE Lab Routine Fatigue, unspecified type Expected: 06/26/2024, Expires: 01/22/2025 [facility] Work Phone: Comment on above: Expected: 06/26/2024, Expires: Start: 05-31-2024 End: 05-31-2024 Patient encounter procedure 05/31/2024 11:00 AM EST Office Visit OB/Gynecology [address] [place] [id number] Ruby Villalba MD [address] [place] [address] Annual check up and referral OB/Gynecology Comment on above: Annual check up and referral Start: 05-29-2024 End: 05-29-2024 Patient encounter procedure General Surgery Comment on above: lipoma post op red cloud rg 05/16 lipoma post op 05/16, R lower back, R shoulder, L forearm Start: 05-23-2024 End: 05-23-2024 Patient encounter procedure 05/23/2024 2:00 PM EST Office Visit Allergy [address] [address] Keke Pablo MD [address] [place], [place] [phone] Allergies Allergy Comment on above: Allergies Start: 05-16-2024 End: 05-16-2024 Admission to same day surgery center 05/16/2024 7:30 AM EST - 05/16/2024 8:56 AM EST Surgery [facility] Surgery [address] [place] [address] Leatha Ocampo MD [address] [address] EXCISION LIPOMA BACK [facility] Surgery Comment on above: EXCISION LIPOMA BACK Start: 05-16-2024 End: 05-16-2024 Exc b9 lesion mrgn xcp sk tg t/a/l >4.0 cm ME OR Start: 05-16-2024 Subsequent hospital visit by physician 05/16/2024 7:30 AM EST Hospital Encounter [facility] Surgery [address] [place] [address] Leatha Ocampo MD [address] [address] Lipoma, unspecified site [D17.9] [facility] Surgery Comment on above: Lipoma, unspecified site [D17.9] Start: 05-08-2024 End: 05-08-2024 Patient encounter procedure 05/08/2024 3:45 PM EDT Office [place] [id number] pre op 05/16 [facility] Comment on above: pre op 05/16 Start: 05-05-2024 End: 05-05-2024 Patient encounter procedure 05/05/2024 9:45 AM EDT Office Visit General Surgery [address] [place] [address] Leatha Ocampo MD [address] [address] Skin cysts, generalized [L72.9] General Surgery Comment on above: Skin cysts, generalized [L72.9] Start: 04-10-2024 End: 07-10-2024 Egg white IgE Ab [Units/volume] in Serum [facility] Work Phone: Comment on above: Expected: 04/10/2024, Expires: Start: 04-10-2024 End: 07-10-2024 Egg yolk IgE Ab [Units/volume] in Serum [facility] Comment on above: Expected: 04/10/2024, Expires: Start: 03-12-2024 Covid-19 Vaccine ( season) Covid-19 Vaccine ( season) [facility] Start: 03-12-2024 COVID-19 Vaccine ( season) COVID-19 Vaccine ( season) [facility] Start: 03-12-2024 Influenza vaccination [facility] Start: 03-07-2024 End: 10-03-2024 C reactive protein [Mass/volume] in Serum or Plasma C-REACTIVE PROTEIN Lab Routine Epigastric pain LUQ pain Expected: 03/07/2024, Expires: 10/03/2024 [facility] Comment on above: Expected: 03/07/2024, Expires: Start: 03-07-2024 End: 10-03-2024 CBC W Auto Differential panel - Blood COMPLETE BLOOD COUNT AND DIFFERENTIAL Lab Routine Prediabetes Expected: 03/07/2024, Expires: 10/03/2024 [facility] Comment on above: Expected: 03/07/2024, Expires: Start: 03-07-2024 End: 06-06-2024 Choriogonadotropin.beta subunit [Units/volume] in Serum or Plasma HCG QUANTITATIVE Lab Routine Abnormal uterine bleeding Expected: 03/07/2024, Expires: 06/06/2024 [facility] Comment on above: Expected: 03/07/2024, Expires: Start: 03-07-2024 End: 10-03-2024 Comprehensive metabolic 2000 panel - Serum or Plasma COMPREHENSIVE METABOLIC PANEL Lab Routine Prediabetes Expected: 03/07/2024, Expires: 10/03/2024 [facility] Comment on above: Expected: 03/07/2024, Expires: Start: 03-07-2024 End: 10-03-2024 Hemoglobin A1c in Blood HEMOGLOBIN A1C Lab Routine Prediabetes Expected: 03/07/2024, Expires: 10/03/2024 [facility] Comment on above: Expected: 03/07/2024, Expires: Start: 03-07-2024 End: 10-03-2024 Lipase [Enzymatic activity/volume] in Serum or Plasma LIPASE Lab Routine Epigastric pain LUQ pain Expected: 03/07/2024, Expires: 10/03/2024 [facility] Comment on above: Expected: 03/07/2024, Expires: Start: 03-07-2024 End: 10-03-2024 Thyrotropin [Units/volume] in Serum or Plasma THYROID STIMULATING HORMONE Lab Routine Prediabetes Expected: 03/07/2024, Expires: 10/03/2024 [facility] Work Phone: Comment on above: Expected: 03/07/2024, Expires: Start: 01-24-2024 End: 01-24-2024 Patient encounter procedure 01/24/2024 3:00 PM EDT Office Visit Urology [address] [address] Katherine Rome MD [address] [place] [address] 6 week follow up Urology Comment on above: 6 week follow up Start: 01-17-2024 End: 01-17-2024 Patient encounter procedure [facility] Comment on above: Renal calculus, left [N20.0] Start: 01-14-2024 End: 01-01-2025 US Kidney - bilateral and Urinary bladder US KIDNEY/BLADDER Radiology Routine Renal calculus, left Expected: 01/14/2024 (Approximate), Expires: 01/01/2025 [facility] Comment on above: Expected: 01/14/2024 (Approximate), Expi res: 01/01/2025 Start: 01-14-2024 End: 01-01-2025 XR Abdomen Supine and Upright XR ABDOMEN 1V SUPINE Radiology Routine Renal calculus, left Expected: 01/14/2024 (Approximate), Expires: 01/01/2025 [facility] Work Phone: Comment on above: Expected: 01/14/2024 (Approximate), Expi res: 01/01/2025 Start: 01-09-2024 Influenza vaccination Influenza Vaccine (#1) [facility] Comment on above: Postponed from 03/12/2023 (Declined at t his time) Start: 12-13-2023 End: 07-10-2024 CBC panel - Blood by Automated count COMPLETE BLOOD COUNT Lab Routine Prediabetes Expected: 12/13/2023, Expires: 07/10/2024 [facility] Comment on above: Expected: 12/13/2023, Expires: Start: 12-13-2023 End: 07-10-2024 Comprehensive metabolic 2000 panel - Serum or Plasma COMPREHENSIVE METABOLIC PANEL Lab Routine Prediabetes Expected: 12/13/2023, Expires: 07/10/2024 [facility] Comment on above: Expected: 12/13/2023, Expires: Start: 12-13-2023 End: 07-10-2024 Hemoglobin A1c in Blood HEMOGLOBIN A1C Lab Routine Prediabetes Expected: 12/13/2023, Expires: 07/10/2024 [facility] Work Phone: Comment on above: Expected: 12/13/2023, Expires: Start: 12-13-2023 End: 07-10-2024 Thyrotropin [Units/volume] in Serum or Plasma THYROID STIMULATING HORMONE Lab Routine Prediabetes Expected: 12/13/2023, Expires: 07/10/2024 [facility] Comment on above: Expected: 12/13/2023, Expires: Start: 12-03-2023 End: 12-03-2023 Patient encounter procedure 12/03/2023 10:30 AM EDT Office Visit Urology [address] [address] Katherine Rome MD [address] [place] [address] 1 WK CYSTO STENT REMOVAL, POST OP- JM Urology Comment on above: 1 WK CYSTO STENT REMOVAL, POST OP- JM Start: 12-02-2023 End: 12-02-2023 Patient encounter procedure 12/02/2023 11:40 AM EDT Office Visit [facility] [address] [place] [address] Katiana Diaz, GREENHOUSE TRANSPLANTER.[facility] [address] [place] [address] not feeling well? [facility] Comment on above: not feeling well? Start: 11-26-2023 End: 11-26-2023 Admission to same day surgery center 11/26/2023 9:01 AM EDT - 11/26/2023 10:47 AM EDT Surgery [facility] Surgery [address] [place] [address] Katherine Rome MD [address] [place] [address] LASER CYSTOURETHROSCOPY W/ URETEROSCOPY AND/OR PYELOSCOPY W/ [facility]RIP[facility] Surgery Comment on above: LASER CYSTOURETHROSCOPY W/ URETEROSCOPY AND/OR PYELOSCOPY W/ LITHOTRIPSY [facility] Start: 11-26-2023 End: 11-26-2023 Cysto w/insert ureteral stent INSERTION STENT URETERAL Renal calculus, left 11/26/2023 9:01 AM EDT ME OR Start: 11-26-2023 End: 11-26-2023 Cysto w/ureteroscopy w/lithotripsy LASER CYSTOURETHROSCOPY W/ URETEROSCOPY AND/OR PYELOSCOPY W/ LITHOTRIPSY HOL[facility]UM Renal calculus, left 11/26/2023 9:01 AM EDT ME OR Start: 11-26-2023 Subsequent hospital visit by physician 11/26/2023 9:01 AM EDT Hospital Encounter [facility] Surgery [address] [place] [address] Katherine Rome MD [address] [place] [address] Renal calculus, left [N20.0] [facility] Surgery Comment on above: Renal calculus, left [N20.0] Start: 11-15-2023 End: 11-15-2023 ambulatory [facility] Comment on above: please draw pre-op blood work and urine ordered by Dr. Rome Start: 11-11-2023 HEPATITIS C SCREENING HEPATITIS C SCREENING [facility] Comment on above: Postponed from 2013 (Declined at t his time) Start: 11-11-2023 Hepatitis C screening Hepatitis C Screening [facility] Comment on above: Postponed from 2013 (Declined at t his time) Start: 11-11-2023 HIV SCREENING HIV SCREENING [facility] Comment on above: Postponed from 2013 (Declined at t his time) Start: 11-11-2023 HIV screening HIV Screening [facility] Comment on above: Postponed from 2013 (Declined at t his time) Start: 11-09-2023 End: 11-09-2023 Anesthesia consultation Pre Anesthesia Comment on above: 11/25LASER CYSTOURETHROSCOPY W/ URETER OSCOPY AND/OR PYELOSCOPY W/ LITHOTRIPSY [facility] [[id number]] - Ureter - Left Start: 11-09-2023 End: 11-09-2023 Patient encounter procedure 11/09/2023 8:00 AM EDT Office Visit [facility] [address] [place] [address] Katiana Diaz, GREENHOUSE TRANSPLANTER.HAND COLLATOR [address] [place] [address] arm cysts [facility] Comment on above: arm cysts Start: 10-30-2023 End: 11-13-2023 COVID & INFLUENZA A/B & RSV NAAT, ROUTINE COVID & INFLUENZA A/B & RSV NAAT, ROUTINE Microbiology Routine Exposure to COVID-19 virus Expected: 10/30/2023, Expires: 11/13/2023 [facility] Work Phone: Comment on above: Expected: 10/30/2023, Expires: Start: 08-26-2023 End: 11-25-2023 Hemoglobin A1c in Blood [facility] Work Phone: Comment on above: Expected: 08/26/2023, Expires: Start: 07-29-2023 COVID-19 VACCINE (#1) COVID-19 VACCINE (#1) [facility] Comment on above: Postponed from 02/13/1996 (Declined at t his time) Start: 07-29-2023 HPV VACCINE (2 - 3-dose series) HPV VACCINE (2 - 3-dose series) [facility] Comment on above: Postponed from 06/07/2018 (Declined at t his time) Start: 07-29-2023 PNEUMOCOCCAL (1 - PCV) PNEUMOCOCCAL (1 - PCV) [facility] Comment on above: Postponed from 2001 (Declined at t his time) Start: 07-29-2023 Pneumococcal vaccination Pneumococcal Vaccine (1 - PCV) [facility] Comment on above: Postponed from 2001 (Declined at t his time) Start: 04-10-2023 End: 04-24-2023 COVID & INFLUENZA A/B & RSV NAAT, ROUTINE COVID & INFLUENZA A/B & RSV NAAT, ROUTINE Microbiology Routine URI, acute Expected: 04/10/2023, Expires: 04/24/2023 [facility] Work Phone: Comment on above: Expected: 04/10/2023, Expires: Start: 03-12-2023 Influenza vaccination [facility] Start: 01-08-2023 Influenza vaccination INFLUENZA (#1) [facility] Comment on above: Postponed from 03/12/2022 (Declined at t his time) Start: 11-11-2022 End: 01-11-2023 CBC panel - Blood by Automated count CBC Lab Routine Encounter for pre-operative laboratory testing Expected: 11/11/2022, Expires: 01/11/2023 [facility] Work Phone: Comment on above: Expected: 11/11/2022, Expires: 3 Start: 11-11-2022 End: 01-11-2023 CONFIRM BLOOD TYPE CONFIRM BLOOD TYPE Blood Bank Routine Encounter for pre-operative laboratory testing Expected: 11/11/2022, Expires: 01/11/2023 [facility] Work Phone: Comment on above: Expected: 11/11/2022, Expires: 3 Start: 11-11-2022 End: 01-11-2023 TYPE AND SCREEN,30 DAY TYPE AND SCREEN,30 DAY Blood Bank Routine Encounter for pre-operative laboratory testing Expected: 11/11/2022, Expires: 01/11/2023 [facility] Work Phone: Comment on above: Expected: 11/11/2022, Expires: 3 Start: 10-15-2022 End: 10-16-2023 PELVIC US WHI PELVIC US WHI Anc Imaging Routine Abnormal uterine bleeding (AUB) Expected: 10/15/2022, Expires: 10/16/2023 [facility] Work Phone: Comment on above: Expected: 10/15/2022, Expires: 4 Start: 09-11-2022 End: 11-11-2022 CBC panel - Blood by Automated count CBC Lab Routine Encounter for long-term (current) use of medications Screening, anemia, deficiency, iron Expected: 09/11/2022 (Approximate), Expires: 11/11/2022 [facility] Work Phone: Comment on above: Expected: 09/11/2022 (Approximate), Expi res: 11/11/2022 Start: 09-11-2022 End: 11-11-2022 Comprehensive metabolic 2000 panel - Serum or Plasma COMP METABOLIC PANEL Lab Routine Encounter for long-term (current) use of medications Encounter for screening for diabetes mellitus Expected: 09/11/2022 (Approximate), Expires: 11/11/2022 [facility] Work Phone: Comment on above: Expected: 09/11/2022 (Approximate), Expi res: 11/11/2022 Start: 07-20-2022 End: 09-19-2022 CBC panel - Blood by Automated count CBC Lab Routine LUQ pain Expected: 07/20/2022, Expires: 09/19/2022 [facility] Work Phone: Comment on above: Expected: 07/20/2022, Expires: 3 Start: 07-20-2022 End: 09-19-2022 Choriogonadotropin.beta subunit [Units/volume] in Serum or Plasma HCG QUANTITATIVE Lab Routine LUQ pain Abdominal mass, LUQ (left upper quadrant) Expected: 07/20/2022, Expires: 09/19/2022 [facility] Work Phone: Comment on above: Expected: 07/20/2022, Expires: 3 Start: 07-20-2022 End: 09-19-2022 Comprehensive metabolic 2000 panel - Serum or Plasma COMP METABOLIC PANEL Lab Routine LUQ pain Expected: 07/20/2022, Expires: 09/19/2022 [facility] Work Phone: Comment on above: Expected: 07/20/2022, Expires: 3 Start: 07-20-2022 End: 09-19-2022 Lipase [Enzymatic activity/volume] in Serum or Plasma LIPASE BLD Lab Routine LUQ pain Expected: 07/20/2022, Expires: 09/19/2022 [facility] Work Phone: Comment on above: Expected: 07/20/2022, Expires: 3 Start: 06-22-2022 End: 08-22-2022 25-hydroxyvitamin D3 [Mass/volume] in Serum or Plasma [facility] Work Phone: Comment on above: Expected: 06/22/2022, Expires: 3 Start: 06-22-2022 End: 08-22-2022 Hemoglobin A1c in Blood [facility] Work Phone: Comment on above: Expected: 06/22/2022, Expires: 3 Start: 06-22-2022 End: 08-22-2022 LIPID PANEL, NONFASTING [facility] Work Phone: Comment on above: Expected: 06/22/2022, Expires: 3 Start: 06-22-2022 End: 08-22-2022 Thyrotropin [Units/volume] in Serum or Plasma [facility] Work Phone: Comment on above: Expected: 06/22/2022, Expires: 3 Start: 05-28-2022 COVID-19 VACCINE (#1) COVID-19 VACCINE (#1) [facility] Comment on above: Postponed from 2000 (Declined at t his time) Postponed from 02/12 (Declined at this time) Start: 05-28-2022 COVID-19 VACCINE (1) COVID-19 VACCINE (1) [facility] Comment on above: Postponed from 2000 (Declined at t his time) Start: 04-01-2022 End: 04-15-2022 Influenza virus A and B RNA and SARS-CoV-2 (COVID-19) N gene panel - Respiratory specimen by TWIN with probe detection COVID WITH FLUA+B, ROUTINE Microbiology Routine Viral illness Expected: 04/01/2022, Expires: 04/15/2022 [facility] Work Phone: Comment on above: Expected: 04/01/2022, Expires: 2 Start: 03-12-2022 Influenza vaccination [facility] Start: 02-16-2021 PAP TESTING PAP TESTING [facility] Start: 06-07-2018 HPV VACCINE (2 - 3-dose series) HPV VACCINE (2 - 3-dose series) [facility] Start: 08-10-2017 DTaP/Tdap/Td Vaccines (2 - Td or Tdap) DTaP/Tdap/Td Vaccines (2 - Td or Tdap) [facility] Start: 2014 Hepatitis B Vaccine (1 of 3 - 19+ 3-dose series) Hepatitis B Vaccine (1 of 3 - 19+ 3-dose series) [facility] Start: 2014 Hepatitis B Vaccines (1 of 3 - 19+ 3-dose series) Hepatitis B Vaccines (1 of 3 - 19+ 3-dose series) [facility] Start: 2013 HEPATITIS C SCREENING HEPATITIS C SCREENING [facility] Start: 2013 Hepatitis C screening Hepatitis C Screening [facility] Start: 2013 HIV SCREENING HIV SCREENING [facility] Start: 2013 HIV screening HIV Screening [facility] Start: 2009 PEDS TO ADULT TRANSITION ANNUAL ASSESSMENT PEDS TO ADULT TRANSITION ANNUAL ASSESSMENT [facility] Start: 11-02-2007 Varicella vaccination Varicella Vaccines (2 of 2 - 2-dose childhood series) [facility] Start: 09-07-2007 MMR Vaccines (1 of 1 - Standard series) MMR Vaccines (1 of 1 - Standard series) [facility] Start: 2007 PEDS TO ADULT TRANSITION INITIAL DISCUSSION PEDS TO ADULT TRANSITION INITIAL DISCUSSION [facility] Start: 2001 PNEUMOCOCCAL (1 - PCV) PNEUMOCOCCAL (1 - PCV) [facility] Start: 02-13-1996 COVID-19 VACCINE (#1) COVID-19 VACCINE (#1) [facility] Start: 1995 HEPATITIS B (1 of 3 - 3-dose series) HEPATITIS B (1 of 3 - 3-dose series) [facility] Start: 1995 Hepatitis B Vaccine (1 of 3 - 3-dose series) Hepatitis B Vaccine (1 of 3 - 3-dose series) [facility] Start: 1995 HIV screening HIV Screening [facility] Start: 1995 Lipid panel Lipid Panel [facility] Bacteria identified in Urine by Culture URINE CULTURE Microbiology Routine Urinary frequency Ordered: 12/03/2021 [facility] Work Phone: Comment on above: Ordered: 12/03/2021 Bacteria identified in Urine by Culture URINE CULTURE Microbiology Routine Dysuria Ordered: 10/30/2023 [facility] Work Phone: Comment on above: Ordered: 10/30/2023 Bacteria identified in Urine by Culture BACTERIAL CULTURE, URINE Microbiology Routine Urinary frequency Ordered: 08/20/2024 [facility] Work Phone: Comment on above: Ordered: 08/20/2024 BACTERIAL VAGINOSIS NAAT BACTERI AL VAGINOSIS NAAT Lab Routine Vaginal discharge Dysuria Ordered: 04/26/2023 [facility] Work Phone: Comment on above: Ordered: 04/26/2023 BACTERIAL VAGINOSIS NAAT BACTERI AL VAGINOSIS NAAT Lab Routine Dysuria Vaginal discharge 10/30/2023 2:22 PM EDT [facility] Work Phone: CALCULI ANALYSIS CALCULI ANALYSI S Lab Routine Renal calculus, left Ordered: 05/31/2023 [facility] Work Phone: Comment on above: Ordered: 05/31/2023 HENRI/TRICHOMONAS NAAT HENRI /TRICHOMONAS NAAT Lab Routine Vaginal discharge Dysuria Ordered: 04/26/2023 [facility] Work Phone: Comment on above: Ordered: 04/26/2023 HENRI/TRICHOMONAS NAAT HENRI /TRICHOMONAS NAAT Lab Routine Dysuria Vaginal discharge 10/30/2023 2:22 PM EDT [facility] Work Phone: Chlamydia trachomatis+Neisseria gonorrhoeae DNA [Presence] in Unspecified specimen by TWIN with probe detection GC/CHLAMYDIA DNA DET Lab Routine Urinary frequency Ordered: 12/03/2021 [facility] Work Phone: Comment on above: Ordered: 12/03/2021 Chlamydia trachomatis+Neisseria gonorrhoeae DNA [Presence] in Unspecified specimen by TWIN with probe detection GONORRHEA/CHLAMYDIA NAAT Lab Routine Vaginal discharge Dysuria Ordered: 04/26/2023 [facility] Work Phone: Comment on above: Ordered: 04/26/2023 Chlamydia trachomatis+Neisseria gonorrhoeae DNA [Presence] in Unspecified specimen by TWIN with probe detection GONORRHEA/CHLAMYDIA NAAT Lab Routine Dysuria Vaginal discharge 10/30/2023 2:22 PM EDT [facility] Work Phone: Choriogonadotropin ( test) [Presence] in Serum or Plasma [facility] COVID & INFLUENZA A/ B & RSV NAAT, ROUTINE COVID & INFLUENZA A/B & RSV NAAT, ROUTINE Microbiology Routine Flu-like symptoms Fever, unspecified fever cause Productive cough Nausea 12/02/2023 12:03 PM EDT [facility] Work Phone: End: 08-19-2023 Ct abdomen & pelvis w/contrast material CT ABD/PEL W IVCON Radiology Routine LUQ pain Abdominal mass, LUQ (left upper quadrant) Nausea 1 Occurrences starting 07/20/2022 until 08/19/2023 [facility] Work Phone: Comment on above: 1 Occurrences starting 07/20/2022 until 08/19/2023 End: 01-11-2026 CT Abdomen and Pelvis W contrast IV CT ABD/PEL W IVCON Radiology Routine Left lower quadrant abdominal pain 1 Occurrences starting 12/12/2024 until 01/11/2026 [facility] Work Phone: Comment on above: 1 Occurrences starting 12/12/2024 until 01/11/2026 End: 02-09-2024 Echocardiography ECHO Cardiology Routine Chest tightness Palpitations VICTOR (dyspnea on exertion) 1 Occurrences starting 02/08/2023 until 02/09/2024 [facility] Work Phone: Comment on above: 1 Occurrences starting 02/08/2023 until 02/09/2024 End: 02-09-2024 EXTENDED WEAR MANAGER OFFICE SERVICES PATCH EXTENDED WEAR MANAGER OFFICE SERVICES PATCH ECG Routine Chest tightness Palpitations VICTOR (dyspnea on exertion) 1 Occurrences starting 02/08/2023 until 02/09/2024 [facility] Work Phone: Comment on above: 1 Occurrences starting 02/08/2023 until 02/09/2024 End: 07-03-2025 EXTENDED WEAR MANAGER OFFICE SERVICES PATCH EXTENDED WEAR MANAGER OFFICE SERVICES PATCH ECG Routine Palpitations Elevated blood pressure reading without diagnosis of hypertension Bradycardia 1 Occurrences starting 07/03/2024 until 07/03/2025 [facility] Work Phone: Comment on above: 1 Occurrences starting 07/03/2024 until 07/03/2025 End: 07-18-2024 EXTENDED WEAR MANAGER OFFICE SERVICES PATCH EXTENDED WEAR MANAGER OFFICE SERVICES PATCH ECG Routine Palpitations Elevated blood pressure reading without diagnosis of hypertension Bradycardia 1 Occurrences starting 07/18/2024 until 07/18/2024 [facility] Work Phone: Comment on above: 1 Occurrences starting 07/18/2024 until 07/18/2024 Helicobacter pylori Ag [Presence] in Stool by Immunoassay HELICOBACTER PYLORI ANTIGEN BY EIA, STOOL Microbiology Routine Epigastric pain LUQ pain Ordered: 03/07/2024 [facility] Comment on above: Ordered: 03/07/2024 PAP FLUID CERVICAL SCREENING PAP FLUID CERVICAL SCREENING Lab Routine Screening for cervical cancer Ordered: 06/22/2022 [facility] Work Phone: Comment on above: Ordered: 06/22/2022 Patient Education ED Back Pain ( Acute or Chronic) [facility] Work Phone: End: 07-29-2022 Radex spine lumbosacral minimum 4 views [facility] Work Phone: Comment on above: 1 Occurrences starting 07/29/2022 until 07/29/2022 End: 07-29-2022 Radex spine thoracic 3 views [facility] Work Phone: Comment on above: 1 Occurrences starting 07/29/2022 until 07/29/2022 End: 03-09-2024 Radiologic exam chest 2 views XR CHEST 2V FRONTAL/LAT Radiology Routine Chest tightness VICTOR (dyspnea on exertion) 1 Occurrences starting 02/08/2023 until 03/09/2024 [facility] Work Phone: Comment on above: 1 Occurrences starting 02/08/2023 until 03/09/2024 Radiologic exam ches t 2 views XR CHEST 2V FRONTAL/LAT Radiology Routine Chest tightness VICTOR (dyspnea on exertion) 02/08/2023 11:33 AM EDT [facility] Work Phone: Removal impacted cer umen irrigation/lvg unilat AMBULATORY EAR LAVAGE/IRRIGATION Procedures Routine Impacted cerumen of right ear Ordered: 07/09/2022 [facility] Work Phone: Comment on above: Ordered: 07/09/2022 ROUTINE FLU A/B + RSV ROUTINE FL U A/B + RSV Lab Routine URI, acute Ordered: 04/10/2023 [facility] Work Phone: Comment on above: Ordered: 04/10/2023 SARS-CoV-2 (COVID-19 ) RNA [Presence] in Respiratory specimen by TWIN with probe detection COVID NAAT, UPPER RESPIRATORY, ROUTINE Microbiology Routine URI, acute Ordered: 04/10/2023 [facility] Work Phone: Comment on above: Ordered: 04/10/2023 STREP A MOLECULAR (POC) STREP A MOLECULAR (POC) Microbiology Routine Sore throat Ordered: 04/01/2022 [facility] Work Phone: Comment on above: Ordered: 04/01/2022 Therapeutic prophylactic/dx injection subq/im THER/PROPH/DIAG INJ, SC/IM Procedures Routine Need for prophylactic vaccination/inoculation against viral disease Ordered: 05/31/2024 [facility] Work Phone: Comment on above: Ordered: 05/31/2024 UA DIP, URINE (POC) UA DIP, URIN E (POC) Lab Routine LUQ pain Abnormal uterine bleeding Ordered: 03/07/2024 [facility] Comment on above: Ordered: 03/07/2024 Urine test visual color cmprsn meths HCG QUAL UR B/O Lab Routine Urinary frequency Ordered: 12/03/2021 [facility] Work Phone: Comment on above: Ordered: 12/03/2021 Urine test visual color cmprsn meths HCG QUAL UR B/O Lab Routine Abnormal uterine bleeding Nausea Ordered: 03/07/2024 [facility] Comment on above: Ordered: 03/07/2024 End: 04-06-2025 US Abdomen US SOFT TISSUE ABDOMEN Radiology Routine Epigastric pain LUQ pain Subcutaneous mass of abdominal wall 1 Occurrences starting 03/07/2024 until 04/06/2025 [facility] Comment on above: 1 Occurrences starting 03/07/2024 until 04/06/2025 End: 09-24-2024 US Abdomen RUQ US ABD RIGHT UPPER QUADRANT Radiology Routine Right upper quadrant abdominal tenderness without rebound tenderness 1 Occurrences starting 08/26/2023 until 09/24/2024 [facility] Work Phone: Comment on above: 1 Occurrences starting 08/26/2023 until 09/24/2024 US Abdomen RUQ US ABD RIGHT UPP ER QUADRANT Radiology Routine Right upper quadrant abdominal tenderness without rebound tenderness 08/27/2023 11:25 AM EST [facility] Work Phone: US Kidney - bilatera l and Urinary bladder US KIDNEY/BLADDER Radiology Routine Renal calculus, left 01/17/2024 2:20 PM EDT [facility] Work Phone: End: 06-30-2024 US KIDNEY/BLADDER US KIDNEY/BLADDER Radiology Routine Renal calculus, left 1 Occurrences starting 05/31/2023 until 06/30/2024 [facility] Work Phone: Comment on above: 1 Occurrences starting 05/31/2023 until 06/30/2024 End: 11-14-2023 Us transvaginal US FEMALE PELVIS TRANSVAG Radiology Routine Abnormal uterine bleeding (AUB) 1 Occurrences starting 10/15/2022 until 11/14/2023 [facility] Work Phone: Comment on above: 1 Occurrences starting 10/15/2022 until 11/14/2023 XR Abdomen Supine an d Upright XR ABDOMEN 1V SUPINE Radiology Routine Renal calculus, left 01/17/2024 2:38 PM EDT [facility] Work Phone: End: 08-31-2025 XR Knee - left AP and Lateral and oblique XR KNEE INJURY 4V AP/LAT/OBLS LEFT Radiology Routine Acute pain of right knee Injury of left knee, initial encounter 1 Occurrences starting 08/01/2024 until 08/31/2025 [facility] Work Phone: Comment on above: 1 Occurrences starting 08/01/2024 until 08/31/2025 XR Knee - left AP an d Lateral and oblique XR KNEE INJURY 4V AP/LAT/OBLS LEFT Radiology Routine Acute pain of right knee Injury of left knee, initial encounter 08/01/2024 9:17 AM [facility] End: 07-29-2022 XR RIBS/CHEST 3V AP RIB/OBLS/CXR LEFT [facility] Work Phone: Comment on above: 1 Occurrences starting 07/29/2022 until 07/29/2022 [facility] Immunizations Immunization Date Immunization Notes Care Provider [facility] 10-02-2024 Human Papillomavirus 9-valent vaccine Nurse Wstr Work Phone: [facility] 10-02-2024 HPV, unspecified formulation Kostas Hopkins DO Work Phone: [facility] 05-31-2024 Human Papillomavirus 9-valent vaccine Ruby Alvarez MD Work Phone: [facility] 05-10-2018 influenza virus vacc ine, unspecified formulation Eddie Bishop GREENHOUSE TRANSPLANTER.HAND COLLATOR Work Phone: [facility] 08-10-2007 diphtheria, tetanus toxoids and acellular pertussis vaccine Jorge A Chisholm MD Work Phone: [facility] 08-10-2007 tetanus toxoid, redu filemon diphtheria toxoid, and acellular pertussis vaccine, adsorbed Katiana Diaz GREENHOUSE TRANSPLANTER.HAND COLLATOR Work Phone: [facility] 08-10-2007 varicella virus vaccine Valeriano Chisholm MD Work Phone: [facility] Payers Date Payer Category Payer Self-pay 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 2023 Unknown [id number] 2020 Private Health Insurance [facility] CHOICE PLUS [id number] 2020-Present [phone] [address] [place] [address] O [id number] 2020 Private Health Insurance [id number] 2008 Unknown 1995 Unknown [id number] 1995 Unknown [id number] Unknown [id number] Unknown [id number] Unknown [id number] Social History Date Type Detail Facility Start: 09-16-2021 End: 02-22-2025 Tobacco smoking status NHIS Ex-smoker [facility] Work Phone: Start: 09-16-2008 End: 09-16-2020 History of tobacco use Current smoker [facility] Work Phone: Start: 09-16-2021 End: 11-17-2022 Cigarettes smoked current (pack per day) - Reported 0.1 [facility] Start: 09-16-2021 End: 02-22-2025 Tobacco use and exposure Former smokeless tobacco user [facility] Work Phone: End: 09-17-2019 History of tobacco use Chews Tobacco [facility] Work Phone: Start: 10-03-2021 End: 02-22-2025 Alcohol intake Ex-drinker (finding) [facility] Start: 05-28-2021 History SDOH Alcohol Comment rare [facility] Start: 09-16-2021 Education 13 [facility] Start: 1995 Sex Assigned At Not on file [facility] Start: 09-22-2021 End: 02-01-2022 Exposure to SARS-CoV-2 (event) Not sure [facility] Start: 09-16-2008 End: 09-16-2020 History of tobacco use Cigarette Smoker [facility] Work Phone: Start: 03-22-2022 End: 04-01-2022 Exposure to SARS-CoV-2 (event) Yes [facility] Start: 07-20-2022 Tobacco smoking stat us SDIS Smokes tobacco daily [facility] Start: 07-20-2022 Tobacco [facility] Start: 11-17-2022 End: 12-01-2022 Tobacco use panel [facility] Start: 06-12-2012 Adult Depression Screening Assessment 1 [facility] Start: 05-27-2023 End: 01-24-2025 Tobacco smoking status NHIS Occasional tobacco smoker [facility] Start: 11-09-2023 Tobacco Comment Zaid Marte [facility] Start: 12-14-2024 Tobacco smoking stat us [facility] Never smoked tobacco [facility] Start: 12-14-2024 Tobacco use and exposure User of smokeless tobacco [facility] Start: 12-14-2024 End: 01-01-2025 Alcoholic beverage intake Current drinker of alcohol (finding) [facility] How often do you nee d to have someone help you when you read instructions, pamphlets, or other written material from your doctor or pharmacy [SILS] Never [facility] Has the electric, angelMD s, oil, or water company threatened to shut off services in your home in past 12Mo No [facility] Are you now , , , , never or living with a partner? Living with partner [facility] How often to you hav e a drink containing alcohol? 2-4 times a month [facility] How many standard drinks containing alcohol do you have on a typical day? 1 or 2 [facility] How hard is it for y ou to pay for the very basics like food, housing, medical care, and heating Somewhat hard [facility] Do you feel stress - tense, restless, nervous, or anxious, or unable to sleep at night because your mind is troubled all the time - these days [OSQ] Only a little [facility] (I/We) worried wheth er (my/our) food would run out before (I/we) got money to buy more. Never true [facility] Start: 12-14-2024 Alcohol Comment occ [facility] Start: 11-20-2024 Sex Female (finding) [facility] Start: 1995 Sex Assigned At Female [facility] How often to you hav e a drink containing alcohol? Monthly or less [facility] Medical Equipment Procedure Code Equipment Code Equipment Origin al Text Equipment Identifier Dates Stent Inlay Opti ma 6fr Taper [place] [employer] Phreecoat 24cm [facility] - [id number] Start: 11-26-2023 Functional Status Date Assessment Result Facility 02-22-2025 Total score [AUDIT-C] 1 02/23/20 25 9:23 AM Danay Alamo MA [facility] 12-15-2024 Are you deaf, or do you have serious difficulty hearing No 12/15/2024 12:03 PM Ann Marie Montague RN No [facility] 12-15-2024 Are you blind, or do you have serious difficulty seeing, even when wearing glasses No 12/15/2024 12:03 PM Ann Marie Montague RN No [facility] 12-15-2024 Do you have serious difficulty walking or climbing stairs No 12/15/2024 12:03 PM Ann Marie Montague RN No [facility] 12-15-2024 Do you have difficul ty dressing or bathing No 12/15/2024 12:03 PM Ann Marie Montague RN No [facility] 12-15-2024 Because of a physica l, mental, or emotional condition, do you have difficulty doing errands alone such as visiting a physician's office or shopping No 12/15/2024 12:03 PM EDT Ann Marie Carpio RN No [facility] 12-14-2024 Patient Health Quest ionnaire 2 item (PHQ-2) [Reported] [facility] 12-14-2024 Total score [AUDIT-C] 2 12/15/19 12:16 PM EDT Mychart, Generic [facility] 12-14-2024 How often to you hav e a drink containing alcohol? 2-4 times a month 12/14/2024 12:16 PM EDT Mychart, Generic 2-4 times a month [facility] 12-14-[address] inks containing alcohol do you have on a typical day? 1 or 2 12/14/2024 12:16 PM EDT Mychart, Generic 1 or [address] [facility] 12-14-2024 How often do you hav e 6 or more drinks on 1 occasion? Never 12/14/2024 12:16 PM EDT Mychart, Generic Never [facility] Mental Status Date Assessment Result Facility 12-15-2024 Because of a physica l, mental, or emotional condition, do you have serious difficulty concentrating, remembering, or making decisions No 12/15/2024 12:03 PM EDT Ann Marie Carpio RN No [facility] Clinical Notes 10-22-2021 to 03-21-2025 Telephone Encounter - Lesley Magallon RN - 03/21/2025 10:02 AM EDTTelephone Encounter - Lesley Magallon RN - 03/21/2025 10:02 AM EDTAlina Merrill MA - 02/22/2025 1:15 PM EDT Note Date & Type Note Facility 03-21-2025 Telephone encounter Note Message left on VM, asked to CB with any questions. [facility] 03-21-2025 Miscellaneous Notes Message left on VM, asked to CB with any questions. documented in this encounter [facility] 03-05-2025 Telephone encounter Note Already done. Eddie Bishop APRN.HAND COLLATOR [facility] 03-05-2025 Miscellaneous Notes Already done. Eddie Bishop APRN.HAND COLLATOR ----- Message from Emi Reyes MA sent at 02/01/2025 1:49 PM EDT ----- Patient due for TVTA and CBC+Diff. Emi Graham MA documented in this encounter [facility] 03-05-2025 Telephone encounter Note ----- Message from Emi Reyes MA sent at 02/01/2025 1:49 PM EDT ----- Patient due for TVTA and CBC+Diff. Emi Graham MA [facility] 02-22-2025 History of Presen t illness Narrative [id number] Images from the original note were not included. Neto Berkowitz 02[birth year]25 29 y.o. Chief Complaint Patient presents with Follow-up 1 month f/u No LMP recorded. Patient is . Primary CarePhysician: No primary care provider on file. HPI: Neto Berkowitz is a 29 y.o. female presents for follow up after ectopic which was treated with methotrexate on 01/01/25. Hcg was trended down to 13 at which time the patient did not want to do any other blood draws. Has been doing ok from a pelvic pain perspective, and is currently having a light MP. In the interim, she has been seen in the ED for back pain and limbs going numb. She had a CT scan which showed concern for inflammation in mid back tissues as well as SI joint abnormalities. She is also going to see a executive vice president business development for elevated ESR, ISIS and other inflammatory markers. Still would like to achieve but wants to get through her workup for autoimmune disorder first. Declining any contraception. OB History Para Term AB Living 1 0 0 0 0 0 SAB IAB Ectopic Multiple Live Births 0 0 0 0 0 # Outcome Date GA Lbr Vance/2nd Weight Sex Type Anes PTL Lv 1 Current Medical History[1] Surgical History[2] Family History[3] Social History Socioeconomic History Marital status: Single Spouse name: Not on file Number of children: Not on file Years of education: Not on file Highest education level: Not on file Occupational History Not on file Tobacco Use Smoking status: Never Smokeless tobacco: Current Vaping Use Vaping status: Every Day Substance and Sexual Activity Alcohol use: Yes Comment: occ Drug use: Yes Types: Marijuana Comment: 1-2 nightly Sexual activity: Yes Partners: Male Other Topics Concern Not on file Social History Narrative Not on file Social Drivers of Health Financial Resource Strain: Medium Risk (12/14/2024) Overall Financial Resource Strain (CARDIA) Difficulty of Paying Living Expenses: Somewhat hard Food Insecurity: No Food Insecurity (12/14/2024) Hunger Vital Sign Worried About Running Out of Food in the Last Year: Never true Ran Out of Food in the Last Year: Never true Transportation Needs: No Transportation Needs (12/14/2024) PRAPARE - Transportation Lack of Transportation (Medical): No Lack of Transportation (Non-Medical): No Physical Activity: Sufficiently Active (12/14/2024) Exercise Vital Sign Days of Exercise per Week: 5 days Minutes of Exercise per Session: 150+ min Stress: No Stress Concern Present (12/14/2024) [employer] [employer] - Occupational Stress Questionnaire Feeling of Stress : Only a little Social Connections: Moderately Isolated (12/14/2024) Social Connection and Isolation Panel [NHANES] Frequency of Communication with Friends and Family: More than three times a week Frequency of Social Gatherings with Friends and Family: More than three times a week Attends Restoration Services: Never Active Member of Clubs or Organizations: No Attends Club or Organization Meetings: Never Marital Status: Living with partner Intimate Partner Violence: Not At Risk (12/14/2024) Humiliation, Afraid, Rape, and Kick questionnaire Fear of Current or Ex-Partner: No Emotionally Abused: No Physically Abused: No Sexually Abused: No Housing Stability: Low Risk (12/14/2024) Housing Stability Vital Sign Unable to Pay for Housing in the Last Year: No Number of Times Moved in the Last Year: 0 Homeless in the Last Year: No MEDICATIONS: Current Medications[4] ALLERGIES: Allergies as of 02/22/2025 - Reviewed 02/22/2025 Allergen Reaction Noted Penicillins Nausea And Vomiting, Nausea Only, and Hives 01/23/2015 Onion Hives 07/28/2018 Azithromycin Hives 02/07/2016 Clarithromycin Nausea And Vomiting 01/23/2015 Egg solids, whole Nausea And Vomiting 04/10/2024 Review of Systems: Review of Systems All other systems reviewed and are negative. Physical Exam: There were no vitals taken for this visit. Physical Exam Vitals and nursing note reviewed. Constitutional: General: She is not in acute distress. Appearance: Normal appearance. She is obese. She is not toxic-appearing. HENT: Head: Normocephalic and atraumatic. Eyes: Extraocular Movements: Extraocular movements intact. Pulmonary: Effort: Pulmonary effort is normal. No respiratory distress. Abdominal: Palpations: Abdomen is soft. Tenderness: There is no abdominal tenderness. There is no guarding or rebound. Skin: General: Skin is warm and dry. Neurological: General: No focal deficit present. Mental Status: She is alert and oriented to person, place, and time. Psychiatric: Mood and Affect: Mood normal. Behavior: Behavior normal. Thought Content: Thought content normal. Recent Results (from the past 6 weeks) ANTI-MULLERIAN HORMONE (AMH), FEMALE [facility] Collection Time: 01/16/25 2:25 PM Result Value Ref Range Anti-Mullerian Hormone (AMH), Female 4.05 0.69 - 13.39 ng/mL Follicle stimulating hormone Collection Time: 01/16/25 2:25 PM Result Value Ref Range FSH 5.3 mIU/mL Luteinizing hormone Collection Time: 01/16/25 2:25 PM Result Value Ref Range LH 3.8 mIU/mL Progesterone Collection Time: 01/16/25 2:25 PM Result Value Ref Range PROGESTERONE <0.5 ng/mL Estradiol Collection Time: 01/16/25 2:25 PM Result Value Ref Range ESTRADIOL 66 pg/mL Testosterone, Total, MS ([facility]) Collection Time: 01/16/25 2:25 PM Result Value Ref Range TESTOSTERONE, TOTAL, MS 24 2 - 45 ng/dL hCG, quantitative Collection Time: 01/16/25 2:28 PM Result Value Ref Range HCG, TOTAL, QN 19 (H) mIU/mL ISIS BY IFA SCREEN Collection Time: 02/14/25 1:59 PM Result Value Ref Range Isis Screen Positive (A) Negative ISIS Titer 1:160 ISIS Pattern Nuclear dense fine speckled [facility] THREAT STREAM TSH Collection Time: 02/14/25 1:59 PM Result Value Ref Range TSH 1.550 0.270 - 4.200 mIU/L C-REACTIVE PROTEIN Collection Time: 02/14/25 1:59 PM Result Value Ref Range CRP 1.4 (H) <0.9 mg/dL [facility] THREAT STREAM SEDIMENTATION RATE Collection Time: 02/14/25 1:59 PM Result Value Ref Range Sed Rate, Westergren 25 (H) 0 - 20 mm/hr RHEUMATOID FACTOR, BLOOD Collection Time: 02/14/25 1:59 PM Result Value Ref Range Rheumatoid Factor <10 <16 IU/mL [facility] THREAT STREAM CREATININE, WHOLE BLOOD Collection Time: 02/14/25 1:59 PM Result Value Ref Range Creatinine 0.68 0.58 - 0.96 mg/dL Estimated Glomerular Filtration Rate 121 >=60 mL/min/1.73m [facility] THREAT STREAM TSH, REFLEX TO T4 Collection Time: 02/22/25 10:33 AM Result Value Ref Range TSH 1.890 0.270 - 4.200 mIU/L [facility] THREAT STREAM CMP, EXTERNAL Collection Time: 02/22/25 10:33 AM Result Value Ref Range Protein, Total 7.8 6.3 - 8.0 g/dL Albumin 4.0 3.9 - 4.9 g/dL Calcium 9.2 8.5 - 10.2 mg/dL Bilirubin, Total 0.4 0.2 - 1.3 mg/dL Alkaline Phosphatase 90 34 - 123 U/L AST 13 13 - 35 U/L ALT 18 7 - 38 U/L Glucose 104 (H) 74 - 99 mg/dL BUN 10 7 - 21 mg/dL Creatinine 0.72 0.58 - 0.96 mg/dL Sodium 138 136 - 144 mmol/L Potassium 4.0 3.7 - 5.1 mmol/L Chloride 102 98 - 107 mmol/L CO2 24 22 - 30 mmol/L Anion Gap 12 8 - 15 mmol/L Estimated Glomerular Filtration Rate 116 >=60 mL/min/1.73m [facility] CBC WITH DIFFERENTIAL Collection Time: 02/22/25 10:33 AM Result Value Ref Range WBC 8.26 3.70 - 11.00 k/uL RBC 4.27 3.90 - 5.20 m/uL Hemoglobin 13.5 11.5 - 15.5 g/dL Hematocrit 39.1 36.0 - 46.0 % MCV 91.6 80.0 - 100.0 fL MCH 31.6 26.0 - 34.0 pg MCHC 34.5 30.5 - 36.0 g/dL RDW-CV 12.3 11.5 - 15.0 % Platelets 277 150 - 400 k/uL MPV 9.1 9.0 - 12.7 fL Neutrophils % 62.6 % Abs Neut 5.17 1.45 - 7.50 k/uL Lymphocytes % 28.1 % Abs Lymph 2.32 1.00 - 4.00 k/uL Monocytes Relative 7.1 % Abs [place] 0.59 <0.87 k/uL % Eosinophils 1.6 % Abs Eosin 0.13 <0.46 k/uL Basophils % 0.1 % Abs Baso <0.03 <0.11 k/uL Immature Granulocytes % 0.5 % Abs Immature Gran 0.04 <0.10 k/uL NRBC Absolute nRBC Diff Type Auto ] ASSESSMENT: 29 y.o. Diagnosis Plan 1. Tubal without intrauterine , unspecified laterality 2. Infertility, female PLAN: - Underwent treatment of ectopic in 12/2024 with methotrexate, has been recovering well, no acute BUSINESS RELATIONS MANAGER complaints - Declining contraception at this time, has irregular MP and known PCOS - Currently undergoing rheumatology workup for possible autoimmune disorder due to abnormal labs and CT scan - Discussed having HSG performed to assess tubal patency and deferring attempting to achieve until after autoimmune workup completed - test in office today negative Follow up for HSG. No orders of the defined types were placed in this encounter. [1] Past Medical History: Diagnosis Date Anxiety and depression PCOS (polycystic ovarian syndrome) PMDD (premenstrual dysphoric disorder) [2] Past Surgical History: Procedure Laterality Date KIDNEY STONE REMOVAL (HISTORICAL) TONSILLECTOMY AND ADENOIDECTOMY (HISTORICAL) WISDOM TOOTH EXTRACTION [3] Family History Problem Relation Name Age of Onset Diabetes type II Mother Diabetes type II Mother's Brother [4] Current Outpatient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 Plt Count 313 MPV 9.3 Immature Gran % (Auto) 1.200 H Neut % (Auto) 63.1 Lymph % (Auto) 26.4 [place] % (Auto) 6.7 Eos % (Auto) 2.0 Baso % (Auto) 0.6 Absolute Neuts (auto) 6.5 Absolute Lymphs (auto) 2.71 Nucleated RBC % 0 Sodium 136 Potassium 4.1 Chloride 102 Carbon Dioxide 22.6 Anion Gap 12 BUN 12 Creatinine 0.72 Estim Creat Clear Calc 145.46 Est GFR (MDRD) Non-Af 116 BUN/Creatinine Ratio 16.8 Glucose 135 H Calcium 9.3 Magnesium 1.8 Urine Color Yellow Urine Clarity Sl. Cloudy Urine pH 6.0 Ur Specific [place] 1.015 Urine Protein Negative Urine Glucose (UA) Normal Urine Ketones Negative Urine Occult Blood 50 H Urine Nitrite Negative Urine Bilirubin Negative Urine Urobilinogen Normal Ur Leukocyte Esterase Negative Urine RBC 0 SEEN Urine WBC 0-5 SEEN Ur Squamous Epith Cells 0-5 SEEN Urine Bacteria 0 SEEN Urine Mucus 0 SEEN Urine Test Negative Radiography Diagnostic Testing: Clinical Impression(s) from Imaging Studies Transvaginal US 01/24/25 06:14 IMPRESSION: 1.3 cm x 1.2 cm complex density superior to the left ovary. Correlation with HCG recommended for further evaluation. Reading Location: [facility] Lumbar Spine X-Ray 01/24/25 06:30 IMPRESSION: Negative lumbar spine. Reading [facility] X-ray of the lumbar spine as interpreted by the emergency medicine physician reveals no acute compression fracture or spondylolisthesis Management Discussion w/another healthcare provider: [facility] Discharge Plan Triage Chief Complaint: Back ED Provider: Shawn Elizalde Dx/Rx/DC Orders Clinical Impression: Ovarian mass, left, Low back pain, Anxiety and depression Instructions: ED Back Pain (Acute or Chronic) Prescriptions: No Action norethindrone (contraceptive) [Incassia] 0.35 mg tablet 0.35 mg PO DAILY Primary Care Provider: Eddie Bishop NP Referrals: Ruby Gold MD [Med Staff - Active Staff] - (Left ovarian mass with recent ectopic ) Eddie Bishop NP, PHARMACY SERVICE ASSOCIATE-C [Primary Care Provider] - Activity Restrictions/Additional Instructions: Your pelvic ultrasound showed a small mass near the left ovary which is most likely your recent ectopic being absorbed. Follow-up with [facility] for reevaluation and call their office later today as they should be able to get youin by Wednesday. If you have severe increase in vaginal bleeding develop increasing pain or have bouts of passing out please return to the ER for repeat evaluation. Print Language: Mohawk Disposition Disposition: Home, Self Care What to do if you have Problems For any increased pain, shortness of breath, bleeding, nausea or vomiting, chestpain, or any unexpected problems, contact your Primary Care Provider. Call [employer] ([phone]) or report to the closest Emergency Room. Call 911 if necessary. 01/24/25 0846 <Electronically signed by Shawn Elizalde DO> Cosigner Signature (if applicable): CC: ANA Bishop ~ Signed [facility] Work Phone: Evaluation note* Diagnosis No-show for appointment- Primary [facility] Diagnosis Urinary frequency- Primary Other microscopic hematuria [facility] Diagnosis Viral illness- Primary Unspecified viral infection, in conditions classified elsewhere and of unspecified site Sore throat Acute pharyngitis Cough, unspecified type [facility] Diagnosis Encounter for gynecological examination (general) (routine) without abnormal findings- Primary Class 3 severe obesity with body mass index (BMI) of 45.0 to 49.9 in adult, unspecified obesity type, unspecified whether serious comorbidity present (HCC) Encounter for vitamin deficiency screening Screening for other and unspecified endocrine, nutritional, metabolic, and immunity disorders Screening cholesterol level Screening for lipoid disorders Encounter for screening for diabetes mellitus Screening for diabetes mellitus Screening for thyroid disorder Screening for cervical cancer Screening for malignant neoplasm of the cervix [facility] Diagnosis Impacted cerumen of right ear- Primary Impacted cerumen [facility] Diagnosis Encounter for long-term (current) use of medications- Primary Encounter for long-term (current) use of other medications Encounter for screening for diabetes mellitus Screening for diabetes mellitus Screening, anemia, deficiency, iron Screening for iron deficiency anemia [facility] Diagnosis Anxiety and depression- Primary Dysthymic disorder LUQ pain Abdominal pain, left upper quadrant Abdominal mass, LUQ (left upper quadrant) Abdominal or pelvic swelling, mass, or lump, left upper quadrant Nausea Nausea alone [facility] Diagnosis Acute left-sided thoracic back pain [facility] Diagnosis Rib pain on left side Chest pain, unspecified [facility] Diagnosis PCOS (polycystic ovarian syndrome) Polycystic ovaries Secondary amenorrhea Absence of menstruation [facility] Diagnosis Abnormal uterine bleeding (AUB)- Primary Female infertility Female infertility of unspecified origin Anovulation Female infertility associated with anovulation Class 3 severe obesity with body mass index (BMI) of 45.0 to 49.9 in adult, unspecified obesity type, unspecified whether serious comorbidity present (HCC) PCOS (polycystic ovarian syndrome) Polycystic ovaries [facility] Diagnosis Kidney stone- Primary Calculus of kidney [facility]* Diagnosis Dysmenorrhea- Primary Spastic pelvic floor syndrome Other symptoms involving digestive system Abnormal uterine bleeding (AUB) Pelvic pain in female Unspecified symptom associated with female genital organs Preop examination Preoperative examination, unspecified [facility]* Diagnosis Encounter for pre-operative laboratory testing- Primary Preoperative examination, unspecified Pelvic pain in female Unspecified symptom associated with female genital organs Abnormal uterine bleeding (AUB) Spastic pelvic floor syndrome Other symptoms involving digestive system Dysmenorrhea [facility]* Diagnosis Encounter for wellness examination in adult- Primary Pelvic pain in female Unspecified symptom associated with female genital organs Abnormal uterine bleeding (AUB) Spastic pelvic floor syndrome Other symptoms involving digestive system Dysmenorrhea [facility]* Diagnosis Educational circumstances- Primary Educational circumstance Pelvic pain in female Unspecified symptom associated with female genital organs Abnormal uterine bleeding (AUB) Spastic pelvic floor syndrome Other symptoms involving digestive system Dysmenorrhea [facility]* Diagnosis Chest tightness- Primary Other chest pain Palpitations VICTOR (dyspnea on exertion) Other dyspnea and respiratory abnormality [facility]* Diagnosis Chest tightness Other chest pain VICTOR (dyspnea on exertion) Other dyspnea and respiratory abnormality [facility]* Diagnosis Chest tightness Other chest pain Palpitations VICTOR (dyspnea on exertion) Other dyspnea and respiratory abnormality [facility]* Diagnosis URI, acute- Primary Acute upper respiratory infections of unspecified site [facility]* Diagnosis Metrorrhagia PCOS (polycystic ovarian syndrome) Polycystic ovaries Secondary amenorrhea Absence of menstruation [facility]* Diagnosis Vaginal discharge- Primary Leukorrhea, not specified as infective Dysuria Feeling of incomplete bladder emptying Incomplete bladder emptying [facility] Diagnosis Renal calculus, left- Primary Calculus of kidney Screening for genitourinary condition Screening for other and unspecified genitourinary condition [facility]* Diagnosis Renal calculus, left Calculus of kidney [facility]* Diagnosis Nausea vomiting and diarrhea- Primary Diarrhea Right upper quadrant abdominal tenderness without rebound tenderness Screening for deficiency anemia Screening for other and unspecified deficiency anemia Encounter for screening for diabetes mellitus Screening for diabetes mellitus Elevated fasting blood sugar Impaired fasting glucose Screening for lipid disorders Screening for blood or protein in urine Screening for unspecified condition Screening for thyroid disorder [facility]* Diagnosis Right upper quadrant abdominal tenderness without rebound tenderness [facility]* Diagnosis Renal calculus, left- Primary Calculus of kidney [facility]* Diagnosis Dysuria- Primary Nausea Nausea alone Vaginal discharge Leukorrhea, not specified as infective Exposure to COVID-19 virus Renal calculus, left Calculus of kidney [facility]* Diagnosis Urinary frequency- Primary Renal calculus, left Calculus of kidney [facility]* Diagnosis Skin cysts, generalized- Primary Sebaceous cyst Renal calculus, left Calculus of kidney [facility] Diagnosis Preoperative examination- Primary Preoperative examination, unspecified Palpitations Anxiety and depression Dysthymic disorder Obesity, Class III, BMI >= 40 Morbid obesity Prediabetes Other abnormal glucose Current every day nicotine vaping Renal calculus, left Calculus of kidney * Assessment & Plan Note - Amita Vargas PA-C - 11/09/2023 4:06 PM EDTAssociated Problem(s): Current every day nicotine vaping Assessment: Quit smoking cigarettes in 2020. Pt now vapes flavoring daily. Advised no vaping DOS. * Assessment & Plan Note - Amita Vargas PA-C - 11/09/2023 4:06 PM EDTAssociated Problem(s): Prediabetes Assessment: A1C 5.7% 08/2023. * Assessment & Plan Note - Amita Vargas PA-C - 11/09/2023 4:05 PM EDTAssociated Problem(s): Obesity, Class III, BMI >= 40 Assessment: Body mass index is 45.7 kg/m . * Assessment & Plan Note - Amita Vargas PA-C - 11/09/2023 4:05 PM EDTAssociated Problem(s): Anxiety and depression Assessment: Previously on RX but states medication made her more anxious. Pt reports she now manages anxiety by trying to manage stress. * Assessment & Plan Note - Amita Vargas PA-C - 11/09/2023 4:04 PM EDTAssociated Problem(s): Palpitations Assessment: Related to anxiety. Pt had Holter monitor in 03/2023 which showed no arrhthymias and 4 total PVCs. RRR on exam today. [facility] Diagnosis Urinary frequency- Primary Renal calculus, left Calculus of kidney [facility]* Diagnosis Pharyngitis, unspecified etiology- Primary Viral illness Unspecified viral infection, in conditions classified elsewhere and of unspecified site [facility]* Diagnosis Flu-like symptoms- Primary Other general symptoms Fever, unspecified fever cause Productive cough Cough Nausea Nausea alone Sore throat Acute pharyngitis [facility]* Diagnosis Renal calculus, left- Primary Calculus of kidney [facility]* Diagnosis Prediabetes- Primary Other abnormal glucose documented in this encounter [facility] note* Diagnosis Renal calculus, left Calculus of kidney documented in this encounter [facility] note* Diagnosis Renal calculus, left Calculus of kidney documented in this encounter [facility] note* Diagnosis Preoperative examination- Primary Preoperative examination, unspecified Palpitations Anxiety and depression Dysthymic disorder Obesity, Class III, BMI >= 40 Morbid obesity Prediabetes Other abnormal glucose Current every day nicotine vaping Epigastric pain- Primary Abdominal pain, epigastric LUQ pain Abdominal pain, left upper quadrant Subcutaneous mass of abdominal wall Abnormal uterine bleeding Unspecified disorder of menstruation and other abnormal bleeding from female genital tract Nausea Nausea alone Prediabetes Other abnormal glucose documented in this encounter [facility] note* Diagnosis Preoperative examination- Primary Preoperative examination, unspecified Palpitations Anxiety and depression Dysthymic disorder Obesity, Class III, BMI >= 40 Morbid obesity Prediabetes Other abnormal glucose Current every day nicotine vaping Left upper quadrant abdominal pain- Primary Nausea and vomiting, unspecified vomiting type Palpitations Shortness of breath documented in this encounter [facility] note* Diagnosis Preoperative examination- Primary Preoperative examination, unspecified Palpitations Anxiety and depression Dysthymic disorder Obesity, Class III, BMI >= 40 Morbid obesity Prediabetes Other abnormal glucose Current every day nicotine vaping Egg allergy- Primary Allergy to eggs documented in this encounter [facility] note* Diagnosis Preoperative examination- Primary Preoperative examination, unspecified Palpitations Anxiety and depression Dysthymic disorder Obesity, Class III, BMI >= 40 Morbid obesity Prediabetes Other abnormal glucose Current every day nicotine vaping Left upper quadrant abdominal pain- Primary documented in this encounter [facility] note* Diagnosis Preoperative examination- Primary Preoperative examination, unspecified Palpitations Anxiety and depression Dysthymic disorder Obesity, Class III, BMI >= 40 Morbid obesity Prediabetes Other abnormal glucose Current every day nicotine vaping Lipoma, unspecified site- Primary Skin cysts, generalized Sebaceous cyst Lipoma, unspecified site documented in this encounter [facility] note* Diagnosis Preoperative examination- Primary Preoperative examination, unspecified Palpitations Anxiety and depression Dysthymic disorder Obesity, Class III, BMI >= 40 Morbid obesity Prediabetes Other abnormal glucose Current every day nicotine vaping Adverse reaction to food, initial encounter- Primary Egg allergy Allergy to eggs Chronic rhinitis [id number] adverse effect of medication, initial encounter [facility] Diagnosis Preoperative examination- Primary Preoperative examination, unspecified Palpitations Anxiety and depression Dysthymic disorder Obesity, Class III, BMI >= 40 Morbid obesity Prediabetes Other abnormal glucose Current every day nicotine vaping Encounter for gynecological examination (general) (routine) without abnormal findings- Primary Need for prophylactic vaccination/inoculation against viral disease Need for prophylactic vaccination and inoculation against other viral diseases [facility] Diagnosis Preoperative examination- Primary Preoperative examination, unspecified Palpitations Anxiety and depression Dysthymic disorder Obesity, Class III, BMI >= 40 Morbid obesity Prediabetes Other abnormal glucose Current every day nicotine vaping Fatigue, unspecified type- Primary [facility] Diagnosis Preoperative examination- Primary Preoperative examination, unspecified Palpitations Anxiety and depression Dysthymic disorder Obesity, Class III, BMI >= 40 Morbid obesity Prediabetes Other abnormal glucose Current every day nicotine vaping Palpitations- Primary Elevated blood pressure reading without diagnosis of hypertension Bradycardia Other specified cardiac dysrhythmias [facility] Diagnosis Preoperative examination- Primary Preoperative examination, unspecified Palpitations Anxiety and depression Dysthymic disorder Obesity, Class III, BMI >= 40 Morbid obesity Prediabetes Other abnormal glucose Current every day nicotine vaping Gastroenteritis- Primary Other and unspecified noninfectious gastroenteritis and colitis [facility] Diagnosis Preoperative examination- Primary Preoperative examination, unspecified Palpitations Anxiety and depression Dysthymic disorder Obesity, Class III, BMI >= 40 Morbid obesity Prediabetes Other abnormal glucose Current every day nicotine vaping Palpitations Elevated blood pressure reading without diagnosis of hypertension Bradycardia Other specified cardiac dysrhythmias [facility] Diagnosis Preoperative examination- Primary Preoperative examination, unspecified Palpitations Anxiety and depression Dysthymic disorder Obesity, Class III, BMI >= 40 Morbid obesity Prediabetes Other abnormal glucose Current every day nicotine vaping Acute pain of right knee- Primary Injury of left knee, initial encounter [facility] Diagnosis Preoperative examination- Primary Preoperative examination, unspecified Palpitations Anxiety and depression Dysthymic disorder Obesity, Class III, BMI >= 40 Morbid obesity Prediabetes Other abnormal glucose Current every day nicotine vaping Acute pain of right knee Injury of left knee, initial encounter [facility] Diagnosis Preoperative examination- Primary Preoperative examination, unspecified Palpitations Anxiety and depression Dysthymic disorder Obesity, Class III, BMI >= 40 Morbid obesity Prediabetes Other abnormal glucose Current every day nicotine vaping Palpitations- Primary SOB (shortness of breath) Shortness of breath Shortness of breath documented in this encounter [facility] note* Diagnosis Preoperative examination- Primary Preoperative examination, unspecified Palpitations Anxiety and depression Dysthymic disorder Obesity, Class III, BMI >= 40 Morbid obesity Prediabetes Other abnormal glucose Current every day nicotine vaping Urinary frequency- Primary Sore throat Acute pharyngitis documented in this encounter [facility] note* Diagnosis Preoperative examination- Primary Preoperative examination, unspecified Palpitations Anxiety and depression Dysthymic disorder Obesity, Class III, BMI >= 40 Morbid obesity Prediabetes Other abnormal glucose Current every day nicotine vaping Palpitations SOB (shortness of breath) Shortness of breath documented in this encounter [facility] note* Diagnosis Preoperative examination- Primary Preoperative examination, unspecified Palpitations Anxiety and depression Dysthymic disorder Obesity, Class III, BMI >= 40 Morbid obesity Prediabetes Other abnormal glucose Current every day nicotine vaping Need for prophylactic vaccination and inoculation against influenza- Primary documented in this encounter [facility] note* Diagnosis Preoperative examination- Primary Preoperative examination, unspecified Palpitations Anxiety and depression Dysthymic disorder Obesity, Class III, BMI >= 40 Morbid obesity Prediabetes Other abnormal glucose Current every day nicotine vaping Sore throat- Primary Acute pharyngitis Acute non-recurrent streptococcal tonsillitis documented in this encounter [facility] note* Diagnosis PCOS (polycystic ovarian syndrome)- Primary Polycystic ovaries Infertility, female documented in this encounter [facility] note* Diagnosis with inconclusive viability, fetus 1 of multiple gestation- Primary documented in this encounter [facility] note* Diagnosis with inconclusive viability, single or unspecified fetus- Primary documented in this encounter [facility] note* Diagnosis Preoperative examination- Primary Preoperative examination, unspecified Palpitations Anxiety and depression Dysthymic disorder Obesity, Class III, BMI >= 40 Morbid obesity Prediabetes Other abnormal glucose Current every day nicotine vaping Left lower quadrant abdominal tenderness with rebound tenderness- Primary Bloating Flatulence, eructation, and gas pain Early satiety No appetite Anorexia Left lower quadrant abdominal pain LUQ pain Abdominal pain, left upper quadrant Diarrhea, unspecified type Vitamin D deficiency Unspecified vitamin D deficiency Personal history of kidney stones Personal history of urinary calculi Iron deficiency Iron deficiency anemia, unspecified [facility] Diagnosis with inconclusive viability, single or unspecified fetus- Primary documented in this encounter [facility] note* Diagnosis with inconclusive viability, single or unspecified fetus- Primary documented in this encounter [facility] note* Diagnosis of unknown anatomic location- Primary documented in this encounter [facility] note* Diagnosis Tubal without intrauterine , unspecified laterality- Primary documented in this encounter [facility] note* Diagnosis Urinary urgency- Primary Urgency of urination documented in this encounter [facility] noteNo assessment information availableWSalem [facility] Work Phone: Evaluation note* Diagnosis Preoperative examination- Primary Preoperative examination, unspecified Palpitations Anxiety and depression Dysthymic disorder Obesity, Class III, BMI >= 40 Morbid obesity Prediabetes Other abnormal glucose Current every day nicotine vaping Vaginal bleeding affecting early (HCC)- Primary Vaginal bleeding affecting early (HCC) of unknown anatomic location (HCC) state, incidental of unknown anatomic location (HCC) state, incidental Left lower quadrant abdominal pain documented in this encounter [facility] note* Diagnosis Preoperative examination- Primary Preoperative examination, unspecified Palpitations Anxiety and depression Dysthymic disorder Obesity, Class III, BMI >= 40 Morbid obesity Prediabetes Other abnormal glucose Current every day nicotine vaping Vaginal bleeding affecting early (HCC)- Primary Vaginal bleeding affecting early (HCC) of unknown anatomic location (HCC) state, incidental of unknown anatomic location (HCC) state, incidental Spontaneous miscarriage (HCC)- Primary Unspecified spontaneous without mention of complication documented in this encounter [facility] note* Diagnosis Tubal without intrauterine , unspecified laterality- Primary Infertility, female documented in this encounter [facility] note* Diagnosis Preoperative examination- Primary Preoperative examination, unspecified Palpitations Anxiety and depression Dysthymic disorder Obesity, Class III, BMI >= 40 Morbid obesity Prediabetes Other abnormal glucose Current every day nicotine vaping Vaginal bleeding affecting early (HCC)- Primary Vaginal bleeding affecting early (HCC) of unknown anatomic location (HCC) state, incidental of unknown anatomic location (HCC) state, incidental Bradycardia- Primary Other specified cardiac dysrhythmias Loss of appetite Anorexia Dizziness Dizziness and giddiness Brain fog Numbness Disturbance of skin sensation Positive ISIS (antinuclear antibody) Other and unspecified nonspecific immunological findings Elevated C-reactive protein (CRP) Chest tightness Other chest pain Palpitations Iron deficiency Iron deficiency anemia, unspecified Vitamin D deficiency Unspecified vitamin D deficiency Urinary frequency [facility]* Diagnosis of unknown anatomic location- [facility] Diagnosis Tubal without intrauterine , unspecified laterality- Primary documented in this encounter [facility] note* Diagnosis Preoperative examination- Primary Preoperative examination, unspecified Palpitations Anxiety and depression Dysthymic disorder Obesity, Class III, BMI >= 40 Morbid obesity Prediabetes Other abnormal glucose Current every day nicotine vaping Vaginal bleeding affecting early (HCC)- Primary Vaginal bleeding affecting early (HCC) of unknown anatomic location (HCC) state, incidental of unknown anatomic location (HCC) state, incidental Iron deficiency Iron deficiency anemia, unspecified documented in this encounter [facility] note* Diagnosis Preoperative examination- Primary Preoperative examination, unspecified Palpitations Anxiety and depression Dysthymic disorder Obesity, Class III, BMI >= 40 Morbid obesity Prediabetes Other abnormal glucose Current every day nicotine vaping Vaginal bleeding affecting early (HCC)- Primary Vaginal bleeding affecting early (HCC) of unknown anatomic location (HCC) state, incidental of unknown anatomic location (HCC) state, incidental Palpitations [facility] Instructions Your pelvic ultrasound showed a small mass near the left ovary which is most likely your recent ectopic being absorbed. Follow-up with [facility] for [facility]evaluation and call their office later today as they should be able to get you in by Wednesday. If you have severe increase in vaginal bleeding develop increasing pain or have bouts of passing out please return to the ER for repeat evaluation.[facility] Work Phone: Reason for referral (narrative)* Diagnostic Procedure Only (Routine) - Closed Specialty Diagnoses / Procedures Referred By Contac t Referred To Contact XR IMAGING Diagnoses Acute left-sided thoracic back pain Procedures XR THORACIC GENERAL 3V AP/LAT/SWIMMERS RADEX SPINE THORACIC 3 VIEWS Trill, Eddie C, GREENHOUSE TRANSPLANTER.HAND COLLATOR [address] [place] [address] Xr Imaging Referral ID Status Reason Start Date Expiration Date V isits Requested Visits Authorized [id number] Closed Auto-Generate d Referral 07/29/2022 08/28/2023 1 1 [facility] for referral (narrative)* Diagnostic Procedure Only (Routine) - Closed Specialty Diagnoses / Procedures Referred By Contac t Referred To Contact XR IMAGING Diagnoses Acute left-sided thoracic back pain Procedures XR LUMBAR PARS DEFECT 4V AP/LAT/BOTH OBL RADEX SPINE LUMBOSACRAL MINIMUM 4 VIEWS Eddie Bishop APRN.HAND COLLATOR [address] [place] [address] Xr Imaging Referral ID Status Reason Start Date Expiration Date V isits Requested Visits Authorized [id number] Closed Auto-Generate d Referral 07/29/2022 08/28/2023 1 1 [facility] for referral (narrative)* Diagnostic Procedure Only (Routine) - Closed Specialty Diagnoses / Procedures Referred By Contac t Referred To Contact XR IMAGING Diagnoses Rib pain on left side Procedures XR RIBS/CHEST 3V AP RIB/OBLS/CXR LEFT RADEX RIBS UNI W/POSTEROANT CH MINIMUM 3 VIEWS Eddie Bishop APRN.HAND COLLATOR [address] [place] [address] Xr Imaging Referral ID Status Reason Start Date Expiration Date V isits Requested Visits Authorized [id number] Closed Auto-Generate d Referral 07/29/2022 08/28/2023 1 1 [facility] for referral (narrative)* Outpatient Procedure (Routine) - Pending Review Specialty Diagnoses / Procedures Referred By Contac t Referred To [facility] Diagnoses Chest tightness Palpitations VICTOR (dyspnea on exertion) Procedures ECHO ECHO TTHRC R-T 2D W/WOM-MODE COMPL SPEC&COLR D Eddie Bishop APRN.CNP [address] [place] [address] [facility] [place] [address] [place] [address] Referral ID Status Reason Start Date Expiration Date Visits Requested Visits Authorized [id number] Pending Review Auto-Generat ed Referral 02/08/2023 02/08/2024 1 1 [facility] for referral (narrative)* Outpatient Procedure (Routine) - Closed Specialty Diagnoses / Procedures Referred By Alejandroac t Referred To [facility] Diagnoses Chest tightness Palpitations VICTOR (dyspnea on exertion) Procedures ECHO ECHO TTHRC R-T 2D W/WOM-MODE COMPL SPEC&COLR Eddie Gifford APRN.CNP [address] [place] [address] [facility] [place] [id number] Referral ID Status Reason Start Date Expiration Date V isits Requested Visits Authorized [id number] Closed Auto-Generate d Referral 02/08/2023 02/08/2024 1 1 [facility] for referral (narrative)* Diagnostic Procedure Only (Routine) - Pending Review Specialty Diagnoses / Procedures Referred By Contnaren t Referred To Contact US IMAGING Diagnoses Renal calculus, left Procedures US KIDNEY/BLADDER US RETROPERITONEAL REAL TIME W/IMAGE COMPLETE Doris Frank APRN.CNP, DNP [address] [place] [address] [place] [address] Referral ID Status Reason Start Date Expiration Date Visits Requested Visits Authorized [id number] Pending Review Auto-Generat ed Referral 3 06/29/2024 1 1 [facility] for referral (narrative)* Diagnostic Procedure Only (Routine) - Closed Specialty Diagnoses / Procedures Referred By Contac t Referred To Contact US IMAGING Diagnoses Renal calculus, left Procedures US KIDNEY/BLADDER US RETROPERITONEAL REAL TIME W/IMAGE COMPLETE Doris Frank APRN.BART, RANDY [address] [place] [address] [place] [address] Referral ID Status Reason Start Date Expiration Date V isits Requested Visits Authorized [id number] Closed Auto-Generate d Referral 05/31/2023 06/29/2024 1 1 [facility] for referral (narrative)* Diagnostic Procedure Only (Routine) - Pending Review Specialty Diagnoses / Procedures Referred By Contac t Referred To Contact US IMAGING Diagnoses Right upper quadrant abdominal tenderness without rebound tenderness Procedures US ABD RIGHT UPPER QUADRANT US ABDOMINAL REAL TIME W/IMAGE LIMITED Tin Rich APRN.HAND COLLATOR [address] [place] [address] [place] [address] Referral ID Status Reason Start Date Expiration Date Visits Requested Visits Authorized [id number] Pending Review Auto-Generat ed Referral 08/26/2023 09/24/2024 1 1 [facility] for referral (narrative)* Diagnostic Procedure Only (Routine) - Authorized Specialty Diagnoses / Procedures Referred By Contac t Referred To Contact US IMAGING Diagnoses Renal calculus, left Procedures US KIDNEY/BLADDER US RETROPERITONEAL REAL TIME W/IMAGE COMPLETE Katherine Rome MD [address] [place] [address] [place] [address] Referral ID Status Reason Start Date Expiration Date Visits Requested Visits Authorized [id number] Authorized Auto-Generat ed Referral 01/14/2024 01/01/2025 1 1 * Diagnostic Procedure Only (Routine) - Authorized Specialty Diagnoses / Procedures Referred By Contac t Referred To Contact XR IMAGING Diagnoses Renal calculus, left Procedures XR ABDOMEN 1V SUPINE RADIOLOGIC EXAM ABDOMEN 1 VIEW Katherine Rome MD [address] [place] [address] [place] [address] Referral ID Status Reason Start Date Expiration Date Visits Requested Visits Authorized [id number] Authorized Auto-Generat ed Referral 01/14/2024 01/01/2025 1 1 [facility] for referral (narrative)* Diagnostic Procedure Only (Routine) - New Request Specialty Diagnoses / Procedures Referred By Contac t Referred To Contact US IMAGING Diagnoses Epigastric pain LUQ pain Subcutaneous mass of abdominal wall Procedures US SOFT TISSUE ABDOMEN US ABDOMINAL REAL TIME W/IMAGE LIMITED Eddie Bishop [employer]ENHOUSE TRANSPLANTER.HAND COLLATOR [address] [place] [address] [place] [address] Referral ID Status Reason Start Date Expiration Date Visits Requested Visits Authorized [id number] New Request Auto-Generat ed Referral 03/07/2024 04/06/2025 1 1 [facility] for referral (narrative)* Diagnostic Procedure Only (Routine) - Closed Specialty Diagnoses / Procedures Referred By Contac t Referred To Contact XR IMAGING Diagnoses Acute pain of right knee Injury of left knee, initial encounter Procedures XR KNEE INJURY 4V AP/LAT/OBLS LEFT RADIOLOGIC EXAM KNEE COMPLETE 4/MORE VIEWS Katiana Diaz GREENHOUSE TRANSPLANTER.HAND COLLATOR [address] [place] [address] [place] [address] Referral ID Status Reason Start Date Expiration Date V isits Requested Visits Authorized [id number] Closed Auto-Generate d Referral 08/01/2024 08/31/2025 1 1 [facility] for referral (narrative)* Outpatient Procedure (Routine) - Authorized Specialty Diagnoses / Procedures Referred By Contac t Referred To Contact [facility] Diagnoses Palpitations SOB (shortness of breath) Procedures EXERCISE STRESS ECG (WITHOUT IMAGING) CV STRS TST XERS&/OR RX CONT ECG TRCG ONLY Jess Thayer MD [address] [place] [address] [address] Referral ID Status Reason Start Date Expiration Date Visits Requested Visits Authorized [id number] Authorized Auto-Generat ed Referral 08/07/2024 08/07/2025 1 1 * Outpatient Procedure (Routine) - New Request Specialty Diagnoses / Procedures Referred By Contac t Referred To Contact [facility] Diagnoses Palpitations Procedures ECHO ECHO TTHRC R-T 2D W/WOM-MODE COMPL SPEC&COLR D Jess Thayer MD [address] [place] [address] [address] Referral ID Status Reason Start Date Expiration Date Visits Requested Visits Authorized [id number] New Request Auto-Generat ed Referral 08/07/2024 08/07/2025 1 1 [facility] for visit Narrative* Diagnostic Procedure Only (Routine) - Closed Specialty Diagnoses / Procedures Referred By Contac t Referred To Contact XR IMAGING Diagnoses Acute left-sided thoracic back pain Procedures XR THORACIC GENERAL 3V AP/LAT/SWIMMERS RADEX SPINE THORACIC 3 VIEWS Eddie Bishop, GREENHOUSE TRANSPLANTER.HAND COLLATOR [address] [place] [address] Xr Imaging Referral ID Status Reason Start Date Expiration Date V isits Requested Visits Authorized [id number] Closed Auto-Generate d Referral 07/29/2022 08/28/2023 1 1 [facility] for visit Narrative* Diagnostic Procedure Only (Routine) - Closed Specialty Diagnoses / Procedures Referred By Contac t Referred To Contact XR IMAGING Diagnoses Acute left-sided thoracic back pain Procedures XR LUMBAR PARS DEFECT 4V AP/LAT/BOTH OBL RADEX SPINE LUMBOSACRAL MINIMUM 4 VIEWS Eddie Bishop APRN.HAND COLLATOR [address] [place] [address] Xr Imaging Referral ID Status Reason Start Date Expiration Date V isits Requested Visits Authorized [id number] Closed Auto-Generate d Referral 07/29/2022 08/28/2023 1 1 [facility] for visit Narrative* Diagnostic Procedure Only (Routine) - Closed Specialty Diagnoses / Procedures Referred By Contac t Referred To Contact XR IMAGING Diagnoses Rib pain on left side Procedures XR RIBS/CHEST 3V AP RIB/OBLS/CXR LEFT RADEX RIBS UNI W/POSTEROANT CH MINIMUM 3 VIEWS Eddie Bishop APRN.HAND COLLATOR [address] [place] [address] Xr Imaging Referral ID Status Reason Start Date Expiration Date V isits Requested Visits Authorized [id number] Closed Auto-Generate d Referral 07/29/2022 08/28/2023 1 1 [facility] for visit Narrative* Outpatient Procedure (Routine) - Closed Specialty Diagnoses / Procedures Referred By Contac t Referred [facility] Diagnoses Chest tightness Palpitations VICTOR (dyspnea on exertion) Procedures ECHO ECHO TTHRC R-T 2D W/WOM-MODE COMPL SPEC&COLR D Eddie Bishop GREENHOUSE TRANSPLANTER.HAND COLLATOR [address] [place] [address] [facility] [place] [address] [place] [address] Referral ID Status Reason Start Date Expiration Date V isits Requested Visits Authorized [id number] Closed Auto-Generate d Referral 02/08/2023 02/08/2024 1 1 [facility] for visit Narrative* Diagnostic Procedure Only (Routine) - Closed Specialty Diagnoses / Procedures Referred By Contac t Referred To Contact US IMAGING Diagnoses Renal calculus, left Procedures US KIDNEY/BLADDER US RETROPERITONEAL REAL TIME W/IMAGE COMPLETE Doris Frank, GREENHOUSE TRANSPLANTER.HAND COLLATOR, DNP [address] [place] [address] [place] [address] Referral ID Status Reason Start Date Expiration Date V isits Requested Visits Authorized [id number] Closed Auto-Generate d Referral 05/31/2023 06/29/2024 1 1 [facility] for visit Narrative* Diagnostic Procedure Only (Routine) - Closed Specialty Diagnoses / Procedures Referred By Contac t Referred To Contact US IMAGING Diagnoses Right upper quadrant abdominal tenderness without rebound tenderness Procedures US ABD RIGHT UPPER QUADRANT US ABDOMINAL REAL TIME W/IMAGE LIMITED Tin Rich, GREENHOUSE TRANSPLANTER.HAND COLLATOR [address] [place] [address] [place] [address] Referral ID Status Reason Start Date Expiration Date V isits Requested Visits Authorized [id number] Closed Auto-Generate d Referral 08/26/2023 09/24/2024 1 1 [facility] for visit Narrative* Diagnostic Procedure Only (Routine) - Closed Specialty Diagnoses / Procedures Referred By Contac t Referred To Contact XR IMAGING Diagnoses Renal calculus, left Procedures XR ABDOMEN 1V SUPINE RADIOLOGIC EXAM ABDOMEN 1 VIEW Katherine Rome MD [address] [place] [address] [place] [address] Referral ID Status Reason Start Date Expiration Date V isits Requested Visits Authorized [id number] Closed Auto-Generate d Referral 01/14/2024 01/01/2025 1 1 [facility] for visit Narrative* Diagnostic Procedure Only (Routine) - Closed Specialty Diagnoses / Procedures Referred By Contac t Referred To Contact US IMAGING Diagnoses Renal calculus, left Procedures US KIDNEY/BLADDER US RETROPERITONEAL REAL TIME W/IMAGE COMPLETE Katherine Rome MD [address] [place] [address] [place] [address] Referral ID Status Reason Start Date Expiration Date V isits Requested Visits Authorized [id number] Closed Auto-Generate d Referral 01/14/2024 01/01/2025 1 1 [facility] for visit Narrative* Diagnostic Procedure Only (Routine) - Closed Specialty Diagnoses / Procedures Referred By Contac t Referred To Contact XR IMAGING Diagnoses Acute pain of right knee Injury of left knee, initial encounter Procedures XR KNEE INJURY 4V AP/LAT/OBLS LEFT RADIOLOGIC EXAM KNEE COMPLETE 4/MORE VIEWS Katiana Diaz, GREENHOUSE TRANSPLANTER.HAND COLLATOR [address] [place] [address] [place] [address] Referral ID Status Reason Start Date Expiration Date V isits Requested Visits Authorized [id number] Closed Auto-Generate d Referral 08/01/2024 08/31/2025 1 1 [facility] for visit Narrative* Outpatient Procedure (Routine) - Closed Specialty Diagnoses / Procedures Referred By Contac t Referred To [facility] Diagnoses Palpitations SOB (shortness of breath) Procedures EXERCISE STRESS ECG (WITHOUT IMAGING) CV STRS TST XERS&/OR RX CONT ECG TRCG ONLY Jess Thayer MD [address] [place] [address] Phone: tel: fax: [facility] [place] [phone] Referral ID Status Reason Start Date Expiration Date V isits Requested Visits Authorized [id number] Closed Auto-Generate d Referral 08/07/2024 08/07/2025 1 1 [facility] for visit Narrative* MRI/CT (Routine) - Closed Specialty Diagnoses / Procedures Referred By Contac t Referred To Contact CT IMAGING Diagnoses Left lower quadrant abdominal pain Procedures CT ABD/PEL W IVCON CT ABD & PELVIS W/CONTRAST Eddie Bishop, GREENHOUSE TRANSPLANTER.HAND COLLATOR [address] [place] [address] Phone: tel: fax: [place] [address] Referral ID Status Reason Start Date Expiration Date V isits Requested Visits Authorized [id number] Closed Auto-Generate d Referral 12/12/2024 01/11/2026 1 1 [facility] for visit Narrative* MRI/CT (Routine) - Closed Specialty Diagnoses / Procedures Referred By Contac t Referred To Contact CT IMAGING Diagnoses Left lower quadrant abdominal pain Procedures CT ABD/PEL W IVCON CT ABD & PELVIS W/CONTRAST Eddie Bishop, GREENHOUSE TRANSPLANTER.HAND COLLATOR [address] [place] [address] Phone: tel: fax: [place] [address] Referral ID Status Reason Start Date Expiration Date V isits Requested Visits Authorized [id number] Closed Auto-Generate d Referral 12/12/2024 01/11/2026 [facility] Procedure (Routine) - Closed Specialty Diagnoses / Procedures Referred By Mouna goldberg Referred To [facility] Diagnoses Palpitations Procedures ECHO ECHO TTHRC R-T 2D W/WOM-MODE COMPL SPEC&COLR D Jess Thayer MD [address] [place] [address] Phone: tel: fax: [facility] [place] [address] [place] [address] Referral ID Status Reason Start Date Expiration Date V isits Requested Visits Authorized [id number] Closed Auto-Generate d Referral 08/07/2024 08/07/2025 1 1 [facility] Summary Purpose Family History No Family History Records FoundNo Family History Records FoundNo Family History Records FoundNo Family History Records FoundNo Family History Records FoundNo Family History Records FoundNo Family History Records Found Advance Directives No Advanced Directives Records FoundDocuments on File Type Date Recorded Patient Site Manager Expl anation Advance Directive(s) 09/03/2020 9:43 PM Advance Directive(s) 08/25/2019 6:50 PM Advance Directive(s) 05/03/2019 8:41 PM Advance Directive(s) 02/05/2018 1:31 PM Documents on File Type Date Recorded Patient Site Manager Expl anation Advance Directive(s) 02/01/2022 8:19 PM Advance Directive(s) 09/03/2020 9:43 PM Advance Directive(s) 08/25/2019 6:50 PM Advance Directive(s) 05/03/2019 8:41 PM Advance Directive(s) 02/05/2018 1:31 PM Advance Directive Response Recorded Date/ Time Do you have a Healthcare Power of Clinical Statistics Manager? No January 24, 2025 5:39am Reason for Referral Specialty Diagnoses / Procedures Referred By Mouna goldberg Referred To Contact CT IMAGING Diagnoses LUQ pain Abdominal mass, LUQ (left upper quadrant) Nausea Procedures CT ABD/PEL W IVCON CT ABD & PELVIS W/CONTRAST Eddie Bishop, GREENHOUSE TRANSPLANTER.HAND COLLATOR [address] [place] [address] Ct Imaging Referral ID Status Reason Start Date Expiration Date Visits Requested Visits Authorized [id number] Pending Review Auto-Generat ed Referral 07/20/2022 08/19/2023 1 1 Specialty Diagnoses / Procedures Referred By Contac t Referred To Contact Diagnoses Abnormal uterine bleeding (AUB) Female infertility Anovulation Procedures CONSULT TO INFERTILITY CLINIC OFFICE/OUTPATIENT [facility] 60-74 MINUTES Ruby Villalba MD [address] [place] [address] Referral ID Status Reason Start Date Expiration Date Visits Requested Visits Authorized [id number] Pending Review PCP Requested Referral Auto-Generate d Referral 10/15/2022 10/15/2023 1 1 Specialty Diagnoses / Procedures Referred By Contac t Referred To Contact US IMAGING Diagnoses Abnormal uterine bleeding (AUB) Procedures US FEMALE PELVIS TRANSVAG US TRANSVAGINAL Ruby Villalba MD [address] [place] [address] Us Imaging Referral ID Status Reason Start Date Expiration Date Visits Requested Visits Authorized [id number] Authorized Auto-Generat ed Referral 10/15/2022 11/14/2023 1 1 Specialty Diagnoses / Procedures Referred By Contac t Referred To Contact [facility] [place] Diagnoses Abnormal uterine bleeding (AUB) Procedures PELVIC US WHI US PELVIC NONOBSTETRIC REAL-TIME IMAGE COMPLETE Ruby Villalba MD [address] [place] [address] [facility] [address] [place] [address] Referral ID Status Reason Start Date Expiration Date Visits Requested Visits Authorized [id number] Pending Review Auto-Generat ed Referral 10/15/2022 10/15/2023 1 1 Specialty Diagnoses / Procedures Referred By Contac t Referred To Contact Diagnoses Preop examination Procedures VIRTUAL CONSULT TO [facility] Ct Pappas MD [address] [place] [address] Referral ID Status Reason Start Date Expiration Date Visits Requested Visits Authorized [id number] Ref Not Required PCP Requested Referral 11/09/2022 02/07/2023 1 1 Specialty Diagnoses / Procedures Referred By Contac t Referred To Contact Physical Therapy Diagnoses Spastic pelvic floor syndrome Procedures CONSULT TO PHYSICAL THERAPY Ct Pappas MD [address] [place] [phone] Referral ID Status Reason Start Date Expiration Date V isits Requested Visits Authorized [id number] Pending Review 11/09/2022 02/07/2023 20 20 Specialty Diagnoses / Procedures Referred By Contac t Referred To Contact General Surgery / GENERAL SURGERY Diagnoses Skin cysts, generalized Procedures CONSULT TO GENERAL SURGERY OFFICE/OUTPATIENT [facility] 60 MINUTES Katiana Diaz, GREENHOUSE TRANSPLANTER.[facility] [address] [place] [address] Arlene Waldron MD [address] [address] Referral ID Status Reason Start Date Expiration Date Visits Requested Visits Authorized [id number] Authorized PCP Requested Referral 11/09/2023 02/07/2024 1 1 Specialty Diagnoses / Procedures Referred By Contac t Referred To Contact Cardiology / [facility] DEPARTMENT Diagnoses Palpitations Shortness of breath Procedures CONSULT TO CARDIOLOGY OFFICE/OUTPATIENT [facility] 60 MINUTES Eddei Bishop, GREENHOUSE TRANSPLANTER.HAND COLLATOR [address] [place] [address] Liu Hauser MD [address] [place] [address] Referral ID Status Reason Start Date Expiration Date Visits Requested Visits Authorized [id number] Authorized PCP Requested Referral 04/10/2024 04/10/2025 1 1 Specialty Diagnoses / Procedures Referred By Contac t Referred To Contact Allergy / [facility] DEPARTMENT Diagnoses Egg allergy Procedures CONSULT TO ALLERGY/IMMUNOLOGY OFFICE/OUTPATIENT [facility] 60 MINUTES Eddie Bishop, GREENHOUSE TRANSPLANTER.HAND COLLATOR [address] [place] [address] [facility] [place] [address] Referral ID Status Reason Start Date Expiration Date Visits Requested Visits Authorized [id number] Authorized PCP Requested Referral 04/12/2024 04/12/2025 1 1 Health Concerns Infection Onset Date Last Indicated Resolved Time COVID-19 Rule-Out 04/10/2023 04/10/2023 Chief Complaint and Reason for Visit Chief Complaint Admit Date back pain January 24, 2025 5:36 am Additional Source Comments INFORMATION SOURCE (unrecogn ized section and content) DATE CREATED AUTHOR 09/27/2018 [facility] DATE CREATED AUTHOR AUTHOR'S ORGANIZ ATION 08/25/2019 [facility] DATE CREATED AUTHOR AUTHOR'S ORGANIZ ATION 08/29/2024 [facility] DATE CREATED AUTHOR AUTHOR'S ORGANIZ ATION 01/30/2025 [facility] DATE CREATED AUTHOR AUTHOR'S ORGANIZ ATION 02/01/2025 [facility] DATE CREATED AUTHOR AUTHOR'S ORGANIZ ATION 02/24/2025 [facility] DATE CREATED AUTHOR AUTHOR'S ORGANIZ ATION 03/22/2025 [facility] Source Comments (unrecognize d section and content) In the event this informatio n is protected by the Federal Confidentiality of Alcohol and Drug Abuse Patient Records regulations: The Federal rules restrict any use of the information to criminally investigate or prosecute any alcohol or drug abuse patient.[facility] the event this information is protected by the Federal Confidentiality of Alcohol and Drug Abuse Patient Records regulations: The Federal rules restrict any use of the information to criminally investigate or prosecute any alcohol or drug abuse patient.[facility] the event this information is protected by the Federal Confidentiality of Alcohol and Drug Abuse Patient Records regulations: The Federal rules restrict any use of the information to criminally investigate or prosecute any alcohol or drug abuse patient.[facility] the event this information is protected by the Federal Confidentiality of Alcohol and Drug Abuse Patient Records regulations: The Federal rules restrict any use of the information to criminally investigate or prosecute any alcohol or drug abuse patient.[facility] the event this information is protected by the Federal Confidentiality of Alcohol and Drug Abuse Patient Records regulations: The Federal rules restrict any use of the information to criminally investigate or prosecute any alcohol or drug abuse patient.[facility] the event this information is protected by the Federal Confidentiality of Alcohol and Drug Abuse Patient Records regulations: The Federal rules restrict any use of the information to criminally investigate or prosecute any alcohol or drug abuse patient.[facility] the event this information is protected by the Federal Confidentiality of Alcohol and Drug Abuse Patient Records regulations: The Federal rules restrict any use of the information to criminally investigate or prosecute any alcohol or drug abuse patient.[facility] the event this information is protected by the Federal Confidentiality of Alcohol and Drug Abuse Patient Records regulations: The Federal rules restrict any use of the information to criminally investigate or prosecute any alcohol or drug abuse patient.[facility] the event this information is protected by the Federal Confidentiality of Alcohol and Drug Abuse Patient Records regulations: The Federal rules restrict any use of the information to criminally investigate or prosecute any alcohol or drug abuse patient.[facility] the event this information is protected by the Federal Confidentiality of Alcohol and Drug Abuse Patient Records regulations: The Federal rules restrict any use of the information to criminally investigate or prosecute any alcohol or drug abuse patient.[facility] the event this information is protected by the Federal Confidentiality of Alcohol and Drug Abuse Patient Records regulations: The Federal rules restrict any use of the information to criminally investigate or prosecute any alcohol or drug abuse patient.[facility] the event this information is protected by the Federal Confidentiality of Alcohol and Drug Abuse Patient Records regulations: The Federal rules restrict any use of the information to criminally investigate or prosecute any alcohol or drug abuse patient.[facility] the event this information is protected by the Federal Confidentiality of Alcohol and Drug Abuse Patient Records regulations: The Federal rules restrict any use of the information to criminally investigate or prosecute any alcohol or drug abuse patient.[facility] the event this information is protected by the Federal Confidentiality of Alcohol and Drug Abuse Patient Records regulations: The Federal rules restrict any use of the information to criminally investigate or prosecute any alcohol or drug abuse patient.[facility] the event this information is protected by the Federal Confidentiality of Alcohol and Drug Abuse Patient Records regulations: The Federal rules restrict any use of the information to criminally investigate or prosecute any alcohol or drug abuse patient.[facility] the event this information is protected by the Federal Confidentiality of Alcohol and Drug Abuse Patient Records regulations: The Federal rules restrict any use of the information to criminally investigate or prosecute any alcohol or drug abuse patient.[facility] the event this information is protected by the Federal Confidentiality of Alcohol and Drug Abuse Patient Records regulations: The Federal rules restrict any use of the information to criminally investigate or prosecute any alcohol or drug abuse patient.[facility] the event this information is protected by the Federal Confidentiality of Alcohol and Drug Abuse Patient Records regulations: The Federal rules restrict any use of the information to criminally investigate or prosecute any alcohol or drug abuse patient.[facility] the event this information is protected by the Federal Confidentiality of Alcohol and Drug Abuse Patient Records regulations: The Federal rules restrict any use of the information to criminally investigate or prosecute any alcohol or drug abuse patient.[facility] the event this information is protected by the Federal Confidentiality of Alcohol and Drug Abuse Patient Records regulations: The Federal rules restrict any use of the information to criminally investigate or prosecute any alcohol or drug abuse patient.[facility] the event this information is protected by the Federal Confidentiality of Alcohol and Drug Abuse Patient Records regulations: The Federal rules restrict any use of the information to criminally investigate or prosecute any alcohol or drug abuse patient.[facility] the event this information is protected by the Federal Confidentiality of Alcohol and Drug Abuse Patient Records regulations: The Federal rules restrict any use of the information to criminally investigate or prosecute any alcohol or drug abuse patient.[facility] the event this information is protected by the Federal Confidentiality of Alcohol and Drug Abuse Patient Records regulations: The Federal rules restrict any use of the information to criminally investigate or prosecute any alcohol or drug abuse patient.[facility] the event this information is protected by the Federal Confidentiality of Alcohol and Drug Abuse Patient Records regulations: The Federal rules restrict any use of the information to criminally investigate or prosecute any alcohol or drug abuse patient.[facility] the event this information is protected by the Federal Confidentiality of Alcohol and Drug Abuse Patient Records regulations: The Federal rules restrict any use of the information to criminally investigate or prosecute any alcohol or drug abuse patient.[facility] the event this information is protected by the Federal Confidentiality of Alcohol and Drug Abuse Patient Records regulations: The Federal rules restrict any use of the information to criminally investigate or prosecute any alcohol or drug abuse patient.[facility] the event this information is protected by the Federal Confidentiality of Alcohol and Drug Abuse Patient Records regulations: The Federal rules restrict any use of the information to criminally investigate or prosecute any alcohol or drug abuse patient.[facility] the event this information is protected by the Federal Confidentiality of Alcohol and Drug Abuse Patient Records regulations: The Federal rules restrict any use of the information to criminally investigate or prosecute any alcohol or drug abuse patient.[facility] the event this information is protected by the Federal Confidentiality of Alcohol and Drug Abuse Patient Records regulations: The Federal rules restrict any use of the information to criminally investigate or prosecute any alcohol or drug abuse patient.[facility] the event this information is protected by the Federal Confidentiality of Alcohol and Drug Abuse Patient Records regulations: The Federal rules restrict any use of the information to criminally investigate or prosecute any alcohol or drug abuse patient.[facility]In the event this information is protected by the Federal Confidentiality of Alcohol and Drug Abuse Patient Records regulations: The Federal rules restrict any use of the information to criminally investigate or prosecute any alcohol or drug abuse patient.[facility] the event this information is protected by the Federal Confidentiality of Alcohol and Drug Abuse Patient Records regulations: The Federal rules restrict any use of the information to criminally investigate or prosecute any alcohol or drug abuse patient.[facility] the event this information is protected by the Federal Confidentiality of Alcohol and Drug Abuse Patient Records regulations: The Federal rules restrict any use of the information to criminally investigate or prosecute any alcohol or drug abuse patient.[facility]In the event this information is protected by the Federal Confidentiality of Alcohol and Drug Abuse Patient Records regulations: The Federal rules restrict any use of the information to criminally investigate or prosecute any alcohol or drug abuse patient.[facility]In the event this information is protected by the Federal Confidentiality of Alcohol and Drug Abuse Patient Records regulations: The Federal rules restrict any use of the information to criminally investigate or prosecute any alcohol or drug abuse patient.[facility]In the event this information is protected by the Federal Confidentiality of Alcohol and Drug Abuse Patient Records regulations: The Federal rules restrict any use of the information to criminally investigate or prosecute any alcohol or drug abuse patient.[facility]In the event this information is protected by the Federal Confidentiality of Alcohol and Drug Abuse Patient Records regulations: The Federal rules restrict any use of the information to criminally investigate or prosecute any alcohol or drug abuse patient.[facility] the event this information is protected by the Federal Confidentiality of Alcohol and Drug Abuse Patient Records regulations: The Federal rules restrict any use of the information to criminally investigate or prosecute any alcohol or drug abuse patient.[facility]In the event this information is protected by the Federal Confidentiality of Alcohol and Drug Abuse Patient Records regulations: The Federal rules restrict any use of the information to criminally investigate or prosecute any alcohol or drug abuse patient.[facility]In the event this information is protected by the Federal Confidentiality of Alcohol and Drug Abuse Patient Records regulations: The Federal rules restrict any use of the information to criminally investigate or prosecute any alcohol or drug abuse patient.[facility] the event this information is protected by the Federal Confidentiality of Alcohol and Drug Abuse Patient Records regulations: The Federal rules restrict any use of the information to criminally investigate or prosecute any alcohol or drug abuse patient.[facility]In the event this information is protected by the Federal Confidentiality of Alcohol and Drug Abuse Patient Records regulations: The Federal rules restrict any use of the information to criminally investigate or prosecute any alcohol or drug abuse patient.[facility]In the event this information is protected by the Federal Confidentiality of Alcohol and Drug Abuse Patient Records regulations: The Federal rules restrict any use of the information to criminally investigate or prosecute any alcohol or drug abuse patient.[facility]In the event this information is protected by the Federal Confidentiality of Alcohol and Drug Abuse Patient Records regulations: The Federal rules restrict any use of the information to criminally investigate or prosecute any alcohol or drug abuse patient.[facility]In the event this information is protected by the Federal Confidentiality of Alcohol and Drug Abuse Patient Records regulations: The Federal rules restrict any use of the information to criminally investigate or prosecute any alcohol or drug abuse patient.[facility]In the event this information is protected by the Federal Confidentiality of Alcohol and Drug Abuse Patient Records regulations: The Federal rules restrict any use of the information to criminally investigate or prosecute any alcohol or drug abuse patient.[facility]In the event this information is protected by the Federal Confidentiality of Alcohol and Drug Abuse Patient Records regulations: The Federal rules restrict any use of the information to criminally investigate or prosecute any alcohol or drug abuse patient.[facility] HospitalIn the event this information is protected by the Federal Confidentiality of Alcohol and Drug Abuse Patient Records regulations: The Federal rules restrict any use of the information to criminally investigate or prosecute any alcohol or drug abuse patient.[facility] HospitalIn the event this information is protected by the Federal Confidentiality of Alcohol and Drug Abuse Patient Records regulations: The Federal rules restrict any use of the information to criminally investigate or prosecute any alcohol or drug abuse patient.[facility] HospitalIn the event this information is protected by the Federal Confidentiality of Alcohol and Drug Abuse Patient Records regulations: The Federal rules restrict any use of the information to criminally investigate or prosecute any alcohol or drug abuse patient.[facility] HospitalIn the event this information is protected by the Federal Confidentiality of Alcohol and Drug Abuse Patient Records regulations: The Federal rules restrict any use of the information to criminally investigate or prosecute any alcohol or drug abuse patient.[facility] HospitalIn the event this information is protected by the Federal Confidentiality of Alcohol and Drug Abuse Patient Records regulations: The Federal rules restrict any use of the information to criminally investigate or prosecute any alcohol or drug abuse patient.[facility] HospitalIn the event this information is protected by the Federal Confidentiality of Alcohol and Drug Abuse Patient Records regulations: The Federal rules restrict any use of the information to criminally investigate or prosecute any alcohol or drug abuse patient.[facility] HospitalIn the event this information is protected by the Federal Confidentiality of Alcohol and Drug Abuse Patient Records regulations: The Federal rules restrict any use of the information to criminally investigate or prosecute any alcohol or drug abuse patient.[facility] HospitalIn the event this information is protected by the Federal Confidentiality of Alcohol and Drug Abuse Patient Records regulations: The Federal rules restrict any use of the information to criminally investigate or prosecute any alcohol or drug abuse patient.[facility] HospitalIn the event this information is protected by the Federal Confidentiality of Alcohol and Drug Abuse Patient Records regulations: The Federal rules restrict any use of the information to criminally investigate or prosecute any alcohol or drug abuse patient.[facility] HospitalIn the event this information is protected by the Federal Confidentiality of Alcohol and Drug Abuse Patient Records regulations: The Federal rules restrict any use of the information to criminally investigate or prosecute any alcohol or drug abuse patient.[facility] HospitalIn the event this information is protected by the Federal Confidentiality of Alcohol and Drug Abuse Patient Records regulations: The Federal rules restrict any use of the information to criminally investigate or prosecute any alcohol or drug abuse patient.[facility] HospitalIn the event this information is protected by the Federal Confidentiality of Alcohol and Drug Abuse Patient Records regulations: The Federal rules restrict any use of the information to criminally investigate or prosecute any alcohol or drug abuse patient.[facility] HospitalIn the event this information is protected by the Federal Confidentiality of Alcohol and Drug Abuse Patient Records regulations: The Federal rules restrict any use of the information to criminally investigate or prosecute any alcohol or drug abuse patient.[facility] HospitalIn the event this information is protected by the Federal Confidentiality of Alcohol and Drug Abuse Patient Records regulations: The Federal rules restrict any use of the information to criminally investigate or prosecute any alcohol or drug abuse patient.[facility] HospitalIn the event this information is protected by the Federal Confidentiality of Alcohol and Drug Abuse Patient Records regulations: The Federal rules restrict any use of the information to criminally investigate or prosecute any alcohol or drug abuse patient.[facility] HospitalIn the event this information is protected by the Federal Confidentiality of Alcohol and Drug Abuse Patient Records regulations: The Federal rules restrict any use of the information to criminally investigate or prosecute any alcohol or drug abuse patient.[facility] HospitalIn the event this information is protected by the Federal Confidentiality of Alcohol and Drug Abuse Patient Records regulations: The Federal rules restrict any use of the information to criminally investigate or prosecute any alcohol or drug abuse patient.[facility] HospitalIn the event this information is protected by the Federal Confidentiality of Alcohol and Drug Abuse Patient Records regulations: The Federal rules restrict any use of the information to criminally investigate or prosecute any alcohol or drug abuse patient.[facility] HospitalIn the event this information is protected by the Federal Confidentiality of Alcohol and Drug Abuse Patient Records regulations: The Federal rules restrict any use of the information to criminally investigate or prosecute any alcohol or drug abuse patient.[facility] HospitalIn the event this information is protected by the Federal Confidentiality of Alcohol and Drug Abuse Patient Records regulations: The Federal rules restrict any use of the information to criminally investigate or prosecute any alcohol or drug abuse patient.[facility] HospitalIn the event this information is protected by the Federal Confidentiality of Alcohol and Drug Abuse Patient Records regulations: The Federal rules restrict any use of the information to criminally investigate or prosecute any alcohol or drug abuse patient.[facility] HospitalIn the event this information is protected by the Federal Confidentiality of Alcohol and Drug Abuse Patient Records regulations: The Federal rules restrict any use of the information to criminally investigate or prosecute any alcohol or drug abuse patient.[facility] HospitalIn the event this information is protected by the Federal Confidentiality of Alcohol and Drug Abuse Patient Records regulations: The Federal rules restrict any use of the information to criminally investigate or prosecute any alcohol or drug abuse patient.[facility] HospitalIn the event this information is protected by the Federal Confidentiality of Alcohol and Drug Abuse Patient Records regulations: The Federal rules restrict any use of the information to criminally investigate or prosecute any alcohol or drug abuse patient.[facility] HospitalIn the event this information is protected by the Federal Confidentiality of Alcohol and Drug Abuse Patient Records regulations: The Federal rules restrict any use of the information to criminally investigate or prosecute any alcohol or drug abuse patient.[facility] HospitalIn the event this information is protected by the Federal Confidentiality of Alcohol and Drug Abuse Patient Records regulations: The Federal rules restrict any use of the information to criminally investigate or prosecute any alcohol or drug abuse patient.[facility] HospitalIn the event this information is protected by the Federal Confidentiality of Alcohol and Drug Abuse Patient Records regulations: The Federal rules restrict any use of the information to criminally investigate or prosecute any alcohol or drug abuse patient.[facility] HospitalIn the event this information is protected by the Federal Confidentiality of Alcohol and Drug Abuse Patient Records regulations: The Federal rules restrict any use of the information to criminally investigate or prosecute any alcohol or drug abuse patient.[facility] HospitalIn the event this information is protected by the Federal Confidentiality of Alcohol and Drug Abuse Patient Records regulations: The Federal rules restrict any use of the information to criminally investigate or prosecute any alcohol or drug abuse patient.[facility] HospitalIn the event this information is protected by the Federal Confidentiality of Alcohol and Drug Abuse Patient Records regulations: The Federal rules restrict any use of the information to criminally investigate or prosecute any alcohol or drug abuse patient.[facility] HospitalIn the event this information is protected by the Federal Confidentiality of Alcohol and Drug Abuse Patient Records regulations: The Federal rules restrict any use of the information to criminally investigate or prosecute any alcohol or drug abuse patient.[facility] HospitalIn the event this information is protected by the Federal Confidentiality of Alcohol and Drug Abuse Patient Records regulations: The Federal rules restrict any use of the information to criminally investigate or prosecute any alcohol or drug abuse patient.[facility] HospitalIn the event this information is protected by the Federal Confidentiality of Alcohol and Drug Abuse Patient Records regulations: The Federal rules restrict any use of the information to criminally investigate or prosecute any alcohol or drug abuse patient.[facility] HospitalIn the event this information is protected by the Federal Confidentiality of Alcohol and Drug Abuse Patient Records regulations: The Federal rules restrict any use of the information to criminally investigate or prosecute any alcohol or drug abuse patient.[facility] HospitalIn the event this information is protected by the Federal Confidentiality of Alcohol and Drug Abuse Patient Records regulations: The Federal rules restrict any use of the information to criminally investigate or prosecute any alcohol or drug abuse patient.[facility] HospitalIn the event this information is protected by the Federal Confidentiality of Alcohol and Drug Abuse Patient Records regulations: The Federal rules restrict any use of the information to criminally investigate or prosecute any alcohol or drug abuse patient.[facility] HospitalIn the event this information is protected by the Federal Confidentiality of Alcohol and Drug Abuse Patient Records regulations: The Federal rules restrict any use of the information to criminally investigate or prosecute any alcohol or drug abuse patient.[facility] HospitalIn the event this information is protected by the Federal Confidentiality of Alcohol and Drug Abuse Patient Records regulations: The Federal rules restrict any use of the information to criminally investigate or prosecute any alcohol or drug abuse patient.[facility] HospitalIn the event this information is protected by the Federal Confidentiality of Alcohol and Drug Abuse Patient Records regulations: The Federal rules restrict any use of the information to criminally investigate or prosecute any alcohol or drug abuse patient.[facility] HospitalIn the event this information is protected by the Federal Confidentiality of Alcohol and Drug Abuse Patient Records regulations: The Federal rules restrict any use of the information to criminally investigate or prosecute any alcohol or drug abuse patient.[facility] the event this information is protected by the Federal Confidentiality of Alcohol and Drug Abuse Patient Records regulations: The Federal rules restrict any use of the information to criminally investigate or prosecute any alcohol or drug abuse patient.[facility] HospitalIn the event this information is protected by the Federal Confidentiality of Alcohol and Drug Abuse Patient Records regulations: The Federal rules restrict any use of the information to criminally investigate or prosecute any alcohol or drug abuse patient.[facility] HospitalIn the event this information is protected by the Federal Confidentiality of Alcohol and Drug Abuse Patient Records regulations: The Federal rules restrict any use of the information to criminally investigate or prosecute any alcohol or drug abuse patient.[facility]In the event this information is protected by the Federal Confidentiality of Alcohol and Drug Abuse Patient Records regulations: The Federal rules restrict any use of the information to criminally investigate or prosecute any alcohol or drug abuse patient.[facility] HospitalIn the event this information is protected by the Federal Confidentiality of Alcohol and Drug Abuse Patient Records regulations: The Federal rules restrict any use of the information to criminally investigate or prosecute any alcohol or drug abuse patient.[facility] HospitalIn the event this information is protected by the Federal Confidentiality of Alcohol and Drug Abuse Patient Records regulations: The Federal rules restrict any use of the information to criminally investigate or prosecute any alcohol or drug abuse patient.[facility] HospitalIn the event this information is protected by the Federal Confidentiality of Alcohol and Drug Abuse Patient Records regulations: The Federal rules restrict any use of the information to criminally investigate or prosecute any alcohol or drug abuse patient.[facility] HospitalIn the event this information is protected by the Federal Confidentiality of Alcohol and Drug Abuse Patient Records regulations: The Federal rules restrict any use of the information to criminally investigate or prosecute any alcohol or drug abuse patient.[facility] HospitalIn the event this information is protected by the Federal Confidentiality of Alcohol and Drug Abuse Patient Records regulations: The Federal rules restrict any use of the information to criminally investigate or prosecute any alcohol or drug abuse patient.[facility] HospitalIn the event this information is protected by the Federal Confidentiality of Alcohol and Drug Abuse Patient Records regulations: The Federal rules restrict any use of the information to criminally investigate or prosecute any alcohol or drug abuse patient.[facility] HospitalIn the event this information is protected by the Federal Confidentiality of Alcohol and Drug Abuse Patient Records regulations: The Federal rules restrict any use of the information to criminally investigate or prosecute any alcohol or drug abuse patient.[facility] HospitalIn the event this information is protected by the Federal Confidentiality of Alcohol and Drug Abuse Patient Records regulations: The Federal rules restrict any use of the information to criminally investigate or prosecute any alcohol or drug abuse patient.[facility] HospitalIn the event this information is protected by the Federal Confidentiality of Alcohol and Drug Abuse Patient Records regulations: The Federal rules restrict any use of the information to criminally investigate or prosecute any alcohol or drug abuse patient.[facility] HospitalIn the event this information is protected by the Federal Confidentiality of Alcohol and Drug Abuse Patient Records regulations: The Federal rules restrict any use of the information to criminally investigate or prosecute any alcohol or drug abuse patient.[facility] HospitalIn the event this information is protected by the Federal Confidentiality of Alcohol and Drug Abuse Patient Records regulations: The Federal rules restrict any use of the information to criminally investigate or prosecute any alcohol or drug abuse patient.[facility] HospitalIn the event this information is protected by the Federal Confidentiality of Alcohol and Drug Abuse Patient Records regulations: The Federal rules restrict any use of the information to criminally investigate or prosecute any alcohol or drug abuse patient.[facility] HospitalIn the event this information is protected by the Federal Confidentiality of Alcohol and Drug Abuse Patient Records regulations: The Federal rules restrict any use of the information to criminally investigate or prosecute any alcohol or drug abuse patient.[facility] HospitalIn the event this information is protected by the Federal Confidentiality of Alcohol and Drug Abuse Patient Records regulations: The Federal rules restrict any use of the information to criminally investigate or prosecute any alcohol or drug abuse patient.[facility] HospitalIn the event this information is protected by the Federal Confidentiality of Alcohol and Drug Abuse Patient Records regulations: The Federal rules restrict any use of the information to criminally investigate or prosecute any alcohol or drug abuse patient.[facility] HospitalIn the event this information is protected by the Federal Confidentiality of Alcohol and Drug Abuse Patient Records regulations: The Federal rules restrict any use of the information to criminally investigate or prosecute any alcohol or drug abuse patient.[facility] HospitalIn the event this information is protected by the Federal Confidentiality of Alcohol and Drug Abuse Patient Records regulations: The Federal rules restrict any use of the information to criminally investigate or prosecute any alcohol or drug abuse patient.[facility] HospitalIn the event this information is protected by the Federal Confidentiality of Alcohol and Drug Abuse Patient Records regulations: The Federal rules restrict any use of the information to criminally investigate or prosecute any alcohol or drug abuse patient.[facility] HospitalIn the event this information is protected by the Federal Confidentiality of Alcohol and Drug Abuse Patient Records regulations: The Federal rules restrict any use of the information to criminally investigate or prosecute any alcohol or drug abuse patient.[facility] HospitalIn the event this information is protected by the Federal Confidentiality of Alcohol and Drug Abuse Patient Records regulations: The Federal rules restrict any use of the information to criminally investigate or prosecute any alcohol or drug abuse patient.[facility] HospitalIn the event this information is protected by the Federal Confidentiality of Alcohol and Drug Abuse Patient Records regulations: The Federal rules restrict any use of the information to criminally investigate or prosecute any alcohol or drug abuse patient.[facility] HospitalIn the event this information is protected by the Federal Confidentiality of Alcohol and Drug Abuse Patient Records regulations: The Federal rules restrict any use of the information to criminally investigate or prosecute any alcohol or drug abuse patient.[facility] HospitalIn the event this information is protected by the Federal Confidentiality of Alcohol and Drug Abuse Patient Records regulations: The Federal rules restrict any use of the information to criminally investigate or prosecute any alcohol or drug abuse patient.[facility] HospitalIn the event this information is protected by the Federal Confidentiality of Alcohol and Drug Abuse Patient Records regulations: The Federal rules restrict any use of the information to criminally investigate or prosecute any alcohol or drug abuse patient.[facility] HospitalIn the event this information is protected by the Federal Confidentiality of Alcohol and Drug Abuse Patient Records regulations: The Federal rules restrict any use of the information to criminally investigate or prosecute any alcohol or drug abuse patient.[facility] HospitalIn the event this information is protected by the Federal Confidentiality of Alcohol and Drug Abuse Patient Records regulations: The Federal rules restrict any use of the information to criminally investigate or prosecute any alcohol or drug abuse patient.[facility] HospitalIn the event this information is protected by the Federal Confidentiality of Alcohol and Drug Abuse Patient Records regulations: The Federal rules restrict any use of the information to criminally investigate or prosecute any alcohol or drug abuse patient.[facility] HospitalIn the event this information is protected by the Federal Confidentiality of Alcohol and Drug Abuse Patient Records regulations: The Federal rules restrict any use of the information to criminally investigate or prosecute any alcohol or drug abuse patient.[facility] HospitalIn the event this information is protected by the Federal Confidentiality of Alcohol and Drug Abuse Patient Records regulations: The Federal rules restrict any use of the information to criminally investigate or prosecute any alcohol or drug abuse patient.[facility] HospitalIn the event this information is protected by the Federal Confidentiality of Alcohol and Drug Abuse Patient Records regulations: The Federal rules restrict any use of the information to criminally investigate or prosecute any alcohol or drug abuse patient.[facility] HospitalIn the event this information is protected by the Federal Confidentiality of Alcohol and Drug Abuse Patient Records regulations: The Federal rules restrict any use of the information to criminally investigate or prosecute any alcohol or drug abuse patient.[facility] HospitalIn the event this information is protected by the Federal Confidentiality of Alcohol and Drug Abuse Patient Records regulations: The Federal rules restrict any use of the information to criminally investigate or prosecute any alcohol or drug abuse patient.[facility] HospitalIn the event this information is protected by the Federal Confidentiality of Alcohol and Drug Abuse Patient Records regulations: The Federal rules restrict any use of the information to criminally investigate or prosecute any alcohol or drug abuse patient.[facility] HospitalIn the event this information is protected by the Federal Confidentiality of Alcohol and Drug Abuse Patient Records regulations: The Federal rules restrict any use of the information to criminally investigate or prosecute any alcohol or drug abuse patient.[facility] HospitalIn the event this information is protected by the Federal Confidentiality of Alcohol and Drug Abuse Patient Records regulations: The Federal rules restrict any use of the information to criminally investigate or prosecute any alcohol or drug abuse patient.[facility] HospitalIn the event this information is protected by the Federal Confidentiality of Alcohol and Drug Abuse Patient Records regulations: The Federal rules restrict any use of the information to criminally investigate or prosecute any alcohol or drug abuse patient.[facility] HospitalIn the event this information is protected by the Federal Confidentiality of Alcohol and Drug Abuse Patient Records regulations: The Federal rules restrict any use of the information to criminally investigate or prosecute any alcohol or drug abuse patient.[facility] HospitalIn the event this information is protected by the Federal Confidentiality of Alcohol and Drug Abuse Patient Records regulations: The Federal rules restrict any use of the information to criminally investigate or prosecute any alcohol or drug abuse patient.[facility] HospitalIn the event this information is protected by the Federal Confidentiality of Alcohol and Drug Abuse Patient Records regulations: The Federal rules restrict any use of the information to criminally investigate or prosecute any alcohol or drug abuse patient.[facility] HospitalIn the event this information is protected by the Federal Confidentiality of Alcohol and Drug Abuse Patient Records regulations: The Federal rules restrict any use of the information to criminally investigate or prosecute any alcohol or drug abuse patient.[facility] HospitalIn the event this information is protected by the Federal Confidentiality of Alcohol and Drug Abuse Patient Records regulations: The Federal rules restrict any use of the information to criminally investigate or prosecute any alcohol or drug abuse patient.[facility] Reason for Visit (unrecogniz ed section and content) Reason Comments No Show Specialty Diagnoses / Procedures Referred By Mouna t Referred To Contact Diagnoses PCOS (polycystic ovarian syndrome) Secondary amenorrhea Procedures CONSULT TO [facility]FERTILITY CLINIC OFFICE/OUTPATIENT [facility] 60-74 MINUTES Ruby Villalba MD [address] [place] [address] Referral ID Status Reason Start Date Expiration Date Visits Requested Visits Authorized [id number] Pending Review PCP Requested Referral Auto-Generate d [...] si nce April Reason Onset Date Comments Clinical Quality Rn - Other 10/29/2022 Resched ule appt for CPP consult Reason Comments Patient Question Reason Comments ER F/U Kidney stones Reason Comments Pelvic Pain Specialty Diagnoses / Procedures Referred By Contac t Referred To Contact Diagnoses Pelvic pain in female Abnormal uterine bleeding (AUB) Procedures CONSULT TO BUSINESS RELATIONS MANAGER PELVIC PAIN OFFICE/OUTPATIENT [facility] 60-74 MINUTES Ruby Villalba MD [address] [place] [address] Referral ID Status Reason Start Date Expiration Date Visits Requested Visits Authorized [id number] Pending Review PCP Requested Referral Auto-Generate d [...] To Contact Diagnoses na Procedures na Self [facility] Dept Referral ID Status Reason Start Date Expiration Date Visits Requested Visits Authorized [id number] Authorized Patient Cleared - Qualified 100% FAS 02/08/2023 05/09/2023 99 99 Reason Comments No Show First no show in 365 days. Reason Comments Sore Throat With drainage, runny nos x 3 days with cough x today Reason Comments Amenorrhea Reason Comments Urinary Frequency Reason Comments Appointment Reason Comments Referral Request Reason Onset Date Comments ED Outreach 05/31/2023 [facility] 05/27/23 Reason Comments ER F/U Kidney [...] had US ordered but never completed; Dr. Ocampo removed lipoma in 2020 but cysts keep popping up. Has 3 currently that are tender and bothering her, lower back, Rt posterior arm, and Lt forearm Specialty Diagnoses / Procedures Referred By Mouna goldberg Referred To Contact General Surgery / GENERAL SURGERY Diagnoses Skin cysts, generalized Procedures CONSULT TO GENERAL SURGERY OFFICE/OUTPATIENT NEW HIGH MDM 60 MINUTES QuedenKatiana APRN.HAND COLLATOR [address] [place] [id number] Arlene Waldron MD [address] [address] Referral ID Status Reason Start Date Expiration Date V isits Requested Visits Authorized [id number] Closed PCP Requested Referral 11/09/2023 02/07/2024 1 1 Reason Comments New Patient allergies Specialty Diagnoses / Procedures Referred By Contac t Referred To Contact Allergy / [facility] DEPARTMENT Diagnoses Egg allergy Procedures CONSULT TO ALLERGY/IMMUNOLOGY OFFICE/OUTPATIENT NEW HIGH MDM 60 MINUTES Eddie Bishop APRN.[address] [address] [place] [address] Referral ID Status Reason Start Date Expiration Date V isits Requested Visits Authorized [id number] Closed PCP Requested Referral 04/12/2024 04/12/2025 1 [...] OFFICE/OUTPATIENT NEW HIGH MDM 60 MINUTES Eddie Bishop APRN.HAND COLLATOR [address] [place] [id number] Liu Hauser MD [address] [place] [phone] Referral ID Status Reason Start Date Expiration Date V isits Requested Visits Authorized [id number] Closed PCP Requested Referral 04/10/2024 04/10/2025 1 [...] Onset Date Comments Vaginal Bleeding - 12/15/2024 Reason Onset Date Comments Results 01/18/2025 Pt calling and s tates her HCG is at 19 and wants to start back on the progesterone and asking if ok she was scheduled to day but woke up late rescheduled 02/22/25.Please advise Reason Comments Follow Up From ER-- Ectopic Reason Comments Follow-up 1 month f/u Reason Comments Lab & Test Results She states that she has been experiencing numbness, bradycardia, extreme fatigue, Dizziness, Brain Fog, Temp is always between 98-100, feeling cold, low appetite (seeing GI for upcoming) Reason Comments Lab Orders Reason Onset Date Comments Orders 01/05/2025 Patient calling from [facility] lab and states lab cannot see her Hcg order. Right faxed order to [facility] at [phone]. Patient had no further questions. Thank you Care Teams (unrecognized sec tion and content) Manager Program Management Relationship Specialty Start Date End Date Eddie Bishop APRN.HAND COLLATOR [address] [place] [address] PCP - General Family Practice 09/14/19 Manager Program Management Relationship Specialty Start Date End Date Eddie Bishop APRN.HAND COLLATOR [address] [place], [place] [id number] PCP - General Family Practice 09/14/19 Manager Program Management Relationship Specialty Start Date End Date Eddie Bishop APRN.HAND COLLATOR [address] [place], [place] [id number] PCP - General Family Practice 09/14/19 Manager Program Management Relationship Specialty Start Date End Date Eddei Bishop, GREENHOUSE TRANSPLANTER.HAND COLLATOR [address] [place] [address] PCP - General Family Practice 09/14/19 Manager Program Management Relationship Specialty Start Date End Date Eddie Bishop, GREENHOUSE TRANSPLANTER.HAND COLLATOR [address] [place] [address] PCP - General Family Practice 09/14/19 Manager Program Management Relationship Specialty Start Date End Date Eddie Bishop GREENHOUSE TRANSPLANTER.HAND COLLATOR [address] [facility] [place] [address] PCP - General Family Medicine 09/14/19 Manager Program Management Relationship Specialty Start Date End Date Eddie Bishop, GREENHOUSE TRANSPLANTER.HAND COLLATOR [address] [place] [address] PCP - General Family Medicine 09/14/19 Manager Program Management Relationship Specialty Start Date End Date Eddie Bishop GREENHOUSE TRANSPLANTER.HAND COLLATOR [address] [facility] [place] [address] PCP - General Family Medicine 09/14/19 Manager Program Management Relationship Specialty Start Date End Date Eddie Bishop, GREENHOUSE TRANSPLANTER.HAND COLLATOR [address] [place] [address] PCP - General Family Medicine 09/14/19 Manager Program Management Relationship Specialty Start Date End Date Eddie Bisohp, GREENHOUSE TRANSPLANTER.HAND COLLATOR [address] [place] [address] PCP - General Family Medicine 09/14/19 Manager Program Management Relationship Specialty Start Date End Date Eddie Bishop, GREENHOUSE TRANSPLANTER.HAND COLLATOR [address] [facility] [place] [address] PCP - General Family Medicine 09/14/19 Manager Program Management Relationship Specialty Start Date End Date Eddie Bishop GREENHOUSE TRANSPLANTER.HAND COLLATOR [address] [place] [address] PCP - General Family Medicine 09/14/19 Manager Program Management Relationship Specialty Start Date End Date Eddie Bishop, GREENHOUSE TRANSPLANTER.HAND COLLATOR [address] [place] [address] PCP - General Family Medicine 09/14/19 Manager Program Management Relationship Specialty Start Date End Date Eddie Bishop GREENHOUSE TRANSPLANTER.HAND COLLATOR [address] [facility] [place] [address] PCP - General Family Medicine 09/14/19 Manager Program Management Relationship Specialty Start Date End Date Eddie Bishop, GREENHOUSE TRANSPLANTER.HAND COLLATOR [address] [facility] [place] [address] PCP - General Family Medicine 09/14/19 Manager Program Management Relationship Specialty Start Date End Date Eddie Bishop, GREENHOUSE TRANSPLANTER.HAND COLLATOR [address] [facility] [place] [address] PCP - General Family Medicine 09/14/19 Manager Program Management Relationship Specialty Start Date End Date Eddie Bishop, GREENHOUSE TRANSPLANTER.HAND COLLATOR [address] [place] [address] PCP - General Family Medicine 09/14/19 Manager Program Management Relationship Specialty Start Date End Date Eddie Bishop, GREENHOUSE TRANSPLANTER.HAND COLLATOR [address] [place] [address] PCP - General Family Medicine 09/14/19 Manager Program Management Relationship Specialty Start Date End Date Eddie Bishop, GREENHOUSE TRANSPLANTER.HAND COLLATOR [address] [place] [address] PCP - General Family Medicine 09/14/19 Manager Program Management Relationship Specialty Start Date End Date Eddie Bishop GREENHOUSE TRANSPLANTER.HAND COLLATOR [address] [place] [address] PCP - General Family Medicine 09/14/19 Manager Program Management Relationship Specialty Start Date End Date Eddie Bishop GREENHOUSE TRANSPLANTER.HAND COLLATOR [address] [place] [address] PCP - General Family Medicine 09/14/19 Manager Program Management Relationship Specialty Start Date End Date Eddie Bishop GREENHOUSE TRANSPLANTER.HAND COLLATOR [address] [place] [address] PCP - General Family Medicine 09/14/19 Manager Program Management Relationship Specialty Start Date End Date Eddie Bishop GREENHOUSE TRANSPLANTER.HAND COLLATOR [address] [place] [address] PCP - General Family Medicine 09/14/19 Manager Program Management Relationship Specialty Start Date End Date Eddie Bishop GREENHOUSE TRANSPLANTER.HAND COLLATOR [address] [place] [address] PCP - General Family Medicine 09/14/19 Manager Program Management Relationship Specialty Start Date End Date Eddie Bishop GREENHOUSE TRANSPLANTER.HAND COLLATOR [address] [place] [address] PCP - General Family Medicine 09/14/19 Manager Program Management Relationship Specialty Start Date End Date Eddie Bishop GREENHOUSE TRANSPLANTER.HAND COLLATOR [address] [place] [address] PCP - General Family Medicine 09/14/19 Manager Program Management Relationship Specialty Start Date End Date Eddie Bishop, GREENHOUSE TRANSPLANTER.HAND COLLATOR [address] [place] [address] PCP - General Family Medicine 09/14/19 Manager Program Management Relationship Specialty Start Date End Date Eddie Bishop GREENHOUSE TRANSPLANTER.HAND COLLATOR [address] [place] [address] PCP - General Family Medicine 09/14/19 Manager Program Management Relationship Specialty Start Date End Date Eddie Bishop, GREENHOUSE TRANSPLANTER.HAND COLLATOR [address] [place] [address] PCP - General Family Medicine 09/14/19 Manager Program Management Relationship Specialty Start Date End Date Eddie Bishop GREENHOUSE TRANSPLANTER.HAND COLLATOR [address] [place] [address] PCP - General Family Medicine 09/14/19 Manager Program Management Relationship Specialty Start Date End Date Eddie Bishop GREENHOUSE TRANSPLANTER.HAND COLLATOR [address] [place] [address] PCP - General Family Medicine 09/14/19 Manager Program Management Relationship Specialty Start Date End Date Eddie Bishop, GREENHOUSE TRANSPLANTER.HAND COLLATOR [address] [place] [address] PCP - General Family Medicine 09/14/19 Manager Program Management Relationship Specialty Start Date End Date Eddie Bishop, GREENHOUSE TRANSPLANTER.HAND COLLATOR [address] [place] [address] PCP - General Family Medicine 09/14/19 Manager Program Management Relationship Specialty Start Date End Date Eddie Bishop, GREENHOUSE TRANSPLANTER.HAND COLLATOR [address] [place] [address] PCP - General Family Medicine 09/14/19 Manager Program Management Relationship Specialty Start Date End Date Eddie Bishop APRN.HAND COLLATOR [address] [place] [address] PCP - General Family Medicine 09/14/19 Manager Program Management Relationship Specialty Start Date End Date Eddie Bishop APRN.HAND COLLATOR [address] [place] [address] PCP - General Family Medicine 09/14/19 Manager Program Management Relationship Specialty Start Date End Date Eddie Bishop APRN.HAND COLLATOR [address] [place] [address] PCP - General Family Medicine 09/14/19 Manager Program Management Relationship Specialty Start Date End Date Eddie Bishop GREENHOUSE TRANSPLANTER.HAND COLLATOR [address] [place] [address] PCP - General Family Medicine 09/14/19 Manager Program Management Relationship Specialty Start Date End Date Eddie Bishop APRN.HAND COLLATOR [address] [place] [address] PCP - General Family Medicine 09/14/19 Manager Program Management Relationship Specialty Start Date End Date Eddie Bishop GREENHOUSE TRANSPLANTER.HAND COLLATOR [address] [place] [address] PCP - General Family Medicine 09/14/19 Manager Program Management Relationship Specialty Start Date End Date Eddie Bishop GREENHOUSE TRANSPLANTER.HAND COLLATOR [address] [place] [address] PCP - General Family Medicine 09/14/19 Manager Program Management Relationship Specialty Start Date End Date Eddie Bishop APRN.HAND COLLATOR [address] [place] [address] PCP - General Family Medicine 09/14/19 Manager Program Management Relationship Specialty Start Date End Date Eddie Bishop GREENHOUSE TRANSPLANTER.HAND COLLATOR [address] [place] [address] PCP - General Family Medicine 09/14/19 Manager Program Management Relationship Specialty Start Date End Date Eddie Bishop GREENHOUSE TRANSPLANTER.HAND COLLATOR [address] [place] [address] PCP - General Family Medicine 09/14/19 Manager Program Management Relationship Specialty Start Date End Date Eddie Bishop GREENHOUSE TRANSPLANTER.HAND COLLATOR [address] [place] [address] PCP - General Family Medicine 09/14/19 Manager Program Management Relationship Specialty Start Date End Date Eddie Bishop APRN.HAND COLLATOR [address] [place] [address] PCP - General Family Medicine 09/14/19 Manager Program Management Relationship Specialty Start Date End Date Eddie Bishop GREENHOUSE TRANSPLANTER.HAND COLLATOR [address] [place] [address] PCP - General Family Medicine 09/14/19 Manager Program Management Relationship Specialty Start Date End Date Eddie Bishop GREENHOUSE TRANSPLANTER.HAND COLLATOR [address] [place] [address] PCP - General Family Medicine 09/14/19 Manager Program Management Relationship Specialty Start Date End Date Eddie Bishop APRN.HAND COLLATOR [address] [place] [address] PCP - General Family Medicine 09/14/19 Manager Program Management Relationship Specialty Start Date End Date Eddie Bishop APRN.HAND COLLATOR [address] [place] [address] PCP - General Family Medicine 09/14/19 Manager Program Management Relationship Specialty Start Date End Date Eddie Bishop GREENHOUSE TRANSPLANTER.HAND COLLATOR [address] [place] [address] PCP - General Family Medicine 09/14/19 Manager Program Management Relationship Specialty Start Date End Date Eddie Bishop GREENHOUSE TRANSPLANTER.HAND COLLATOR [address] [place] [address] PCP - General Family Medicine 09/14/19 Manager Program Management Relationship Specialty Start Date End Date Eddie Bishop GREENHOUSE TRANSPLANTER.HAND COLLATOR [address] [place] [address] PCP - General Family Medicine 09/14/19 Manager Program Management Relationship Specialty Start Date End Date Eddie Bishop GREENHOUSE TRANSPLANTER.HAND COLLATOR [address] [place] [address] PCP - General Family Medicine 09/14/19 Manager Program Management Relationship Specialty Start Date End Date Eddie Bishop GREENHOUSE TRANSPLANTER.HAND COLLATOR [address] [place] [address] PCP - General Family Medicine 09/14/19 Manager Program Management Relationship Specialty Start Date End Date Eddie Bishop GREENHOUSE TRANSPLANTER.HAND COLLATOR [address] [place] [address] PCP - General Family Medicine 09/14/19 Manager Program Management Relationship Specialty Start Date End Date Eddie Bishop GREENHOUSE TRANSPLANTER.HAND COLLATOR [address] [place] [address] PCP - General Family Medicine 09/14/19 Manager Program Management Relationship Specialty Start Date End Date Eddie Bishop, GREENHOUSE TRANSPLANTER.HAND COLLATOR [address] [place] [address] PCP - General Family Medicine 09/14/19 Manager Program Management Relationship Specialty Start Date End Date Eddie Bishop GREENHOUSE TRANSPLANTER.HAND COLLATOR [address] [place] [address] PCP - General Family Medicine 09/14/19 Manager Program Management Relationship Specialty Start Date End Date Eddie Bishop, GREENHOUSE TRANSPLANTER.HAND COLLATOR [address] [place] [address] PCP - General Family Medicine 09/14/19 Manager Program Management Relationship Specialty Start Date End Date Eddie Bishop, GREENHOUSE TRANSPLANTER.HAND COLLATOR [address] [place] [address] PCP - General Family Medicine 09/14/19 Manager Program Management Relationship Specialty Start Date End Date Eddie Bishop, GREENHOUSE TRANSPLANTER.HAND COLLATOR [address] [place] [address] PCP - General Family Medicine 09/14/19 Manager Program Management Relationship Specialty Start Date End Date Eddie Bishop, GREENHOUSE TRANSPLANTER.HAND COLLATOR [address] [place] [address] PCP - General Family Medicine 09/14/19 Manager Program Management Relationship Specialty Start Date End Date Eddie Bishop GREENHOUSE TRANSPLANTER.HAND COLLATOR [address] [place] [address] PCP - General Family Medicine 09/14/19 Manager Program Management Relationship Specialty Start Date End Date Eddie Bishop, GREENHOUSE TRANSPLANTER.HAND COLLATOR [address] [place] [address] PCP - General Family Medicine 09/14/19 Team Status: Active Member Role/Relationship Status Dates Eddie Bishop PHARMACY SERVICE ASSOCIATE, PHARMACY SERVICE ASSOCIATE-C Primary Care Provider Active Team Status: Inactive Member Role/Relationship Status Dates Eddie Bishop PHARMACY SERVICE ASSOCIATE, PHARMACY SERVICE ASSOCIATE-C Primary Care Provider Active Start: January 24, 2025 End: January 24, 2025 Dr. Shawn Elizalde , DO Emergency Provider Active Start: January 24, 2025 End: January 24, 2025 Manager Program Management Relationship Specialty Start Date End Date Eddie Bishop GREENHOUSE TRANSPLANTER.HAND COLLATOR [address] [place] [address] PCP - General Family Medicine 09/14/19 Manager Program Management Relationship Specialty Start Date End Date Eddie Bishop, GREENHOUSE TRANSPLANTER.HAND COLLATOR [address] [place], [place] [id number] PCP - General Family Medicine 09/14/19 Manager Program Management Relationship Specialty Start Date End Date Eddie Bishop GREENHOUSE TRANSPLANTER.HAND COLLATOR [address] [facility], [place] [id number] PCP - General Family Medicine 09/14/19 Manager Program Management Relationship Specialty Start Date End Date Eddie Bishop GREENHOUSE TRANSPLANTER.HAND COLLATOR [address] [facility], [place] [address] PCP - General Family Medicine 09/14/19 Manager Program Management Relationship Specialty Start Date End Date Eddie Bishop APRN.HAND COLLATOR [address] [place] [address] PCP - General Family Medicine 09/14/19 Manager Program Management Relationship Specialty Start Date End Date Eddie Bishop APRN.HAND COLLATOR [address] [place] [address] PCP - General Family Medicine 09/14/19 Manager Program Management Relationship Specialty Start Date End Date Eddie Bishop APRN.HAND COLLATOR [address] [place] [address] PCP - General Family Medicine 09/14/19 Manager Program Management Relationship Specialty Start Date End Date Eddie Bishop APRN.HAND COLLATOR [address] [place] [address] PCP - General Family Medicine 09/14/19 Manager Program Management Relationship Specialty Start Date End Date Eddie Bishop APRN.HAND COLLATOR [address] [place] [address] PCP - General Family Medicine 09/14/19 Manager Program Management Relationship Specialty Start Date End Date Eddie Bishop GREENHOUSE TRANSPLANTER.HAND COLLATOR [address] [place] [address] PCP - General Family Medicine 09/14/19 Inactive [...] mg (COMPLETED) 25 mg, Oral, Once, On Wed01/01/25 at 1530, For 1 dose 1551 (Given - Provid er: Tigist Arango RN) methotrexate PF (Rheumatrex) chemo injection 57.5 mg (COMPLETED)(Linked Group 1) 57.5 mg (rounded from 57 mg = 25 mg/m2 2.28 m2), IntraMUSCular, Once, On 01/01/25 at 1645, For 1 dose, Syringe 1 of 2, total dose 50mg/m2 = 115 mg Hazardous Medication -- Refer to facility policy for handling and disposal. 1855 (Given - Provid er: Danielle Katz RN) methotrexate PF (Rheumatrex) chemo injection 57.5 mg (COMPLETED)(Linked Group 1) 57.5 mg (rounded from 57 mg = 25 mg/m2 2.28 m2), IntraMUSCular, Once, On 01/01/25 at 1645, For 1 dose, Syringe 2 of 2, total dose 50 mg/m2 = 115 mg Hazardous Medication -- Refer to facility policy for handling and disposal. 1855 (Given - Provid er: Danielle Katz RN) Linked Groups Order Group 1: methotrexate PF (Rheumatrex) chemo injection 57.5 mg (COMPLETED)Jump to med 57.5 mg (rounded from 57 mg = 25 mg/m2 2.28 m2), IntraMUSCular, Once, On 01/01/25 at 1645, For 1 dose, Syringe 1 of 2, total dose 50mg/m2 = 115 mg Hazardous Medication -- Refer to facility policy for handling and disposal. And methotrexate PF (Rheumatrex) chemo injection 57.5 mg (COMPLETED)Jump to med 57.5 mg (rounded from 57 mg = 25 mg/m2 2.28 m2), IntraMUSCular, Once, On 01/01/25 at 1645, For 1 dose, Syringe 2 of 2, total dose 50 mg/m2 = 115 mg Hazardous Medication -- Refer to facility policy for handling and disposal. Goals (unrecognized section and content) Goals may be documented in a n alternate section FOR RECORDS PERTAINING TO PATIENTS WHO ARE [...] BE BASED ON THE PRIMARY CLINICAL RECORDS. [facility] [employer] [facility]. provides no warranty or guarantee of the accuracy or completeness of information in this document.
[2025-04-06 05:31] LABS: Color, Urine Yellow (Yellow); Glucose, Dipstick Normal (Normal); Ketone-Dipstick Negative (Negative); Leukocyte Esterase-Dipstick 100 /ul (Negative); Mucous, Urine 0 SEEN /hpf (<or=2+); Nitrite-Dipstick Negative (Negative); Occult Blood-Urine 250 /ul (Negative); Protein-Dipstick 30 mg/dl (Negative); Specific Gravity, Urine 1.020 (1.002-1.030); Urine Bilirubin Dipstick Negative (Negative)
[2025-04-06 05:32] LABS: Hematocrit 40.0 % (37-47); Hemoglobin 14.1 g/dL (12.0-15.0); Immature Granulocytes Count 0.080 X10^3/uL (0.0-0.0); Mean Corp Hgb Conc 35.3 g/dL (32-36); Mean Corpuscular Volume 92.0 fL (81-99); Mean Platelet Vol. 9.2 fl (6.2-12.0); NRBC Flagged by Analyzer 0 % (0-5); Platelet Count 260 K/mm3 (150-450); RBC Distribution Width CV 11.7 % (11.6-14.6); RBC Distribution Width SD 39.0 fl (35.1-43.9); Red Blood Count 4.35 M/mm3 (4.2-5.4); White Blood Count 11.0 K/mm3 (4.4-11.0)
[2025-04-06] MEDS: 0.9% Normal Saline (1000mL) 1,000 ML 999 ML IV (05:34)
[2025-04-06 05:45] LABS: Red Blood Cells-Urine 50-100 SEEN /hpf (0-5); Squamous Epithelial Cells - UA 0-5 SEEN /hpf (5-10)
[2025-04-06 05:46] LABS: Internal QC Validated? YES +Cl - CLEAR BKGD; Pregnancy, Serum, hCG Quali. NEGATIVE Negative; Record Kit Lot#, Serum Preg. 0000964736
[2025-04-06 06:15] LABS: Anion Gap 11 (5-15); BUN 9 mg/dL (4-19); BUN/Creat Ratio 14.2 RATIO (10-20); Calcium,Total 9.0 mg/dL (7.6-11.0); Carbon Dioxide 23.8 mmol/L (21.0-32.0); Chloride 103 mmol/L (98-108); Estimated Creatinine Clearance 154.98 ml/min (50-250); Glucose 145 mg/dL (70-99); Potassium 3.6 mmol/L (3.3-5.1)
--- NOTE | 2025-04-06 06:35 | US_ITS ---
PROCEDURE: TRANSVAGINAL NON- 04/06/2025 REASON FOR EXAM: LEFT-SIDED PELVIC PAIN TECHNIQUE: Procedure Code: USTVAG Modality: US Procedure: TRANSVAGINAL NON- COMPARISON: Recent CT. FINDINGS: Measurements: Uterus: 9.3 x 4.5 x 4.3 cm with a volume of 95 mL. Heterogeneous appearance to the uterus. Possible uterine leiomyoma to the left 1.7 cm. Endometrial Thickness: 4 mm. Heterogeneous appearance to the endometrium with small amount of fluid. Right Ovary: 3.4 x 2.2 x 2.5 cm. Peripheral physiologic cysts normal vascular flow. Left Ovary: 2.7 x 1.8 x 1.9 cm. Normal vascular flow. Other: No free pelvic fluid. US/Transvaginal Non- IMPRESSION: Right-sided physiologic cysts. Possible left uterine leiomyoma. Reading Location: [id number]
--- NOTE | 2025-04-06 06:42 | ED.VIS.FEGU ---
HPI HPI - Female History of Present Illness Chief Complaint: Female C/O Informant: patient and spouse/S.O. Narrative Narrative: Patient is a 29-year-old female with past medical history of anxiety and depression as well as previous ectopic of December of this year. She states that she did not have a menstrual cycle for approximate month and a half following the ectopic. She states her menstrual cycle started yesterday and then this morning she awoke with cramping and rhythmic pain in the left lower abdomen. She states that her previous ectopic felt that way. She is concerned she may have a repeat ectopic based on the sensation and therefore comes in for evaluation. [facility] Medical History Depression Anxiety Home Medications Medication Instructions Recorded Last Taken Type norethindrone (contraceptive) 0.35 0.35 mg PO DAILY 06/29/24 Unknown History mg tablet (Incassia) Held on 01/24/25. Instructions: recent ectopic cholecalciferol (vitamin D3) 125 125 mcg PO DAILY 04/06/25 Unknown History mcg (5,000 unit) tablet (Vitamin D3) ferrous sulfate 325 mg (65 mg 325 mg PO QODAY 04/06/25 Unknown History iron) tablet (FeroSul) ondansetron 4 mg disintegrating 4 mg PO TID PRN nausea and 04/06/25 Unknown Rx tablet vomiting #21 tabs oxycodone-acetaminophen 5 mg-325 1 tab PO Q6H PRN pain 3 days #12 04/06/25 Unknown Rx mg tablet (Percocet) tabs Allergy/AdvReac Type Severity Reaction Status Date / Time amoxicillin Allergy Mild Vomiting Verified 04/06/25 05:08 azithromycin (From Zithromax Allergy Mild Hives Verified 04/06/25 05:08 Z-Jovanny) Penicillins (PCN) Allergy Mild Hives Verified 04/06/25 05:08 Family History no significant family his Social History Smoking Status: Current some day smoker tobacco type: e-cigarettes ROS ROS ED Constitutional Constitutional ED: Denies chills or fever(s) ENT ENT ED: Denies sore throat Cardiovascular Cardiovascular: Denies chest pain Respiratory/Chest Respiratory/Chest: Denies cough or dyspnea Gastrointestinal Gastrointestinal: Reports abdominal pain and nausea; Denies diarrhea or vomiting Genitourinary Genitourinary ED: Reports other Details: Positive vaginal bleeding ; Denies dysuria Musculoskeletal Musculoskeletal: Denies myalgias Integumentary Denies rash Neurologic Neurologic: Denies headache(s) or weakness Hematologic/Lymphatic Hematologic/Lymphatic: Denies easy bleeding or easy bruising EXAM Physical Exam Const Vital Signs: 04/06/25 05:04 04/06/25 06:57 Temperature 97.7 F L Temperature Source Oral Pulse Rate 87 62 Respiratory Rate 18 18 Blood Pressure 144/82 H 126/77 H Blood Pressure Mean 102 93 Pulse Ox 100 100 Oxygen Delivery Method Room Air Room Air Positive well nourished and well developed General Appearance ED: well developed HEENT HEENT Narrative: Normocephalic atraumatic Eyes PERRL and EOMs intact bilaterally General Eye ED: Negative for scleral icterus Neck supple Resp normal respiratory effort and clear to auscultation bilaterally Cardio regular rate and regular rhythm Rate: other Other Details: Heart is regular rate and rhythm without murmurs rubs or gallop Radial and carotid pulses are equal and symmetric GI non-distended and no masses GI Narrative: Abdomen is soft and nondistended with hypoactive bowel sounds. There is mild pain on palpation in the left lower quadrant without voluntary guarding or rigidity or pulsatile mass. No peritoneal signs. Auscultation: hypoactive bowel sounds Palpation: soft Back/Spine Back/Spine Narrative: Positive left CVA pain noted Extremity normal to inspection and full ROM Neuro oriented x3, CN's II-XII intact bilaterally and no sensory deficits noted Sensorium / Orientation: alert Psych mental status grossly normal Skin no rashes or lesions noted and no wounds Skin Narrative: Capillary refill is less than 3 seconds General Skin Exam: Negative for jaundice MDM MDM MDM Narrative Medical decision making narrative: Patient arrived to the ER with stable vitals. She reported recently beginning her menstrual cycle after a long interruption from the previous ectopic . However with the increased pain there is concern patient could have a repeat ectopic versus ovarian cyst versus ovarian torsion. There is also concern she may have a kidney stone as she also has CVA pain. Secondary to this basic labs were obtained with urine sample and initially a noncontrast CT scan to rule out stone. The patient's urine sample shows no secondary findings to suggest infection. Her test is negative going against ectopic . She does not have signs of acute blood loss anemia or acute kidney injury. CT scan revealed no intra-abdominal pathology such as colitis or kidney stone. Therefore in order to ensure there is no ovarian cyst or torsion causing her pain I did elect to perform a transvaginal ultrasound. At this time the ultrasound is still pending and therefore the patient will be signed out to the day physician. I do feel that as long as the ultrasound does not show findings consistent with torsion the patient is otherwise safe for discharge with symptomatic care. History & Record Review Discussion w/independent historian: Patient and Significant other Lab Data Attestation: I reviewed the patient's lab results. Labs: Laboratory Results - last 24 hr 04/06/25 05:18 WBC 11.0 RBC 4.35 Hgb 14.1 Hct 40.0 MCV 92.0 MCH 32.4 H MCHC 35.3 RDW Std Deviation 39.0 RDW Coeff of Luis Miguel 11.7 Plt Count 260 MPV 9.2 Immature Gran % (Auto) 0.700 Neut % (Auto) 67.3 Lymph % (Auto) 23.4 Boyle % (Auto) 7.0 Eos % (Auto) 1.1 Baso % (Auto) 0.5 Absolute Neuts (auto) 7.4 Absolute Lymphs (auto) 2.56 Nucleated RBC % 0 Sodium 138 Potassium 3.6 Chloride 103 Carbon Dioxide 23.8 Anion Gap 11 BUN 9 Creatinine 0.67 L Estim Creat Clear Calc 154.98 Est GFR (MDRD) Non-Af 121 BUN/Creatinine Ratio 14.2 Glucose 145 H Calcium 9.0 Serum , Qual NEGATIVE Urine Color Yellow Urine Clarity Cloudy Urine pH 6.0 Ur Specific [place] 1.020 Urine Protein 30 H Urine Glucose (UA) Normal Urine Ketones Negative Urine Occult Blood 250 H Urine Nitrite Negative Urine Bilirubin Negative Urine Urobilinogen Normal Ur Leukocyte Esterase 100 H Urine RBC 50-100 SEEN Urine WBC 5-10 SEEN Ur Squamous Epith Cells 0-5 SEEN Urine Bacteria RARE Urine Mucus 0 SEEN Radiography Diagnostic Testing: Clinical Impression(s) from Imaging Studies Abdomen/Pelvis CT 04/06/25 05:21 IMPRESSION: No renal calculi. No hydronephrosis. No acute pelvi-abdominal abnormalities, collections or free air. [facility] T[facility] Chief Complaint: Female C/O ED Provider: Shawn Elizalde Dx/Rx/DC Orders Clinical Impression: Pelvic pain, Menorrhagia Instructions: ED Pelvic Pain, Unknown Cause Prescriptions: New oxycodone-acetaminophen [Percocet] 5-325 mg tablet 1 tab PO Q6H PRN (Reason: pain) 3 Days Qty: 12 0RF ondansetron 4 mg tablet,disintegrating 4 mg PO TID PRN (Reason: nausea and vomiting) Qty: 21 0RF No Action norethindrone (contraceptive) [Incassia] 0.35 mg tablet 0.35 mg PO DAILY ferrous sulfate [FeroSul] 325 mg (65 mg iron) tablet 325 mg PO QODAY cholecalciferol (vitamin D3) [Vitamin D3] 125 mcg (5,000 unit) tablet 125 mcg PO DAILY Primary Care Provider: Kate Sarabia NP Referrals: Kate Sarabia NP, [employer] [Primary Care Provider, Medical] Print Language: Yoruba
[2025-04-06 06:57] VITALS: BP 126/77; PULSE 62; RESP 18; O2SAT 100
[2025-04-06 07:57] VITALS: BP 118/78; PULSE 60; RESP 17; TEMP 37.1; O2SAT 100
[2025-04-06 07:59] VITALS: BP 116/63; PULSE 60; RESP 18; TEMP 36.6; O2SAT 100
== END 2025-04-06 08:53 | disposition home or self-care (01) ==
PROVIDERS: Emergency Provider Emergency Medicine; PCP Nurse Practitioner Family; Visit Provider Emergency Medicine
DX: R10.2 Pelvic and perineal pain (principal); F41.9 Anxiety disorder, unspecified; N92.0 Excessive and frequent menstruation with regular cycle; F32.A Depression, unspecified; F17.290 Nicotine dependence, other tobacco product, uncomplicated
CPT/HCPCS: 74176; 76830; 80048; 81001; 84703; 85025; 96361; 96374; 96375; 99282; A4216; J2405